=== PATIENT | female | born 1940 | race Caucasian/White ===

== ENCOUNTER 2016-12-03 12:11 | Outpatient (CLI) | payer MEDICARE, OTHER ==
--- NOTE | 2016-12-03 20:17 | Ultrasound Report ---
EXAM: ABDOMEN ULTRASOUND EXAM DATE: 12/03/2016 02:05 PM. CLINICAL HISTORY: Abdominal pain COMPARISON: Abdomen and pelvis CT 04/28/2014. TECHNIQUE: Real-time scanning was performed with static images obtained. FINDINGS: Liver: Mildly increased in echogenicity without focal lesion. Main portal vein flow: Hepatopetal. Gallbladder: Contracted with cholelithiasis without gallbladder wall thickening or pericholecystic fl uid. Biliary System: Common bile duct measures 7 mm. No intrahepatic or extrahepatic ductal dilatation. Pancreas: Visualized portion is unremarkable. Kidneys: Right: 7.8 cm longitudinally. Diminutive without hydronephrosis. Hypoechoic lesion superior to the ki dney adjacent to the liver which may represent an adrenal lesion measuring 1.4 x 0.9 x 1.2 cm. Left: 7.9 cm longitudinally. No hydronephrosis. 1.6 cm cyst. Spleen: 7.1 cm. Normal in size and echotexture. Aorta and Inferior Vena Cava: The inferior vena cava is unremarkable. Mild atherosclerotic plaque abd ominal aorta without evidence of aneurysm. IMPRESSION: 1. Cholelithiasis with contracted gallbladder without evidence of cholecystitis. 2. Fatty infiltration of the liver. 3. Hypoechoic lesion superior to the right kidney likely represents a lesion of the adrenal gland paula suring 1.4 cm. On the 2013 CT scan note is made of a right adrenal nodule which likely correlates wit h this finding. No significant interval change. [facility] Referring Provider Line: [phone] SITE ID: [id number]
== END 2016-12-03 12:12 | disposition home or self-care (01) ==
LOC: DI 12:11
PROVIDERS: ATTEND Family Medicine
DX: K80.20 Calculus of gallbladder without cholecystitis without obstruction (principal); K76.0 Fatty (change of) liver, not elsewhere classified
CPT/HCPCS: 76700

== ENCOUNTER 2017-04-29 00:57 | Emergency (ER) | payer MEDICARE, OTHER ==
--- NOTE | 2017-04-29 02:02 | ED Physician Documentation ---
History of Present Illness - Stated complaint Stated Complaint: RT LEG PAIN - Chief complaint Chief Complaint: General - History obtained from History obtained from: Patient - History of Present Illness Timing: How many days ago (3) Pain level max: 6 Pain level now: 0 Improved by: no ameliorating factors Worsened by: no apparent inciting or exacerbating factors - Additonal information Additional information: c/o 3 days of intermittent right groin and right proximal thigh pain, mostly at night. at times she feels the pain radiate down the leg. she is concerned both about the intensity of the pain as well as whether it relates to RLE bypass she had 11 years ago Review of Systems Constitutional: denies: Fever Cardiac: denies: Reviewed and negative Respiratory: denies: Reviewed and negative GI: denies: Reviewed and negative Skin: denies: Rash Musculoskeletal: reports: Extremity pain. 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 Cardiovascular: Vascular surgery - Present Medications Home Medications: Ambulatory Orders Medication Instructions Recorded Confirmed Aspirin Chewable [[place] 81 mg PO DAILY 06/13/13 05/17/16 Aspirin] Multivitamin [Multivitamins] 1 each PO DAILY 06/13/13 05/17/16 Simvastatin [Zocor] 20 mg PO QPM 06/13/13 05/17/16 Alprazolam [Xanax] 0.25 mg PO Q4HR PRN 11/04/13 05/17/16 Levocetirizine Dihydrochloride 5 mg PO BID 04/28/14 05/17/16 Sucralfate 1 gr PO DAILY 04/28/14 05/17/16 Furosemide [Lasix] 60 mg PO DAILY 12/24/14 05/17/16 Levothyroxine [Synthroid] 25 mcg PO DAILY 12/24/14 05/17/16 Omeprazole [PriLOSEC] 20 mg PO BID 12/24/14 05/17/16 Spironolactone 50 mg PO DAILY 12/24/14 05/17/16 Ursodiol 300 mg PO BID 12/24/14 05/17/16 Colchicine [Colcrys] 0.6 mg PO DAILY 05/17/16 05/17/16 Potassium Chloride [K-Dur] 20 meq PO DAILY 05/17/16 05/17/16 Hydrocodone/Acetaminophen 1 - 2 each PO Q6HR PRN #20 tablet 04/29/17 [Hydrocodon-Acetaminophen 5-325] - Allergies Allergies/Adverse Reactions: Allergies Allergy/AdvReac Type Severity Reaction Status Date / Time No Known Drug Allergies Allergy Verified 12/24/14 18:28 - Social History Does the pt smoke?: No Smoking Status: Never smoker Does the pt drink ETOH?: No Does the pt have substance abuse?: No - Immunizations Immunizations are current?: Yes - POLST Patient has POLST: No PD ED PE NORMAL - Vitals Vital signs reviewed: Yes - General General: Alert and oriented X 3, No acute distress, Well developed/nourished - Cardiac Cardiac: RRR, No murmur - Respiratory Respiratory: No respiratory distress, Clear bilaterally - Derm Derm: Normal color, Warm and dry, No rash - Extremities Extremities: No tenderness to palpate, Normal ROM s pain, No edema, Other (RLE has visible and palpable cord structure from right groin to right proximal tibia ; there is a strong visible and palpable pulse to this cord, c/w lower extremity bypass graft or shunt. no erythema, no tenderness, no swelling. There is a strong DP and PT pulse right foot; LTS intact right foot, normal color and tactile temperature with brisk capillary refill in toes) Results - Vitals Vitals: Vital Signs - 24 hr 04/29/17 04/29/17 01:09 04:12 Temperature 36.1 C L 36.8 C Heart Rate 60 80 Respiratory 17 20 Rate Blood Pressure 117/52 L 131/82 H O2 Saturation 99 98 Oxygen O2 Source Room air - Rads (name of study) RLE venous doppler US Radiology: Prelim report reviewed, See rad report PD MEDICAL DECISION MAKING - ED course Complexity details: reviewed results, re-evaluated patient, considered differential, d/w patient, d/w family Departure - Departure Disposition: 01 Home, Self Care Clinical Impression: Leg pain, right Condition: Good Instructions: ED Muscle Pain Leg Cramps, ED Strain Muscle Ext Follow-Up: Richard Lopez MD [Primary Care Provider] - Prescriptions: Hydrocodone/Acetaminophen [Hydrocodon-Acetaminophen 5-325] 1 - 2 each PO Q6HR PRN #20 tablet PRN Reason: Pain Discharge Date/Time: 04/29/17 04:12
--- NOTE | 2017-04-29 03:29 | Ultrasound Preliminary Report ---
Exam: US DUPLEX EXT VEINS RIGHT IMPRESSION: 1. No deep venous thrombosis seen. 2. Small fluid collection at the medial knee measuring 1.6 x 0.7 x 0.9 cm. [facility] SITE ID: [id number]
--- NOTE | 2017-04-29 03:32 | Ultrasound Report ---
EXAM: RIGHT LOWER EXTREMITY VENOUS ULTRASOUND EXAM DATE: 04/29/2017 03:17 AM. CLINICAL HISTORY: Pain in the extremity. COMPARISON: None. TECHNIQUE: Real-time sonographic vascular imaging was performed by the regional sales director through the lower extremity utilizing both color-flow and Doppler spectral analysis. Multiple electronics parts sales representative static lluvia ges were saved for review. FINDINGS: Common Femoral Vein (CFV): Normal. CFV-GSV Junction: Not optimally seen. Profunda Femoral Vein (PFV): Normal. Femoral Vein (FV) Prox: Normal. Femoral Vein (FV) Mid: Normal. Femoral Vein (FV) Dist: Normal. Popliteal Vein: Normal. Posterior Tibial Veins: Not well seen. Peroneal Veins: Not well seen. Other: Small fluid collection at the medial aspect of the knee measuring 1.6 x 0.7 x 0.9 cm. IMPRESSION: 1. No deep venous thrombosis seen. 2. Small fluid collection at the medial knee measuring 1.6 x 0.7 x 0.9 cm. [facility] Referring Provider Line: [phone] SITE ID: [id number]
[2017-04-29] MEDS ORDERED: HYDROcod/ACETAM 5/325 MG TABLET PO STA (03:59)
[2017-04-29] MEDS ORDERED: HYDROcod/ACETAM 5/325 MG TABLET ONE (04:12)
[2017-04-29 04:16] VITALS: BP 131/82
== END 2017-04-29 04:12 | disposition home or self-care (01) ==
LOC: ED 00:57
DX: M79.651 Pain in right thigh (principal); R10.2 Pelvic and perineal pain; I10 Essential (primary) hypertension; I73.9 Peripheral vascular disease, unspecified; E03.9 Hypothyroidism, unspecified; K21.9 Gastro-esophageal reflux disease without esophagitis; Z87.11 Personal history of peptic ulcer disease; Z98.84 Bariatric surgery status; Z79.82 Long term (current) use of aspirin
CPT/HCPCS: 93971; 99283; A9270

== ENCOUNTER 2017-08-12 18:43 | Emergency (ER) | payer MEDICARE, OTHER ==
--- NOTE | 2017-08-12 19:05 | ED Physician Documentation ---
PD HPI UPPER EXT INJURY - Stated complaint Stated Complaint: RT SHOULDER PX - Chief complaint Chief Complaint: Ext Problem - History obtained from History obtained from: Patient - History of Present Illness Location: Right (She had recent neck surgery. She got up today too fast and fell directly onto her right shoulder and has focal right shoulder pain. There is no new neck pain or injury. No other injuries. 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 Cardiovascular: Vascular surgery - Present Medications Home Medications: Ambulatory Orders Medication Instructions Recorded Confirmed Aspirin Chewable [[place] 81 mg PO DAILY 06/13/13 05/17/16 Aspirin] Multivitamin [Multivitamins] 1 each PO DAILY 06/13/13 05/17/16 Simvastatin [Zocor] 20 mg PO QPM 06/13/13 05/17/16 Alprazolam [Xanax] 0.25 mg PO Q4HR PRN 11/04/13 05/17/16 Levocetirizine Dihydrochloride 5 mg PO BID 04/28/14 05/17/16 Sucralfate 1 gr PO DAILY 04/28/14 05/17/16 Furosemide [Lasix] 60 mg PO DAILY 12/24/14 05/17/16 Levothyroxine [Synthroid] 25 mcg PO DAILY 12/24/14 05/17/16 Omeprazole [PriLOSEC] 20 mg PO BID 12/24/14 05/17/16 Spironolactone 50 mg PO DAILY 12/24/14 05/17/16 Ursodiol 300 mg PO BID 12/24/14 05/17/16 Colchicine [Colcrys] 0.6 mg PO DAILY 05/17/16 05/17/16 Potassium Chloride [K-Dur] 20 meq PO DAILY 05/17/16 05/17/16 Hydrocodone/Acetaminophen 1 - 2 each PO Q6HR PRN #20 tablet 04/29/17 [Hydrocodon-Acetaminophen 5-325] - Allergies Allergies/Adverse Reactions: Allergies Allergy/AdvReac Type Severity Reaction Status Date / Time No Known Drug Allergies Allergy Verified 08/12/17 18:54 - Social History Does the pt smoke?: No Smoking Status: Never smoker Does the pt drink ETOH?: No Does the pt have substance abuse?: No - Immunizations Immunizations are current?: Yes - POLST Patient has POLST: No PD ED PE NORMAL - Vitals Vital signs reviewed: Yes - General General: Alert and oriented X 3, No acute distress - Neck Neck: Supple, no meningeal sign, No bony TTP, Other (She has incisions both anterior and posterior the look fine and there is absolutely no neck tenderness. ) - Extremities Extremities: Other (Focally tender to the proximal humerus on the right with limited range of motion but no other extremity tenderness.) - Neuro Neuro: Alert and oriented X 3, Normal speech - Psych Psych: Normal mood, Normal affect Results - Vitals Vitals: Vital Signs - 24 hr 08/12/17 08/12/17 18:48 19:07 Temperature 36.6 C Heart Rate 99 Respiratory 19 Rate Blood Pressure 128/105 H 136/103 H O2 Saturation 93 Oxygen O2 Source Room air - Rads (name of study) R humerus and shoulder Radiology: EMP read contemporaneously (normal) Departure - Departure Disposition: 01 Home, Self Care Clinical Impression: Contusion of right shoulder Qualifiers: Encounter type: initial encounter Qualified Code(s): S40.011A - Contusion of right shoulder, initial encounter Condition: Good Record reviewed to determine appropriate education?: Yes Instructions: ED Contusion Upper Ext Comments: Recheck with your doctor in 1 week if not improving, return if worse or if new symptoms develop. Your blood pressure was elevated today on check into the emergency department. This does not mean that you have hypertension, it is a common phenomenon to come to the emergency department and have elevated blood pressure. I recommend that you see your primary care physician within the week to have it rechecked when you are feeling better.
--- NOTE | 2017-08-12 19:42 | XRAY Report ---
EXAM: RIGHT HUMERUS RADIOGRAPHY EXAM DATE: 08/12/2017 07:27 PM. CLINICAL HISTORY: Fall. Injury. Pain. COMPARISON: None. TECHNIQUE: 2 views. FINDINGS: Bones: Normal. No fractures or bone lesions. Joints: Normal. No effusions or subluxations in the visualized shoulder or elbow joints. Soft Tissues: Normal. No soft tissue swelling. IMPRESSION: Normal humerus radiography. [facility] Referring Provider Line: [phone] SITE ID: [id number]
--- NOTE | 2017-08-12 20:00 | XRAY Report ---
EXAM: RIGHT SHOULDER RADIOGRAPHY EXAM DATE: 08/12/2017 07:52 PM. CLINICAL HISTORY: Shoulder injury. Pain. COMPARISON: None. TECHNIQUE: 3 views. FINDINGS: Bones: Normal. No fracture or bone lesion. Joints: The glenohumeral and acromioclavicular joints are normal. Soft tissues: The visualized hemithorax is unremarkable. No soft tissue swelling. IMPRESSION: Normal shoulder radiography. [facility] Referring Provider Line: [phone] SITE ID: [id number]
[2017-08-12 20:25] VITALS: BP 165/74
== END 2017-08-12 20:25 | disposition home or self-care (01) ==
LOC: ED 18:43
DX: S40.011A Contusion of right shoulder, initial encounter (principal); W18.39XA Other fall on same level, initial encounter; Y92.003 Bedroom of unspecified non-institutional (private) residence as the place of occurrence of the external cause; I10 Essential (primary) hypertension; Z98.890 Other specified postprocedural states; Z86.79 Personal history of other diseases of the circulatory system; Z79.82 Long term (current) use of aspirin
CPT/HCPCS: 99283

== ENCOUNTER 2017-12-01 13:45 | Outpatient (CLI) | payer MEDICARE, OTHER ==
--- NOTE | 2017-12-04 16:15 | Mammography Report ---
Procedure Date: 12/01/2017 Accession Number: [id number] / [id number] Procedure: MGN - Screening Mammo Dig Bilat CPT Code: FULL RESULT: EXAM: Screening Mammo Dig Bilat DATE: 12/01/2017 2:14 PM CLINICAL HISTORY: Routine screening TECHNIQUE: Bilateral CC and MLO views were obtained. COMPARISON: 04/11/2016, 11/21/2012, 08/08/1911, 07/21/10, and 07/15/2009 FINDINGS: There are scattered fibroglandular densities. No suspicious masses, clustered microcalcifications, skin thickening, or regions of architectural distortion are identified. No significant interval change. IMPRESSION: Negative. RECOMMENDATION: Routine annual screening unless otherwise clinically indicated. BIRADS CATEGORY 1. Negative. STANDARD QUALIFYING STATEMENTS: 1. This examination was reviewed with the aid of Computer-Aided Detection (CAD). 2. A negative or benign imaging report should not delay biopsy if clinically suspicious findings are present. Consider surgical consultation if warrented. More than 5% of cancers are not identified by imaging. 3. Dense breasts may obscure an underlying neoplasm.
== END 2017-12-01 13:46 | disposition home or self-care (01) ==
LOC: DI.N 13:45
PROVIDERS: ATTEND Family Medicine
DX: Z12.31 Encounter for screening mammogram for malignant neoplasm of breast (principal)
CPT/HCPCS: 77067

== ENCOUNTER 2018-03-23 14:42 | Outpatient (CLI) | payer MEDICARE, OTHER ==
--- NOTE | 2018-03-23 17:41 | Ultrasound Report ---
Reason: PAIN IN RIGHT LEG Procedure Date: 03/23/2018 Accession Number: [id number] / [id number] Procedure: US - Duplex Lwr Ext Arterial RT CPT Code: FULL RESULT: EXAM: RIGHT LOWER EXTREMITY ARTERIAL DOPPLER ULTRASOUND EXAM DATE: 03/23/2018 03:11 PM. CLINICAL HISTORY: PAIN IN RIGHT LEG. COMPARISON: None. TECHNIQUE: Real-time sonographic vascular imaging was performed by the grievance and appeals coordinator, utilizing color-flow, Doppler flow, and spectral analysis. Multiple loss prevention representative static images were saved for review. FINDINGS: Following are peak systolic velocities in centimeters per second Right common femoral artery 185 Proximal right bypass graft 121 Mid bypass graft 62 Distal bypass graft 82 Superficial femoral artery 18, but has been bypassed. Popliteal artery 65 Anterior tibial artery 30 Dorsalis pedis artery 28 Common femoral artery anastomosis 153 Distal anastomosis 54 IMPRESSION: Right lower extremity Peak systolic velocities as detailed above [facility]
== END 2018-03-23 14:43 | disposition home or self-care (01) ==
LOC: DI 14:42
PROVIDERS: ATTEND Family Medicine
DX: I73.9 Peripheral vascular disease, unspecified (principal); M79.604 Pain in right leg

== ENCOUNTER 2018-04-23 23:25 | Outpatient (CLI) | payer MEDICARE, OTHER | END 2018-04-23 23:26 | disposition critical access hospital (66) | LOC: EMS 23:25 | PROVIDERS: ATTEND Surgery | DX: M79.602 Pain in left arm (principal); W18.30XA Fall on same level, unspecified, initial encounter; Y93.01 Activity, walking, marching and hiking; Y92.003 Bedroom of unspecified non-institutional (private) residence as the place of occurrence of the external cause | CPT/HCPCS: A0425; A0429 ==

== ENCOUNTER 2018-04-23 23:43 | Inpatient (IN) | payer MEDICARE, OTHER ==
[2018-04-23] MEDS ORDERED: oxyCODONE 5 MG TABLET PO STA (23:52)
[2018-04-24] MEDS ORDERED: ONDANSETRON ODT 4 MG TABLET TL STA (00:48)
[2018-04-24] MEDS ORDERED: MORPHINE 2 MG/ML CARPUJECT IM STA (00:48)
--- NOTE | 2018-04-24 00:56 | ED Physician Documentation ---
History of Present Illness - Stated complaint Stated Complaint: GLF/L ARM PAIN - Chief complaint Chief Complaint: Trauma Ext - Additonal information Additional information: hx from pt and EMS 78 female long hx of frequent falls due to balance issues and glaucoma lives in a house with her tonight was up to get a glass of water and fell landing directly on her L arm severe pain from elbow to hand denies hitting head no [place] no neck pain no CP no AP no hip pain meds not updated in NN at this time but I reviewed the bottle brought in by EMS - mostly old bottles with no label and a name handwritten on the lid - but cant confirm what is actually in these bottles - no labeled blood thinners Pmhx from last H&P HTN GERD periph artery dz PUD HLD hypothyroid back pain 2/2 HNP hx sepsis Review of Systems Constitutional: denies: Fever Cardiac: denies: Chest pain / pressure Respiratory: denies: Dyspnea GI: denies: Abdominal Pain Musculoskeletal: reports: Extremity pain. denies: Neck pain, Back pain Neurologic: denies: Headache, Head injury Endocrine: denies: Easy bruising / bleeding Immunocompromised: denies: Immunocompromised PD PAST MEDICAL HISTORY - Past Medical History Past Medical History: Yes Cardiovascular: Hypertension, Peripheral Vascular Disease Respiratory: None Neuro: None Endocrine/Autoimmune: HyPOthyroidism GI: GERD, Ulcers, Diverticulitis, Cholelithiasis : None HEENT: Glaucoma Psych: None Musculoskeletal: None Derm: None Other Past Medical History: NEEDS ASSISTANCE WITH MOBILITY... 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 Cardiovascular: Vascular surgery - Present Medications Home Medications: Ambulatory Orders Medication Instructions Recorded Confirmed Aspirin Chewable [[place] 81 mg PO DAILY 06/13/13 05/17/16 Aspirin] Multivitamin [Multivitamins] 1 each PO DAILY 06/13/13 05/17/16 Simvastatin [Zocor] 20 mg PO QPM 06/13/13 05/17/16 Alprazolam [Xanax] 0.25 mg PO Q4HR PRN 11/04/13 05/17/16 Levocetirizine Dihydrochloride 5 mg PO BID 04/28/14 05/17/16 Sucralfate 1 gr PO DAILY 04/28/14 05/17/16 Furosemide [Lasix] 60 mg PO DAILY 12/24/14 05/17/16 Levothyroxine [Synthroid] 25 mcg PO DAILY 12/24/14 05/17/16 Omeprazole [PriLOSEC] 20 mg PO BID 12/24/14 05/17/16 Spironolactone 50 mg PO DAILY 12/24/14 05/17/16 Ursodiol 300 mg PO BID 12/24/14 05/17/16 Colchicine [Colcrys] 0.6 mg PO DAILY 05/17/16 05/17/16 Potassium Chloride [K-Dur] 20 meq PO DAILY 05/17/16 05/17/16 Hydrocodone/Acetaminophen 1 - 2 each PO Q6HR PRN #20 tablet 04/29/17 [Hydrocodon-Acetaminophen 5-325] - Allergies Allergies/Adverse Reactions: Allergies Allergy/AdvReac Type Severity Reaction Status Date / Time No Known Drug Allergies Allergy Verified 04/23/18 23:55 - Social History Does the pt smoke?: No Smoking Status: Never smoker Does the pt drink ETOH?: No Does the pt have substance abuse?: No - Immunizations Immunizations are current?: Yes - POLST Patient has POLST: No PD ED PE NORMAL - Vitals Vital signs reviewed: Yes - Cardiac Cardiac: RRR - Respiratory Respiratory: No respiratory distress - Abdomen Abdomen: Soft, Non tender - Derm Derm: Normal color - Extremities Extremities: Other (swelling and bruising to elbow, seere TTP elbow FA wrist and less so hand, upper arm shoulder clavicle do not seem tender, + radial and ulnar pulses, + cp refill, + sensation, can wiggle fingers but full strength assessment limited by severe pain) - Neuro Neuro: Alert and oriented X 3, No motor deficit, No sensory deficit, Normal speech Results - Vitals Vitals: Vital Signs - 24 hr 04/23/18 04/23/18 04/24/18 23:40 23:51 00:07 Temperature 36.4 C L Heart Rate 97 Respiratory 17 17 17 Rate Blood Pressure 107/96 H 157/131 H O2 Saturation 99 100 04/24/18 04/24/18 04/24/18 00:59 01:37 02:22 Temperature Heart Rate 70 Respiratory 16 16 16 Rate Blood Pressure 127/80 O2 Saturation 100 04/24/18 04/24/18 04/24/18 03:00 03:14 03:26 Temperature Heart Rate 80 72 Respiratory 19 17 16 Rate Blood Pressure 96/79 O2 Saturation 100 95 04/24/18 04:07 Temperature Heart Rate 80 Respiratory 16 Rate Blood Pressure O2 Saturation 96 Oxygen O2 Source Room air - Labs Labs: Laboratory Tests 04/24/18 04/24/18 02:18 02:18 WBC 9.4 RBC 3.31 L Hgb 10.6 L Hct 31.6 L MCV 95.5 MCH 32.2 H MCHC 33.7 RDW 17.7 H Plt Count 254 MPV 8.9 Neut # (Auto) 6.8 H Lymph # (Auto) 1.7 [place] # (Auto) 0.8 Eos # (Auto) 0.0 Baso # (Auto) 0.1 Absolute Nucleated RBC 0.00 Nucleated RBC % 0.0 Sodium 128 L Potassium 3.7 Chloride 94 L Carbon Dioxide 22 Anion Gap 12.0 BUN 27 H Creatinine 1.2 H Estimated GFR (MDRD) 44 L Glucose 84 Calcium 8.7 - Rads (name of study) elbow Radiology: See rad report (cominuted distal humeral fx, approx 3 cm proximal to elbow, 60 degress or angulation and 4 cm of foreshortening) FA Radiology: See rad report (distal humerus fx, no FA fx) wrist Radiology: See rad report (no fx) Procedures - Splint (location) LUE Splint applied by: Physician, Nurse, Tech Type of splint: Fiberglass, Long arm Other: No complications, Neurovascular intact, Sling provided, Other (after several doses of IV morphine and with the assistance of several staff members to support pts arm, able to placed pt in a well padded long arm posterior splint, it was still painful but she was able to tolerate, spling provided, MSV intact after splint placement) PD MEDICAL DECISION MAKING - ED course ED course: serial exams pt is still MSV intact paged Dr Milly delgado at 130AM he reviewed the images he advises that pt will need surgery - but cannot have surgery at [facility] today 04/24 because we do not have the hardware and it will have to be ordered and sterilized etc - would be available Wed probably - he suggests that maybe pt can be splinted and dced to follow up in office for surgery within next 1-2 weeks I really do not see how this pt can be dced home - she is in terrific pain unable to be controlled with PO oxycodone, IM morphine and IV morphine X 3 doses (6 mg) - furthermore she is very fragile and unstable and needs to hold on to furniture etc to keep herself from falling which she will be unable to do if her arm is immobilized so she will not be safe at home so called [facility] and spoke to ortho cotton picker there - similar situation as [facility] - he can do the surgery but will need to order the hardware so not before Wed - furthermore he advises that in similar situation of unsafe to dc home and intractable pain, pts are sometimes admitted at that facility I also tried Prov Reuben - no beds and spoke to pt and about [facility] [place] [facility] but they are very upset about this as cannot drive to be with her there so basically severe comminuted angulated displaced foreshortened L humerus fx in a frail 78 female who needs both arms to prevent further falls and whose pain is uncontrolled by PO IM and IV narcotics and immobilization since Susy has same resources for this pt as [facility] (ortho who can do the surgery when hardware available in 2 days) does not seem useful to transfer pt at this time discussed with [facility] hospitalist Dr Macias who advises pts can be admitted for intractable pain - he will place pt in obspending hardware and surgery - or worse case scenerio, if surgery cannot be managed in that time frame, for SW to assist with SNF placement for safety and pain until such time as surgery can be done mild anemia and renal insuff not new, low Na noted - pt getting NS Departure - Departure Disposition: ED Place in Observation Clinical Impression: Intractable pain, Hyponatremia, Renal insufficiency Humerus fracture Qualifiers: Encounter type: initial encounter Humerus Location: distal Fracture type: closed Fracture morphology: other fracture Fracture alignment: displaced Laterality: left Qualified Code(s): S42.492A - Other displaced fracture of lower end of left humerus, initial encounter for closed fracture Fall Qualifiers: Encounter type: initial encounter Qualified Code(s): W19.XXXA - Unspecified fall, initial encounter Anemia Qualifiers: Anemia type: unspecified type Qualified Code(s): D64.9 - Anemia, unspecified Condition: Good
--- NOTE | 2018-04-24 01:21 | XRAY Report ---
Reason: fall Procedure Date: 04/24/2018 Accession Number: [id number] / [id number] Procedure: XR - Elbow 3 View LT CPT Code: FULL RESULT: EXAM: LEFT ELBOW RADIOGRAPHY EXAM DATE: 04/24/2018 12:21 AM. CLINICAL HISTORY: Fall. COMPARISON: None. TECHNIQUE: 3 views. FINDINGS: Bones: There is a comminuted fracture of the distal humeral shaft, with approximately 4 cm foreshortening and anterior angulation. Joints: Normal. No effusion. No subluxation. Soft Tissues: Large amount of soft tissue swelling. IMPRESSION: Comminuted distal humeral shaft fracture, with foreshortening and angulation. [facility]
--- NOTE | 2018-04-24 01:22 | XRAY Report ---
Reason: fall Procedure Date: 04/24/2018 Accession Number: [id number] / [id number] Procedure: XR - Forearm LT CPT Code: FULL RESULT: EXAM: LEFT FOREARM RADIOGRAPHY EXAM DATE: 04/24/2018 12:21 AM. CLINICAL HISTORY: Fall. COMPARISON: None. TECHNIQUE: 2 views. FINDINGS: Bones: Humeral fracture, better seen on elbow films. No forearm fracture is appreciated. Joints: Normal. No effusions or subluxations in the visualized wrist or elbow joints. Soft Tissues: Vascular calcifications. IMPRESSION: Distal humeral fracture, better seen on elbow films. No evidence of fracture in the forearm. [facility]
--- NOTE | 2018-04-24 01:23 | XRAY Report ---
Reason: fall Procedure Date: 04/24/2018 Accession Number: [id number] / [id number] Procedure: XR - Wrist 4 View LT CPT Code: FULL RESULT: EXAM: LEFT WRIST RADIOGRAPHY EXAM DATE: 04/24/2018 01:03 AM. CLINICAL HISTORY: Fall. COMPARISON: None. TECHNIQUE: 4 views. FINDINGS: Bones: Normal. No fractures or bone lesions. Joints: Osteoarthritis of the first carpometacarpal joint. Soft Tissues: Vascular calcifications. IMPRESSION: Osteoarthritis, but no evidence of acute fracture. RADIA
[2018-04-24] MEDS ORDERED: MORPHINE 2 MG/ML CARPUJECT IVP STA ×4 (01:41→04:51)
[2018-04-24] MEDS ORDERED: SODIUM CHLORIDE 0.9% 1,000 ML IV ONE (01:43)
[2018-04-24 02:24] LABS: BASOPHILS # (AUTO) 0.1 10^3/uL (0.0-0.1); BASOPHILS % (AUTO) 0.7 %; HGB - HEMOGLOBIN 10.6 g/dL (12.0-16.0); LYMPHOCYTES # (AUTO) 1.7 10^3/uL (1.5-3.5); LYMPHOCYTES % (AUTO) 18.2 %; MEAN CORPUSCULAR HEMOGLOBIN 32.2 pg (27.0-31.0); MEAN CORPUSCULAR HGB CONC 33.7 g/dL (32.0-36.0); MEAN CORPUSCULAR VOLUME 95.5 fL (81.0-99.0); MEAN PLATELET VOLUME 8.9 fL (7.9-10.8); MONOCYTES # (AUTO) 0.8 10^3/uL (0.0-1.0); MONOCYTES % (AUTO) 8.8 %; NEUTROPHILS # (AUTO) 6.8 10^3/uL (1.5-6.6); NEUTROPHILS % (AUTO) 72.3 %; PLT - PLATELET COUNT 254 10^3/uL (130-450); RED BLOOD COUNT 3.31 10^6/uL (4.20-5.40); RED CELL DISTRIBUTION WIDTH 17.7 % (12.0-15.0); WHITE BLOOD COUNT 9.4 x10^3/uL (4.8-10.8)
[2018-04-24 02:33] LABS: CALCIUM 8.7 mg/dL (8.5-10.3); CREATININE 1.2 mg/dL (0.4-1.0)
[2018-04-24] MEDS ORDERED: MORPHINE 2 MG/ML CARPUJECT ONE (02:56)
[2018-04-24] MEDS ORDERED: ONDANSETRON 4 MG/2 ML VIAL IVP PRN (04:01)
[2018-04-24] MEDS ORDERED: oxyCODONE 5 MG TABLET PO PRN ×2 (04:01)
[2018-04-24] MEDS ORDERED: PROMETHAZINE 25 MG/1 ML VIAL IM PRN (04:01)
[2018-04-24] MEDS ORDERED: ZOLPIDEM 5 MG TABLET PO PRN (04:01)
[2018-04-24] MEDS ORDERED: PROCHLORPERAZINE 10 MG/2 ML VIAL IVP PRN (04:01)
[2018-04-24] MEDS ORDERED: ACETAMINOPHEN 325 MG TABLET PO PRN (04:01)
--- NOTE | 2018-04-24 04:09 | HISTORY & PHYSICAL EXAMINATION ---
Chief Complaint - Chief Complaint Chief Complaint: Fall History of Present Illness - Admitted From Admitted From:: Emergency department - History Obtained From Records Reviewed: Yes History obtained from: Patient Exam Limitations: None - History of Present Illness HPI Comment/Other: Patient is a 78-year-old female with a past medical history significant for hypertension, GERD, peripheral arterial disease status post bypass in the right lower extremity, peptic ulcer disease with perforated ulcer status post Billroth II procedure in 2005, hyperlipidemia, chronic back pain secondary to herniated disks, seasonal allergies, hypothyroidism and progressively worsening glaucoma who presented to the emergency department after a fall at home. The patient states that she has had 9 falls in the last 3 years. She states that tonight was getting ready for bed and turn off the TV then got up to get a glass of water. She states that she was able to get the glass of water but then upon returning to her bed she fell onto her left arm. She states that she fell awkwardly and initially did not realize she had heard it but when she tried to get up she heard 2 loud cracks and then had severe left arm pain. She states that she was unable to get up as she could not move that left arm. She states that she called out for her who was in another room sleeping with his sleep apnea machine. She realized that he would not be able to hear her so then she tried to call for her son who lives in an RV next to their home. Finally her woke up and was able to get to her and call 911. The patient states that she did not lose consciousness and remembers the entire fall. She states that she has been having issues with her balance and likely lost her balance she does not remember tripping over anything. She also states that she has really bad glaucoma and has been having difficulty with her vision. She states that she does have a walker at home but was not using it tonight. She states that she just had a fall recently where she dislocated her right shoulder and now is unable to raise that right arm above her head. Patient denies any headaches, runny nose, sore throat, nasal congestion, difficulty swallowing, chest pain, shortness of air, orthopnea, PND, cough, fevers, chills, abdominal pain, nausea, vomiting, diarrhea, constipation, urinary urgency, urinary frequency, dysuria, neck stiffness, recent unintentional weight loss, changes in her appetite, skin rash, polyuria, polydipsia, dizziness, night sweats or any focal neurologic deficits. On presentation to the emergency department the patient was afebrile but she was tachycardic with a heart rate of 97 and hypertensive with a blood pressure of 157/31. She appeared to be in severe pain and had a deformity of her left arm. The patient's left arm was placed in a sling and the patient was given IV pain medication in the emergency department. The patient underwent routine lab work which revealed a mild hyponatremia with a sodium of 128, mildly elevated creatinine of 1.2 which was at her baseline. Hemoglobin of 10.6 which was near her baseline. Otherwise remainder of the lab work was within normal limits. The patient also underwent x-ray of her forearm wrist and elbow. The forearm x- ray revealed a comminuted distal humeral shaft fracture with foreshortening and angulation. The emergency room physician spoke with the orthopedic surgeon assistant gm of content & delivery Dr. Atkins who stated that the patient's humeral fracture does require surgical intervention however it would take 2 days to get the equipment to the hospital to perform the surgery. The emergency room physician spoke with orthopedic surgery at [facility] and the orthopedic surgeons there stated that even at their hospital it would take several days to get the equi pment and that the patient should be admitted to the hospital here at [facility] since the surgery would take place around the same time no matter which hospital she went to. The patient continued to have severe pain and despite several doses of IV pain medication we were unable to control her pain in the emergency department. The patient was placed in observation for intractable pain and will get an orthopedic surgery consultation in the morning. History - Past Medical History Cardiovascular: reports: Hypertension, Peripheral Vascular Disease (Status post right lower extremity bypass) Respiratory: reports: None Neuro: reports: None Endocrine/Autoimmune: reports: HyPOthyroidism GI: reports: GERD, Ulcers (Peptic ulcer disease with perforated ulcer status post Billroth II procedure in 2005), Diverticulitis, Cholelithiasis, Other (History of choledocholithiasis) : reports: None, Renal insuffiency (CKD stage III) HEENT: reports: Glaucoma Psych: reports: None Musculoskeletal: reports: Chronic back pain (2 herniated disks) Derm: reports: None MRSA Hx?: No Other Past Medical History: NEEDS ASSISTANCE WITH MOBILITY... - Past Surgical History General: reports: Gastric surgery /[employer]: reports: Hysterectomy Cardiovascular: reports: Vascular surgery - Family & Social History Family History: Mother: , CVA/TIA, Father: , Cancer (Colon cancer), Sister: [place] (Sister had [place] at 53) Living arrangement: At home Living Situation: With spouse/s.o. Social History Notes: The patient is originally from [place]. She has been to her for 57 years. Her was in the [place] and that is what brought them to [place]. They have been living in [place] ever since. Patient has 3 children 2 sons and 1 daughter. 2 of her children live in [place]. 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 She is a former smoker smoked 1 pack a day for more than 40 years but quit in 2005. She denies any alcohol or illicit drug use. - POLST Patient has POLST: No POLST Status: Full Code Meds/Allgy - Home Medications Home Medications: Ambulatory Orders Medication Instructions Recorded Confirmed Aspirin Chewable [[place] 81 mg PO DAILY 06/13/13 05/17/16 Aspirin] Multivitamin [Multivitamins] 1 each PO DAILY 06/13/13 05/17/16 Simvastatin [Zocor] 20 mg PO QPM 06/13/13 05/17/16 Alprazolam [Xanax] 0.25 mg PO Q4HR PRN 11/04/13 05/17/16 Levocetirizine Dihydrochloride 5 mg PO BID 04/28/14 05/17/16 Sucralfate 1 gr PO DAILY 04/28/14 05/17/16 Furosemide [Lasix] 60 mg PO DAILY 12/24/14 05/17/16 Levothyroxine [Synthroid] 25 mcg PO DAILY 12/24/14 05/17/16 Omeprazole [PriLOSEC] 20 mg PO BID 12/24/14 05/17/16 Spironolactone 50 mg PO DAILY 12/24/14 05/17/16 Ursodiol 300 mg PO BID 12/24/14 05/17/16 Colchicine [Colcrys] 0.6 mg PO DAILY 05/17/16 05/17/16 Potassium Chloride [K-Dur] 20 meq PO DAILY 05/17/16 05/17/16 Hydrocodone/Acetaminophen 1 - 2 each PO Q6HR PRN #20 tablet 04/29/17 [Hydrocodon-Acetaminophen 5-325] - Allergies Allergies/Adverse Reactions: Allergies Allergy/AdvReac Type Severity Reaction Status Date / Time No Known Drug Allergies Allergy Verified 04/23/18 23:55 Review of Systems - Other Findings Other Findings: A comprehensive review of systems was performed the pertinent positives and negatives are stated above in the HPI and the remainder of the review of systems is negative. Prior Level of Functionality: The patient is independent and able to perform all her activities of daily living independently but has had frequent falls and requires assistance with ambulation in the emergency department. Exam - Vital Signs Reviewed Vital Signs: Yes Vital Signs: Vital Signs x48h Temp Pulse Resp BP Pulse Ox 04/24/18 03:26 72 16 96/79 95 04/24/18 03:14 17 04/24/18 03:00 80 19 100 04/24/18 02:22 16 04/24/18 01:37 70 16 127/80 100 04/24/18 00:59 16 04/24/18 00:07 17 04/23/18 23:51 36.4 C L 97 17 157/131 H 100 04/23/18 23:40 17 107/96 H 99 - Physical Exam General Appearance: positive: Alert, Moderate distress (Secondary to pain in the left arm) Eyes Bilateral: positive: Normal inspection, PERRL, EOMI, No lid inflammation, Conjunctivae nml, No scleral icterus ENT: positive: ENT inspection nml, Pharynx nml, Dry mucous membranes. negative: Purulent nasal drainage, Pharyngeal erythema, Oral lesions Neck: positive: Nml inspection, Thyroid nml, No JVD, Trachea midline. negative: Lymphadenopathy (R), Lymphadenopathy (L), Carotid bruit, Tracheal deviation Respiratory: positive: Chest non-tender, No respiratory distress, Breath sounds nml. negative: Wheezes, Rales, Rhonchi Cardiovascular: positive: Regular rate & rhythm, No murmur, No gallop Peripheral Pulses: positive: 2+ Abdomen: positive: Non-tender, No organomegaly, Nml bowel sounds, No distention. negative: Guarding, Rebound, Hepatomegaly Back: positive: Nml inspection. negative: CVA tenderness (R), CVA tenderness (L) Skin: positive: Color nml, No rash, Warm, Dry. negative: Cyanosis, Diaphoresis, Pallor Extremities: positive: No pedal edema, Other (Patient has a sling on her left arm and has very limited range of motion secondary to severe pain on movement of her left arm. The patient does have obvious fracture with deformity. She also has limited range of motion on her right arm.) Neurologic/Psychiatric: positive: Oriented x3, CN's nml (2-12), Motor nml, Sensation nml, Mood/affect nml Conclusion/Plan - Problem List (1) Intractable pain Conclusion/Plan: The patient presents after a fall where she landed on her left arm. The patient suffered a comminuted distal humeral shaft fracture and has deformity of her left arm. Secondary to the fracture the patient has severe pain despite being placed in a sling. Patient received multiple doses of IV morphine in the emergency department without control of her pain. The patient is being placed in observation for intractable pain secondary to her humeral shaft fracture. Plan: IV morphine every 2 hours as needed for pain PT and OT consultation Orthopedic consultation Social work consultation for possible placement or assistance at home as patient currently would be unable to safely go home. (2) Humerus fracture Conclusion/Plan: Patient presents the emergency department after a fall. The patient has had multiple falls in the last 3 years. She had a fall just a week ago where she dislocated her right shoulder. This time the patient fell on her left arm and now has a comminuted distal left humeral fracture with displacement. Plan: Pain control with IV morphine Orthopedic consult for surgical repair of the left humerus IV fluids PT/OT consultation Social work consultation Continue sling Qualifiers: Encounter type: initial encounter Humerus Location: distal Fracture type: closed Fracture morphology: other fracture Fracture alignment: displaced Laterality: left Qualified Code(s): S42.492A - Other displaced fracture of lower end of left humerus, initial encounter for closed fracture (3) Hypertension Conclusion/Plan: The patient has a history of hypertension however on presentation the patient's blood pressure is severely elevated secondary to her pain. Once pain was controlled the patient's blood pressure was much improved. Patient will be continued on her home antihypertensive medications. We will continue to monitor her blood pressure and titrate medications as needed. Qualifiers: Hypertension type: essential hypertension Qualified Code(s): I10 - Essential (primary) hypertension (4) Hyponatremia Conclusion/Plan: On presentation to the emergency department the patient does have hyponatremia with a sodium of 128. She complains of dry mouth and appears to be dry on examination. The patient will be given IV fluids and we will continue to monitor her sodium as she appears to have hypovolemic hyponatremia. (5) Fall Conclusion/Plan: The patient has a history of multiple falls over the last few years. She has had 2 falls in the last few weeks initially with a shoulder on her initial fall and now has a broken arm. The patient needs to use her walker at home but has not been doing so. She will need physical therapy, occupational therapy and social work consults while she is hospitalized. She also needs to be on vitamin D and calcium to protect against osteoporosis. Qualifiers: Encounter type: initial encounter Qualified Code(s): W19.XXXA - Unspecified fall, initial encounter (6) Hypothyroidism Conclusion/Plan: The patient has a history of hypothyroidism and is on levothyroxine at home. The patient does not show any acute signs of hypothyroidism. She will be continued on her home dose of levothyroxine and we will check a TSH in the morning. Qualifiers: Hypothyroidism type: unspecified Qualified Code(s): E03.9 - Hypothyroidism, unspecified (7) Chronic back pain Conclusion/Plan: The patient has a history of chronic back pain and uses Vicodin at home. The patient will be placed on morphine here as she has intractable pain in her arm which should also work with her back pain. Currently the patient denies any back pain. Qualifiers: Back pain location: back pain in unspecified location Back pain laterality: unspecified Qualified Code(s): M54.9 - Dorsalgia, unspecified; G89.29 - Other chronic pain (8) Hyperlipidemia Conclusion/Plan: The patient has a history of hyperlipidemia and is on statin at home. We will continue the patient's home dose of statin while she is hospitalized. Qualifiers: Hyperlipidemia type: unspecified Qualified Code(s): E78.5 - Hyperlipidemia, unspecified (9) CKD (chronic kidney disease), stage III Conclusion/Plan: The patient has CKD stage III. On presentation the patient's creatinine is 1.2 which is right around her baseline. The patient does appear to be dry on examination and does have a slightly elevated BUN. She will be given IV fluids while she is hospitalized. We will continue to monitor her creatinine and avoid any nephrotoxic agents. (10) GERD (gastroesophageal reflux disease) Conclusion/Plan: The patient has a history of GERD and is on Prilosec at home. While the patient is hospitalized here she will be given daily Protonix. Qualifiers: Esophagitis presence: without esophagitis Qualified Code(s): K21.9 - Gastro-esophageal reflux disease without esophagitis - Lab Results Lab results reviewed: Yes Fish Bones: 04/24/18 02:18 04/24/18 02:18 - Diagnostic Imaging Results Diagnostic Imaging Results: positive: Final report reviewed Diagnostic Imaging Results Comments: Laboratory Results WBC 9.4 x10^3/uL (4.8-10.8) 04/24/18 02:18 RBC 3.31 10^6/uL (4.20-5.40) L 04/24/18 02:18 Hgb 10.6 g/dL (12.0-16.0) L 04/24/18 02:18 Hct 31.6 % (37.0-47.0) L 04/24/18 02:18 MCV 95.5 fL (81.0-99.0) 04/24/18 02:18 MCH 32.2 pg (27.0-31.0) H 04/24/18 02:18 MCHC 33.7 g/dL (32.0-36.0) 04/24/18 02:18 RDW 17.7 % (12.0-15.0) H 04/24/18 02:18 Plt Count 254 10^3/uL (130-450) 04/24/18 02:18 MPV 8.9 fL (7.9-10.8) 04/24/18 02:18 Neut # (Auto) 6.8 10^3/uL (1.5-6.6) H 04/24/18 02:18 Lymph # (Auto) 1.7 10^3/uL (1.5-3.5) 04/24/18 02:18 [place] # (Auto) 0.8 10^3/uL (0.0-1.0) 04/24/18 02:18 Eos # (Auto) 0.0 10^3/uL (0.0-0.7) 04/24/18 02:18 Baso # (Auto) 0.1 10^3/uL (0.0-0.1) 04/24/18 02:18 Absolute Nucleated RBC 0.00 x10^3/uL 04/24/18 02:18 Nucleated RBC % 0.0 /100WBC 04/24/18 02:18 Sodium 128 mmol/L (135-145) L 04/24/18 02:18 Potassium 3.7 mmol/L (3.5-5.0) 04/24/18 02:18 Chloride 94 mmol/L (101-111) L 04/24/18 02:18 Carbon Dioxide 22 mmol/L (21-32) 04/24/18 02:18 Anion Gap 12.0 (6-13) 04/24/18 02:18 BUN 27 mg/dL (6-20) H 04/24/18 02:18 Creatinine 1.2 mg/dL (0.4-1.0) H 04/24/18 02:18 Estimated GFR (MDRD) 44 (>89) L 04/24/18 02:18 Glucose 84 mg/dL (70-100) 04/24/18 02:18 Calcium 8.7 mg/dL (8.5-10.3) 04/24/18 02:18 Elbow x-ray Impression: Comminuted distal humeral shaft fracture, with foreshortening and angulation. Forearm x-ray Impression: Distal humeral fracture. Better seen on elbow films. No evidence of fracture in the forearm. Wrist x-ray Impression: Osteoarthritis, but no evidence of acute fracture. - EKG Results EKG Interpreted Independently: Yes Core Measures - Anticipated LOS I expect patient to be DC'd or transferred within 96 hours.: Yes - DVT/VTE - Prophylaxis VTE/DVT Device ordered at admit?: Yes
[2018-04-24 06:38] LABS: BASOPHILS # (AUTO) 0.1 10^3/uL (0.0-0.1); BASOPHILS % (AUTO) 0.5 %; HGB - HEMOGLOBIN 10.5 g/dL (12.0-16.0); LYMPHOCYTES # (AUTO) 2.3 10^3/uL (1.5-3.5); LYMPHOCYTES % (AUTO) 18.9 %; MEAN CORPUSCULAR HGB CONC 33.4 g/dL (32.0-36.0); MEAN CORPUSCULAR VOLUME 95.9 fL (81.0-99.0); MEAN PLATELET VOLUME 8.9 fL (7.9-10.8); MONOCYTES % (AUTO) 8.7 %; NEUTROPHILS # (AUTO) 8.7 10^3/uL (1.5-6.6); NEUTROPHILS % (AUTO) 71.9 %; PLT - PLATELET COUNT 269 10^3/uL (130-450); RED BLOOD COUNT 3.29 10^6/uL (4.20-5.40); RED CELL DISTRIBUTION WIDTH 17.3 % (12.0-15.0)
[2018-04-24 06:52] LABS: ALBUMIN 3.8 g/dL (3.2-5.5); ALBUMIN/GLOBULIN RATIO 1.6 (1.0-2.2); BILIRUBIN,TOTAL 1.2 mg/dL (0.2-1.0); CALCIUM 8.8 mg/dL (8.5-10.3); CREATININE 1.1 mg/dL (0.4-1.0); MAGNESIUM 1.8 mg/dL (1.7-2.8); TOTAL PROTEIN 6.2 g/dL (6.7-8.2)
[2018-04-24] MEDS: SODIUM CHLORIDE 0.9% 1,000 ML IV SCH ×2 (07:25→17:21)
[2018-04-24] MEDS: SODIUM CHLORIDE FLUSH 0.9% 10 ML SYRINGE IVP PRN (07:25)
[2018-04-24] MEDS: MORPHINE 2 MG/ML CARPUJECT IVP PRN ×2 (07:26→09:09)
[2018-04-24] MEDS: SODIUM CHLORIDE FLUSH 0.9% 10 ML SYRINGE IVP SCH ×2 (07:38→17:17)
--- NOTE | 2018-04-24 08:26 | PROVIDER PROGRESS NOTE ---
Subjective - Prog Note Date Prog Note Date: 04/24/18 Prog Note Time: 08:23 - Subjective Pt reports feeling: Worse (Patient S[facility] a GLF at home, sustaining a left nondominant supracondylar humerus fracture. No LOC or other injury. No prior elbow fracture. No distal weakness/numbness) Objective - Vital Signs/Intake & Output Vital Signs: Vital Signs x48h Temp Pulse Pulse Resp BP BP Pulse Ox 04/24/18 06:56 36.9 C 72 20 149/58 H 100 04/24/18 06:18 76 18 121/58 L 100 04/24/18 05:41 16 04/24/18 05:35 73 16 109/83 H 99 04/24/18 04:42 82 17 136/52 H 96 04/24/18 04:07 80 16 96 04/24/18 03:26 72 16 96/79 95 04/24/18 03:14 17 04/24/18 03:00 80 19 100 04/24/18 02:22 16 04/24/18 01:37 70 16 127/80 100 04/24/18 00:59 16 Intake & Output: Intake & Output 04/22/18 04/22/18 04/23/18 04/24/18 00:59 23:59 23:59 23:59 Intake Total 897.5 Balance 897.5 - Lab Results Fish Bones: 04/24/18 06:28 04/24/18 06:28 Other Labs: Lab Results x24hrs 04/24/18 04/24/18 04/24/18 Range/Units 06:28 06:28 06:28 WBC 12.0 H (4.8-10.8) x10^3/uL RBC 3.29 L (4.20-5.40) 10^6/uL Hgb 10.5 L (12.0-16.0) g/dL Hct 31.5 L (37.0-47.0) % MCV 95.9 (81.0-99.0) fL MCH 32.0 H (27.0-31.0) pg MCHC 33.4 (32.0-36.0) g/dL RDW 17.3 H (12.0-15.0) % Plt Count 269 (130-450) 10^3/uL MPV 8.9 (7.9-10.8) fL Neut # (Auto) 8.7 H (1.5-6.6) 10^3/uL Lymph # (Auto) 2.3 (1.5-3.5) 10^3/uL [place] # (Auto) 1.0 (0.0-1.0) 10^3/uL Eos # (Auto) 0.0 (0.0-0.7) 10^3/uL Baso # (Auto) 0.1 (0.0-0.1) 10^3/uL Absolute Nucleated RBC 0.02 x10^3/uL Nucleated RBC % 0.2 /100WBC Sodium 131 L (135-145) mmol/L Potassium 3.7 (3.5-5.0) mmol/L Chloride 96 L (101-111) mmol/L Carbon Dioxide 21 (21-32) mmol/L Anion Gap 14.0 H (6-13) BUN 24 H (6-20) mg/dL Creatinine 1.1 H (0.4-1.0) mg/dL Estimated GFR (MDRD) 48 L (>89) Glucose 77 (70-100) mg/dL Lactic Acid 1.0 (0.5-2.2) mmol/L Calcium 8.8 (8.5-10.3) mg/dL Phosphorus 3.0 (2.5-4.6) mg/dL Magnesium 1.8 (1.7-2.8) mg/dL Total Bilirubin 1.2 H (0.2-1.0) mg/dL AST 72 H (10-42) IU/L ALT 124 H (10-60) IU/L Alkaline Phosphatase 87 (42-121) IU/L Total Protein 6.2 L (6.7-8.2) g/dL Albumin 3.8 (3.2-5.5) g/dL Globulin 2.4 (2.1-4.2) g/dL Albumin/Globulin Ratio 1.6 (1.0-2.2) 04/24/18 04/24/18 Range/Units 02:18 02:18 WBC 9.4 (4.8-10.8) x10^3/uL RBC 3.31 L (4.20-5.40) 10^6/uL Hgb 10.6 L (12.0-16.0) g/dL Hct 31.6 L (37.0-47.0) % MCV 95.5 (81.0-99.0) fL MCH 32.2 H (27.0-31.0) pg MCHC 33.7 (32.0-36.0) g/dL RDW 17.7 H (12.0-15.0) % Plt Count 254 (130-450) 10^3/uL MPV 8.9 (7.9-10.8) fL Neut # (Auto) 6.8 H (1.5-6.6) 10^3/uL Lymph # (Auto) 1.7 (1.5-3.5) 10^3/uL [place] # (Auto) 0.8 (0.0-1.0) 10^3/uL Eos # (Auto) 0.0 (0.0-0.7) 10^3/uL Baso # (Auto) 0.1 (0.0-0.1) 10^3/uL Absolute Nucleated RBC 0.00 x10^3/uL Nucleated RBC % 0.0 /100WBC Sodium 128 L (135-145) mmol/L Potassium 3.7 (3.5-5.0) mmol/L Chloride 94 L (101-111) mmol/L Carbon Dioxide 22 (21-32) mmol/L Anion Gap 12.0 (6-13) BUN 27 H (6-20) mg/dL Creatinine 1.2 H (0.4-1.0) mg/dL Estimated GFR (MDRD) 44 L (>89) Glucose 84 (70-100) mg/dL Lactic Acid (0.5-2.2) mmol/L Calcium 8.7 (8.5-10.3) mg/dL Phosphorus (2.5-4.6) mg/dL Magnesium (1.7-2.8) mg/dL Total Bilirubin (0.2-1.0) mg/dL AST (10-42) IU/L ALT (10-60) IU/L Alkaline Phosphatase (42-121) IU/L Total Protein (6.7-8.2) g/dL Albumin (3.2-5.5) g/dL Globulin (2.1-4.2) g/dL Albumin/Globulin Ratio (1.0-2.2) - Diagnostic Imaging Diagnostic Imaging Comments: XR show a comminuted left supracondylar humerus fracture - ?extra-articular. - Other Results/Comments Other Results/Comments: EXAM: Left UE: In a long posterior arm splint. Moves fingers well. Sensation intact. Good cap filling. Fingers mildly swollen and ecchymotic. Assessment/Plan - Problem List (1) Humerus fracture Impression: Closed, comminuted left nondominant supracondylar humerus fracture PLAN: CT scan of elbow scheduled later this AM. Have reviewed XR with Dr. Flores. He will evaluate patient later today and determine whether we will proceed with ORIF of fracture tomorrow or not. Qualifiers: Encounter type: initial encounter Humerus Location: distal Fracture type: closed Fracture morphology: other fracture Fracture alignment: displaced Laterality: left Qualified Code(s): S42.492A - Other displaced fracture of lower end of left humerus, initial encounter for closed fracture
[2018-04-24] MEDS: PANTOPRAZOLE 40 MG TABLET PO SCH (08:53)
[2018-04-24] MEDS: MULTIVITAMIN TABLET PO SCH (08:53)
[2018-04-24] MEDS: ATORVASTATIN 10 MG TABLET PO SCH (08:53)
[2018-04-24] MEDS: FUROSEMIDE 20 MG TABLET PO SCH (08:53)
[2018-04-24] MEDS: LEVOTHYROXINE 25 MCG TABLET PO SCH (08:53)
[2018-04-24] MEDS: ASPIRIN CHEW 81 MG TABLET PO SCH (08:53)
[2018-04-24] MEDS: SPIRONOLACTONE 25 MG TABLET PO SCH (08:54)
--- NOTE | 2018-04-24 09:03 | CONSULTATION NOTE ---
DATE OF SERVICE: 04/24/2018 Physician: Matthew Atkins MD REFERRING PHYSICIAN: Dr. Thacker of the Emergency Room Department. CHIEF COMPLAINT: "My left elbow hurts." HISTORY OF PRESENT ILLNESS: Patient is a 78-year-old, right-hand dominant, female with glaucoma, who was attempting to walk in her home when she fell. This apparently is a second fall she has had over the last several weeks, which she feels is due to her worsening glaucoma. As a result of this fall last night she noted immediate pain and deformity of her left elbow. Unable to move the arm without pain. Denies any loss of consciousness or other injuries; however. Was transported by ambulance to the emergency room here at [facility] where her evaluation, including x-ray showed a comminuted possibly extraarticular distal humerus/supracondylar humerus fracture. The patient's upper extremity was splinted, stabilized the fracture, but because of pain control was admitted to the hospital for further evaluation and treatment. The patient denies any history of any prior elbow fractures or injuries to the left side. Has had right upper extremity injuries in the past. Often times uses a walker with ambulation, but apparently was not using one last evening when the accident occurred. PHYSICAL EXAMINATION: Examination reveals an elderly woman with the left upper extremity in a long arm splint and mild to moderate pain. LEFT UPPER EXTREMITY: Currently in a long-arm posterior splint. The patient's digits were mildly swollen and ecchymotic. The patient is able to wiggle her fingers on command. Sensation grossly intact and symmetrical. Digits are warm. Capillary filling was good. IMAGING: X-rays were taken, show a comminuted possibly extraarticular supracondylar humerus fracture on the left side. Elbow joint appears to be reduced. ASSESSMENT: Closed, comminuted left nondominant supracondylar humerus fracture - ?extraarticular. PLAN: We will obtain a CT scan of the fracture later this morning to define the fracture pattern further. I have discussed this patient with Dr. Flores of the orthopedic service. He will evaluate the patient later today to determine if we should proceed with surgical fixation of her fracture tomorrow versus allowing the swelling to subside over the next week and proceeding with surgery at that time. TD: 04/24/2018 08:41 CECILIA
--- NOTE | 2018-04-24 10:24 | CT Report ---
Reason: define left suprqacondylar humerus fracture furthe Procedure Date: 04/24/2018 Accession Number: [id number] / [id number] Procedure: CT - Upper Extremity Left W/O CPT Code: FULL RESULT: EXAM: LEFT ELBOW CT WITHOUT CONTRAST EXAM DATE: 04/24/2018 09:45 AM. CLINICAL HISTORY: Define left supracondylar humerus fracture further. COMPARISON: Left elbow radiographs 04/24/2018. TECHNIQUE: Thin-section axial images were acquired of the elbow without contrast. Post-processing: Coronal and sagittal reformats. Other: None. In accordance with CT protocol optimization, one or more of the following dose reduction techniques were utilized for this exam: automated exposure control, adjustment of mA and/or KV based on patient size, or use of iterative reconstructive technique. FINDINGS: Bones: Comminuted displaced intra-articular distal humerus fracture with 5 cm proximal displacement, 2 cm anterior displacement, and 56 degrees anterior angulation of the distal fracture fragment. Fracture is noted of the capitellum with 2.7 cm fracture displacement with rotation. There is 3 mm capitellum articular cortex offset. Dorsal capitellum fracture 9 mm distraction. At the anterior aspect of the distal humerus shaft is a displaced 2 cm fracture fragment (image 29 series 10). Joints: Negative for radial head capitellum and trochlea olecranon dislocation. Moderate hemarthrosis. Musculature: Negative for triceps disruption. Other: None. IMPRESSION: 1. Comminuted intra-articular distal left humerus fracture with 5 cm proximal displacement, 2 cm anterior displacement, and 56 degrees ventral angulation of distal fracture fragments. 2. Negative for radial head capitellum and olecranon trochlea dislocation. 3. Intra-articular capitellum fracture with mild 3 mm articular cortex offset, dominant 2.7 cm capitellum fracture fragment, and 9 mm posterior capitellum distraction. 4. Displaced 2 cm fracture fragment distal anterior humerus (image 29 series 10). RADIA
[2018-04-24] MEDS: POLYETHYLENE GLYCOL 3350 17 GM PACKET PO SCH (11:02)
[2018-04-24] MEDS: ALPRAZolam 0.25 MG TABLET PO PRN (11:05)
[2018-04-24 11:19] LABS: BILIRUBIN,URINE NEGATIVE (NEGATIVE); GLUCOSE, URINE (UA) NEGATIVE (NEGATIVE); KETONES,URINE (UA) NEGATIVE (NEGATIVE); LEUKOCYTE ESTERASE, URINE SMALL (NEGATIVE); NITRITE,URINE POSITIVE (NEGATIVE); OCCULT BLOOD,URINE NEGATIVE (NEGATIVE); PH,URINE 5.5 PH (5.0-7.5); PROTEIN,URINE NEGATIVE (NEGATIVE); UROBILINOGEN,URINE 0.2 (NORMAL) E.U./dL (NORMAL)
[2018-04-24 11:23] LABS: BACTERIA,URINE Moderate /HPF (None Seen); CLARITY,URINE HAZY (CLEAR); RBC,URINE None Seen /HPF (0-5); SQUAMOUS EPITHELIAL CELL,UR RARE Squamous (<= Few)
--- NOTE | 2018-04-24 12:22 | PROVIDER PROGRESS NOTE ---
Hospitalist Cross-cover Note - Cross-Cover Note Cross-Cover Note: EKG shows NSR, rate 69, RBBB. This is a new finding since EKG from Feb 2018. If this patient will have surgery here, and if it is considered a high risk surgery by the Orthopedists, then I will order an Echo for Cardiac Risk assessment. The arm CT was done, and we are awaiting input from Dr Flores, the second Orthopedist.
[2018-04-24] MEDS ORDERED: CHOLECALCIFEROL 1,000 UNIT TABLET PO SCH (15:00)
[2018-04-24 15:52] LABS: % IRON SATURATION 18 % (20-50); IRON 55 ug/dL (28-170); TOTAL IRON BINDING CAPACITY 301 ug/dL (250-450); TRANSFERRIN 215 mg/dL (192-382)
[2018-04-24 16:08] LABS: FERRITIN 41.2 ng/mL (11.0-306.8)
[2018-04-24 17:04] LABS: INR 1.1 (0.8-1.2); PT - PROTHROMBIN TIME 12.9 secs (9.9-12.6)
[2018-04-24] MEDS: CALCIUM CITRATE 250 MG TABLET PO SCH ×2 (17:16→17:24)
[2018-04-24] MEDS: CHOLECALCIFEROL 1,000 UNIT TABLET PO SCH (17:17)
[2018-04-24] MEDS ORDERED: NON FORMULARY MED (Simvastatin [Zocor] 20 MG) PO SCH (21:00)
[2018-04-25] MEDS: ALPRAZolam 0.25 MG TABLET PO PRN (02:33)
[2018-04-25] MEDS: SODIUM CHLORIDE FLUSH 0.9% 10 ML SYRINGE IVP SCH ×3 (03:43→18:06)
[2018-04-25] MEDS: SODIUM CHLORIDE 0.9% 1,000 ML IV SCH ×2 (04:02→19:26)
[2018-04-25 05:00] LABS: BASOPHILS % (AUTO) 0.2 %; EOSINOPHILS % (AUTO) 0.1 %; LYMPHOCYTES % (AUTO) 14.7 %; MEAN CORPUSCULAR VOLUME 96.9 fL (81.0-99.0); MEAN PLATELET VOLUME 9.2 fL (7.9-10.8)
[2018-04-25 05:07] LABS: HGB - HEMOGLOBIN 9.4 g/dL (12.0-16.0); MEAN CORPUSCULAR HEMOGLOBIN 31.4 pg (27.0-31.0); MEAN CORPUSCULAR HGB CONC 32.5 g/dL (32.0-36.0); MONOCYTES % (AUTO) 9.2 %; NEUTROPHILS % (AUTO) 75.8 %; PLT - PLATELET COUNT 239 10^3/uL (130-450); RED CELL DISTRIBUTION WIDTH 17.9 % (12.0-15.0); WHITE BLOOD COUNT 9.3 x10^3/uL (4.8-10.8)
[2018-04-25 05:10] LABS: ABNORMAL LYMPHS % (MANUAL) 0 %
[2018-04-25 05:12] LABS: ALBUMIN/GLOBULIN RATIO 1.4 (1.0-2.2); BILIRUBIN,TOTAL 1.1 mg/dL (0.2-1.0); CALCIUM 8.3 mg/dL (8.5-10.3); CREATININE 0.9 mg/dL (0.4-1.0); MAGNESIUM 1.4 mg/dL (1.7-2.8); PHOSPHORUS 3.7 mg/dL (2.5-4.6); TOTAL PROTEIN 5.2 g/dL (6.7-8.2)
[2018-04-25 05:31] LABS: BAND NEUTROPHILS % (MANUAL) 9 %; LYMPHOCYTES # (MANUAL) 1.7 10^3/uL (1.5-3.5); LYMPHOCYTES % (MANUAL) 18 %; METAMYELOCYTES % (MANUAL) 2 %; MONOCYTES # (MANUAL) 0.6 10^3/uL (0.0-1.0); MYELOCYTES % (MANUAL) 2 %; NEUTROPHILS # (MANUAL) 6.7 10^3/uL (1.5-6.6); NEUTROPHILS % (MANUAL) 63 %; PLATELET ESTIMATE, MANUAL NORMAL (130-450,000) (NORMAL); RBC MORPHOLOGY (MULTIPLE) NORMAL APPEARANCE (NORMAL)
[2018-04-25 05:32] LABS: DIFFERENTIAL COMMENT MANUAL DIFFERENTIAL
[2018-04-25] MEDS: PANTOPRAZOLE 40 MG TABLET PO SCH (06:27)
[2018-04-25] MEDS: LEVOTHYROXINE 25 MCG TABLET PO SCH ×3 (06:28→06:37)
[2018-04-25] MEDS: SODIUM CHLORIDE FLUSH 0.9% 10 ML SYRINGE IVP PRN ×3 (06:37→22:56)
[2018-04-25] MEDS: FUROSEMIDE 20 MG TABLET PO SCH (08:09)
[2018-04-25] MEDS: SPIRONOLACTONE 25 MG TABLET PO SCH (08:09)
[2018-04-25] MEDS: POLYETHYLENE GLYCOL 3350 17 GM PACKET PO SCH (08:10)
[2018-04-25] MEDS: MULTIVITAMIN TABLET PO SCH (08:10)
[2018-04-25] MEDS: CALCIUM CITRATE 250 MG TABLET PO SCH ×2 (08:10→21:09)
[2018-04-25] MEDS: CHOLECALCIFEROL 1,000 UNIT TABLET PO SCH (08:10)
[2018-04-25] MEDS: ASPIRIN CHEW 81 MG TABLET PO SCH (08:10)
--- NOTE | 2018-04-25 08:50 | ANESTHESIA ---
Pre-Anesthesia VS, & Labs - Diagnosis left supracondylar humerus fracture - Procedure orif of left elbow supracondylar humerus fracture Vital Signs: Temp Pulse Resp BP Pulse Ox 37.0 C 74 17 130/55 L 96 04/25/18 07:20 04/25/18 07:20 04/25/18 07:20 04/25/18 07:20 04/25/18 07:20 Height 5 ft 7 in Weight (kg) 54.431 kg Body Mass Index 18.8 - NPO >8 hours - Is Patient ?: Not Applicable - Lab Results Current Lab Results: Laboratory Tests 04/25/18 04:35: TSH 2.59 04/25/18 04:35: Sodium 135, Potassium 3.7, Chloride 101, Carbon Dioxide 26, Anion Gap 8.0, BUN 19, Creatinine 0.9, Estimated GFR (MDRD) 61 L, Glucose 106 H, Calcium 8.3 L, Phosphorus 3.7, Magnesium 1.4 L, Total Bilirubin 1.1 H, AST 36, ALT 81 H, Alkaline Phosphatase 73, Total Protein 5.2 L, Albumin 3.0 L, Globulin 2.2, Albumin/Globulin Ratio 1.4 04/25/18 04:35: WBC 9.3, RBC 3.00 L, Hgb 9.4 L, Hct 29.0 L, MCV 96.9, MCH 31.4 H , MCHC 32.5, RDW 17.9 H, Plt Count 239, MPV 9.2, Neut # (Auto) Not Reportable, Lymph # (Auto) Not Reportable, [place] # (Auto) Not Reportable, Eos # (Auto) Not Reportable, Baso # (Auto) Not Reportable, Absolute Nucleated RBC Not Reportable, Total Counted 100, Band Neuts % (Manual) 9, Abnorm Lymph % (Manual) 0, Metamyelocytes % 2 H, Myelocytes % 2 H, Nucleated RBC % Not Reportable, Neutrophils # (Manual) 6.7 H, Lymphocytes # (Manual) 1.7, Monocytes # (Manual) 0.6, Eosinophils # (Manual) 0.0, Basophils # (Manual) 0.0, Differential Comment MANUAL DIFFERENTIAL, Platelet Estimate NORMAL (130-450,000), RBC Morph Micro Appear NORMAL APPEARANCE 04/24/18 16:54: PT 12.9 H, INR 1.1 04/24/18 15:20: Folate > 49.60 04/24/18 15:20: Lactate Dehydrogenase 316 H 04/24/18 15:20: Ferritin 41.2, Vitamin B12 3178 H 04/24/18 15:20: Iron 55, TIBC 301, % Saturation 18 L, Transferrin 215 04/24/18 06:28: Lactic Acid 1.0 04/24/18 06:28: Sodium 131 L, Potassium 3.7, Chloride 96 L, Carbon Dioxide 21, Anion Gap 14.0 H, BUN 24 H, Creatinine 1.1 H, Estimated GFR (MDRD) 48 L, Glucose 77, Calcium 8.8, Phosphorus 3.0, Magnesium 1.8, Total Bilirubin 1.2 H, AST 72 H, ALT 124 H, Alkaline Phosphatase 87, Total Protein 6.2 L, Albumin 3.8, Globulin 2.4, Albumin/Globulin Ratio 1.6 04/24/18 06:28: WBC 12.0 H, RBC 3.29 L, Hgb 10.5 L, Hct 31.5 L, MCV 95.9, MCH 32.0 H, MCHC 33.4, RDW 17.3 H, Plt Count 269, MPV 8.9, Neut # (Auto) 8.7 H, Lymph # (Auto) 2.3, [place] # (Auto) 1.0, Eos # (Auto) 0.0, Baso # (Auto) 0.1, Abs olute Nucleated RBC 0.02, Nucleated RBC % 0.2 04/24/18 02:18: Sodium 128 L, Potassium 3.7, Chloride 94 L, Carbon Dioxide 22, Anion Gap 12.0, BUN 27 H, Creatinine 1.2 H, Estimated GFR (MDRD) 44 L, Glucose 84, Calcium 8.7 04/24/18 02:18: WBC 9.4, RBC 3.31 L, Hgb 10.6 L, Hct 31.6 L, MCV 95.5, MCH 32.2 H, MCHC 33.7, RDW 17.7 H, Plt Count 254, MPV 8.9, Neut # (Auto) 6.8 H, Lymph # (Auto) 1.7, [place] # (Auto) 0.8, Eos # (Auto) 0.0, Baso # (Auto) 0.1, Absolute Nucleated RBC 0.00, Nucleated RBC % 0.0 Fish Bones: 04/25/18 04:35 04/25/18 04:35 Home Medications and Allergies Home Medications: Ambulatory Orders Acetaminophen/Cod 300/30 [Tylenol #3] 1 each PO Q4-6H PRN 04/24/18 Lansoprazole [Prevacid] 30 mg PO DAILY PRN 04/24/18 Levothyroxine [Synthroid] 88 mcg PO QDAC 04/24/18 Active Medications Acetaminophen (Tylenol) 650 mg PO Q4HR PRN PRN Reason: Pain 1 to 4 Alprazolam (Xanax) 0.25 mg PO Q4HR PRN PRN Reason: Anxiety Last Admin: 04/25/18 02:33 Dose: 0.25 mg Aspirin ([place] Aspirin) 81 mg PO DAILY [facility] Last Admin: 04/25/18 08:10 Dose: Not Given Atorvastatin Calcium (Lipitor) 10 mg PO DAILY [facility] Last Admin: 04/24/18 08:53 Dose: 10 mg Calcium Citrate () 500 mg PO BID [facility] Last Admin: 04/25/18 08:10 Dose: Not Given Cholecalciferol (Vitamin D3) 2,000 unit PO DAILY [facility] Last Admin: 04/25/18 08:10 Dose: Not Given Furosemide (Lasix) 60 mg PO DAILY [facility] Last Admin: 04/25/18 08:09 Dose: 60 mg Sodium Chloride (Normal Saline 0.9%) 1,000 mls @ 100 mls/hr IV .Q10H [facility] Last Admin: 04/25/18 04:02 Dose: 100 mls/hr Levothyroxine Sodium (Synthroid) 25 mcg PO QDAC [facility] Last Admin: 04/25/18 06:37 Dose: 25 mcg Morphine Sulfate (Morphine (Carpuject)) 2 mg IVP Q2HR PRN PRN Reason: Pain 8 to 10 Last Admin: 04/24/18 09:09 Dose: 2 mg Multivitamins (Theragran) 1 tab PO DAILY [facility] Last Admin: 04/25/18 08:10 Dose: Not Given Ondansetron HCl (Zofran Inj) 4 mg IVP Q6HR PRN PRN Reason: Nausea / Vomiting Oxycodone HCl (Roxicodone) 5 mg PO Q4HR PRN PRN Reason: Pain 5 to 7 Oxycodone HCl (Roxicodone) 10 mg PO Q4HR PRN PRN Reason: Pain 8 to 10 Pantoprazole Sodium (Protonix) 40 mg PO QDAC [facility] Last Admin: 04/25/18 06:27 Dose: 40 mg Polyethylene Glycol (Miralax) 17 gm PO DAILY [facility] Last Admin: 04/25/18 08:10 Dose: Not Given Prochlorperazine Edisylate (Compazine Inj) 10 mg IVP Q6HR PRN PRN Reason: Nausea / Vomiting Promethazine HCl (Phenergan Inj) 25 mg IM Q6HR PRN PRN Reason: Nausea / Vomiting Sodium Chloride (Normal Saline Flush 0.9%) 10 ml IVP PRN PRN PRN Reason: NEEDED PER PROVIDER ORDERS Last Admin: 04/25/18 06:37 Dose: 10 ml Sodium Chloride (Normal Saline Flush 0.9%) 10 ml IVP 0100,0900,1700 [facility] Last Admin: 04/25/18 08:10 Dose: Not Given Spironolactone (Aldactone) 50 mg PO DAILY [facility] Last Admin: 04/25/18 08:09 Dose: 50 mg Zolpidem Tartrate (Ambien) 5 mg PO QPM PRN PRN Reason: Insomnia Simvastatin [Zocor] 20 mg PO QPM 06/13/13 Alprazolam [Xanax] 0.5 mg PO Q6H PRN 11/04/13 Furosemide [Lasix] 20 mg PO DAILY 12/24/14 Spironolactone 50 mg PO DAILY 12/24/14 Ursodiol 300 mg PO BID 12/24/14 Colchicine [Colcrys] 0.6 mg PO DAILY 05/17/16 Potassium Chloride [K-Dur] 20 meq PO DAILY 05/17/16 Acetaminophen/Cod 300/30 [Tylenol #3] 1 each PO Q4-6H PRN 04/24/18 Lansoprazole [Prevacid] 30 mg PO DAILY PRN 04/24/18 Levothyroxine [Synthroid] 88 mcg PO QDAC 04/24/18 Allergies/Adverse Reactions: Allergies Allergy/AdvReac Type Severity Reaction Status Date / Time No Known Drug Allergies Allergy Verified 04/23/18 23:55 Anes History & Medical History - Anesthetic History Anesthesia Complications: reports: No previous complications Family history of Anesthesia Complications: Denies Family history of Malignant Hyperthermia: Denies - Medical History Cardiovascular: reports: Hypertension, Peripheral Vascular Disease Pulmonary: reports: None Gastrointestinal: reports: GERD, Ulcers, Diverticulitis, Cholelithiasis, Other Urinary: reports: None, Renal insuffiency Neuro: reports: None Musculoskeletal: reports: Chronic back pain Endocrine/Autoimmune: reports: HyPOthyroidism Blood Disorders: reports: None Skin: reports: None Smoking Status: Former smoker Other Past Medical History: NEEDS ASSISTANCE WITH MOBILITY... - Surgical History General: Gastric surgery Cardiothoracic: Vascular surgery Gynecologic: Hysterectomy Exam General: Alert Dental: Other (bridges) Mouth Openin Fingerbreadth Neck Mobility: Normal Mallampati classification: II Thyromental Distance: 4-6 cm Respiratory: Lungs clear, Normal breath sounds, No respiratory distress, No accessory muscle use Cardiovascular: Regular rate, Normal S1, Normal S2, No murmurs Mental/Cognitive Status: Alert/Oriented X3, Normal for patient Cognitive Status: Within normal limits Plan Anesthesia Type: General Consent for Procedure(s) Verified and Reviewed: No Code Status: Attempt Resuscitation ASA classification: 2-Mild systemic disease Is this case an emergency?: No
--- NOTE | 2018-04-25 10:49 | PROVIDER PROGRESS NOTE ---
Subjective - Prog Note Date Prog Note Date: 04/24/18 Objective - Vital Signs/Intake & Output Vital Signs: Vital Signs x48h Temp Pulse Resp BP Pulse Ox 04/25/18 07:20 37.0 C 74 17 130/55 L 96 04/25/18 04:49 36.7 C 68 16 123/44 L 99 Intake & Output: Intake & Output 04/22/18 04/23/18 04/24/18 04/25/18 23:59 23:59 23:59 23:59 Intake Total 2870.833 995 Output Total 1450 300 Balance 1420.833 695 - Lab Results Fish Bones: 04/25/18 04:35 04/25/18 04:35 Other Labs: Lab Results x24hrs 04/25/18 04/25/18 04/25/18 Range/Units 04:35 04:35 04:35 WBC 9.3 (4.8-10.8) x10^3/uL RBC 3.00 L (4.20-5.40) 10^6/uL Hgb 9.4 L (12.0-16.0) g/dL Hct 29.0 L (37.0-47.0) % MCV 96.9 (81.0-99.0) fL MCH 31.4 H (27.0-31.0) pg MCHC 32.5 (32.0-36.0) g/dL RDW 17.9 H (12.0-15.0) % Plt Count 239 (130-450) 10^3/uL MPV 9.2 (7.9-10.8) fL Neut # (Auto) Not Reportable Lymph # (Auto) Not Reportable [place] # (Auto) Not Reportable Eos # (Auto) Not Reportable Baso # (Auto) Not Reportable Absolute Nucleated RBC Not Reportable Total Counted 100 Band Neuts % (Manual) 9 (0 - 10) % Abnorm Lymph % (Manual) 0 % Metamyelocytes % 2 H ( - 0) % Myelocytes % 2 H ( - 0) % Nucleated RBC % Not Reportable Neutrophils # (Manual) 6.7 H (1.5-6.6) 10^3/uL Lymphocytes # (Manual) 1.7 (1.5-3.5) 10^3/uL Monocytes # (Manual) 0.6 (0.0-1.0) 10^3/uL Eosinophils # (Manual) 0.0 (0-0.7) 10^3/uL Basophils # (Manual) 0.0 (0-0.1) 10^3/uL Differential Comment MANUAL DIFFERENTIAL Platelet Estimate NORMAL (130-450,000) (NORMAL) RBC Morph Micro Appear NORMAL APPEARANCE (NORMAL) PT (9.9-12.6) secs INR (0.8-1.2) Sodium 135 (135-145) mmol/L Potassium 3.7 (3.5-5.0) mmol/L Chloride 101 (101-111) mmol/L Carbon Dioxide 26 (21-32) mmol/L Anion Gap 8.0 (6-13) BUN 19 (6-20) mg/dL Creatinine 0.9 (0.4-1.0) mg/dL Estimated GFR (MDRD) 61 L (>89) Glucose 106 H (70-100) mg/dL Calcium 8.3 L (8.5-10.3) mg/dL Phosphorus 3.7 (2.5-4.6) mg/dL Magnesium 1.4 L (1.7-2.8) mg/dL Iron (28-170) ug/dL TIBC (250-450) ug/dL % Saturation (20-50) % Transferrin (192-382) mg/dL Ferritin (11.0-306.8) ng/mL Total Bilirubin 1.1 H (0.2-1.0) mg/dL AST 36 (10-42) IU/L ALT 81 H (10-60) IU/L Alkaline Phosphatase 73 (42-121) IU/L Lactate Dehydrogenase (91-225) IU/L Total Protein 5.2 L (6.7-8.2) g/dL Albumin 3.0 L (3.2-5.5) g/dL Globulin 2.2 (2.1-4.2) g/dL Albumin/Globulin Ratio 1.4 (1.0-2.2) Vitamin B12 (180-914) pg/mL Folate (5.90 - >24.8) ng/mL TSH 2.59 (0.34-5.60) uIU/mL Urine Color Urine Clarity (CLEAR) Urine pH (5.0-7.5) PH Ur Specific [place] (1.002-1.030) Urine Protein (NEGATIVE) mg/dL Urine Glucose (UA) (NEGATIVE) mg/dL Urine Ketones (NEGATIVE) mg/dL Urine Occult Blood (NEGATIVE) Urine Nitrite (NEGATIVE) Urine Bilirubin (NEGATIVE) Urine Urobilinogen (NORMAL) E.U./dL Ur Leukocyte Esterase (NEGATIVE) Urine RBC (0-5) /HPF Urine WBC (0-5) /HPF Ur Squamous Epith Cells (<= Few) Urine Bacteria (None Seen) /HPF Ur Microscopic Review Urine Culture Comments 04/24/18 04/24/18 04/24/18 Range/Units 16:54 15:20 15:20 WBC (4.8-10.8) x10^3/uL RBC (4.20-5.40) 10^6/uL Hgb (12.0-16.0) g/dL Hct (37.0-47.0) % MCV (81.0-99.0) fL MCH (27.0-31.0) pg MCHC (32.0-36.0) g/dL RDW (12.0-15.0) % Plt Count (130-450) 10^3/uL MPV (7.9-10.8) fL Neut # (Auto) Lymph # (Auto) [place] # (Auto) Eos # (Auto) Baso # (Auto) Absolute Nucleated RBC Total Counted Band Neuts % (Manual) (0 - 10) % Abnorm Lymph % (Manual) % Metamyelocytes % ( - 0) % Myelocytes % ( - 0) % Nucleated RBC % Neutrophils # (Manual) (1.5-6.6) 10^3/uL Lymphocytes # (Manual) (1.5-3.5) 10^3/uL Monocytes # (Manual) (0.0-1.0) 10^3/uL Eosinophils # (Manual) (0-0.7) 10^3/uL Basophils # (Manual) (0-0.1) 10^3/uL Differential Comment Platelet Estimate (NORMAL) RBC Morph Micro Appear (NORMAL) PT 12.9 H (9.9-12.6) secs INR 1.1 (0.8-1.2) Sodium (135-145) mmol/L Potassium (3.5-5.0) mmol/L Chloride (101-111) mmol/L Carbon Dioxide (21-32) mmol/L Anion Gap (6-13) BUN (6-20) mg/dL Creatinine (0.4-1.0) mg/dL Estimated GFR (MDRD) (>89) Glucose (70-100) mg/dL Calcium (8.5-10.3) mg/dL Phosphorus (2.5-4.6) mg/dL Magnesium (1.7-2.8) mg/dL Iron (28-170) ug/dL TIBC (250-450) ug/dL % Saturation (20-50) % Transferrin (192-382) mg/dL Ferritin (11.0-306.8) ng/mL Total Bilirubin (0.2-1.0) mg/dL AST (10-42) IU/L ALT (10-60) IU/L Alkaline Phosphatase (42-121) IU/L Lactate Dehydrogenase 316 H (91-225) IU/L Total Protein (6.7-8.2) g/dL Albumin (3.2-5.5) g/dL Globulin (2.1-4.2) g/dL Albumin/Globulin Ratio (1.0-2.2) Vitamin B12 (180-914) pg/mL Folate > 49.60 (5.90 - >24.8) ng/mL TSH (0.34-5.60) uIU/mL Urine Color Urine Clarity (CLEAR) Urine pH (5.0-7.5) PH Ur Specific [place] (1.002-1.030) Urine Protein (NEGATIVE) mg/dL Urine Glucose (UA) (NEGATIVE) mg/dL Urine Ketones (NEGATIVE) mg/dL Urine Occult Blood (NEGATIVE) Urine Nitrite (NEGATIVE) Urine Bilirubin (NEGATIVE) Urine Urobilinogen (NORMAL) E.U./dL Ur Leukocyte Esterase (NEGATIVE) Urine RBC (0-5) /HPF Urine WBC (0-5) /HPF Ur Squamous Epith Cells (<= Few) Urine Bacteria (None Seen) /HPF Ur Microscopic Review Urine Culture Comments 04/24/18 04/24/18 04/24/18 Range/Units 15:20 15:20 11:06 WBC (4.8-10.8) x10^3/uL RBC (4.20-5.40) 10^6/uL Hgb (12.0-16.0) g/dL Hct (37.0-47.0) % MCV (81.0-99.0) fL MCH (27.0-31.0) pg MCHC (32.0-36.0) g/dL RDW (12.0-15.0) % Plt Count (130-450) 10^3/uL MPV (7.9-10.8) fL Neut # (Auto) Lymph # (Auto) [place] # (Auto) Eos # (Auto) Baso # (Auto) Absolute Nucleated RBC Total Counted Band Neuts % (Manual) (0 - 10) % Abnorm Lymph % (Manual) % Metamyelocytes % ( - 0) % Myelocytes % ( - 0) % Nucleated RBC % Neutrophils # (Manual) (1.5-6.6) 10^3/uL Lymphocytes # (Manual) (1.5-3.5) 10^3/uL Monocytes # (Manual) (0.0-1.0) 10^3/uL Eosinophils # (Manual) (0-0.7) 10^3/uL Basophils # (Manual) (0-0.1) 10^3/uL Differential Comment Platelet Estimate (NORMAL) RBC Morph Micro Appear (NORMAL) PT (9.9-12.6) secs INR (0.8-1.2) Sodium (135-145) mmol/L Potassium (3.5-5.0) mmol/L Chloride (101-111) mmol/L Carbon Dioxide (21-32) mmol/L Anion Gap (6-13) BUN (6-20) mg/dL Creatinine (0.4-1.0) mg/dL Estimated GFR (MDRD) (>89) Glucose (70-100) mg/dL Calcium (8.5-10.3) mg/dL Phosphorus (2.5-4.6) mg/dL Magnesium (1.7-2.8) mg/dL Iron 55 (28-170) ug/dL TIBC 301 (250-450) ug/dL % Saturation 18 L (20-50) % Transferrin 215 (192-382) mg/dL Ferritin 41.2 (11.0-306.8) ng/mL Total Bilirubin (0.2-1.0) mg/dL AST (10-42) IU/L ALT (10-60) IU/L Alkaline Phosphatase (42-121) IU/L Lactate Dehydrogenase (91-225) IU/L Total Protein (6.7-8.2) g/dL Albumin (3.2-5.5) g/dL Globulin (2.1-4.2) g/dL Albumin/Globulin Ratio (1.0-2.2) Vitamin B12 3178 H (180-914) pg/mL Folate (5.90 - >24.8) ng/mL TSH (0.34-5.60) uIU/mL Urine Color YELLOW Urine Clarity HAZY (CLEAR) Urine pH 5.5 (5.0-7.5) PH Ur Specific [place] <=1.005 (1.002-1.030) Urine Protein NEGATIVE (NEGATIVE) mg/dL Urine Glucose (UA) NEGATIVE (NEGATIVE) mg/dL Urine Ketones NEGATIVE (NEGATIVE) mg/dL Urine Occult Blood NEGATIVE (NEGATIVE) Urine Nitrite POSITIVE H (NEGATIVE) Urine Bilirubin NEGATIVE (NEGATIVE) Urine Urobilinogen 0.2 (NORMAL) (NORMAL) E.U./dL Ur Leukocyte Esterase SMALL H (NEGATIVE) Urine RBC None Seen (0-5) /HPF Urine WBC 11-25 H (0-5) /HPF Ur Squamous Epith Cells RARE Squamous (<= Few) Urine Bacteria Moderate H (None Seen) /HPF Ur Microscopic Review INDICATED Urine Culture Comments INDICATED - Other Results/Comments Other Results/Comments: Patient's left upper extremity is noted to be in a posterior splint which is gently loosened so that the posterior skin of the elbow can be examined there is no abrasion appreciated no fracture blisters there is some swelling and ecchymosis. She has tenderness at the distal humerus. Arm and forearm compartments are soft. Patient demonstrates radial median ulnar motor and sensory function is capillary refill less than 2 seconds generally throughout the digits with digits equally warm with comfortable digital and wrist range of motion.She is quite guarded with left upper extremity motion including shoulder motion but says that that hurts the elbow. Assessment/Plan - Problem List (1) Humerus fracture Impression: Alysia is a 78-year-old female with a left distal humerus supracondylar intra- articular displaced fracture. We discussed her injury with her and her Edmund at length on the evening of 04/24/2018 and again the morning of 04/25/2018. We discussed the nature of the injury and the potential short-term and long-term problems with the injury and potential for surgery and nonoperative management. Talked about potential for operative risks including but not limited to infection wound problems nerve or blood vessel injury numbness tingling weakness pain stiffness decreased range of motion decreased strength decreased function worsening of his condition failure to "cure" patient's problem iatrogenic injury bleeding blood loss blood clot positioning complications anesthetic complications including but not limited to major cardiovascular neurovascular complications even . We talked about potential short-term and long-term problems with her elbow and that it would not likely be "normal or 100%". We discussed proposed surgical details they verbalized understanding above and they both verbalized wish to proceed with operative treatment informed consent is given. Pending appropriate medical optimization and risk stratification: Proposed procedure is left supracondylar humerus fracture open reduction internal fixation. Qualifiers: Encounter type: initial encounter Humerus Location: distal Fracture type: closed Fracture morphology: other fracture Fracture alignment: displaced Laterality: left Qualified Code(s): S42.492A - Other displaced fracture of lower end of left humerus, initial encounter for closed fracture
[2018-04-25] MEDS ORDERED: BUPIVACAINE 0.5%-EPI 1:200000 PF 30 ML VIAL ONE (11:34)
[2018-04-25] MEDS ORDERED: LACTATED RINGERS 1,000 ML IV ONE ×2 (12:01→13:49)
[2018-04-25] MEDS ORDERED: BUPIVACAINE 0.25%-EPI 1:200000 PF 30 ML VIAL SUBQ ONE (12:01)
--- NOTE | 2018-04-25 16:41 | IMMEDIATE POSTOPERATIVE NOTE ---
Immediate Postoperative Note - Procedure Note Procedure Date: 04/25/18 Pre-Op Diagnosis: left distal hum supra condylar fx Procedure: orif left supracondylar hum fx Post-Op Diagnosis: same Primary Surgeon: francisco javier Caster Operator: asmita Anesthesia Type: General LMA, Local Complications: No complications Estimated Blood Loss (in cc): 100 Plan of Care: Patient tolerated procedure well instrument and sponge counts correct patient transferred to recovery in stable condition. Patient will follow standard postoperative left distal humeral supracondylar fracture ORIF protocol. Nonweightbearing. Splint. Splint stays clean dry and intact. Sling. She is encouraged to move her hand and wrist. Patient be an analgesic medication antinausea medication she will SCDs in bed and be discharged when eating ambulating comfortable and okay from medical perspective.
[2018-04-25] MEDS ORDERED: LABETALOL 20 MG/4 ML SYRINGE IVP ONE (17:03)
[2018-04-25] MEDS ORDERED: ONDANSETRON 4 MG/2 ML VIAL IVP ONE (17:09)
[2018-04-25] MEDS ORDERED: ROCURONIUM 50 MG/5 ML VIAL IVP ONE (17:09)
[2018-04-25] MEDS ORDERED: fentaNYL 250 MCG/5 ML VIAL IVP ONE (17:09)
[2018-04-25] MEDS ORDERED: fentaNYL 100 MCG/2 ML VIAL IVP ONE (17:09)
[2018-04-25] MEDS ORDERED: PROPOFOL 200 MG/20 ML VIAL IVP ONE (17:09)
[2018-04-25] MEDS ORDERED: ceFAZolin 1 GM VIAL IV ONE (17:09)
[2018-04-25] MEDS ORDERED: ONDANSETRON 4 MG/2 ML VIAL IVP PRN (17:28)
[2018-04-25] MEDS ORDERED: PROCHLORPERAZINE 10 MG/2 ML VIAL IVP PRN (17:28)
[2018-04-25] MEDS ORDERED: ACETAMINOPHEN 1,000 MG/100 ML 100 ML IV PRN (17:28)
[2018-04-25] MEDS ORDERED: ACETAMINOPHEN 325 MG TABLET PO PRN (17:28)
[2018-04-25] MEDS ORDERED: ceFAZolin 2 GM/50 ML 2 GM/50 ML BAG IV SCH (17:30)
--- NOTE | 2018-04-25 18:08 | XRAY Report ---
REVISED: THIS REPORT WAS ORIGINALLY SIGNED 05/04/2018 @ 1505. EXAM CODE REVISED ON 05/04/2018 @ 1508. Reason: ORIF right elbow Procedure Date: 04/25/2018 Accession Number: [id number] / [id number] Procedure: XR - Elbow 3 View RT CPT Code: FULL RESULT: EXAM: RIGHT ELBOW RADIOGRAPHY EXAM DATE: 04/25/2018 04:58 PM. CLINICAL HISTORY: ORIF right elbow. COMPARISON: Elbow 3 view left 04/24/2018 12:21 AM. TECHNIQUE: 3 views. FINDINGS: Interval internal fixation of previously seen comminuted distal humerus fracture. There is residual mild displacement of fracture fragments although overall alignment is near-anatomic. Normal elbow joint alignment. IMPRESSION: Interval operative fixation of comminuted distal humerus fracture. [facility] ADDENDUM: 05/04/18 15:03 This addendum is to reflect a correction to the laterality of the examination. EXAM: Left elbow radiography. CLINICAL HISTORY: ORIF of left elbow. The findings and impression of the examination remain unchanged and are applied to the left elbow which is the extremity depicted in the imaging. CECILIA
--- NOTE | 2018-04-25 18:10 | PROVIDER PROGRESS NOTE ---
Assessment/Plan - Problem List (1) Humerus fracture Qualifiers: Encounter type: initial encounter Humerus Location: distal Fracture type: closed Fracture morphology: other fracture Fracture alignment: displaced Laterality: left Qualified Code(s): S42.492A - Other displaced fracture of lower end of left humerus, initial encounter for closed fracture Assessment/Plan: Surgery to be done today. Continue with plan for pain control. When she is post-op, will need to determine if she needs transfer for pain amnagement and PT or go home when she tolerates a po diet. (2) Anemia Assessment/Plan: Will assess B12, folate and iron studies and continue replacemant. Monitor CBC (3) Hypothyroidism Qualifiers: Hypothyroidism type: unspecified Qualified Code(s): E03.9 - Hypothyroidism, unspecified Assessment/Plan: Continue replacement - Current Meds Current Meds: Current Medications Generic Name Dose Route Start Last Admin Trade Name Freq PRN Reason Stop Dose Admin Alprazolam 0.25 mg 04/24/18 04:00 04/25/18 02:33 Xanax PO 0.25 mg Q4HR PRN Administration Anxiety Aspirin 81 mg 04/24/18 09:00 04/25/18 08:10 [facility] [place] Aspirin PO Not Given DAILY LUBNA Atorvastatin Calcium 10 mg 04/24/18 09:00 04/24/18 08:53 Lipitor PO 10 mg DAILY LUBNA Administration Calcium Citrate 500 mg 04/24/18 16:30 04/25/18 08:10 PO Not Given BID LUBNA Cholecalciferol 2,000 unit 04/24/18 16:30 04/25/18 08:10 Vitamin D3 PO Not Given DAILY LUBNA Furosemide 60 mg 04/24/18 09:00 04/25/18 08:09 Lasix PO 60 mg DAILY LUBNA Administration Sodium Chloride 1,000 mls @ 100 mls/hr 04/24/18 05:00 04/25/18 18:06 Normal Saline 0.9% IV 100 mls/hr .Q10H LUBNA Infusion Levothyroxine Sodium 25 mcg 04/24/18 07:00 04/25/18 06:37 Synthroid PO 25 mcg QDAC LUBNA Administration Morphine Sulfate 2 mg 04/24/18 04:01 04/24/18 09:09 Morphine (Carpuject) IVP 2 mg Q2HR PRN Administration Pain 8 to 10 Multivitamins 1 tab 04/24/18 09:00 04/25/18 08:10 Theragran PO Not Given DAILY LUBNA Pantoprazole Sodium 40 mg 04/24/18 07:00 04/25/18 06:27 Protonix PO 40 mg QDAC LUBNA Administration Polyethylene Glycol 17 gm 04/24/18 09:00 04/25/18 08:10 Miralax PO Not Given DAILY LUBNA Sodium Chloride 10 ml 04/24/18 04:01 04/25/18 06:37 Normal Saline Flush 0.9% IVP 10 ml PRN PRN Administration NEEDED PER PROVIDER ORDERS Sodium Chloride 10 ml 04/24/18 09:00 04/25/18 18:06 Normal Saline Flush 0.9% IVP Not Given 0100,0900,1700 LUBNA Spironolactone 50 mg 04/24/18 09:00 04/25/18 08:09 Aldactone PO 50 mg DAILY LUBNA Administration - Lab Result Fish Bone Diagrams: 04/25/18 04:35 04/25/18 04:35 Subjective - Subjective Patient Reports: Resting Comfortably Objective Vital Signs: Vital Signs - 24 hr 04/24/18 04/25/18 04/25/18 20:41 00:00 04:49 Temperature 36.9 C 36.7 C 36.7 C Heart Rate Heart Rate [ 71 82 68 Brachial] Respiratory 18 18 16 Rate Blood Pressure Blood Pressure 111/53 L 112/46 L 123/44 L [Right Femoral artery] O2 Saturation 97 96 99 04/25/18 04/25/18 04/25/18 07:20 16:39 16:45 Temperature 37.0 C 37.2 C Heart Rate 110 H Heart Rate [ 74 Brachial] Respiratory 17 19 Rate Blood Pressure 177/89 H Blood Pressure 130/55 L [Right Femoral artery] O2 Saturation 96 100 100 04/25/18 04/25/18 04/25/18 16:50 16:55 17:00 Temperature Heart Rate 116 H 112 H 116 H Heart Rate [ Brachial] Respiratory 15 14 17 Rate Blood Pressure 179/81 H 188/105 H 202/79 H Blood Pressure [Right Femoral artery] O2 Saturation 100 100 99 04/25/18 04/25/18 04/25/18 17:04 17:17 17:21 Temperature 37.2 C Heart Rate 115 H 79 77 Heart Rate [ Brachial] Respiratory 14 19 14 Rate Blood Pressure 181/79 H 114/88 H 129/93 H Blood Pressure [Right Femoral artery] O2 Saturation 100 99 98 04/25/18 04/25/18 04/25/18 17:33 17:40 17:46 Temperature 36.9 C 36.9 C Heart Rate Heart Rate [ 78 80 82 Brachial] Respiratory 16 16 Rate Blood Pressure Blood Pressure 117/102 H 163/87 H 194/61 H [Right Femoral artery] O2 Saturation 97 99 Oxygen O2 Source Room air I&O (Last 24 Hrs): Intake and Output Totals x24h 04/23/18 04/24/18 04/25/18 23:59 23:59 23:59 Intake Total 2870.833 1991.667 Output Total 1450 1050 Balance 1420.833 941.667 General: Alert, Oriented x3 HEENT: Mucous membr. moist/pink Neck: Supple Neuro: Non Focal Cardiovascular: Regular rate, No murmurs Respiratory: Breath sounds nml Abdomen: Soft Extremities: No edema - Results Results: Laboratory Results WBC 9.3 x10^3/uL (4.8-10.8) 04/25/18 04:35 RBC 3.00 10^6/uL (4.20-5.40) L 04/25/18 04:35 Hgb 9.4 g/dL (12.0-16.0) L 04/25/18 04:35 Hct 29.0 % (37.0-47.0) L 04/25/18 04:35 MCV 96.9 fL (81.0-99.0) 04/25/18 04:35 MCH 31.4 pg (27.0-31.0) H 04/25/18 04:35 MCHC 32.5 g/dL (32.0-36.0) 04/25/18 04:35 RDW 17.9 % (12.0-15.0) H 04/25/18 04:35 Plt Count 239 10^3/uL (130-450) 04/25/18 04:35 MPV 9.2 fL (7.9-10.8) 04/25/18 04:35 Neut # (Auto) Not Reportable 04/25/18 04:35 Lymph # (Auto) Not Reportable 04/25/18 04:35 [place] # (Auto) Not Reportable 04/25/18 04:35 Eos # (Auto) Not Reportable 04/25/18 04:35 Baso # (Auto) Not Reportable 04/25/18 04:35 Absolute Nucleated RBC Not Reportable 04/25/18 04:35 Total Counted 100 04/25/18 04:35 Band Neuts % (Manual) 9 % (0-10) 04/25/18 04:35 Abnorm Lymph % (Manual) 0 % 04/25/18 04:35 Metamyelocytes % 2 % (-0) H 04/25/18 04:35 Myelocytes % 2 % (-0) H 04/25/18 04:35 Nucleated RBC % Not Reportable 04/25/18 04:35 Neutrophils # (Manual) 6.7 10^3/uL (1.5-6.6) H 04/25/18 04:35 Lymphocytes # (Manual) 1.7 10^3/uL (1.5-3.5) 04/25/18 04:35 Monocytes # (Manual) 0.6 10^3/uL (0.0-1.0) 04/25/18 04:35 Eosinophils # (Manual) 0.0 10^3/uL (0-0.7) 04/25/18 04:35 Basophils # (Manual) 0.0 10^3/uL (0-0.1) 04/25/18 04:35 Differential Comment MANUAL DIFFERENTIAL 04/25/18 04:35 Platelet Estimate NORMAL (130-450,000) (NORMAL) 04/25/18 04:35 RBC Morph Micro Appear NORMAL APPEARANCE (NORMAL) 04/25/18 04:35 PT 12.9 secs (9.9-12.6) H 04/24/18 16:54 INR 1.1 (0.8-1.2) 04/24/18 16:54 Sodium 135 mmol/L (135-145) 04/25/18 04:35 Potassium 3.7 mmol/L (3.5-5.0) 04/25/18 04:35 Chloride 101 mmol/L (101-111) 04/25/18 04:35 Carbon Dioxide 26 mmol/L (21-32) 04/25/18 04:35 Anion Gap 8.0 (6-13) 04/25/18 04:35 BUN 19 mg/dL (6-20) 04/25/18 04:35 Creatinine 0.9 mg/dL (0.4-1.0) 04/25/18 04:35 Estimated GFR (MDRD) 61 (>89) L 04/25/18 04:35 Glucose 106 mg/dL (70-100) H 04/25/18 04:35 Lactic Acid 1.0 mmol/L (0.5-2.2) 04/24/18 06:28 Calcium 8.3 mg/dL (8.5-10.3) L 04/25/18 04:35 Phosphorus 3.7 mg/dL (2.5-4.6) 04/25/18 04:35 Magnesium 1.4 mg/dL (1.7-2.8) L 04/25/18 04:35 Iron 55 ug/dL (28-170) 04/24/18 15:20 TIBC 301 ug/dL (250-450) 04/24/18 15:20 % Saturation 18 % (20-50) L 04/24/18 15:20 Transferrin 215 mg/dL (192-382) 04/24/18 15:20 Ferritin 41.2 ng/mL (11.0-306.8) 04/24/18 15:20 Total Bilirubin 1.1 mg/dL (0.2-1.0) H 04/25/18 04:35 AST 36 IU/L (10-42) 04/25/18 04:35 ALT 81 IU/L (10-60) H 04/25/18 04:35 Alkaline Phosphatase 73 IU/L (42-121) 04/25/18 04:35 Lactate Dehydrogenase 316 IU/L (91-225) H 04/24/18 15:20 Total Protein 5.2 g/dL (6.7-8.2) L 04/25/18 04:35 Albumin 3.0 g/dL (3.2-5.5) L 04/25/18 04:35 Globulin 2.2 g/dL (2.1-4.2) 04/25/18 04:35 Albumin/Globulin Ratio 1.4 (1.0-2.2) 04/25/18 04:35 Vitamin B12 3178 pg/mL (180-914) H 04/24/18 15:20 Folate > 49.60 ng/mL (5.90 - >24.8) 04/24/18 15:20 TSH 2.59 uIU/mL (0.34-5.60) 04/25/18 04:35 Urine Color YELLOW 04/24/18 11:06 Urine Clarity HAZY (CLEAR) 04/24/18 11:06 Urine pH 5.5 PH (5.0-7.5) 04/24/18 11:06 Ur Specific [place] <=1.005 (1.002-1.030) 04/24/18 11:06 Urine Protein NEGATIVE mg/dL (NEGATIVE) 04/24/18 11:06 Urine Glucose (UA) NEGATIVE mg/dL (NEGATIVE) 04/24/18 11:06 Urine Ketones NEGATIVE mg/dL (NEGATIVE) 04/24/18 11:06 Urine Occult Blood NEGATIVE (NEGATIVE) 04/24/18 11:06 Urine Nitrite POSITIVE (NEGATIVE) H 04/24/18 11:06 Urine Bilirubin NEGATIVE (NEGATIVE) 04/24/18 11:06 Urine Urobilinogen 0.2 (NORMAL) E.U./dL (NORMAL) 04/24/18 11:06 Ur Leukocyte Esterase SMALL (NEGATIVE) H 04/24/18 11:06 Urine RBC None Seen /HPF (0-5) 04/24/18 11:06 Urine WBC 11-25 /HPF (0-5) H 04/24/18 11:06 Ur Squamous Epith Cells RARE Squamous (<= Few) 04/24/18 11:06 Urine Bacteria Moderate /HPF (None Seen) H 04/24/18 11:06 Ur Microscopic Review INDICATED 04/24/18 11:06 Urine Culture Comments INDICATED 04/24/18 11:06 ABX Reporting Has patient been on IV antibiotics over the past 48 hours?: No
[2018-04-25] MEDS ORDERED: MAGNESIUM SULFATE 3 GM in SODIUM CHLORIDE 0.9% 50 ML IV ONE (19:02)
[2018-04-25] MEDS ORDERED: MAGNESIUM SULFATE 2 GM in SODIUM CHLORIDE 0.9% 50 ML IV SCH (19:03)
[2018-04-25] MEDS: ceFAZolin 2 GM/50 ML 2 GM/50 ML BAG IV SCH (19:26)
--- NOTE | 2018-04-25 20:06 | XRAY Report ---
Reason: ORIF LEFT ELBOW Procedure Date: 04/25/2018 Accession Number: [id number] / [id number] Procedure: [place] - OR C-Arm Procedure CPT Code: FULL RESULT: EXAM: FLUOROSCOPIC GUIDANCE. EXAM DATE: 04/25/2018 04:58 PM. CLINICAL HISTORY: Open reduction internal fixation left elbow. COMPARISON: Elbow 3 view right 04/25/2018 3:56 PM. Findings/ IMPRESSION: Fluoroscopic guidance provided for left elbow ORIF. Total fluoroscopy time: 45 seconds. Number of images: 3. RADIA
[2018-04-25] MEDS ORDERED: HALOPERIDOL 5 MG/ML VIAL IVP PRN (21:34)
[2018-04-25] MEDS: MORPHINE 2 MG/ML CARPUJECT IVP PRN (21:56)
[2018-04-26] MEDS: SODIUM CHLORIDE FLUSH 0.9% 10 ML SYRINGE IVP SCH (00:59)
[2018-04-26] MEDS: ALPRAZolam 0.25 MG TABLET PO PRN ×3 (01:57→11:26)
[2018-04-26] MEDS: ceFAZolin 2 GM/50 ML 2 GM/50 ML BAG IV SCH (03:35)
[2018-04-26 05:26] LABS: BASOPHILS % (AUTO) 0.1 %; HGB - HEMOGLOBIN 8.4 g/dL (12.0-16.0); LYMPHOCYTES # (AUTO) 1.3 10^3/uL (1.5-3.5); LYMPHOCYTES % (AUTO) 8.9 %; MEAN CORPUSCULAR HEMOGLOBIN 31.2 pg (27.0-31.0); MEAN CORPUSCULAR HGB CONC 32.4 g/dL (32.0-36.0); MEAN CORPUSCULAR VOLUME 96.5 fL (81.0-99.0); MONOCYTES # (AUTO) 1.4 10^3/uL (0.0-1.0); MONOCYTES % (AUTO) 9.5 %; NEUTROPHILS # (AUTO) 12.3 10^3/uL (1.5-6.6); NEUTROPHILS % (AUTO) 81.5 %; PLT - PLATELET COUNT 239 10^3/uL (130-450); RED BLOOD COUNT 2.69 10^6/uL (4.20-5.40); RED CELL DISTRIBUTION WIDTH 17.8 % (12.0-15.0); WHITE BLOOD COUNT 15.1 x10^3/uL (4.8-10.8)
[2018-04-26 05:37] LABS: ALBUMIN 2.7 g/dL (3.2-5.5); ALBUMIN/GLOBULIN RATIO 1.1 (1.0-2.2); BILIRUBIN,TOTAL 0.7 mg/dL (0.2-1.0); CALCIUM 7.6 mg/dL (8.5-10.3); CREATININE 1.1 mg/dL (0.4-1.0); MAGNESIUM 1.9 mg/dL (1.7-2.8); PHOSPHORUS 4.2 mg/dL (2.5-4.6); TOTAL PROTEIN 5.1 g/dL (6.7-8.2)
[2018-04-26] MEDS: PANTOPRAZOLE 40 MG TABLET PO SCH (06:25)
[2018-04-26] MEDS: SODIUM CHLORIDE 0.9% 1,000 ML IV SCH (06:26)
[2018-04-26] MEDS: LEVOTHYROXINE 25 MCG TABLET PO SCH (06:27)
[2018-04-26] MEDS ORDERED: LEVOTHYROXINE 88 MCG TABLET PO SCH (07:00)
[2018-04-26] MEDS ORDERED: COLCHICINE 0.6 MG TABLET PO SCH (09:00)
[2018-04-26] MEDS: ASPIRIN CHEW 81 MG TABLET PO SCH (09:30)
[2018-04-26] MEDS: CALCIUM CITRATE 250 MG TABLET PO SCH (09:31)
[2018-04-26] MEDS: ATORVASTATIN 10 MG TABLET PO SCH (09:31)
[2018-04-26] MEDS: CHOLECALCIFEROL 1,000 UNIT TABLET PO SCH (09:32)
--- NOTE | 2018-04-26 09:48 | PROVIDER PROGRESS NOTE ---
Subjective - Prog Note Date Prog Note Date: 04/26/18 Prog Note Time: 09:46 - Subjective Pt reports feeling: Improved (Much pain with mobilization. No numbness noted) Objective - Vital Signs/Intake & Output Vital Signs: Vital Signs x48h Temp Pulse Resp BP BP Pulse Ox 04/26/18 07:59 36.8 C 88 18 159/65 H 172/71 H 97 04/26/18 03:39 37.1 C 75 17 134/46 H 98 Intake & Output: Intake & Output 04/23/18 04/24/18 04/25/18 04/26/18 23:59 23:59 23:59 23:59 Intake Total 2870.833 2457.334 870.000 Output Total 1450 1700 150 Balance 1420.833 757.334 720.000 - Lab Results Fish Bones: 04/26/18 05:00 04/26/18 05:00 Other Labs: Lab Results x24hrs 04/26/18 04/26/18 Range/Units 05:00 05:00 WBC 15.1 H (4.8-10.8) x10^3/uL RBC 2.69 L (4.20-5.40) 10^6/uL Hgb 8.4 L (12.0-16.0) g/dL Hct 25.9 L (37.0-47.0) % MCV 96.5 (81.0-99.0) fL MCH 31.2 H (27.0-31.0) pg MCHC 32.4 (32.0-36.0) g/dL RDW 17.8 H (12.0-15.0) % Plt Count 239 (130-450) 10^3/uL MPV 9.0 (7.9-10.8) fL Neut # (Auto) 12.3 H (1.5-6.6) 10^3/uL Lymph # (Auto) 1.3 L (1.5-3.5) 10^3/uL [place] # (Auto) 1.4 H (0.0-1.0) 10^3/uL Eos # (Auto) 0.0 (0.0-0.7) 10^3/uL Baso # (Auto) 0.0 (0.0-0.1) 10^3/uL Absolute Nucleated RBC 0.00 x10^3/uL Nucleated RBC % 0.0 /100WBC Sodium 136 (135-145) mmol/L Potassium 3.5 (3.5-5.0) mmol/L Chloride 100 L (101-111) mmol/L Carbon Dioxide 26 (21-32) mmol/L Anion Gap 10.0 (6-13) BUN 18 (6-20) mg/dL Creatinine 1.1 H (0.4-1.0) mg/dL Estimated GFR (MDRD) 48 L (>89) Glucose 137 H (70-100) mg/dL Calcium 7.6 L (8.5-10.3) mg/dL Phosphorus 4.2 (2.5-4.6) mg/dL Magnesium 1.9 (1.7-2.8) mg/dL Total Bilirubin 0.7 (0.2-1.0) mg/dL AST 40 (10-42) IU/L ALT 40 (10-60) IU/L Alkaline Phosphatase 71 (42-121) IU/L Total Protein 5.1 L (6.7-8.2) g/dL Albumin 2.7 L (3.2-5.5) g/dL Globulin 2.4 (2.1-4.2) g/dL Albumin/Globulin Ratio 1.1 (1.0-2.2) - Other Results/Comments Other Results/Comments: EXAM: Splint ok. Moving fingers well. Sensation intact throughtout. Warm digits; good cap filling Assessment/Plan - Problem List (1) Humerus fracture Impression: Satis post op PLAN: Discharge home today. Stay in splint and sling until follow up with Dr. Flores in 2 weeks. Qualifiers: Encounter type: initial encounter Humerus Location: distal Fracture type: closed Fracture morphology: other fracture Fracture alignment: displaced Laterality: left Qualified Code(s): S42.492A - Other displaced fracture of lower end of left humerus, initial encounter for closed fracture
[2018-04-26] MEDS: SPIRONOLACTONE 25 MG TABLET PO SCH (09:52)
[2018-04-26] MEDS: FUROSEMIDE 20 MG TABLET PO SCH (09:55)
[2018-04-26] MEDS: MULTIVITAMIN TABLET PO SCH (09:56)
[2018-04-26] MEDS: POLYETHYLENE GLYCOL 3350 17 GM PACKET PO SCH (09:56)
--- NOTE | 2018-04-26 12:10 | Discharge Plan ---
Discharge Plan Disposition: Home, Self Care Condition: Stable Prescriptions: oxyCODONE [Roxicodone] 5 mg PO Q4HR PRN #16 tablet PRN Reason: Pain 5 to 7 Calcium Carbonate/Vitamin D3 [Calcium 600-Vit D3 800 Tablet] 1 each PO DAILY #30 tablet Ciprofloxacin/Ciprofloxa HCl [Ciprofloxacin ER 500 mg Tablet] 500 mg PO DAILY #3 tbmp.24hr Diet: Regular Activity Restrictions: Activity as Tolerated Shower Restrictions: Yes Driving Restrictions: Yes Instruction Topics: UTI, Fx Leg Arm Additional Instructions or Follow Up instructions: You should keep your arm in the sling and no changes to the dressing, until you see the Orthopedic surgeon in follow-up in 2 weeks. Please call his office to get an appointment with Dr Flores at . A prescription for pain was ordered for you. If you need a refill for those, see your PCP. Stay well hydrated, since that pain medication can cause constipation. Resume all your pre-hospital medications. Also, a daily additional tablet of calcium with vitamin D was prescribed, for bone strengthening. Start taking this daily, in addition to your multivitamin. While you were hospitalized, your urine tests showed a urinary tract infection. Please take the 3-day course of antibiotics which are newly prescribed for you. See your PCP within 1 week for follow-up. If you have new or worsening symptoms, come to the ER. No Smoking: If you smoke, Please STOP! Call for help.
[2018-04-26 14:04] VITALS: BP 146/70
--- NOTE | 2018-04-26 17:40 | OPERATIVE REPORT ---
DATE OF SERVICE: 04/25/2018 Physician: Mark Flores MD SURGEON: Mark Flores MD BOOK TRIMMER: None. ANESTHESIOLOGIST: Edmund Yousif MD. ANESTHESIA: General anesthesia LMA, as well as 30 mL of 0.5% Marcaine with epinephrine local. ESTIMATED BLOOD LOSS: 100 mL PREOPERATIVE ANTIBIOTICS: Two grams weight-based IV Ancef. TOURNIQUET TIME: 2 hours at 250 mmHg. COMPRESSION DEVICE: Bilateral calf SCD boots. ORTHOPEDIC IMPLANTS: [employer] ALPS periarticular titanium locking plates: 1. Posterolateral and one medial with associated locking and nonlocking screws. 2. Two small frag screws including a singular 3.5 stainless steel cortical screw and singular 4.0 cancellous screw. PREOPERATIVE DIAGNOSIS: Left supracondylar humerus fracture with significant intra-articular involvement and comminution with displacement. POSTOPERATIVE DIAGNOSIS: Left supracondylar humerus fracture with significant intraarticular involvement and comminution with displacement. PROCEDURE PERFORMED: 1. Left distal humerus supracondylar fracture open reduction and internal fixation. 2. Left ulnar nerve transposition. INTRAOPERATIVE FINDINGS: The patient was noted to have a significantly comminuted left intraarticular distal humerus fracture. There was some bony/cartilaginous loss at the level of the joint, though the majority of the joint surfaces were grossly intact. There was comminution more proximally as well. Ultimately post-final reduction, the joint is nearly anatomically reduced aside from the small areas of cartilage/bone loss and there was good integrity of the repair and good fixation of the articular component to the remaining humeral shaft with elbow extension beyond 180 degrees by approximately 3 degrees and flexion greater than 135-140 degrees with smooth arc of range of motion and full pronation and supination. Intraarticular surface of the distal humerus is examined and noted to have no intraarticular hardware under direct visualization. ADDITIONAL OPERATIVE FINDING:. Upon initial dissection, the ulnar nerve was noted to be somewhat swollen in the more proximal aspect and somewhat more diminutive in the more distal section from the cubital tunnel distally and initially noted to be under some tension, though ultimately after decision for transposition it was noted to be without significant tension throughout arc of motion and with appropriate pathway unencumbered. HISTORY OF PRESENT ILLNESS AND INDICATIONS: Patient is a 78-year-old female who sustained a fall injuring her left elbow. She has multiple medical issues and was ultimately evaluated by the medical team, indicated for operative treatment from the orthopedic perspective. Please see previous discussions with the patient and the patient's , Edmund. We discussed multiple times the day before and the day of surgery, risks, benefits, alternatives. We reviewed the potential intraoperative decision making and the potential short-term and long- term problems with her injury and was proposed surgery. We reviewed potential need for additional procedures in the future. She verbalized understanding of the above and verbalized her wish to proceed with operative treatment. Informed consent was given. PROCEDURE: On 04/25/2018, patient was identified in the preoperative area/hospital room. Her left elbow was identified and signed by the operating surgeon. She was then ultimately brought into the operating room and placed supine on the operating table with head, neck and extremities protected and then ultimately placed in a right side down lateral decubitus position after general anesthesia is administered. She had appropriately placed axillary roll to avoid encumbrance of the axilla as well as breast tissues. Head, neck and lower extremities were placed in a comfortable and safe positions to avoid peripheral nerve stretch and compression. Down leg gel padded. SCD boots were placed on bilateral knees. Pillows were placed between the thigh and the kneecaps/feet. Beanbag positioner was used. The patient's left arm was draped over a well- padded arm rest. The patient had the tourniquet placed well up in the left arm, well padded, taking care to avoid incompetence of the axilla. The patient's left elbow and left upper extremity were prescrubbed with chlorhexidine solution and then prepped and draped in the usual sterile fashion. A surgical pause identified the left elbow as the operative site. At this point, a curvilinear incision was made of the elbow, moving around the tip of the olecranon and away from the ulnar nerve. Skin dissection was made spreading dissection carried out to extensor mechanism. Triceps was identified. Ulnar nerve was identified and protected. Please see operative findings. At this point, given the appearance and position of the ulnar nerve and its proximity to the fracture, the decision to transpose this away from further trauma and involvement with the fracture and implant plate position, this was released throughout the area of the cubital tunnel proximally and distally appropriately so that when placed anterior to the medial epicondyle, there was no awkward or flexed course, but rather free movement, which relieves tension on the ulnar nerve. This was protected and identified throughout the case. At this point, dissection around the fracture site is carried out and the fracture fragments were identified and with multiple iterations and use of reduction clamps and K- wires, the articular surface was reduced and then ultimately the medial column was reduced and K-wired and then ultimately the lateral column was reduced. At this point, a medial plate was placed and K-wired in place. Fluoroscopic image shows acceptable position, followed by a posterolateral plate, which was contoured and placed. Care was taken to place these off the articular surfaces as well as out of the way of expected motion, so that they would not impinge. The lateral tissues were noted to be quite injured, which affords a good view of the anterior joint as well as the medial and lateral distal aspects once the paratricipital approach was used. At this point, it should be noted that the dissection of the medial and lateral aspect of the triceps was carried out prior to ultimately reducing the bony fragments as above. At this point, multiple iterations of screw fixation with first nonlocking screws and then ultimately locking screws were placed, alternatively in the medial and lateral plates and with intermittent fluoroscopic image evaluation. Once the appropriate amount of fixation is achieved and and screws placed proximally and distally, which included a stainless steel screw to allow for compression of the posterolateral plate and bone, as well as a "spindle" screw from lateral to medial across the sagittal split between the trochlea and capitellum with a 4.0 cancellous screw. Full range of motion is confirmed and extraarticular hardware was confirmed. Of significant note, the most medial of the distal lateral screws in the capitellum does appear somewhat prominent on fluoroscopic image and even live fluoroscopic image. That said, it is noted to have the best fixation in the capitellum and noted to be extraarticular and presumably subchondral in nature in that there is no evidence of prominent hardware under direct visualization of the entire capitellum. This is also true for remaining hardware as it approaches the joint, both medially and laterally. At this point, once direct visualization of the joint and fluoroscopic images were noted to be within acceptable limits and the patient was noted to have good fixation and excellent range of motion, copious irrigation was commenced. At this point, the ulnar nerve had a fascial sling prepared such that it could have an unencumbered smooth course throughout flexion and extension without relocation over the medial epicondyle and without undue tension or angle throughout its motion. The finger can fit through its entire course to assure that there was good room. At this point, the paracentral tricipital incisions were closed using 0 Vicryl. Repeat irrigation was performed. The tourniquet was deflated at 2 hours. Hemostasis achieved. Skin was then closed in a layered fashion using 0 Vicryl, 2-0 Vicryl, and skin adelina. Skin was washed and dried. Local anesthetic infused. Xeroform dressing is applied. Dry sterile dressing applied. Soft roll was applied. The patient was placed in a posterior splint with a side slab just kept short of the wrist for wrist and hand range of motion. She was placed in a sling. The patient tolerated the procedure well. Instrument and sponge counts were correct. The patient was transferred to recovery room in stable condition. The patient will follow standard distal humerus supracondylar open reduction internal fixation protocol. She will avoid weightbearing left upper extremity. She will be encouraged to move her hand and wrist. Should stay in sling, should keep splint intact. Once discharged, she would follow up in 10-14 days or sooner should problems, questions or worsening of condition arise. The patient's and son were contacted in the waiting area. The case was discussed. Postoperative instructions reviewed. Significant intraoperative findings and surgery were reviewed. Potential short and long-term problems again highlighted and the potential need for additional procedures highlighted. Their questions were answered. They verbalized understanding and satisfaction with the plan as outlined as the patient had preoperatively. TD: 04/26/2018 11:34 CECILIA
--- NOTE | 2018-04-26 20:37 | DISCHARGE SUMMARY ---
Physician: Concetta Denton MD DATE OF ADMISSION: 04/25/2018 DATE OF DISCHARGE: 04/26/2018 HISTORY OF PRESENT ILLNESS: This is a 78-year-old white female with history of hypertension, GERD, PVD, with femoral bypasses, peptic ulcer disease, Billroth II procedure in 2006, chronic back pain, hypothyroidism, multiple past surgeries, glaucoma, who has been having recent increased falls. One fall led to a recent shoulder dislocation. For this admission, she fell on her elbow and was admitted for a very complicated fracture of the left elbow. HOSPITAL COURSE AND DISCHARGE DIAGNOSES: 1. Humerus fracture. The patient sustained a comminuted distal humerus shaft fracture, which was foreshortened and angulated along with x-ray showing large amount of soft tissue swelling. She was seen by orthopedics. It required a day and a half to obtain the proper orthopedic equipment to have surgery done here, and she underwent successful but prolonged surgery on 04/25/2018. She is now in a sling, and was sent home with oral narcotic pain medications and is to see the orthopedic surgeon, Dr. Flores, in approximately 2 weeks. The patient had been seen by physical therapy, postoperatively, and was able to ambulate with the help of the patient's , and she was able to achieve everything that she would need to at home. Therefore, she was discharged to her house without an order for PT or OT or any new equipment. 2. Anemia. The patient had an admission hemoglobin of 10, which decreased to 9.4, then 8.4 on the day of discharge because of receiving IV hydration in preparation for n.p.o. status and surgery. She had a B12 level that was normal, folate that was normal and iron studies showing adequate levels, but low saturation. The patient was advised to take calcium and vitamin D3 along with her multivitamin for replacement of trace elements and vitamins, but further evaluation of the anemia should be done as an outpatient. 3. Hypothyroidism. The patient was kept on her thyroid replacement medication while here. A TSH level was done that was normal at 2.59, indicating adequate thyroid replacement. 4. Urinary tract infection. The patient had an routine admission urinalysis that showed positive nitrites and leukocyte esterase with moderate bacteria. Therefore, a culture was indicated. On the day of discharge, the culture returned positive with growth of Escherichia coli. The patient was discharged home to start Cipro 500 mg orally daily for 3 days, as the Cipro had good MIRELLA sensitivities from the urine culture results. The patient would benefit from a recheck of her urine at her next PCP appointment to determine that the UTI is cleared. 5. Glaucoma. The patient does not list any eyedrops for management of glaucoma, and, if indeed this is adding to her poor vision and frequent falls, Which is what she believes, this needs attention and management. ALLERGIES: NONE. MEDICATIONS AT THE TIME OF DISCHARGE: 1. Tylenol No. 3 p.r.n. 2. Xanax p.r.n. 3. Colchicine 0.6 mg daily. 4. Lasix 20 mg daily. 5. Potassium 20 mEq daily. 6. Prevacid 30 mg daily. 7. Synthroid 88 mcg daily. 8. Zocor 20 mg every night. 9. Spironolactone 50 mg daily. 10. Ursodiol 300 mg b.i.d. 11. Oxycodone 5 mg every 4 hours p.r.n. 16 tablets in total were prescribed. 12. Baby aspirin daily. 13. Calcium with vitamin D3 daily. 14. Cipro 500 mg daily for 3 days. LABORATORY AND IMAGING: Reviewed and summarized above. CONDITION AT DISCHARGE: Stable. PHYSICAL EXAMINATION AT DISCHARGE: VITAL SIGNS: Blood pressure 150/70, heart rate 80 in sinus rhythm, afebrile, room air saturation 97%. HEENT: Unremarkable except she is wearing dark glasses. NECK: Without JVD or carotid bruits. CHEST: Clear. HEART: Normal heart sounds. ABDOMEN: Soft, nontender. EXTREMITIES: Without edema. The left arm is in a sling. NEUROLOGIC: Intact. FOLLOWUP: She is to see Dr. Flores, in orthopedics, in 2 weeks and her PCP within 1 week. CODE STATUS: FULL CODE. Time required to complete the entire discharge, chart review, the option orders, discussions and education with the patient and disc : 60 minutes. cc: Dr Lopez TD: 04/26/2018 19:07 [id number]
== END 2018-04-26 13:37 | disposition home or self-care (01) | DRG 563 ==
LOC: EDUNIT# → ED 23:43 → OBS 04-24 04:02 → MS2 04-25 11:50 → OBSVTOIN 04-25 17:28
PROVIDERS: ADMIT Internal Medicine; ATTEND Internal Medicine
PROC: 0PSG04Z Reposition Left Humeral Shaft with Internal Fixation Device, Open Approach (ICD-10-PCS; principal; 2018-04-25 11:15)
DX: S42.422A Displaced comminuted supracondylar fracture without intercondylar fracture of left humerus, initial encounter for closed fracture (principal); E87.1 Hypo-osmolality and hyponatremia; N39.0 Urinary tract infection, site not specified; W18.30XA Fall on same level, unspecified, initial encounter; B96.20 Unspecified Escherichia coli [E. coli] as the cause of diseases classified elsewhere; D64.9 Anemia, unspecified; Y92.003 Bedroom of unspecified non-institutional (private) residence as the place of occurrence of the external cause; H40.9 Unspecified glaucoma; I10 Essential (primary) hypertension; R29.6 Repeated falls; N28.9 Disorder of kidney and ureter, unspecified; E03.9 Hypothyroidism, unspecified; G89.29 Other chronic pain; M54.9 Dorsalgia, unspecified; E78.5 Hyperlipidemia, unspecified; K21.9 Gastro-esophageal reflux disease without esophagitis; I73.9 Peripheral vascular disease, unspecified; R26.81 Unsteadiness on feet; S43.004D Unspecified dislocation of right shoulder joint, subsequent encounter; W19.XXXD Unspecified fall, subsequent encounter; Z79.82 Long term (current) use of aspirin; Z79.891 Long term (current) use of opiate analgesic; Z91.81 History of falling; Z87.891 Personal history of nicotine dependence; Z95.828 Presence of other vascular implants and grafts; Z87.11 Personal history of peptic ulcer disease
CPT/HCPCS: 24545; G0378; 29105; 36415; 80048; 80053; 81001; 81003; 82607; 82728; 82746; 83540; 83605; 83615; 83735; 84100; 84443; 84466; 85025; 85610; 87086; 87181; 93005; 96361; 96372; 96374; 96376; 99284; 99285

== ENCOUNTER 2018-04-30 10:19 | Emergency (ER) | payer MEDICARE, OTHER ==
--- NOTE | 2018-04-30 11:46 | ED Physician Documentation ---
History of Present Illness - Stated complaint Stated Complaint: GLF/POST OP - Chief complaint Chief Complaint: General - Additonal information Additional information: hx from pt 78 f seen by me Monday night for a fall and comminuted displaced angulated humerus fx she has freq falls and had just dislocated her R shoulder after a fall as well admitted for surgery also had UTI txed with cipro dc home 04/26 - per dc summary was functioning independently and no home health PT OT etc were felt necessary has been progressively more confused since only take oxycodone twice in 4 days so not likely the cause no fever no CP SOA abd pain NV urine still cloudy looks pale no bloody black BM this AM found her on the floor beside her bed she has neck pain - hx surgery L upper arm pain worried the surgery was disrupted and L hip pain Review of Systems Constitutional: denies: Fever Cardiac: denies: Chest pain / pressure Respiratory: denies: Dyspnea, Cough GI: denies: Abdominal Pain, Nausea, Bloody / black stool : reports: Dysuria (cloudy) Skin: denies: Laceration (s) Musculoskeletal: reports: Neck pain, Extremity pain Neurologic: reports: Altered mental status. 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: Hysterectomy Cardiovascular: Vascular surgery - Present Medications Home Medications: Ambulatory Orders Medication Instructions Recorded Confirmed Simvastatin [Zocor] 20 mg PO QPM 06/13/13 04/24/18 Alprazolam [Xanax] 0.5 mg PO Q6H PRN 11/04/13 04/24/18 Furosemide [Lasix] 20 mg PO DAILY 12/24/14 04/24/18 Spironolactone 50 mg PO DAILY 12/24/14 04/24/18 Ursodiol 300 mg PO BID 12/24/14 04/24/18 Colchicine [Colcrys] 0.6 mg PO DAILY 05/17/16 04/24/18 Potassium Chloride [K-Dur] 20 meq PO DAILY 05/17/16 04/24/18 Acetaminophen/Cod 300/30 [Tylenol 1 each PO Q4-6H PRN 04/24/18 04/24/18 #3] Lansoprazole [Prevacid] 30 mg PO DAILY PRN 04/24/18 04/24/18 Levothyroxine [Synthroid] 88 mcg PO QDAC 04/24/18 04/24/18 Aspirin Chewable [[place] 81 mg PO DAILY tablet 04/26/18 Aspirin] Calcium Carbonate/Vitamin D3 1 each PO DAILY #30 tablet 04/26/18 [Calcium 600-Vit D3 800 Tablet] Ciprofloxacin/Ciprofloxa HCl 500 mg PO DAILY #3 tbmp.24hr 04/26/18 [Ciprofloxacin ER 500 mg Tablet] oxyCODONE [Roxicodone] 5 mg PO Q4HR PRN #16 tablet 04/26/18 - Allergies Allergies/Adverse Reactions: Allergies Allergy/AdvReac Type Severity Reaction Status Date / Time No Known Drug Allergies Allergy Verified 04/30/18 10:31 - Social History Does the pt smoke?: No Smoking Status: Former smoker Does the pt drink ETOH?: No Does the pt have substance abuse?: No - Immunizations Immunizations are current?: Yes - POLST Patient has POLST: No POLST Status: Full Code PD ED PE NORMAL - Vitals Vital signs reviewed: Yes - General General: No: Alert and oriented X 3 (slow to respond but able to answer simple questions) - HEENT HEENT: PERRL (4) - Neck Neck: No bony TTP (+ mild non focal pain - pt is altered and fell so will image - cannot collar over the sling but pt is laying supine and still) - Cardiac Cardiac: RRR - Respiratory Respiratory: No respiratory distress, Clear bilaterally - Abdomen Abdomen: Soft, Non tender - Rectal Rectal: Other (with pt permission - neg for occult blood) - Derm Derm: Other (very pale) - Extremities Extremities: Other (LUE splinted and in sling, MSV intact, L hip TTP not short or roatets MSV intact) - Neuro Neuro: No motor deficit. No: Alert and oriented X 3 Eye Opening: Spontaneous Motor: Obeys Commands Verbal: Confused GCS Score: 14 Results - Vitals Vitals: Vital Signs - 24 hr 04/30/18 04/30/18 10:23 14:26 Temperature 36.3 C L Heart Rate 66 61 Respiratory 16 16 Rate Blood Pressure 148/60 H 157/62 H O2 Saturation 97 96 Oxygen O2 Source [] Room air O2 Source Room air - Labs Labs: Laboratory Tests 04/30/18 04/30/18 04/30/18 11:56 11:56 11:56 WBC 8.2 RBC 2.51 L Hgb 8.0 L Hct 24.1 L MCV 96.2 MCH 31.8 H MCHC 33.1 RDW 17.0 H Plt Count 345 MPV 8.2 Neut # (Auto) Not Reportable Lymph # (Auto) Not Reportable [place] # (Auto) Not Reportable Eos # (Auto) Not Reportable Baso # (Auto) Not Reportable Absolute Nucleated RBC Not Reportable Total Counted 100 Band Neuts % (Manual) 6 Abnorm Lymph % (Manual) 0 Nucleated RBC % Not Reportable Neutrophils # (Manual) 5.9 Lymphocytes # (Manual) 2.0 Monocytes # (Manual) 0.2 Eosinophils # (Manual) 0.0 Basophils # (Manual) 0.1 Nucleated RBCs 1 Differential Comment MANUAL DIFFERENTIAL Manual Slide Review Indicated Platelet Estimate NORMAL (130-450,000) Platelet Morphology 1+ LARGE PLATELETS RBC Morph Micro Appear 1+ HYPOCHROMASIA Sodium 134 L Potassium 3.4 L Chloride 98 L Carbon Dioxide 28 Anion Gap 8.0 BUN 17 Creatinine 0.9 Estimated GFR (MDRD) 61 L Glucose 99 Calcium 8.6 Troponin I < 0.04 Urine Color Urine Clarity Urine pH Ur Specific [place] Urine Protein Urine Glucose (UA) Urine Ketones Urine Occult Blood Urine Nitrite Urine Bilirubin Urine Urobilinogen Ur Leukocyte Esterase Ur Microscopic Review Urine Culture Comments 04/30/18 14:25 WBC RBC Hgb Hct MCV MCH MCHC RDW Plt Count MPV Neut # (Auto) Lymph # (Auto) [place] # (Auto) Eos # (Auto) Baso # (Auto) Absolute Nucleated RBC Total Counted Band Neuts % (Manual) Abnorm Lymph % (Manual) Nucleated RBC % Neutrophils # (Manual) Lymphocytes # (Manual) Monocytes # (Manual) Eosinophils # (Manual) Basophils # (Manual) Nucleated RBCs Differential Comment Manual Slide Review Platelet Estimate Platelet Morphology RBC Morph Micro Appear Sodium Potassium Chloride Carbon Dioxide Anion Gap BUN Creatinine Estimated GFR (MDRD) Glucose Calcium Troponin I Urine Color YELLOW Urine Clarity CLEAR Urine pH 7.0 Ur Specific [place] 1.010 Urine Protein NEGATIVE Urine Glucose (UA) NEGATIVE Urine Ketones NEGATIVE Urine Occult Blood NEGATIVE Urine Nitrite NEGATIVE Urine Bilirubin NEGATIVE Urine Urobilinogen 0.2 (NORMAL) Ur Leukocyte Esterase NEGATIVE Ur Microscopic Review NOT INDICATED Urine Culture Comments NOT INDICATED - Rads (name of study) CTH Radiology: See rad report (no acute ICH) CT CS Radiology: See rad report (no acute fx or sublux) hip Radiology: See rad report (no acute) humerus Radiology: See rad report (post op changes no acute process) PD MEDICAL DECISION MAKING - ED course ED course: imaging no acute process labs reviewed - anemic but about the same as at recent dc and occult blood neg on rectal relieved offered placement in rehab but he declines and wishes to take pt home Departure - Departure Disposition: 01 Home, Self Care Clinical Impression: Fall Qualifiers: Encounter type: initial encounter Qualified Code(s): W19.XXXA - Unspecified fall, initial encounter Condition: Good Follow-Up: Richard Lopez MD [Primary Care Provider] - Mark Flores MD [Provider Admit Priv/Credential] - Comments: The imaging does not show any new injury The labs were fine except anemia - you are not internally bleeding - the inpatient doctor recommend vitamins for you and you should follow up with your PMD for a recheck I offered to see if you could go to a placed for rehabilitation and strength building but you felt safe going home. Please follow up with ortho and your PMD in the near future Return to the ER if worse
[2018-04-30 12:06] LABS: BASOPHILS % (AUTO) 0.4 %; EOSINOPHILS % (AUTO) 0.1 %; LYMPHOCYTES % (AUTO) 20.1 %; MEAN CORPUSCULAR HEMOGLOBIN 31.8 pg (27.0-31.0); MEAN CORPUSCULAR HGB CONC 33.1 g/dL (32.0-36.0); MEAN CORPUSCULAR VOLUME 96.2 fL (81.0-99.0); MEAN PLATELET VOLUME 8.2 fL (7.9-10.8); MONOCYTES % (AUTO) 10.2 %; NEUTROPHILS % (AUTO) 69.2 %; PLT - PLATELET COUNT 345 10^3/uL (130-450); RED BLOOD COUNT 2.51 10^6/uL (4.20-5.40); WHITE BLOOD COUNT 8.2 x10^3/uL (4.8-10.8)
[2018-04-30 12:13] LABS: CALCIUM 8.6 mg/dL (8.5-10.3); CREATININE 0.9 mg/dL (0.4-1.0)
[2018-04-30 12:30] LABS: ABNORMAL LYMPHS % (MANUAL) 0 %
[2018-04-30 12:31] LABS: BAND NEUTROPHILS % (MANUAL) 6 %; BASOPHILS # (MANUAL) 0.1 10^3/uL (0-0.1); BASOPHILS % (MANUAL) 1 %; DIFFERENTIAL COMMENT MANUAL DIFFERENTIAL; LYMPHOCYTES % (MANUAL) 24 %; MONOCYTES # (MANUAL) 0.2 10^3/uL (0.0-1.0); NEUTROPHILS # (MANUAL) 5.9 10^3/uL (1.5-6.6); NEUTROPHILS % (MANUAL) 66 %; PLATELET ESTIMATE, MANUAL NORMAL (130-450,000) (NORMAL); PLATELET MORPHOLOGY 1+ LARGE PLATELETS (NORMAL)
--- NOTE | 2018-04-30 12:37 | CT Report ---
Reason: unwitnessed fall AMS Procedure Date: 04/30/2018 Accession Number: [id number] / [id number] Procedure: CT - Head W/O CPT Code: FULL RESULT: EXAM: CT HEAD EXAM DATE: 04/30/2018 12:20 PM. CLINICAL HISTORY: Unwitnessed fall; AMS. COMPARISON: HEAD W/O 06/13/2013 1:02 PM. TECHNIQUE: Multiaxial CT images were obtained from the foramen magnum to the vertex. Reformats: Sagittal and coronal. IV contrast: None. In accordance with CT protocol optimization, one or more of the following dose reduction techniques were utilized for this exam: automated exposure control, adjustment of mA and/or KV based on patient size, or use of iterative reconstructive technique. FINDINGS: Parenchyma: No intraparenchymal hemorrhage. No evidence of mass, midline shift, or CT findings of acute infarction. Ponce-white differentiation is distinct. Diffuse chronic microangiopathic white matter changes are evident. Extraaxial Spaces: Normal for age. No subdural or epidural collections identified. Ventricles: The ventricles and cortical sulci are enlarged, consistent with age-related tissue loss. Sinuses and orbits: Imaged paranasal sinuses, orbits, and mastoids show no significant abnormality. Bones: No evidence of fracture or calvarial defect. Other: None. IMPRESSION: Generalized age-related cortical atrophic changes without evidence of acute intracranial abnormality. Overall no significant change from prior. RADIA
--- NOTE | 2018-04-30 12:45 | CT Report ---
Reason: fall neck pain Procedure Date: 04/30/2018 Accession Number: [id number] / [id number] Procedure: CT - Cervical Spine W/O CPT Code: FULL RESULT: EXAM: CT CERVICAL SPINE WITHOUT CONTRAST DATE: 04/30/2018 12:26 PM. HISTORY: Fall; neck pain. COMPARISONS: None. TECHNIQUE: Thin-section axial images were acquired of the cervical spine without contrast. Post-processing: Coronal and sagittal reformats. Other: None. In accordance with CT protocol optimization, one or more of the following dose reduction techniques were utilized for this exam: automated exposure control, adjustment of mA and/or KV based on patient size, or use of iterative reconstructive technique. FINDINGS: Alignment: Mild (grade 1) anterolisthesis of C3 on C4. Bones: Mildly suboptimal evaluation secondary to streak artifact, but there is no evidence of acute fracture. Interspace Levels/Facets: Status post fusion C4-C5 and C5-C6. Remaining disk heights are relatively preserved. Mild to moderate facet arthropathy throughout. Other: No prevertebral soft tissue thickening. The lung apices are clear. IMPRESSION: No acute fracture or subluxation in the cervical spine. RADIA
--- NOTE | 2018-04-30 12:47 | XRAY Report ---
Reason: chest pain Procedure Date: 04/30/2018 Accession Number: [id number] / [id number] Procedure: XR - Chest 1 View X-Ray CPT Code: 23259 FULL RESULT: EXAM: CHEST RADIOGRAPHY EXAM DATE: 04/30/2018 11:52 AM. CLINICAL HISTORY: Chest pain. COMPARISON: CHEST 2 VIEW PA/LAT 05/25/2015 3:34 PM. TECHNIQUE: 1 view. FINDINGS: Lungs/Pleura: No focal consolidation. No pneumothorax or pleural effusion. Mediastinum: The cardiac silhouette is normal in size. Mildly tortuous, atherosclerotic thoracic aorta. Other: None. IMPRESSION: No radiographically apparent acute abnormality in the chest. RADIA
--- NOTE | 2018-04-30 12:50 | XRAY Report ---
Reason: fall recent surgery Procedure Date: 04/30/2018 Accession Number: [id number] / [id number] Procedure: XR - Humerus LT CPT Code: FULL RESULT: EXAM: LEFT HUMERUS RADIOGRAPHY EXAM DATE: 04/30/2018 11:54 AM. CLINICAL HISTORY: Fall; pain. Recent surgery. COMPARISON: ELBOW 3 VIEW LT 04/24/2018 12:21 AM. TECHNIQUE: 2 views. FINDINGS: Bones: Postsurgical changes from ORIF distal humerus; examination is not tailored for evaluation of this region, but alignment appears grossly anatomic. No evidence of new fracture. Fine osseous detail from the mid to distal humerus is obscured by overlying artifact. Joints: No dislocation. Soft Tissues: Obscured. IMPRESSION: Postsurgical change at the distal humerus; alignment appears grossly anatomic. RADIA
--- NOTE | 2018-04-30 12:52 | XRAY Report ---
Reason: fall L hip pain Procedure Date: 04/30/2018 Accession Number: [id number] / [id number] Procedure: XR - Hip w/Pelvis 2-3V LT CPT Code: FULL RESULT: EXAM: LEFT HIP AND PELVIS RADIOGRAPHY EXAM DATE: 04/30/2018 12:08 PM. HISTORY: Fall L hip pain. COMPARISONS: Pelvis and right hip radiography 11/22/2007 5:47 PM. TECHNIQUE: 1 view of the pelvis and 1 view of the hip. FINDINGS: Bones: No acute fracture. Joints: No dislocation. Mild degenerative change. Soft Tissues: Bilateral surgical clips. IMPRESSION: No acute osseous abnormality. RADIA
[2018-04-30 14:26] VITALS: BP 157/62
[2018-04-30 14:29] LABS: BILIRUBIN,URINE NEGATIVE (NEGATIVE); GLUCOSE, URINE (UA) NEGATIVE (NEGATIVE); KETONES,URINE (UA) NEGATIVE (NEGATIVE); LEUKOCYTE ESTERASE, URINE NEGATIVE (NEGATIVE); NITRITE,URINE NEGATIVE (NEGATIVE); OCCULT BLOOD,URINE NEGATIVE (NEGATIVE); PROTEIN,URINE NEGATIVE (NEGATIVE); UROBILINOGEN,URINE 0.2 (NORMAL) E.U./dL (NORMAL)
[2018-04-30 14:31] LABS: CLARITY,URINE CLEAR (CLEAR)
== END 2018-04-30 15:15 | disposition home or self-care (01) ==
LOC: ED 10:19
DX: M54.2 Cervicalgia (principal); M25.552 Pain in left hip; W18.30XA Fall on same level, unspecified, initial encounter; Z91.81 History of falling; D64.9 Anemia, unspecified; R41.82 Altered mental status, unspecified; R30.0 Dysuria; I10 Essential (primary) hypertension; Z79.82 Long term (current) use of aspirin; Z87.891 Personal history of nicotine dependence
CPT/HCPCS: 36415; 70450; 71045; 72125; 80048; 81001; 81003; 84484; 85025; 87086; 99283

== ENCOUNTER 2018-05-02 12:55 | Outpatient (CLI) | payer MEDICARE, OTHER | END 2018-05-02 12:56 | disposition critical access hospital (66) | LOC: EMS 12:55 | PROVIDERS: ATTEND Surgery | DX: R56.9 Unspecified convulsions (principal) | CPT/HCPCS: A0425; A0427 ==

== ENCOUNTER 2018-05-02 13:14 | Inpatient (IN) | payer MEDICARE, OTHER ==
--- NOTE | 2018-05-02 13:23 | ED Physician Documentation ---
PD HPI SEIZURE - Stated complaint Stated Complaint: SZ - History obtained from History obtained from: EMS - History of Present Illness Timing - onset: Today Witnessed: Witnessed Number of seizures: Single Description of seizure activity: Generalized (The patient's states she had not been eating and drinking well the last couple of days in particular and not felt well nor been out of bed much since her surgery 8 days ago. She was sitting up today and had an episode where she started tremoring and looked pale. The states she had general muscle movements. EMS was called and she was awake at the time of their arrival. However she was not answering questions very well and seemed confused even more than she had been since surgery. She denied headache or chest pain.) Injury during seizure: No: Fell, Head injury Associated symptoms: No: Headache, Chest pain History of seizures: No: Known seizure disorder Contributing factors: Other (had not been eating nor drinking well the past several days). No: Fever Recently seen: Surgery (elbow fracture repair 8 days ago here at [facility] Review of Systems Constitutional: denies: Fever, Chills Nose: denies: Rhinorrhea / runny nose, Congestion Throat: denies: Sore throat Respiratory: denies: Cough GI: denies: Vomiting, Diarrhea Skin: denies: Rash Neurologic: reports: Generalized weakness, Confused, Altered mental status. 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 Cardiovascular: Vascular surgery - Present Medications Home Medications: Ambulatory Orders Medication Instructions Recorded Confirmed Simvastatin [Zocor] 20 mg PO QPM 06/13/13 04/24/18 Alprazolam [Xanax] 0.5 mg PO Q6H PRN 11/04/13 04/24/18 Furosemide [Lasix] 20 mg PO DAILY 12/24/14 04/24/18 Spironolactone 50 mg PO DAILY 12/24/14 04/24/18 Ursodiol 300 mg PO BID 12/24/14 04/24/18 Colchicine [Colcrys] 0.6 mg PO DAILY 05/17/16 04/24/18 Potassium Chloride [K-Dur] 20 meq PO DAILY 05/17/16 04/24/18 Acetaminophen/Cod 300/30 [Tylenol 1 each PO Q4-6H PRN 04/24/18 04/24/18 #3] Lansoprazole [Prevacid] 30 mg PO DAILY PRN 04/24/18 04/24/18 Levothyroxine [Synthroid] 88 mcg PO QDAC 04/24/18 04/24/18 Aspirin Chewable [[place] 81 mg PO DAILY tablet 04/26/18 Aspirin] Calcium Carbonate/Vitamin D3 1 each PO DAILY #30 tablet 04/26/18 [Calcium 600-Vit D3 800 Tablet] Ciprofloxacin/Ciprofloxa HCl 500 mg PO DAILY #3 tbmp.24hr 04/26/18 [Ciprofloxacin ER 500 mg Tablet] oxyCODONE [Roxicodone] 5 mg PO Q4HR PRN #16 tablet 04/26/18 - Allergies Allergies/Adverse Reactions: Allergies Allergy/AdvReac Type Severity Reaction Status Date / Time No Known Drug Allergies Allergy Verified 05/02/18 13:26 - Social History Does the pt smoke?: No Smoking Status: Former smoker Does the pt drink ETOH?: No Does the pt have substance abuse?: No - Immunizations Immunizations are current?: Yes - POLST Patient has POLST: No POLST Status: Full Code PD ED PE NORMAL - Vitals Vital signs reviewed: Yes - General General: Alert and oriented X 3 (She is alert and oriented but answers questions rather simple answers. She is mostly repeating asking for water.), Well developed/nourished, Other - HEENT HEENT: Atraumatic, Pharynx benign - Neck Neck: Supple, no meningeal sign, No adenopathy - Cardiac Cardiac: RRR, No murmur - Respiratory Respiratory: Clear bilaterally - Abdomen Abdomen: Normal bowel sounds, Soft, Non tender, Non distended - Derm Derm: Normal color, Warm and dry - Extremities Extremities: No deformity, No tenderness to palpate - Neuro Neuro: Alert and oriented X 3, No motor deficit, Normal speech Eye Opening: Spontaneous Motor: Obeys Commands Verbal: Confused GCS Score: 14 Results - Vitals Vitals: Vital Signs - 24 hr 05/02/18 05/02/18 13:20 16:01 Heart Rate 82 83 Respiratory 15 14 Rate Blood Pressure 163/131 H 155/69 H O2 Saturation 100 96 Oxygen O2 Source [With Activity] Room air O2 Source Room air - EKG (time done) 14:17 Rate: Rate (enter#) (78) Rhythm: NSR [place]: Normal Intervals: Normal IA, RBBB QRS: Normal Ischemia: Normal ST segments. No: ST elevation c/w ischemia, ST depression - Labs Labs: Laboratory Tests 05/02/18 05/02/18 05/02/18 15:00 15:00 15:00 WBC 8.7 RBC 2.73 L Hgb 8.9 L Hct 27.7 L MCV 101.5 H MCH 32.5 H MCHC 32.0 RDW 17.7 H Plt Count 375 MPV 8.2 Neut # (Auto) Not Reportable Lymph # (Auto) Not Reportable [facility] # (Auto) Not Reportable Eos # (Auto) Not Reportable Baso # (Auto) Not Reportable Absolute Nucleated RBC Not Reportable Total Counted 100 Band Neuts % (Manual) 20 H Abnorm Lymph % (Manual) 0 Metamyelocytes % 3 H Nucleated RBC % Not Reportable Neutrophils # (Manual) 7.1 H Lymphocytes # (Manual) 1.1 L Monocytes # (Manual) 0.2 Eosinophils # (Manual) 0.0 Basophils # (Manual) 0.0 Differential Comment MANUAL DIFFERENTIAL Platelet Estimate NORMAL (130-450,000) Platelet Morphology NORMAL APPEARANCE RBC Morph Micro Appear 2+ POIKILOCYTOSIS Sodium 135 Potassium 3.6 Chloride 101 Carbon Dioxide 22 Anion Gap 12.0 BUN 14 Creatinine 0.8 Estimated GFR (MDRD) 70 L Glucose 110 H Lactic Acid Calcium 8.2 L Magnesium 2.1 Total Bilirubin 1.3 H AST 33 ALT 23 Alkaline Phosphatase 69 Troponin I < 0.04 Total Protein 5.7 L Albumin 2.9 L Globulin 2.8 Albumin/Globulin Ratio 1.0 Lipase 42 Urine Color Urine Clarity Urine pH Ur Specific [place] Urine Protein Urine Glucose (UA) Urine Ketones Urine Occult Blood Urine Nitrite Urine Bilirubin Urine Urobilinogen Ur Leukocyte Esterase Ur Microscopic Review Urine Culture Comments 05/02/18 05/02/18 15:27 16:55 WBC RBC Hgb Hct MCV MCH MCHC RDW Plt Count MPV Neut # (Auto) Lymph # (Auto) [facility] # (Auto) Eos # (Auto) Baso # (Auto) Absolute Nucleated RBC Total Counted Band Neuts % (Manual) Abnorm Lymph % (Manual) Metamyelocytes % Nucleated RBC % Neutrophils # (Manual) Lymphocytes # (Manual) Monocytes # (Manual) Eosinophils # (Manual) Basophils # (Manual) Differential Comment Platelet Estimate Platelet Morphology RBC Morph Micro Appear Sodium Potassium Chloride Carbon Dioxide Anion Gap BUN Creatinine Estimated GFR (MDRD) Glucose Lactic Acid 1.6 Calcium Magnesium Total Bilirubin AST ALT Alkaline Phosphatase Troponin I Total Protein Albumin Globulin Albumin/Globulin Ratio Lipase Urine Color YELLOW Urine Clarity CLEAR Urine pH 7.0 Ur Specific [place] 1.010 Urine Protein NEGATIVE Urine Glucose (UA) NEGATIVE Urine Ketones 15 H Urine Occult Blood NEGATIVE Urine Nitrite NEGATIVE Urine Bilirubin NEGATIVE Urine Urobilinogen 0.2 (NORMAL) Ur Leukocyte Esterase NEGATIVE Ur Microscopic Review NOT INDICATED Urine Culture Comments NOT INDICATED - Rads (name of study) chest xray Radiology: Prelim report reviewed (no acute process) head CT Radiology: Prelim report reviewed (no acute process, no interval change from few days ago) PD MEDICAL DECISION MAKING - ED course Complexity details: re-evaluated patient (answering questions slowly and not real good train of thought. However is awake and eyes open. ), considered differential (Her states she has been confused and weak with poor train of thought since her elbow surgery 8 days ago. Initially the thought was that she was just having a delayed recovery from anesthesia or medication effect from the pain medicines. However it has now been 8 days and she has not had any pain meds for 5 or 6 days and if so there is still the concern for why she is not mentating appropriately at her baseline. Then today she had either a syncope with seizure-like activity or seizure type episode. She had been under hydrating and not eating much over the last couple of days with dark urine according to the . I therefore think she most likely had a syncopal episode.), d/w family () Departure - Departure Disposition: ED Place in Observation Clinical Impression: Witnessed seizure-like activity, Dehydration, Post-operative state Altered mental status Qualifiers: Altered mental status type: delirium Qualified Code(s): R41.0 - Disorientation, unspecified Condition: Stable Record reviewed to determine appropriate education?: Yes Discharge Date/Time: 05/02/18 18:21
[2018-05-02] MEDS ORDERED: SODIUM CHLORIDE 0.9% 1,000 ML IV ONE ×2 (13:56→13:58)
[2018-05-02] MEDS ORDERED: ONDANSETRON 4 MG/2 ML VIAL IVP STA (13:57)
--- NOTE | 2018-05-02 14:54 | XRAY Report ---
Reason: chest pain Procedure Date: 05/02/2018 Accession Number: [id number] / [id number] Procedure: XR - Chest 1 View X-Ray CPT Code: 23135 FULL RESULT: EXAM: CHEST RADIOGRAPHY EXAM DATE: 05/02/2018 02:40 PM. CLINICAL HISTORY: Chest pain. COMPARISON: 04/30/2018. TECHNIQUE: 1 view. FINDINGS: Lungs/Pleura: No focal opacities evident. No pleural effusion. No pneumothorax. Mediastinum: Heart size is normal. Aorta is mildly tortuous. Aortic atherosclerosis. Other: Changes are again seen from inferior cervical surgery. IMPRESSION: 1. No acute disease in the chest. RADIA
[2018-05-02 15:11] LABS: BASOPHILS % (AUTO) 0.5 %; EOSINOPHILS % (AUTO) 0.5 %; HGB - HEMOGLOBIN 8.9 g/dL (12.0-16.0); LYMPHOCYTES % (AUTO) 14.7 %; MEAN CORPUSCULAR HEMOGLOBIN 32.5 pg (27.0-31.0); MEAN CORPUSCULAR VOLUME 101.5 fL (81.0-99.0); MEAN PLATELET VOLUME 8.2 fL (7.9-10.8); MONOCYTES % (AUTO) 9.7 %; NEUTROPHILS % (AUTO) 74.6 %; PLT - PLATELET COUNT 375 10^3/uL (130-450); RED BLOOD COUNT 2.73 10^6/uL (4.20-5.40); RED CELL DISTRIBUTION WIDTH 17.7 % (12.0-15.0); WHITE BLOOD COUNT 8.7 x10^3/uL (4.8-10.8)
[2018-05-02 15:14] LABS: ABNORMAL LYMPHS % (MANUAL) 0 %
[2018-05-02 15:29] LABS: ALBUMIN 2.9 g/dL (3.2-5.5); BILIRUBIN,TOTAL 1.3 mg/dL (0.2-1.0); CALCIUM 8.2 mg/dL (8.5-10.3); CREATININE 0.8 mg/dL (0.4-1.0); MAGNESIUM 2.1 mg/dL (1.7-2.8); TOTAL PROTEIN 5.7 g/dL (6.7-8.2)
[2018-05-02 16:06] LABS: BAND NEUTROPHILS % (MANUAL) 20 %; LYMPHOCYTES # (MANUAL) 1.1 10^3/uL (1.5-3.5); LYMPHOCYTES % (MANUAL) 13 %; METAMYELOCYTES % (MANUAL) 3 %; MONOCYTES # (MANUAL) 0.2 10^3/uL (0.0-1.0); NEUTROPHILS # (MANUAL) 7.1 10^3/uL (1.5-6.6); NEUTROPHILS % (MANUAL) 62 %
[2018-05-02 16:07] LABS: DIFFERENTIAL COMMENT MANUAL DIFFERENTIAL; PLATELET ESTIMATE, MANUAL NORMAL (130-450,000) (NORMAL); PLATELET MORPHOLOGY NORMAL APPEARANCE (NORMAL)
--- NOTE | 2018-05-02 16:53 | CT Report ---
Reason: confused and mumbling since surgery 8 days ago Procedure Date: 05/02/2018 Accession Number: [id number] / [id number] Procedure: CT - Head W/O CPT Code: FULL RESULT: EXAM: CT HEAD EXAM DATE: 05/02/2018 02:37 PM. CLINICAL HISTORY: Confusion and mumbling status post orthopedic surgery 8 days prior to this examination. Seizure on the same date as this examination. COMPARISON: CT head without IV contrast performed on 04/30/2018. TECHNIQUE: Multiaxial CT images were obtained from the foramen magnum to the vertex. Reformats: Sagittal and coronal. IV contrast: None. In accordance with CT protocol optimization, one or more of the following dose reduction techniques were utilized for this exam: automated exposure control, adjustment of mA and/or KV based on patient size, or use of iterative reconstructive technique. FINDINGS: Parenchyma: No intraparenchymal hemorrhage. No evidence of mass or mass-effect. 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 Ponce-white matter differentiation is distinct. Diffuse chronic microangiopathic white matter changes are evident. Extraaxial Spaces: Normal for age. No subdural or epidural collections identified. Ventricles: The ventricles and cortical sulci are enlarged, consistent with age-related tissue loss. Sinuses and orbits: Imaged paranasal sinuses, orbits, and mastoids show no significant abnormality. Bones: No evidence of fracture or calvarial defect. Other: None. 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 RADIA
[2018-05-02 17:02] LABS: BILIRUBIN,URINE NEGATIVE (NEGATIVE); GLUCOSE, URINE (UA) NEGATIVE (NEGATIVE); KETONES,URINE (UA) 15 mg/dL (NEGATIVE); LEUKOCYTE ESTERASE, URINE NEGATIVE (NEGATIVE); NITRITE,URINE NEGATIVE (NEGATIVE); OCCULT BLOOD,URINE NEGATIVE (NEGATIVE); PROTEIN,URINE NEGATIVE (NEGATIVE); UROBILINOGEN,URINE 0.2 (NORMAL) E.U./dL (NORMAL)
[2018-05-02 17:04] LABS: CLARITY,URINE CLEAR (CLEAR)
[2018-05-02] MEDS ORDERED: ONDANSETRON 4 MG/2 ML VIAL IVP PRN (17:28)
[2018-05-02] MEDS ORDERED: SODIUM CHLORIDE FLUSH 0.9% 10 ML SYRINGE IVP PRN (17:28)
[2018-05-02 17:45] LABS: MEAN RETIC VALUE 130.4; RED BLOOD COUNT 2.86 10^6/uL (4.20-5.40)
--- NOTE | 2018-05-02 17:53 | HISTORY & PHYSICAL EXAMINATION ---
Chief Complaint - Chief Complaint Chief Complaint: seizure-like activity History of Present Illness - History of Present Illness HPI Comment/Other: Ms. Jackson is a 78-year-old female with a past medical history significant for peptic ulcer disease with perforated ulcer status post Billroth II procedure in 2005, hypertension, GERD, hypothyroidism, hyperlipidemia, seasonal allergies, chronic back pain secondary to herniated disks, peripheral arterial disease status post bypass in the right lower extremity and progressively worsening glaucoma who presented to the emergency department complain of altered mental status and seizure-like activities. Upon examination to pt, pt is confused and could not answer any question. All information comes from either pt's family or ER. patient's states pt has not been eating and drinking well for the couple of days, nor been out of bed much since she had surgery about 8 days ago. Pt's son state her month gradually became more confused. Pt was sitting up today and she had an episode when she started tremor and looked pale, "like- seizure activity," per her state. EMS was called and she was awake at the time of EMS's arrival. But she was not answering questions and seemed confused as well. Per family member report pt did not have chest pain, headache, report she had a warm/sweating episode at home but did not measure the temperature. Lab test shows pt's HGB is 8.9, HCT 27.2, WBC 8.7 but with Band neut% 20 H, slight elevated total Bili at 1.3, otherwise is unremarkable. UA analysis reveals no UTI but with 15H ketones, with small amount serum ketones. Pt's temperature is 37.6, slight elevated blood pressure otherwise it is unremarkable. Image studies CT of head and CXR reveals unremarkable. 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 She has been to her for 57 years. Her was in the [employer] and that is what brought them to [place]. They have been living in [place] ever since. Patient has 3 children 2 sons and 1 daughter. 2 of her children live in [place]. 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 She is a former smoker smoked 1 pack a day for more than 40 years but quit in 2005. She denies any alcohol or illicit drug use. - POLST Patient has POLST: No POLST Status: Full Code Meds/Allgy - Home Medications Home Medications: Ambulatory Orders Medication Instructions Recorded Confirmed Simvastatin [Zocor] 20 mg PO QPM 06/13/13 04/24/18 Alprazolam [Xanax] 0.5 mg PO Q6H PRN 11/04/13 04/24/18 Furosemide [Lasix] 20 mg PO DAILY 12/24/14 04/24/18 Spironolactone 50 mg PO DAILY 12/24/14 04/24/18 Ursodiol 300 mg PO BID 12/24/14 04/24/18 Colchicine [Colcrys] 0.6 mg PO DAILY 05/17/16 04/24/18 Potassium Chloride [K-Dur] 20 meq PO DAILY 05/17/16 04/24/18 Acetaminophen/Cod 300/30 [Tylenol 1 each PO Q4-6H PRN 04/24/18 04/24/18 #3] Lansoprazole [Prevacid] 30 mg PO DAILY PRN 04/24/18 04/24/18 Levothyroxine [Synthroid] 88 mcg PO QDAC 04/24/18 04/24/18 Aspirin Chewable [[place] 81 mg PO DAILY tablet 04/26/18 Aspirin] Calcium Carbonate/Vitamin D3 1 each PO DAILY #30 tablet 04/26/18 [Calcium 600-Vit D3 800 Tablet] Ciprofloxacin/Ciprofloxa HCl 500 mg PO DAILY #3 tbmp.24hr 04/26/18 [Ciprofloxacin ER 500 mg Tablet] oxyCODONE [Roxicodone] 5 mg PO Q4HR PRN #16 tablet 04/26/18 - Allergies Allergies/Adverse Reactions: Allergies Allergy/AdvReac Type Severity Reaction Status Date / Time No Known Drug Allergies Allergy Verified 05/02/18 13:26 Review of Systems - All Other Systems All Other Systems: reports: Other (pt is confused, could not answer questions) Prior Level of Functionality: pt is living at home with family support Exam - Vital Signs Reviewed Vital Signs: Yes Vital Signs: Vital Signs x48h Pulse Resp BP Pulse Ox 05/02/18 16:01 83 14 155/69 H 96 05/02/18 13:20 82 15 163/131 H 100 - Physical Exam General Appearance: positive: No acute distress, Alert. negative: Lethargic Eyes Bilateral: positive: Normal inspection, PERRL, No lid inflammation, Conjun ctivae nml ENT: positive: ENT inspection nml, Pharynx nml, No signs of dehydration. negative: Purulent nasal drainage, Pharyngeal erythema, Oral lesions Neck: positive: Nml inspection, Thyroid nml, No JVD, Trachea midline. negative: Thyromegaly, Lymphadenopathy (R), Lymphadenopathy (L), Stiff neck, Swelling/bruising, Tracheal deviation Respiratory: positive: Chest non-tender, No respiratory distress, Breath sounds nml. negative: Wheezes, Rales, Rhonchi Cardiovascular: positive: Regular rate & rhythm, No murmur, No gallop. negative: Irregularly irregular, Extrasystoles, Tachycardia, Bradycardia, JVD present, Systolic murmur, Diastolic murmur Peripheral Pulses: positive: 2+ Abdomen: positive: Non-tender, No organomegaly, Nml bowel sounds, No distention. negative: Tenderness, Guarding, Rebound Back: positive: Nml inspection. negative: CVA tenderness (R), CVA tenderness (L) Skin: positive: Color nml, No rash, Warm, Dry. negative: Cyanosis, Diaphoresis, Pallor Extremities: positive: Non-tender, Nml appearance. negative: Calf tenderness, Joint swelling, Abraham's sign/cords Neurologic/Psychiatric: negative: Weakness, Sensory loss, Facial droop, Slurred/abnml speech Sepsis Event Note (H) - Evaluation Current Stage of Sepsis: Ruled out Conclusion/Plan - Problem List (1) Altered mental status Conclusion/Plan: family report pt has altered mental status since recent surgery. Pt is total confused today. order UDS order MRI of brain. pt's son report pt has some kind of syncope episode order ECHO, US of Carotid, and orthostatic BP neuro check Qualifiers: Altered mental status type: delirium Qualified Code(s): R41.0 - Disorienta tion, unspecified (2) Seizure-like activity Conclusion/Plan: no seizure in EMS, no seizure at ER. pt present confused today neuro check, seizure precaution Ativan PRN for seizure, recommend to followup neurologist to EEG test as out-pt setting. MRI of brain, will followup (3) Anemia Conclusion/Plan: HGB is 8.9, MCV 101. pt has chronic anemia. pt family report previous study could not find the etiology, and report pt did not have GI rectal bleeding, occult test was negative. pt is status post Billroth II procedure, which could affect anemia status. H&H closely monitor pt, blood transfusion as need order iron study, will followup Qualifiers: Anemia type: unspecified type Qualified Code(s): D64.9 - Anemia, unspecified (4) HTN (hypertension) Conclusion/Plan: stable, will resume home meds after reconciled by pharmacy (5) GERD (gastroesophageal reflux disease) Conclusion/Plan: pt has hx of GERD and PUD Pepcid (6) Hypothyroidism Conclusion/Plan: resume home synth, check TSH, will follow up (7) HLD (hyperlipidemia) Conclusion/Plan: stable, resume statin (8) Full code status Conclusion/Plan: pt's family request full code for pt - Lab Results Fish Bones: 05/03/18 05:00 05/03/18 05:00 Core Measures - Anticipated LOS I expect patient to be DC'd or transferred within 96 hours.: Yes - DVT/VTE - Prophylaxis VTE/DVT Device ordered at admit?: Yes VTE/DVT Prophylaxis med ordered at admit?: Yes
[2018-05-02] MEDS ORDERED: SODIUM CHLORIDE 0.9% 1,000 ML IV SCH ×2 (18:00)
[2018-05-02 18:05] LABS: % IRON SATURATION 13 % (20-50); IRON 37 ug/dL (28-170); TOTAL IRON BINDING CAPACITY 280 ug/dL (250-450); TRANSFERRIN 200 mg/dL (192-382)
[2018-05-02 18:20] LABS: FERRITIN 73.4 ng/mL (11.0-306.8)
[2018-05-02] MEDS: LORazepam 2 MG/ML VIAL IVP PRN (20:56)
[2018-05-02] MEDS: SODIUM CHLORIDE 0.9% 1,000 ML IV SCH (21:01)
[2018-05-03] MEDS: SODIUM CHLORIDE FLUSH 0.9% 10 ML SYRINGE IVP SCH ×3 (02:40→15:59)
[2018-05-03] MEDS: FAMOTIDINE 20 MG TABLET PO SCH ×2 (02:40→09:59)
[2018-05-03 05:19] LABS: BASOPHILS % (AUTO) 0.2 %; HGB - HEMOGLOBIN 7.5 g/dL (12.0-16.0); LYMPHOCYTES % (AUTO) 13.5 %; MEAN CORPUSCULAR HEMOGLOBIN 31.7 pg (27.0-31.0); MEAN CORPUSCULAR HGB CONC 31.5 g/dL (32.0-36.0); MEAN CORPUSCULAR VOLUME 100.6 fL (81.0-99.0); MEAN PLATELET VOLUME 7.8 fL (7.9-10.8); MONOCYTES % (AUTO) 11.2 %; NEUTROPHILS % (AUTO) 75.1 %; PLT - PLATELET COUNT 360 10^3/uL (130-450); RED BLOOD COUNT 2.36 10^6/uL (4.20-5.40); RED CELL DISTRIBUTION WIDTH 17.3 % (12.0-15.0); WHITE BLOOD COUNT 10.3 x10^3/uL (4.8-10.8)
[2018-05-03 05:25] LABS: ALBUMIN 2.3 g/dL (3.2-5.5); ALBUMIN/GLOBULIN RATIO 0.9 (1.0-2.2); BILIRUBIN,TOTAL 1.4 mg/dL (0.2-1.0); CALCIUM 7.6 mg/dL (8.5-10.3); CREATININE 0.8 mg/dL (0.4-1.0); MAGNESIUM 1.8 mg/dL (1.7-2.8); TOTAL PROTEIN 4.9 g/dL (6.7-8.2)
[2018-05-03 05:32] LABS: ABNORMAL LYMPHS % (MANUAL) 0 %
[2018-05-03 06:01] LABS: BAND NEUTROPHILS % (MANUAL) 4 %; DIFFERENTIAL COMMENT MANUAL DIFFERENTIAL; LYMPHOCYTES # (MANUAL) 1.6 10^3/uL (1.5-3.5); LYMPHOCYTES % (MANUAL) 16 %; METAMYELOCYTES % (MANUAL) 3 %; MONOCYTES # (MANUAL) 0.8 10^3/uL (0.0-1.0); MYELOCYTES % (MANUAL) 3 %; NEUTROPHILS # (MANUAL) 7.2 10^3/uL (1.5-6.6); NEUTROPHILS % (MANUAL) 66 %; PLATELET ESTIMATE, MANUAL NORMAL (130-450,000) (NORMAL); RBC MORPHOLOGY (MULTIPLE) NORMAL APPEARANCE (NORMAL)
[2018-05-03] MEDS: SODIUM CHLORIDE 0.9% 1,000 ML IV SCH ×3 (06:38→21:20)
[2018-05-03] MEDS: LEVOTHYROXINE 88 MCG TABLET PO SCH (06:39)
[2018-05-03 07:33] LABS: MUDS CUTOFF CONCENTRATIONS CUTOFF CONC BELOW:
[2018-05-03 07:40] LABS: AMPHETAMINE SCREEN,URINE NEGATIVE (NEGATIVE); BENZODIAZEPINES SCREEN, URINE POSITIVE (NEGATIVE); COCAINE SCREEN URINE NEGATIVE (NEGATIVE); METHADONE SCREEN, URINE NEGATIVE (NEGATIVE); METHAMPHETAMINES SCREEN, URINE NEGATIVE (NEGATIVE); OPIATE SCREEN, URINE NEGATIVE (NEGATIVE); OXYCODONE SCREEN, URINE NEGATIVE (NEGATIVE); PROPOXYPHENE SCREEN, URINE NEGATIVE (NEGATIVE); TRICYCLIC ANTIDEPRESSANT,URINE NEGATIVE (NEGATIVE)
[2018-05-03] MEDS ORDERED: POTASSIUM CHLORIDE 20 MEQ TABLET PO ONE (07:45)
[2018-05-03] MEDS ORDERED: POTASSIUM CHLOR 20 MEQ/100 ML 20 MEQ/100 ML BAG IV ONE (07:46)
[2018-05-03] MEDS ORDERED: FERROUS SULFATE 325 MG TABLET PO SCH (08:00)
[2018-05-03] MEDS ORDERED: LORazepam 2 MG/ML VIAL IVP PRN (08:51)
[2018-05-03] MEDS: cefTRIAXone 1 GM VIAL IVP SCH ×2 (09:49→14:56)
[2018-05-03] MEDS: ASPIRIN CHEW 81 MG TABLET PO SCH (09:58)
[2018-05-03] MEDS: ENOXAPARIN 40 MG/0.4 ML SYRINGE SUBQ SCH (09:58)
[2018-05-03] MEDS: SPIRONOLACTONE 25 MG TABLET PO SCH (09:59)
[2018-05-03] MEDS: POLYETHYLENE GLYCOL 3350 17 GM PACKET PO SCH (10:01)
[2018-05-03] MEDS ORDERED: cefTRIAXone 1 GM in SODIUM CHLORIDE 0.9% MINIBAG 100 ML IV SCH (11:30)
[2018-05-03] MEDS: CALCIUM CITRATE 250 MG TABLET PO SCH ×2 (11:33→21:20)
[2018-05-03] MEDS: CHOLECALCIFEROL 1,000 UNIT TABLET PO SCH (11:33)
[2018-05-03] MEDS: FERROUS SULFATE 325 MG TABLET PO SCH ×2 (11:34→16:00)
[2018-05-03] MEDS: MULTIVITAMIN W/MINERALS TABLET PO SCH (11:34)
[2018-05-03 15:29] LABS: HGB - HEMOGLOBIN 7.8 g/dL (12.0-16.0)
[2018-05-03] MEDS: LORazepam 2 MG/ML VIAL IVP PRN (15:59)
--- NOTE | 2018-05-03 16:35 | PROVIDER PROGRESS NOTE ---
Subjective - Prog Note Date Prog Note Date: 05/03/18 - Subjective Pt reports feeling: Improved Subjective: pt can report to me she feel better. She is eating breakfast by her own. But she present some confused. Nurse report the same way, pt still present some confused. Explain to pt and her the reason pt can not have MRI of brain, they understand, there is hard metal in pt's recent surgery site. Pt's agree pt may have blood transfusion if she continue worsening of anemia. No GI rectal bleed in the recent test or no black stool. Iron deficiency indicated. Current Medications - Current Medications Current Medications: Active Medications Acetaminophen (Tylenol) 650 mg PO Q4HR PRN PRN Reason: Pain 1 to 4 Aspirin ([facility] [place] Aspirin) 81 mg PO DAILY [facility] Last Admin: 05/03/18 09:58 Dose: 81 mg Calcium Citrate () 250 mg PO BID [facility] Last Admin: 05/03/18 11:33 Dose: 250 mg Cholecalciferol (Vitamin D3) 2,000 unit PO DAILY [facility] Last Admin: 05/03/18 11:33 Dose: 2,000 unit Enoxaparin Sodium (Lovenox) 40 mg SUBQ DAILY [facility] Last Admin: 05/03/18 09:58 Dose: 40 mg Famotidine (Pepcid) 20 mg PO DAILY [facility] Last Admin: 05/03/18 09:59 Dose: 20 mg Ferrous Sulfate (Feosol) 325 mg PO BIDWM [facility] Last Admin: 05/03/18 16:00 Dose: 325 mg Sodium Chloride (Normal Saline 0.9%) 1,000 mls @ 75 mls/hr IV .[id number] [facility] Stop: 05/04/18 10:32 Last Admin: 05/03/18 09:50 Dose: 75 mls/hr Ceftriaxone Sodium 1 gm/ (Sodium Chloride) 100 mls @ 200 mls/hr IV DAILY [facility] Last Infusion: 05/03/18 12:00 Dose: Infused Levothyroxine Sodium (Synthroid) 88 mcg PO QDAC [facility] Last Admin: 05/03/18 06:39 Dose: 88 mcg Lorazepam (Ativan Inj (Vial)) 0.5 mg IVP Q2H PRN PRN Reason: Anxiety Last Admin: 05/03/18 15:59 Dose: 0.5 mg Multivitamins/Minerals (Theragran M) 1 tab PO DAILYWM [facility] Last Admin: 05/03/18 11:34 Dose: 1 tab Ondansetron HCl (Zofran Inj) 4 mg IVP Q6HR PRN PRN Reason: Nausea / Vomiting Polyethylene Glycol (Miralax) 17 gm PO DAILY [facility] Last Admin: 05/03/18 10:01 Dose: Not Given Sodium Chloride (Normal Saline Flush 0.9%) 10 ml IVP PRN PRN PRN Reason: NEEDED PER PROVIDER ORDERS Sodium Chloride (Normal Saline Flush 0.9%) 10 ml IVP 0100,0900,1700 [facility] Last Admin: 05/03/18 15:59 Dose: 10 ml Spironolactone (Aldactone) 50 mg PO DAILY [facility] Last Admin: 05/03/18 09:59 Dose: 50 mg Simvastatin [Zocor] 20 mg PO QPM 06/13/13 Alprazolam [Xanax] 0.5 mg PO Q6H PRN 11/04/13 Furosemide [Lasix] 20 mg PO DAILY 12/24/14 Spironolactone 50 mg PO DAILY 12/24/14 Ursodiol 300 mg PO BID 12/24/14 Colchicine [Colcrys] 0.6 mg PO DAILY 05/17/16 Potassium Chloride [K-Dur] 20 meq PO DAILY 05/17/16 Lansoprazole [Prevacid] 30 mg PO DAILY PRN 04/24/18 Levothyroxine [Synthroid] 88 mcg PO QDAC 04/24/18 Objective - Vital Signs/Intake & Output Reviewed Vital Signs: Yes Vital Signs: Vital Signs x48h Temp Pulse Pulse Pulse Pulse Pulse Resp 05/03/18 15:08 37.4 C 75 20 05/03/18 14:56 86 80 71 05/03/18 13:00 37.4 C 73 20 BP BP BP BP Pulse Ox 05/03/18 15:08 98 05/03/18 14:56 107/72 101/72 110/54 L 05/03/18 13:00 122/59 L 99 Intake & Output: Intake & Output 04/30/18 05/01/18 05/02/18 05/03/18 23:59 23:59 23:59 23:59 Intake Total 2279.16 2024 Balance 2280.16 2024 - Objective General Appearance: positive: No acute distress, Alert. negative: Lethargic Eyes Bilateral: positive: Normal inspection, PERRL, No lid inflammation, Conjunctivae nml ENT: positive: ENT inspection nml, Pharynx nml, No signs of dehydration. negative: Purulent nasal drainage, Pharyngeal erythema, Oral lesions Neck: positive: Nml inspection, Thyroid nml, No JVD, Trachea midline. negative: Thyromegaly, Lymphadenopathy (R), Lymphadenopathy (L), Stiff neck, Swelling/bruising, Tracheal deviation Respiratory: positive: Chest non-tender, No respiratory distress, Breath sounds nml. negative: Wheezes, Rales, Rhonchi Cardiovascular: positive: Regular rate & rhythm, No murmur, No gallop. negative: Irregularly irregular, Extrasystoles, Tachycardia, Bradycardia, JVD present, Systolic murmur, Diastolic murmur Peripheral Pulses: 2+ Radial (R), 2+ Radial (L), 2+ Dorsalis pedis (R), 2+ Dorsalis pedis (L) Abdomen: positive: Non-tender, No organomegaly, Nml bowel sounds, No distention. negative: Tenderness, Guarding, Rebound Back: positive: Nml inspection. negative: CVA tenderness (R), CVA tenderness (L) Skin: positive: Color nml, No rash, Warm, Dry. negative: Cyanosis, Diaphoresis, Pallor Extremities: positive: Non-tender, Nml appearance. negative: Calf tenderness, Joint swelling, Abraham's sign/cords Neurologic/Psychiatric: positive: Sensation nml. negative: Weakness, Sensory loss, Facial droop, Slurred/abnml speech, Depressed mood/affect - Lab Results Fish Bones: 05/03/18 15:04 05/03/18 05:00 Other Labs: Lab Results x24hrs 05/03/18 05/03/18 05/03/18 Range/Units 15:04 05:00 05:00 WBC (4.8-10.8) x10^3/uL RBC (4.20-5.40) 10^6/uL Hgb 7.8 L (12.0-16.0) g/dL Hct 24.1 L (37.0-47.0) % MCV (81.0-99.0) fL MCH (27.0-31.0) pg MCHC (32.0-36.0) g/dL RDW (12.0-15.0) % Plt Count (130-450) 10^3/uL MPV (7.9-10.8) fL Reticulocyte % (Auto) (0.5-2.3) % Neut # (Auto) Lymph # (Auto) [place] # (Auto) Eos # (Auto) Baso # (Auto) Absolute Nucleated RBC Total Counted Band Neuts % (Manual) (0 - 10) % Abnorm Lymph % (Manual) % Metamyelocytes % ( - 0) % Myelocytes % ( - 0) % Nucleated RBC % Neutrophils # (Manual) (1.5-6.6) 10^3/uL Lymphocytes # (Manual) (1.5-3.5) 10^3/uL Monocytes # (Manual) (0.0-1.0) 10^3/uL Eosinophils # (Manual) (0-0.7) 10^3/uL Basophils # (Manual) (0-0.1) 10^3/uL Differential Comment Platelet Estimate (NORMAL) RBC Morph Micro Appear (NORMAL) Absolute Retic (0.020-0.110) 10^6/uL Sodium (135-145) mmol/L Potassium (3.5-5.0) mmol/L Chloride (101-111) mmol/L Carbon Dioxide (21-32) mmol/L Anion Gap (6-13) BUN (6-20) mg/dL Creatinine (0.4-1.0) mg/dL Estimated GFR (MDRD) (>89) Glucose (70-100) mg/dL Calcium (8.5-10.3) mg/dL Magnesium (1.7-2.8) mg/dL Iron (28-170) ug/dL TIBC (250-450) ug/dL % Saturation (20-50) % Transferrin (192-382) mg/dL Ferritin (11.0-306.8) ng/mL Total Bilirubin (0.2-1.0) mg/dL AST (10-42) IU/L ALT (10-60) IU/L Alkaline Phosphatase (42-121) IU/L Ammonia 16.3 (7-35) umol/L Lactate Dehydrogenase (91-225) IU/L Total Protein (6.7-8.2) g/dL Albumin (3.2-5.5) g/dL Globulin (2.1-4.2) g/dL Albumin/Globulin Ratio (1.0-2.2) Vitamin B12 (180-914) pg/mL TSH 2.60 (0.34-5.60) uIU/mL Urine Color Urine Clarity (CLEAR) Urine pH (5.0-7.5) PH Ur Specific [place] (1.002-1.030) Urine Protein (NEGATIVE) mg/dL Urine Glucose (UA) (NEGATIVE) mg/dL Urine Ketones (NEGATIVE) mg/dL Urine Occult Blood (NEGATIVE) Urine Nitrite (NEGATIVE) Urine Bilirubin (NEGATIVE) Urine Urobilinogen (NORMAL) E.U./dL Ur Leukocyte Esterase (NEGATIVE) Ur Microscopic Review Urine Culture Comments Urine Opiates Screen (NEGATIVE) Ur Oxycodone Screen (NEGATIVE) Urine Methadone Screen (NEGATIVE) Ur Propoxyphene Screen (NEGATIVE) Ur Barbiturates Screen (NEGATIVE) Ur Tricyclics Screen (NEGATIVE) Ur Phencyclidine Scrn (NEGATIVE) Ur Amphetamine Screen (NEGATIVE) U Methamphetamines Scrn (NEGATIVE) U Benzodiazepines Scrn (NEGATIVE) Urine Cocaine Screen (NEGATIVE) U Cannabinoids Screen (NEGATIVE) Serum Ketones (NEGATIVE) 05/03/18 05/03/18 05/02/18 Range/Units 05:00 05:00 17:41 WBC 10.3 (4.8-10.8) x10^3/uL RBC 2.36 L (4.20-5.40) 10^6/uL Hgb 7.5 L (12.0-16.0) g/dL Hct 23.8 L (37.0-47.0) % MCV 100.6 H (81.0-99.0) fL MCH 31.7 H (27.0-31.0) pg MCHC 31.5 L (32.0-36.0) g/dL RDW 17.3 H (12.0-15.0) % Plt Count 360 (130-450) 10^3/uL MPV 7.8 L (7.9-10.8) fL Reticulocyte % (Auto) (0.5-2.3) % Neut # (Auto) Not Reportable Lymph # (Auto) Not Reportable [place] # (Auto) Not Reportable Eos # (Auto) Not Reportable Baso # (Auto) Not Reportable Absolute Nucleated RBC Not Reportable Total Counted 100 Band Neuts % (Manual) 4 (0 - 10) % Abnorm Lymph % (Manual) 0 % Metamyelocytes % 3 H ( - 0) % Myelocytes % 3 H ( - 0) % Nucleated RBC % Not Reportable Neutrophils # (Manual) 7.2 H (1.5-6.6) 10^3/uL Lymphocytes # (Manual) 1.6 (1.5-3.5) 10^3/uL Monocytes # (Manual) 0.8 (0.0-1.0) 10^3/uL Eosinophils # (Manual) 0.0 (0-0.7) 10^3/uL Basophils # (Manual) 0.0 (0-0.1) 10^3/uL Differential Comment MANUAL DIFFERENTIAL Platelet Estimate NORMAL (130-450,000) (NORMAL) RBC Morph Micro Appear NORMAL APPEARANCE (NORMAL) Absolute Retic (0.020-0.110) 10^6/uL Sodium 137 (135-145) mmol/L Potassium 3.0 L (3.5-5.0) mmol/L Chloride 106 (101-111) mmol/L Carbon Dioxide 23 (21-32) mmol/L Anion Gap 8.0 (6-13) BUN 10 (6-20) mg/dL Creatinine 0.8 (0.4-1.0) mg/dL Estimated GFR (MDRD) 70 L (>89) Glucose 95 (70-100) mg/dL Calcium 7.6 L (8.5-10.3) mg/dL Magnesium 1.8 (1.7-2.8) mg/dL Iron (28-170) ug/dL TIBC (250-450) ug/dL % Saturation (20-50) % Transferrin (192-382) mg/dL Ferritin (11.0-306.8) ng/mL Total Bilirubin 1.4 H (0.2-1.0) mg/dL AST 21 (10-42) IU/L ALT 20 (10-60) IU/L Alkaline Phosphatase 61 (42-121) IU/L Ammonia (7-35) umol/L Lactate Dehydrogenase 243 H (91-225) IU/L Total Protein 4.9 L (6.7-8.2) g/dL Albumin 2.3 L (3.2-5.5) g/dL Globulin 2.6 (2.1-4.2) g/dL Albumin/Globulin Ratio 0.9 L (1.0-2.2) Vitamin B12 (180-914) pg/mL TSH (0.34-5.60) uIU/mL Urine Color Urine Clarity (CLEAR) Urine pH (5.0-7.5) PH Ur Specific [place] (1.002-1.030) Urine Protein (NEGATIVE) mg/dL Urine Glucose (UA) (NEGATIVE) mg/dL Urine Ketones (NEGATIVE) mg/dL Urine Occult Blood (NEGATIVE) Urine Nitrite (NEGATIVE) Urine Bilirubin (NEGATIVE) Urine Urobilinogen (NORMAL) E.U./dL Ur Leukocyte Esterase (NEGATIVE) Ur Microscopic Review Urine Culture Comments Urine Opiates Screen (NEGATIVE) Ur Oxycodone Screen (NEGATIVE) Urine Methadone Screen (NEGATIVE) Ur Propoxyphene Screen (NEGATIVE) Ur Barbiturates Screen (NEGATIVE) Ur Tricyclics Screen (NEGATIVE) Ur Phencyclidine Scrn (NEGATIVE) Ur Amphetamine Screen (NEGATIVE) U Methamphetamines Scrn (NEGATIVE) U Benzodiazepines Scrn (NEGATIVE) Urine Cocaine Screen (NEGATIVE) U Cannabinoids Screen (NEGATIVE) Serum Ketones (NEGATIVE) 05/02/18 05/02/18 05/02/18 Range/Units 17:41 17:41 17:41 WBC (4.8-10.8) x10^3/uL RBC 2.86 L (4.20-5.40) 10^6/uL Hgb (12.0-16.0) g/dL Hct (37.0-47.0) % MCV (81.0-99.0) fL MCH (27.0-31.0) pg MCHC (32.0-36.0) g/dL RDW (12.0-15.0) % Plt Count (130-450) 10^3/uL MPV (7.9-10.8) fL Reticulocyte % (Auto) 6.22 H (0.5-2.3) % Neut # (Auto) Lymph # (Auto) [place] # (Auto) Eos # (Auto) Baso # (Auto) Absolute Nucleated RBC Total Counted Band Neuts % (Manual) (0 - 10) % Abnorm Lymph % (Manual) % Metamyelocytes % ( - 0) % Myelocytes % ( - 0) % Nucleated RBC % Neutrophils # (Manual) (1.5-6.6) 10^3/uL Lymphocytes # (Manual) (1.5-3.5) 10^3/uL Monocytes # (Manual) (0.0-1.0) 10^3/uL Eosinophils # (Manual) (0-0.7) 10^3/uL Basophils # (Manual) (0-0.1) 10^3/uL Differential Comment Platelet Estimate (NORMAL) RBC Morph Micro Appear (NORMAL) Absolute Retic 0.178 H (0.020-0.110) 10^6/uL Sodium (135-145) mmol/L Potassium (3.5-5.0) mmol/L Chloride (101-111) mmol/L Carbon Dioxide (21-32) mmol/L Anion Gap (6-13) BUN (6-20) mg/dL Creatinine (0.4-1.0) mg/dL Estimated GFR (MDRD) (>89) Glucose (70-100) mg/dL Calcium (8.5-10.3) mg/dL Magnesium (1.7-2.8) mg/dL Iron 37 (28-170) ug/dL TIBC 280 (250-450) ug/dL % Saturation 13 L (20-50) % Transferrin 200 (192-382) mg/dL Ferritin 73.4 (11.0-306.8) ng/mL Total Bilirubin (0.2-1.0) mg/dL AST (10-42) IU/L ALT (10-60) IU/L Alkaline Phosphatase (42-121) IU/L Ammonia (7-35) umol/L Lactate Dehydrogenase (91-225) IU/L Total Protein (6.7-8.2) g/dL Albumin (3.2-5.5) g/dL Globulin (2.1-4.2) g/dL Albumin/Globulin Ratio (1.0-2.2) Vitamin B12 2646 H (180-914) pg/mL TSH (0.34-5.60) uIU/mL Urine Color Urine Clarity (CLEAR) Urine pH (5.0-7.5) PH Ur Specific [place] (1.002-1.030) Urine Protein (NEGATIVE) mg/dL Urine Glucose (UA) (NEGATIVE) mg/dL Urine Ketones (NEGATIVE) mg/dL Urine Occult Blood (NEGATIVE) Urine Nitrite (NEGATIVE) Urine Bilirubin (NEGATIVE) Urine Urobilinogen (NORMAL) E.U./dL Ur Leukocyte Esterase (NEGATIVE) Ur Microscopic Review Urine Culture Comments Urine Opiates Screen (NEGATIVE) Ur Oxycodone Screen (NEGATIVE) Urine Methadone Screen (NEGATIVE) Ur Propoxyphene Screen (NEGATIVE) Ur Barbiturates Screen (NEGATIVE) Ur Tricyclics Screen (NEGATIVE) Ur Phencyclidine Scrn (NEGATIVE) Ur Amphetamine Screen (NEGATIVE) U Methamphetamines Scrn (NEGATIVE) U Benzodiazepines Scrn (NEGATIVE) Urine Cocaine Screen (NEGATIVE) U Cannabinoids Screen (NEGATIVE) Serum Ketones (NEGATIVE) 05/02/18 05/02/18 05/02/18 Range/Units 17:41 16:55 16:00 WBC (4.8-10.8) x10^3/uL RBC (4.20-5.40) 10^6/uL Hgb (12.0-16.0) g/dL Hct (37.0-47.0) % MCV (81.0-99.0) fL MCH (27.0-31.0) pg MCHC (32.0-36.0) g/dL RDW (12.0-15.0) % Plt Count (130-450) 10^3/uL MPV (7.9-10.8) fL Reticulocyte % (Auto) (0.5-2.3) % Neut # (Auto) Lymph # (Auto) [place] # (Auto) Eos # (Auto) Baso # (Auto) Absolute Nucleated RBC Total Counted Band Neuts % (Manual) (0 - 10) % Abnorm Lymph % (Manual) % Metamyelocytes % ( - 0) % Myelocytes % ( - 0) % Nucleated RBC % Neutrophils # (Manual) (1.5-6.6) 10^3/uL Lymphocytes # (Manual) (1.5-3.5) 10^3/uL Monocytes # (Manual) (0.0-1.0) 10^3/uL Eosinophils # (Manual) (0-0.7) 10^3/uL Basophils # (Manual) (0-0.1) 10^3/uL Differential Comment Platelet Estimate (NORMAL) RBC Morph Micro Appear (NORMAL) Absolute Retic (0.020-0.110) 10^6/uL Sodium (135-145) mmol/L Potassium (3.5-5.0) mmol/L Chloride (101-111) mmol/L Carbon Dioxide (21-32) mmol/L Anion Gap (6-13) BUN (6-20) mg/dL Creatinine (0.4-1.0) mg/dL Estimated GFR (MDRD) (>89) Glucose (70-100) mg/dL Calcium (8.5-10.3) mg/dL Magnesium (1.7-2.8) mg/dL Iron (28-170) ug/dL TIBC (250-450) ug/dL % Saturation (20-50) % Transferrin (192-382) mg/dL Ferritin (11.0-306.8) ng/mL Total Bilirubin (0.2-1.0) mg/dL AST (10-42) IU/L ALT (10-60) IU/L Alkaline Phosphatase (42-121) IU/L Ammonia (7-35) umol/L Lactate Dehydrogenase (91-225) IU/L Total Protein (6.7-8.2) g/dL Albumin (3.2-5.5) g/dL Globulin (2.1-4.2) g/dL Albumin/Globulin Ratio (1.0-2.2) Vitamin B12 (180-914) pg/mL TSH (0.34-5.60) uIU/mL Urine Color YELLOW Urine Clarity CLEAR (CLEAR) Urine pH 7.0 (5.0-7.5) PH Ur Specific [place] 1.010 (1.002-1.030) Urine Protein NEGATIVE (NEGATIVE) mg/dL Urine Glucose (UA) NEGATIVE (NEGATIVE) mg/dL Urine Ketones 15 H (NEGATIVE) mg/dL Urine Occult Blood NEGATIVE (NEGATIVE) Urine Nitrite NEGATIVE (NEGATIVE) Urine Bilirubin NEGATIVE (NEGATIVE) Urine Urobilinogen 0.2 (NORMAL) (NORMAL) E.U./dL Ur Leukocyte Esterase NEGATIVE (NEGATIVE) Ur Microscopic Review NOT INDICATED Urine Culture Comments NOT INDICATED Urine Opiates Screen NEGATIVE (NEGATIVE) Ur Oxycodone Screen NEGATIVE (NEGATIVE) Urine Methadone Screen NEGATIVE (NEGATIVE) Ur Propoxyphene Screen NEGATIVE (NEGATIVE) Ur Barbiturates Screen NEGATIVE (NEGATIVE) Ur Tricyclics Screen NEGATIVE (NEGATIVE) Ur Phencyclidine Scrn NEGATIVE (NEGATIVE) Ur Amphetamine Screen NEGATIVE (NEGATIVE) U Methamphetamines Scrn NEGATIVE (NEGATIVE) U Benzodiazepines Scrn POSITIVE H (NEGATIVE) Urine Cocaine Screen NEGATIVE (NEGATIVE) U Cannabinoids Screen NEGATIVE (NEGATIVE) Serum Ketones SMALL H (NEGATIVE) ABX Reporting Has patient been on IV antibiotics over the past 48 hours?: Yes Sepsis Event Note (H) - Evaluation Current Stage of Sepsis: Ruled out Assessment/Plan - Problem List (1) Altered mental status Impression: 05/03, improved from yesterday. pt is sitting to eat her breakfast by her own. But still present some confused when ask her some questions. unclear if it is pt's baseline. nurse continue orient pt continue neur check pt can not have MRI due to recent orthopedic surgery site family report pt has altered mental status since recent surgery. Pt is total confused today. order UDS order MRI of brain. pt's son report pt has some kind of syncope episode order ECHO, US of Carotid, and orthostatic BP neuro check Qualifiers: Altered mental status type: delirium Qualified Code(s): R41.0 - Disorientation, unspecified (2) Seizure-like activity Conclusion/Plan: 05/03, no seizure, IV Ativan PRN followup neurologist to EEG test as out-pt setting no seizure in EMS, no seizure at ER. pt present confused today neuro check, seizure precaution Ativan PRN for seizure, recommend to followup neurologist to EEG test as out-pt setting. MRI of brain, will followup (3) Anemia Conclusion/Plan: 05/03 HGB is 7.5 today, asymptomatic. chronic, status post Billroth II procedure, which could affect anemia status iron study reveals low iron level start on Iron pill HGB is 8.9, MCV 101. pt has chronic anemia. pt family report previous study could not find the etiology, and report pt did not have GI rectal bleeding, occult test was negative. pt is status post Billroth II procedure, which could affect anemia status. H&H closely monitor pt, blood transfusion as need order iron study, will followup (4) HTN (hypertension) Conclusion/Plan: stable, will resume home meds after reconciled by pharmacy (5) GERD (gastroesophageal reflux disease) Conclusion/Plan: pt has hx of GERD and PUD Pepcid (6) Hypothyroidism Conclusion/Plan: 05/03 TSH is normal, continue home synth resume home synth, check TSH, will follow up (7) HLD (hyperlipidemia) Conclusion/Plan: stable, resume statin Qualifiers: Altered mental status type: delirium Qualified Code(s): R41.0 - Disorientation, unspecified (3) Anemia Qualifiers: Anemia type: unspecified type Qualified Code(s): D64.9 - Anemia, unspecified
[2018-05-03] MEDS ORDERED: HALOPERIDOL 5 MG/ML VIAL IVP ONE (17:45)
[2018-05-04] MEDS: SODIUM CHLORIDE FLUSH 0.9% 10 ML SYRINGE IVP SCH ×3 (02:16→16:52)
[2018-05-04 05:37] LABS: BASOPHILS % (AUTO) 1.3 %; EOSINOPHILS % (AUTO) 0.2 %; HGB - HEMOGLOBIN 7.9 g/dL (12.0-16.0); MEAN CORPUSCULAR HEMOGLOBIN 32.1 pg (27.0-31.0); MEAN CORPUSCULAR HGB CONC 31.6 g/dL (32.0-36.0); MEAN CORPUSCULAR VOLUME 101.5 fL (81.0-99.0); MEAN PLATELET VOLUME 8.3 fL (7.9-10.8); MONOCYTES % (AUTO) 9.2 %; NEUTROPHILS % (AUTO) 66.3 %; PLT - PLATELET COUNT 382 10^3/uL (130-450); RED BLOOD COUNT 2.45 10^6/uL (4.20-5.40); RED CELL DISTRIBUTION WIDTH 18.5 % (12.0-15.0); WHITE BLOOD COUNT 8.7 x10^3/uL (4.8-10.8)
[2018-05-04 05:51] LABS: ALBUMIN 2.6 g/dL (3.2-5.5); CREATININE 0.7 mg/dL (0.4-1.0); TOTAL PROTEIN 5.2 g/dL (6.7-8.2)
[2018-05-04] MEDS: ACETAMINOPHEN 325 MG TABLET PO PRN ×2 (06:23→16:59)
[2018-05-04] MEDS: LEVOTHYROXINE 88 MCG TABLET PO SCH (06:23)
[2018-05-04 06:33] LABS: ABNORMAL LYMPHS % (MANUAL) 0 %
[2018-05-04 06:43] LABS: BAND NEUTROPHILS % (MANUAL) 7 %; DIFFERENTIAL COMMENT MANUAL DIFFERENTIAL; LYMPHOCYTES # (MANUAL) 2.3 10^3/uL (1.5-3.5); LYMPHOCYTES % (MANUAL) 27 %; MONOCYTES # (MANUAL) 0.7 10^3/uL (0.0-1.0); NEUTROPHILS # (MANUAL) 5.7 10^3/uL (1.5-6.6); NEUTROPHILS % (MANUAL) 58 %; PLATELET ESTIMATE, MANUAL NORMAL (130-450,000) (NORMAL)
[2018-05-04] MEDS: ENOXAPARIN 40 MG/0.4 ML SYRINGE SUBQ SCH (08:48)
[2018-05-04] MEDS: SPIRONOLACTONE 25 MG TABLET PO SCH (08:49)
[2018-05-04] MEDS: CHOLECALCIFEROL 1,000 UNIT TABLET PO SCH (08:49)
[2018-05-04] MEDS: FAMOTIDINE 20 MG TABLET PO SCH (08:49)
[2018-05-04] MEDS: FERROUS SULFATE 325 MG TABLET PO SCH ×2 (08:49→16:51)
[2018-05-04] MEDS: URSODIOL 250 MG TABLET PO SCH ×2 (08:50→19:46)
[2018-05-04] MEDS: CALCIUM CITRATE 250 MG TABLET PO SCH ×2 (08:50→19:46)
[2018-05-04] MEDS: MULTIVITAMIN W/MINERALS TABLET PO SCH (08:50)
[2018-05-04] MEDS: POLYETHYLENE GLYCOL 3350 17 GM PACKET PO SCH (08:50)
[2018-05-04] MEDS: ASPIRIN CHEW 81 MG TABLET PO SCH (08:50)
[2018-05-04] MEDS ORDERED: cefTRIAXone 1 GM in SODIUM CHLORIDE 0.9% MINIBAG 100 ML IV SCH (11:00)
--- NOTE | 2018-05-04 14:56 | Ultrasound Report ---
Reason: syncope Procedure Date: 05/04/2018 Accession Number: [id number] / [id number] Procedure: US - Carotid Doppler Complete CPT Code: FULL RESULT: EXAM: BILATERAL CAROTID AND VERTEBRAL ARTERY DUPLEX DOPPLER ULTRASOUND: EXAM DATE: 05/04/2018 02:19 PM CLINICAL HISTORY: Syncope. COMPARISON: None. TECHNIQUE: Grayscale imaging, color Doppler, and duplex spectral Doppler were used to evaluate the carotid and vertebral arteries bilaterally. Static images were obtained. FINDINGS: This study is limited by the patient's unwillingness to cooperate, the patient continued to speak throughout the exam. Adequate interrogation of the vertebral arteries was not possible. The left bulb demonstrates echogenic shadowing plaque which limits visual evaluation with increased locally turbulent flow followed by downstream tardus parvus waveforms, consistent with hemodynamically significant focal high-grade stenosis. There is focally echogenic plaque within the right carotid system which is most pronounced at the bulb. No hemodynamically significant plaque is identified in the right common or internal carotid arteries. Vertebral arteries were inadequately visualized. VELOCITIES (cm/sec): RIGHT CCA mid: PSV 95 cm/sec CCA dist: PSV 64 cm/sec ICA prox: PSV 89 cm/sec, EDV 20 cm/sec ICA mid: PSV 64 cm/sec, EDV 13 cm/sec ICA dist: PSV 65 cm/sec, EDV 15 cm/sec ECA: PSV 137 cm/sec Vert: PSV 71 cm/sec ICA/CCA: 1.39 LEFT CCA mid: PSV 75 cm/sec CCA dist: PSV 66 cm/sec ICA prox: PSV 143 cm/sec, EDV 20 cm/sec ICA mid: PSV 113 cm/sec, EDV 31 cm/sec ICA dist: PSV 74 cm/sec, EDV 20 cm/sec ECA: PSV 227 cm/sec Vert: PSV 89 cm/sec ICA/CCA: 2.17 ICA diameter stenosis: Right: <50% by velocity and <70% by NASCET criteria. Left: Greater than 70% but less than near occlusion, probably approximately 90% by velocity and greater than 70% by NASCET criteria. IMPRESSION: 1.Significant focal high-grade stenosis at the left carotid bulb/proximal internal carotid artery based on morphologic appearance and downstream tardus parvus waveforms. Subjectively, less than 50% luminal atherosclerosis in the right carotid system. 2. In the right carotid artery there are no elevated carotid artery velocities to suggest hemodynamically significant stenosis. 3. In the left carotid artery there are elevated carotid artery velocities suggestive of hemodynamically significant stenosis, approximately 90% stenosis. 4. Normal antegrade flow is present in bilateral vertebral arteries. General Recommendations: Stenosis =50% ICA - Follow-up ultrasound 6-12 months Stenosis <50% ICA - High Risk Patient with plaque - Follow-up ultrasound 1-2 years Normal Study but High Risk Patient - Follow-up ultrasound 3-5 years Management recommendations and diagnostic criteria are based on current IAC endorsed standards in Carotid Artery Stenosis: Grayscale and Doppler Ultrasound Diagnosis. Validated velocity measurements with angiographic measurements and velocity criteria are extrapolated from diameter data as defined by the Society of Radiologists in Ultrasound Consensus Conference Radiology 2003; 229;340-346. RADIA The above findings of suspected focal high-grade stenosis in the proximal left ICA were discussed with Yin by Dr. Jake Watson at 14:54 hrs on 05/04/18.
[2018-05-04] MEDS: FUROSEMIDE 20 MG TABLET PO SCH (16:52)
[2018-05-04] MEDS: ATORVASTATIN 40 MG TABLET PO SCH (20:19)
[2018-05-04] MEDS: DOCUSATE SODIUM 250 MG CAPSULE PO SCH (20:19)
[2018-05-05] MEDS: SODIUM CHLORIDE FLUSH 0.9% 10 ML SYRINGE IVP SCH ×3 (00:35→17:02)
[2018-05-05 05:58] LABS: BASOPHILS # (AUTO) 0.1 10^3/uL (0.0-0.1); BASOPHILS % (AUTO) 1.3 %; EOSINOPHILS % (AUTO) 0.4 %; HGB - HEMOGLOBIN 10.4 g/dL (12.0-16.0); LYMPHOCYTES # (AUTO) 1.9 10^3/uL (1.5-3.5); LYMPHOCYTES % (AUTO) 24.2 %; MEAN CORPUSCULAR HEMOGLOBIN 31.6 pg (27.0-31.0); MEAN CORPUSCULAR HGB CONC 33.4 g/dL (32.0-36.0); MEAN CORPUSCULAR VOLUME 94.8 fL (81.0-99.0); MEAN PLATELET VOLUME 8.4 fL (7.9-10.8); MONOCYTES # (AUTO) 0.7 10^3/uL (0.0-1.0); MONOCYTES % (AUTO) 9.4 %; NEUTROPHILS # (AUTO) 5.1 10^3/uL (1.5-6.6); NEUTROPHILS % (AUTO) 64.7 %; PLT - PLATELET COUNT 354 10^3/uL (130-450); RED BLOOD COUNT 3.29 10^6/uL (4.20-5.40); RED CELL DISTRIBUTION WIDTH 18.3 % (12.0-15.0); WHITE BLOOD COUNT 7.9 x10^3/uL (4.8-10.8)
[2018-05-05 06:10] LABS: ALBUMIN 2.6 g/dL (3.2-5.5); BILIRUBIN,TOTAL 1.4 mg/dL (0.2-1.0); CALCIUM 8.2 mg/dL (8.5-10.3); CREATININE 0.7 mg/dL (0.4-1.0); TOTAL PROTEIN 5.3 g/dL (6.7-8.2)
[2018-05-05] MEDS: LEVOTHYROXINE 88 MCG TABLET PO SCH (06:55)
[2018-05-05] MEDS ORDERED: VITAMIN D3 PO SCH (09:00)
[2018-05-05] MEDS ORDERED: CALCIUM CARBONATE PO SCH (09:00)
--- NOTE | 2018-05-05 09:08 | PROVIDER PROGRESS NOTE ---
Subjective - Prog Note Date Prog Note Date: 05/04/18 - Subjective Pt reports feeling: Improved Subjective: today pt's mental status seems better, less agitation. pt denies fever, chill, chest pain, SOB, headache. pt's US of carotid shows left side has 90% stenosis, right side is less than 50% stenosis. I called [facility] surgeon, and neurologist Dr. Kelly, hospitalist Dr. Dunn, three physician think pt's symptoms, dizziness, slight w eakness on left, and seizure-like activities, and pre-syncope symptoms, per family report, did not correct the stenosis. They will not accept pt for any intervention. I called , vascular surgeon on , they did not tell me physician's name, did not accept pt. The neurologist Dr. Henning recommend Aspirin 81 mg, plus Plavix 75 mg for one month then only Aspirin [address] Henning also think left side Carotid stenosis did not cause pt's above symptoms. Every time I assess pt and ask pt questions, the answers from pt are difference from her . I inform all these information to pt and pt's . They understand, and appreciate my efforts to deal with this medical issue. Pt and her refused to be d/c to SNF, refused to have home health PT/OT/RN. Pt's state they have all physical therapy equipment at home, decline equipments for pt. Current Medications - Current Medications Current Medications: Active Medications Acetaminophen (Tylenol) 650 mg PO Q4HR PRN PRN Reason: Pain 1 to 4 Last Admin: 05/04/18 16:59 Dose: 650 mg Aspirin (St Dvaid Aspirin) 81 mg PO DAILY [facility] Last Admin: 05/05/18 09:38 Dose: 81 mg Atorvastatin Calcium (Lipitor) 20 mg PO QPM [facility] Last Admin: 05/04/18 20:19 Dose: 20 mg Calcium Citrate () 250 mg PO BID [facility] Last Admin: 05/05/18 09:38 Dose: 250 mg Cholecalciferol (Vitamin D3) 2,000 unit PO DAILY [facility] Last Admin: 05/05/18 09:38 Dose: 2,000 unit Clopidogrel Bisulfate (Plavix) 75 mg PO DAILY [facility] Docusate Sodium (Colace 250mg Capsule) 250 - 500 mg PO DAILY [facility] Last Admin: 05/05/18 09:38 Dose: 250 mg Enoxaparin Sodium (Lovenox) 40 mg SUBQ DAILY [facility] Last Admin: 05/05/18 09:39 Dose: 40 mg Famotidine (Pepcid) 20 mg PO DAILY [facility] Last Admin: 05/05/18 09:39 Dose: 20 mg Ferrous Sulfate (Feosol) 325 mg PO BIDWM [facility] Last Admin: 05/05/18 09:38 Dose: 325 mg Furosemide (Lasix) 20 mg PO DAILY [facility] Last Admin: 05/05/18 09:39 Dose: 20 mg Levothyroxine Sodium (Synthroid) 88 mcg PO QDAC [facility] Last Admin: 05/05/18 06:55 Dose: 88 mcg Lorazepam (Ativan Inj (Vial)) 0.5 mg IVP Q2H PRN PRN Reason: Anxiety Last Admin: 05/03/18 15:59 Dose: 0.5 mg Multivitamins/Minerals (Theragran M) 1 tab PO DAILYWM [facility] Last Admin: 05/05/18 09:38 Dose: 1 tab Ondansetron HCl (Zofran Inj) 4 mg IVP Q6HR PRN PRN Reason: Nausea / Vomiting Polyethylene Glycol (Miralax) 17 gm PO DAILY [facility] Last Admin: 05/05/18 09:40 Dose: 17 gm Senna (Senokot) 8.6 - 17.2 mg PO DAILY [facility] Last Admin: 05/05/18 09:49 Dose: 8.6 mg Sodium Chloride (Normal Saline Flush 0.9%) 10 ml IVP PRN PRN PRN Reason: NEEDED PER PROVIDER ORDERS Last Admin: 05/04/18 18:59 Dose: 10 ml Sodium Chloride (Normal Saline Flush 0.9%) 10 ml IVP 0100,0900,1700 [facility] Last Admin: 05/05/18 09:49 Dose: 10 ml Spironolactone (Aldactone) 50 mg PO DAILY [facility] Last Admin: 05/05/18 09:49 Dose: 50 mg Ursodiol (Jesu 250) 250 mg PO BID [facility] Last Admin: 05/05/18 09:49 Dose: 250 mg Simvastatin [Zocor] 20 mg PO QPM 06/13/13 Alprazolam [Xanax] 0.5 mg PO Q6H PRN 11/04/13 Furosemide [Lasix] 20 mg PO DAILY 12/24/14 Spironolactone 50 mg PO DAILY 12/24/14 Ursodiol 300 mg PO BID 12/24/14 Colchicine [Colcrys] 0.6 mg PO DAILY 05/17/16 Potassium Chloride [K-Dur] 20 meq PO DAILY 05/17/16 Lansoprazole [Prevacid] 30 mg PO DAILY PRN 04/24/18 Levothyroxine [Synthroid] 88 mcg PO QDAC 04/24/18 Objective - Vital Signs/Intake & Output Reviewed Vital Signs: Yes Vital Signs: Vital Signs x48h Temp Pulse Resp BP Pulse Ox 05/05/18 07:38 36.2 C L 59 L 19 151/66 H 98 05/05/18 05:00 36.3 C L 60 16 145/46 H 98 Intake & Output: Intake & Output 05/02/18 05/03/18 05/04/18 05/05/18 23:59 23:59 23:59 23:59 Intake Total 2280.16 3237.5 1533.75 506.25 Output Total 750 1300 1900 Balance 2280.16 2487.5 233.75 -1393.75 - Objective General Appearance: positive: No acute distress, Alert. negative: Lethargic Eyes Bilateral: positive: Normal inspection, PERRL, No lid inflammation, Conjunctivae nml ENT: positive: ENT inspection nml, Pharynx nml, No signs of dehydration. negative: Purulent nasal drainage, Pharyngeal erythema, Oral lesions Neck: positive: Nml inspection, Thyroid nml, No JVD, Trachea midline. negative: Thyromegaly, Lymphadenopathy (R), Lymphadenopathy (L), Stiff neck, Swelling/brui sing, Tracheal deviation Respiratory: positive: Chest non-tender, No respiratory distress, Breath sounds nml. negative: Wheezes, Rales, Rhonchi Cardiovascular: positive: Regular rate & rhythm, No murmur, No gallop. negative: Irregularly irregular, Extrasystoles, Tachycardia, Bradycardia, JVD present, Systolic murmur, Diastolic murmur Peripheral Pulses: 2+ Radial (R), 2+ Radial (L), 2+ Dorsalis pedis (R), 2+ Dorsalis pedis (L) Abdomen: positive: Non-tender, No organomegaly, Nml bowel sounds, No distention. negative: Tenderness, Guarding, Rebound Back: positive: Nml inspection. negative: CVA tenderness (R), CVA tenderness (L) Skin: positive: Color nml, No rash, Warm, Dry. negative: Cyanosis, Diaphoresis, Pallor Extremities: positive: Non-tender, Nml appearance. negative: Calf tenderness, Joint swelling, Abraham's sign/cords Neurologic/Psychiatric: positive: Sensation nml. negative: Weakness, Sensory loss, Facial droop, Slurred/abnml speech - Lab Results Fish Bones: 05/05/18 05:35 05/05/18 05:35 Other Labs: Lab Results x24hrs 05/05/18 05/05/18 05/04/18 Range/Units 05:35 05:35 09:50 WBC 7.9 (4.8-10.8) x10^3/uL RBC 3.29 L (4.20-5.40) 10^6/uL Hgb 10.4 L (12.0-16.0) g/dL Hct 31.2 L (37.0-47.0) % MCV 94.8 (81.0-99.0) fL MCH 31.6 H (27.0-31.0) pg MCHC 33.4 (32.0-36.0) g/dL RDW 18.3 H (12.0-15.0) % Plt Count 354 (130-450) 10^3/uL MPV 8.4 (7.9-10.8) fL Neut # (Auto) 5.1 (1.5-6.6) 10^3/uL Lymph # (Auto) 1.9 (1.5-3.5) 10^3/uL [place] # (Auto) 0.7 (0.0-1.0) 10^3/uL Eos # (Auto) 0.0 (0.0-0.7) 10^3/uL Baso # (Auto) 0.1 (0.0-0.1) 10^3/uL Absolute Nucleated RBC 0.01 x10^3/uL Nucleated RBC % 0.1 /100WBC Sodium 136 (135-145) mmol/L Potassium 3.7 (3.5-5.0) mmol/L Chloride 107 (101-111) mmol/L Carbon Dioxide 23 (21-32) mmol/L Anion Gap 6.0 (6-13) BUN 9 (6-20) mg/dL Creatinine 0.7 (0.4-1.0) mg/dL Estimated GFR (MDRD) 81 L (>89) Glucose 103 H (70-100) mg/dL Calcium 8.2 L (8.5-10.3) mg/dL Total Bilirubin 1.4 H (0.2-1.0) mg/dL AST 21 (10-42) IU/L ALT 16 (10-60) IU/L Alkaline Phosphatase 61 (42-121) IU/L Total Protein 5.3 L (6.7-8.2) g/dL Albumin 2.6 L (3.2-5.5) g/dL Globulin 2.7 (2.1-4.2) g/dL Albumin/Globulin Ratio 1.0 (1.0-2.2) Blood Type A POSITIVE Antibody Screen NEGATIVE Crossmatch IS Only See Detail ABX Reporting Has patient been on IV antibiotics over the past 48 hours?: No Sepsis Event Note (H) - Evaluation Current Stage of Sepsis: Ruled out Assessment/Plan - Problem List (1) Altered mental status Impression: (1) Altered mental status Impression: 05/05 05/03, improved from yesterday. pt is sitting to eat her breakfast by her own. But still present some confused when ask her some questions. unclear if it is pt's baseline. nurse continue orient pt continue neur check pt can not have MRI due to recent orthopedic surgery site family report pt has altered mental status since recent surgery. Pt is total confused today. order UDS order MRI of brain. pt's son report pt has some kind of syncope episode order ECHO, US of Carotid, and orthostatic BP neuro check Qualifiers: Altered mental status type: delirium Qualified Code(s): R41.0 - Disorient ation, unspecified (2) Seizure-like activity Conclusion/Plan: 05/03, no seizure, IV Ativan PRN followup neurologist to EEG test as out-pt setting no seizure in EMS, no seizure at ER. pt present confused today neuro check, seizure precaution Ativan PRN for seizure, recommend to followup neurologist to EEG test as out-pt setting. MRI of brain, will followup (3) Anemia Conclusion/Plan: 05/03 HGB is 7.5 today, asymptomatic. chronic, status post Billroth II procedure, which could affect anemia status iron study reveals low iron level start on Iron pill HGB is 8.9, MCV 101. pt has chronic anemia. pt family report previous study could not find the etiology, and report pt did not have GI rectal bleeding, occult test was negative. pt is status post Billroth II procedure, which could affect anemia status. H&H closely monitor pt, blood transfusion as need order iron study, will followup (4) HTN (hypertension) Conclusion/Plan: stable, will resume home meds after reconciled by pharmacy (5) GERD (gastroesophageal reflux disease) Conclusion/Plan: pt has hx of GERD and PUD Pepcid (6) Hypothyroidism Conclusion/Plan: 05/03 TSH is normal, continue home synth resume home synth, check TSH, will follow up (7) HLD (hyperlipidemia) Conclusion/Plan: stable, resume statin (8) sundowning of Dementia it seems pt's mental status is better, continue nurse orientation, continue support (9) left Carotid stenosis 90% stenosis on left Carotid follow up [facility] neurologist recommends, add Plavix for pt for one month. Qualifiers: Altered mental status type: delirium Qualified Code(s): R41.0 - Disorientation, unspecified (3) Anemia Qualifiers: Anemia type: unspecified type Qualified Code(s): D64.9 - Anemia, unspecified
[2018-05-05] MEDS: FERROUS SULFATE 325 MG TABLET PO SCH ×2 (09:38→17:02)
[2018-05-05] MEDS: DOCUSATE SODIUM 250 MG CAPSULE PO SCH (09:38)
[2018-05-05] MEDS: CHOLECALCIFEROL 1,000 UNIT TABLET PO SCH (09:38)
[2018-05-05] MEDS: ASPIRIN CHEW 81 MG TABLET PO SCH (09:38)
[2018-05-05] MEDS: CALCIUM CITRATE 250 MG TABLET PO SCH ×2 (09:38→19:46)
[2018-05-05] MEDS: MULTIVITAMIN W/MINERALS TABLET PO SCH (09:38)
[2018-05-05] MEDS: FUROSEMIDE 20 MG TABLET PO SCH (09:39)
[2018-05-05] MEDS: ENOXAPARIN 40 MG/0.4 ML SYRINGE SUBQ SCH (09:39)
[2018-05-05] MEDS: FAMOTIDINE 20 MG TABLET PO SCH (09:39)
[2018-05-05] MEDS: POLYETHYLENE GLYCOL 3350 17 GM PACKET PO SCH (09:40)
[2018-05-05] MEDS: SPIRONOLACTONE 25 MG TABLET PO SCH (09:49)
[2018-05-05] MEDS: SENNA 8.6 MG TABLET PO SCH (09:49)
[2018-05-05] MEDS: URSODIOL 250 MG TABLET PO SCH ×2 (09:49→19:46)
[2018-05-05] MEDS ORDERED: IOPAMIDOL-300 100 ML VIAL ONE (11:00)
[2018-05-05] MEDS ORDERED: IOPAMIDOL-300 100 ML VIAL IVP ONE ×2 (11:52→12:01)
--- NOTE | 2018-05-05 13:04 | CT Report ---
Reason: dizziness, syncope Procedure Date: 05/05/2018 Accession Number: [id number] / [id number] Procedure: CT - Neck Angio CPT Code: FULL RESULT: EXAM: CT ANGIOGRAM NECK EXAM DATE: 05/05/2018 11:44 AM. CLINICAL HISTORY: Dizziness, syncope. COMPARISON: None. TECHNIQUE: Routine axial helical imaging was performed from the skull base through the aortic arch. Reconstructions: Routine multiplanar 3D MIP reconstructions. IV Contrast: ISOVUE 300 100mL. Evaluation of arterial stenosis is based on a NASCET method of measurement. In accordance with CT protocol optimization, one or more of the following dose reduction techniques were utilized for this exam: automated exposure control, adjustment of mA and/or KV based on patient size, or use of iterative reconstructive technique. FINDINGS: Extensive dense atherosclerotic calcification at the top of the aortic arch. Calcifications at the origins of the great vessels are also present. Numerous foci of calcified atherosclerotic plaque are present involving both subclavian arteries. Subclavian artery stenosis appears mild. Extensive dense atherosclerotic calcifications are seen in the regions of both cervical carotid artery bifurcations. Maximum luminal stenosis at the right cervical ICA measures about 50%. Just proximal to its bifurcation the terminal left common carotid artery shows focal segmental stenosis up to 80%. At its origin, left cervical ICA stenosis is about 50%. No acute abnormality or focal flow-limiting stenosis of the cervical vertebral arteries. IMPRESSION: 1. Extensive large artery atherosclerotic calcified plaque of the neck. 2. Luminal stenosis of the terminal left common carotid artery measures up to about 80%. 3. Bilateral cervical ICA origin stenosis approximately 50%. [facility]
--- NOTE | 2018-05-05 13:29 | CT Report ---
Reason: dizziness, syncope Procedure Date: 05/05/2018 Accession Number: [id number] / [id number] Procedure: CT - Head Angio CPT Code: FULL RESULT: EXAM: CT ANGIOGRAM HEAD. CT SCAN OF THE HEAD WITH CONTRAST. EXAM DATE: 05/05/2018 11:44 AM CLINICAL HISTORY: 78-year-old female. Dizziness, syncope. COMPARISON: HEAD ANGIO 05/05/2018 11:20 AM. TECHNIQUE: - CT Scan Head: Using a multidetector scanner, axial images were acquired from the foramen magnum to the skull vertex following contrast administration. - CT Angiogram: Using a multidetector scanner, high-resolution axial images were acquired from the skull base through vertex following rapid infusion of intravenous contrast. Reformats: Multiplanar MIP reformats were reconstructed. Nascet criteria used for stenosis measurement. IV Contrast: ISOVUE 300 100mL. In accordance with CT protocol optimization, one or more of the following dose reduction techniques were utilized for this exam: automated exposure control, adjustment of mA and/or KV based on patient size, or use of iterative reconstructive technique. FINDINGS: NON-CONTRAST HEAD: Performed separately. POST-CONTRAST HEAD: No abnormal enhancement. CT ANGIOGRAM HEAD: Moderate atherosclerosis right carotid siphon to maximal stenosis 30-40%. The right posterior communicating artery not clearly visualized, likely hypoplastic or aplastic. Moderate atherosclerosis left carotid siphon to maximal stenosis of approximately 50%. Patent left posterior communicating artery. The visualized distal vertebral arteries are unremarkable. Near origin of the left SPRING COILER. The left SPRING COILER is otherwise unremarkable. The right SPRING COILER is unremarkable. The right MCA is unremarkable. The ACAs bilaterally are unremarkable. The left MCA is unremarkable. DURAL VENOUS SINUSES AND MAJOR CENTRAL VEINS: Patent. IMPRESSION: 1. Concurrently obtained noncontrast CT head has been dictated separately. 2. No abnormal enhancement on the postcontrast CT head. 3. No CTA evidence of high-grade stenosis, large vessel occlusion, acute dissection, aneurysm, or vascular malformation within extracranial or intracranial arteries. 4. Moderate atherosclerosis right carotid siphon to maximal stenosis 30-40%. 5. Moderate atherosclerosis left carotid siphon to maximal stenosis of approximately 50%. [facility]
[2018-05-05] MEDS: ATORVASTATIN 40 MG TABLET PO SCH (19:45)
[2018-05-06] MEDS: SODIUM CHLORIDE FLUSH 0.9% 10 ML SYRINGE IVP SCH ×2 (03:45→08:12)
[2018-05-06] MEDS: LEVOTHYROXINE 88 MCG TABLET PO SCH (06:12)
[2018-05-06 06:43] LABS: BASOPHILS # (AUTO) 0.1 10^3/uL (0.0-0.1); BASOPHILS % (AUTO) 0.7 %; EOSINOPHILS # (AUTO) 0.1 10^3/uL (0.0-0.7); EOSINOPHILS % (AUTO) 0.7 %; LYMPHOCYTES # (AUTO) 2.8 10^3/uL (1.5-3.5); MEAN CORPUSCULAR HEMOGLOBIN 31.2 pg (27.0-31.0); MEAN CORPUSCULAR VOLUME 97.6 fL (81.0-99.0); MEAN PLATELET VOLUME 8.7 fL (7.9-10.8); MONOCYTES # (AUTO) 0.8 10^3/uL (0.0-1.0); MONOCYTES % (AUTO) 10.2 %; NEUTROPHILS # (AUTO) 4.4 10^3/uL (1.5-6.6); NEUTROPHILS % (AUTO) 54.4 %; PLT - PLATELET COUNT 390 10^3/uL (130-450); RED BLOOD COUNT 3.85 10^6/uL (4.20-5.40); RED CELL DISTRIBUTION WIDTH 19.3 % (12.0-15.0); WHITE BLOOD COUNT 8.2 x10^3/uL (4.8-10.8)
[2018-05-06 07:02] LABS: BILIRUBIN,TOTAL 1.2 mg/dL (0.2-1.0); CALCIUM 8.4 mg/dL (8.5-10.3); CREATININE 0.7 mg/dL (0.4-1.0); TOTAL PROTEIN 5.9 g/dL (6.7-8.2)
[2018-05-06 07:36] VITALS: BP 146/46
[2018-05-06] MEDS ORDERED: MAGNESIUM HYDROXIDE 2,400 MG/30 ML UDC PO ONE (07:37)
[2018-05-06] MEDS: FERROUS SULFATE 325 MG TABLET PO SCH (08:10)
[2018-05-06] MEDS: DOCUSATE SODIUM 250 MG CAPSULE PO SCH (08:11)
[2018-05-06] MEDS: CHOLECALCIFEROL 1,000 UNIT TABLET PO SCH (08:11)
[2018-05-06] MEDS: MULTIVITAMIN W/MINERALS TABLET PO SCH (08:11)
[2018-05-06] MEDS: ENOXAPARIN 40 MG/0.4 ML SYRINGE SUBQ SCH (08:11)
[2018-05-06] MEDS: CALCIUM CITRATE 250 MG TABLET PO SCH (08:11)
[2018-05-06] MEDS: ASPIRIN CHEW 81 MG TABLET PO SCH (08:11)
[2018-05-06] MEDS: POLYETHYLENE GLYCOL 3350 17 GM PACKET PO SCH (08:12)
[2018-05-06] MEDS: SPIRONOLACTONE 25 MG TABLET PO SCH (08:12)
[2018-05-06] MEDS: FUROSEMIDE 20 MG TABLET PO SCH (08:12)
[2018-05-06] MEDS: SENNA 8.6 MG TABLET PO SCH (08:12)
[2018-05-06] MEDS: FAMOTIDINE 20 MG TABLET PO SCH (08:12)
[2018-05-06] MEDS: URSODIOL 250 MG TABLET PO SCH (08:13)
[2018-05-06] MEDS ORDERED: CLOPIDOGREL 75 MG TABLET PO SCH (09:00)
[2018-05-06] MEDS: ACETAMINOPHEN 325 MG TABLET PO PRN (10:29)
--- NOTE | 2018-05-06 10:41 | Discharge Plan ---
Discharge Plan Disposition: Home, Self Care Condition: Poor Prescriptions: Clopidogrel [Plavix] 75 mg PO DAILY #30 tablet Ferrous Sulfate 325 mg PO DAILY #15 tablet Diet: Regular Activity Restrictions: Activity as Tolerated Shower Restrictions: No (fall precaution, caregiver closely monitor) Instruction Topics: Clopidogrel Bisulfate Oral tablet Additional Instructions or Follow Up instructions: Your US of Carotid shows 90% stenosis and CTA reveals 80% stenosis of left Carotid, You may followup your PCP in one week and discuss the future monitor plan. You could not have MRI for your brain due to your recent surgery, advise you and your discuss with your PCP as out-pt. You are prescribed Plavix, a new blood thinner. advise be precaution of bleeding side effect of this new medication, Plavix. Per Neurologist recommendation from , Plavix is prescribed for 30 days now for you. Advise continue discuss with your PCP for future plan. You decline nurse facility/SNF and home health arrangement, advise precaution of your fall. Should your symptoms return or worsen, you may present ER or call 911 for help. No Smoking: If you smoke, Please STOP! Call for help. Follow-up with: Richard Lopez MD [Primary Care Provider] -
--- NOTE | 2018-05-06 11:06 | DISCHARGE SUMMARY ---
Discharge Summary Discharge Date: 05/06/18 Discharging Provider: SANTANA Primary Care Provider: Dr. Rodriguez Condition at Discharge: Poor Discharge Disposition: Home, Self Care Discharge Facility Name: home - DIAGNOSES Admission Diagnoses: (1) Altered mental status (2) Seizure-like activity (3) Anemia (4) HTN (hypertension) (5) GERD (gastroesophageal reflux disease) (6) Hypothyroidism (7) HLD (hyperlipidemia) Discharge Diagnoses with Status of Each Condition: (1) Altered mental status great improved. Pt, pt's request to be d/c to home today. CT of head is unremarkable. US of carotid and CTA of neck reveals 90-80% stenosis. Pt can not have MRI due to her recent orthopedic surgery. Pt also present mild weakness on left hand. but it difficult to assess because pt had orthopedics surgery intervention on her left hand. for US of carotid and CTA of neck reveals 90-80% stenosis, I called [facility] and vascular surgeon, neurologist, they all did not accept pt for surgery intervention now. All these physician consider pt does not need immediate surgical intervention. They consider pt's present symptoms do not directly relate to Carotid stenosis. neurologist recommend Plavix 75 mg daily plus pt's home meds Aspirin 81 mg for one month. Pt and her are advised to followup PCP and referral to vascular surgeon for further assessment as out-pt (2) Seizure-like activity pt did not present seizure, or seizure-like activity in hospital (3) Anemia pt had one unit of blood transfusion, Her HGB is 12 now (4) HTN (hypertension) stable. follow up PCP (5) GERD (gastroesophageal reflux disease) stable (6) Hypothyroidism stable (7) HLD (hyperlipidemia) stable (8) owning of Dementia significant improved. Initially pt present significant forgetful, agitation, restless, combative at afternoon around 4-6pm. advise pt followup PCP and neurologist for assessment of Dementia. (9) left Carotid stenosis or US of carotid and CTA of neck reveals 90-80% stenosis, I called [facility] and vascular surgeon, neurologist, they all did not accept pt for surgery intervention now. All these physician consider pt does not need immediate surgical intervention. neurologist recommend Plavix 75 mg daily plus pt's home meds Aspirin 81 mg for one month. Pt and her are advised to followup PCP and referral to vascular surgeon for further assessment as out- pt (10)status post of left elbow fracture repair all pt's distal fingers of left hand have normal vascular-neurological function. Pt denies pain. There is no swelling, tenderness in the distal of hand. pt and her state pt will have orthopedics appointment on 05/08/18. nurse report pt's left hand has mild weakness. but pt just had a complex orthopedic surgery on her left elbow, it is difficult to assess the weakness. Her left leg does not present weakness comparing right leg as well. They decline to be arranged to nurse facility/SNF or home health - HPI History of Present Illness: Ms. Jackson is a 78-year-old female with a past medical history significant for peptic ulcer disease with perforated ulcer status post Billroth II procedure in 2005, hypertension, GERD, hypothyroidism, hyperlipidemia, seasonal allergies, chronic back pain secondary to herniated disks, peripheral arterial disease status post bypass in the right lower extremity and progressively worsening glaucoma who presented to the emergency department complain of altered mental status and seizure-like activities. Upon examination to pt, pt is confused and could not answer any question. All information comes from either pt's family or ER. patient's states pt has not been eating and drinking well for the last couple of days, nor been out of bed much since she had surgery about 8 days ago. Pt's son state her month gradually became more confused. Pt was sitting up today and she had an episode when she started tremor and looked pale, "like- seizure activity," per her state. EMS was called and she was awake at the time of EMS's arrival. But she was not answering questions and seemed confu sed as well. Per family member report pt did not have chest pain, headache, report she had a warm/sweating episode at home but did not measure the temperature. Lab test shows pt's HGB is 8.9, HCT 27.2, WBC 8.7 but with Band neut% 20 H, slight elevated total Bili at 1.3, otherwise is unremarkable. UA analysis reveals no UTI but with 15H ketones, with small amount serum ketones. Pt's temperature is 37.6, slight elevated blood pressure otherwise it is unremarkable. Image studies CT of head and CXR reveals unremarkable. Pt is admitted in observation unit for AMS - HOSPITAL COURSE Hospital Course: pt was admitted for AMS and seizure-like activity. Pt's AMS has great improved. Pt is alert and oriented plus two now. Pt did not have seizure or seizure-like activity in hospital. CT of head is unremarkable. US of carotid and CTA of neck reveals 90-80% stenosis. Pt can not have MRI due to her recent orthopedic surgery. Pt also present mild weakness on left hand. but it difficult to assess because pt had orthopedics surgery intervention on her left hand. for US of carotid and CTA of neck reveals 90-80% stenosis, I called [facility] and vascular surgeon, neurologist, they all did not accept pt for surgery intervention now. All these physician consider pt does not need immediate surgical intervention. neurologist recommend Plavix 75 mg daily plus pt's home meds Aspirin 81 mg for one month. Pt and pt's request to be d/c to home today. Pt and her are advised to followup PCP and referral to vascular surgeon and neurologist for further assessment as out-pt. pt and her declined to be arranged to nurse facility/SNF or home health PT/nurse - ALLERGIES Allergies/Adverse Reactions: Allergies Allergy/AdvReac Type Severity Reaction Status Date / Time No Known Drug Allergies Allergy Verified 05/02/18 13:26 - MEDICATIONS Home Medications: Ambulatory Orders Medication Instructions Recorded Confirmed Simvastatin [Zocor] 20 mg PO QPM 06/13/13 05/03/18 Alprazolam [Xanax] 0.5 mg PO Q6H PRN 11/04/13 05/03/18 Furosemide [Lasix] 20 mg PO DAILY 12/24/14 05/03/18 Spironolactone 50 mg PO DAILY 12/24/14 05/03/18 Ursodiol 300 mg PO BID 12/24/14 05/03/18 Colchicine [Colcrys] 0.6 mg PO DAILY 05/17/16 05/03/18 Potassium Chloride [K-Dur] 20 meq PO DAILY 05/17/16 05/03/18 Lansoprazole [Prevacid] 30 mg PO DAILY PRN 04/24/18 05/03/18 Levothyroxine [Synthroid] 88 mcg PO QDAC 04/24/18 05/03/18 Aspirin Chewable [[place] 81 mg PO DAILY tablet 04/26/18 05/03/18 Aspirin] Calcium Carbonate/Vitamin D3 1 each PO DAILY #30 tablet 04/26/18 05/03/18 [Calcium 600-Vit D3 800 Tablet] Clopidogrel [Plavix] 75 mg PO DAILY #30 tablet 05/06/18 - PHYSICAL EXAM AT DISCHARGE General Appearance: positive: No acute distress, Alert. negative: Lethargic Eyes Bilateral: positive: Normal inspection, PERRL, No lid inflammation, Conjunctivae nml ENT: positive: ENT inspection nml, Pharynx nml, No signs of dehydration. negative: Purulent nasal drainage, Pharyngeal erythema, Oral lesions Neck: positive: Nml inspection, Thyroid nml, No JVD, Trachea midline. negative: Thyromegaly, Lymphadenopathy (R), Lymphadenopathy (L), Stiff neck, Swelling/bruising, Tracheal deviation Respiratory: positive: Chest non-tender, No respiratory distress, Breath sounds nml. negative: Wheezes, Rales, Rhonchi Cardiovascular: positive: Regular rate & rhythm, No murmur, No gallop. negative: Irregularly irregular, Extrasystoles, Tachycardia, Bradycardia, JVD present, Systolic murmur, Diastolic murmur Peripheral Pulses: positive: 2+ Abdomen: positive: Non-tender, No organomegaly, Nml bowel sounds, No distention. negative: Tenderness, Guarding, Rebound Back: positive: Nml inspection. negative: CVA tenderness (R), CVA tenderness (L) Skin: positive: Color nml, No rash, Warm, Dry. negative: Cyanosis, Diaphoresis, Pallor Extremities: positive: Non-tender, Nml appearance. negative: Calf tenderness, Abraham's sign/cords Neurologic/Psychiatric: positive: Motor nml, Sensation nml, Mood/affect nml. n egative: Weakness, Sensory loss, Facial droop, Slurred/abnml speech - LABS Result Diagrams: 05/06/18 06:05 05/06/18 06:05 - SEPSIS Current Stage of Sepsis: Ruled out - FOLLOW UP Follow Up: Your US of Carotid shows 90% stenosis and CTA reveals 80% stenosis of left Carotid, You may followup your PCP in one week and discuss the future plan. You could not have MRI for your brain due to your recent surgery. You are prescribed Plavix, a new blood thinner. advise be precaution of bleeding side effect of this new medication, Plavix. Per Neurologist recommendation from , Plavix is prescribed for 30 days now for you. Advise continue discuss with your PCP for future plan. You decline nurse facility/SNF and home health arrangement, advise precaution of your fall. Should your symptoms return or worsen, you may present ER or call 911 for help. - TIME SPENT Time Spent in Discharge (Minutes): 60
== END 2018-05-06 12:02 | disposition home or self-care (01) | DRG 948 ==
LOC: EDUNIT# → ED 13:14 → MS2 17:28 → OBSVTOIN 05-03 12:07
PROVIDERS: ADMIT Nurse Practitioner Gerontology; ATTEND Nurse Practitioner Gerontology
PROC: 30233N1 Transfusion of Nonautologous Red Blood Cells into Peripheral Vein, Percutaneous Approach (ICD-10-PCS; principal; 2018-05-04)
DX: R41.82 Altered mental status, unspecified (principal); E86.0 Dehydration; D64.9 Anemia, unspecified; F05 Delirium due to known physiological condition; I65.22 Occlusion and stenosis of left carotid artery; F03.90 Unspecified dementia, unspecified severity, without behavioral disturbance, psychotic disturbance, mood disturbance, and anxiety; R56.9 Unspecified convulsions; D50.9 Iron deficiency anemia, unspecified; I10 Essential (primary) hypertension; K21.9 Gastro-esophageal reflux disease without esophagitis; E03.9 Hypothyroidism, unspecified; E78.5 Hyperlipidemia, unspecified; G89.29 Other chronic pain; I73.9 Peripheral vascular disease, unspecified; H40.9 Unspecified glaucoma; Z79.82 Long term (current) use of aspirin; R53.1 Weakness; Z79.891 Long term (current) use of opiate analgesic; Z79.899 Other long term (current) drug therapy; Z87.891 Personal history of nicotine dependence; Z95.828 Presence of other vascular implants and grafts; Z87.11 Personal history of peptic ulcer disease; Z98.890 Other specified postprocedural states
CPT/HCPCS: 36415; 51701; 70450; 70496; 70498; 71045; 80053; 80306; 81001; 81003; 82009; 82140; 82272; 82607; 82728; 83540; 83605; 83615; 83690; 83735; 84443; 84466; 84484; 85014; 85018; 85025; 85044; 86850; 86900; 86901; 86920; 87040; 87086; 93005; 93306; 93880; 96361; 96365; 96366; 96368; 96372; 96374; 96375; 99283; 99284

== ENCOUNTER 2018-05-24 16:42 | Outpatient (CLI) | payer MEDICARE, OTHER ==
[2018-05-24 17:06] LABS: HGB - HEMOGLOBIN 11.8 g/dL (12.0-16.0); MEAN CORPUSCULAR HEMOGLOBIN 31.6 pg (27.0-31.0); MEAN CORPUSCULAR HGB CONC 32.1 g/dL (32.0-36.0); MEAN CORPUSCULAR VOLUME 98.3 fL (81.0-99.0); MEAN PLATELET VOLUME 8.2 fL (7.9-10.8); RED BLOOD COUNT 3.74 10^6/uL (4.20-5.40); RED CELL DISTRIBUTION WIDTH 17.2 % (12.0-15.0); WHITE BLOOD COUNT 5.3 x10^3/uL (4.8-10.8)
[2018-05-24 17:15] LABS: ALBUMIN 3.3 g/dL (3.2-5.5); ALBUMIN/GLOBULIN RATIO 1.1 (1.0-2.2); BILIRUBIN,TOTAL 0.7 mg/dL (0.2-1.0); CALCIUM 8.8 mg/dL (8.5-10.3); CREATININE 0.9 mg/dL (0.4-1.0); TOTAL PROTEIN 6.4 g/dL (6.7-8.2)
== END 2018-05-24 16:43 | disposition home or self-care (01) ==
LOC: LAB 16:42
PROVIDERS: ATTEND Family Medicine
DX: D53.8 Other specified nutritional anemias (principal); I10 Essential (primary) hypertension; Z79.899 Other long term (current) drug therapy; E78.2 Mixed hyperlipidemia; E03.9 Hypothyroidism, unspecified
CPT/HCPCS: 36415; 80053; 85027

== ENCOUNTER 2018-06-06 09:16 | Outpatient (CLI) | payer MEDICARE, OTHER ==
--- NOTE | 2018-06-06 19:45 | Ultrasound Report ---
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 COMPARISON: Carotid Doppler complete 05/04/2018 1:25 PM. TECHNIQUE: Grayscale imaging, color Doppler, and duplex spectral Doppler were used to evaluate the carotid and vertebral arteries bilaterally. Static images were obtained. FINDINGS: There is significant atherosclerotic plaque at both carotid bulbs which is visually at least 50% in shadowing at times where a subjective evaluation is not possible due to lack of visualization. Normal antegrade flow is present in bilateral vertebral arteries. VELOCITIES (cm/sec): Right CCA mid: PSV 81 cm/sec CCA dist: PSV 49 cm/sec ICA prox: PSV 79 cm/sec, EDV 22 cm/sec ICA mid: PSV 113 cm/sec, EDV 23 cm/sec ICA dist: PSV 59 cm/sec, EDV 15 cm/sec ECA: PSV 83 cm/sec Vert: PSV 50 cm/sec ICA/CCA: 2.31 Left CCA mid: PSV 63 cm/sec CCA dist: PSV 54 cm/sec ICA prox: PSV 123 cm/sec, EDV 26 cm/sec ICA mid: PSV 93 cm/sec, EDV 29 cm/sec ICA dist: PSV 67 cm/sec, EDV 17 cm/sec ECA: PSV 233 cm/sec Vert: PSV 77 cm/sec ICA/CCA: 2.28 ICA diameter stenosis: Right: 50-69% stenosis by ICA/CCA ratio and <70% by NASCET criteria. Left: 50-69% stenosis by by ICA/CCA ratio and <70% by NASCET criteria. IMPRESSION: 1. Shadowing approximately 50% subjectively atherosclerotic plaque in the bilateral carotid arteries. 2. In the right carotid artery there are no elevated carotid artery velocities to suggest hemodynamically significant stenosis. There is however an elevated ICA/CCA ratio. Waveforms are preserved downstream of the bifurcation. 3. In the left carotid artery there are no elevated carotid artery velocities to suggest hemodynamically significant stenosis. There is however an elevated ICA/CCA ratio. Waveforms are preserved downstream of the bifurcation. 4. Normal antegrade flow is present in bilateral vertebral arteries. General Recommendations: Stenosis =50% ICA - Follow-up ultrasound 6-12 months Stenosis <50% ICA - High Risk Patient with plaque - Follow-up ultrasound 1-2 years Normal Study but High Risk Patient - Follow-up ultrasound 3-5 years Management recommendations and diagnostic criteria are based on current IAC endorsed standards in Carotid Artery Stenosis: Grayscale and Doppler Ultrasound Diagnosis. Validated velocity measurements with angiographic measurements and velocity criteria are extrapolated from diameter data as defined by the Society of Radiologists in Ultrasound Consensus Conference Radiology 2003; 229;340-346. RADIA
== END 2018-06-06 09:17 | disposition home or self-care (01) ==
LOC: DI 09:16
PROVIDERS: ATTEND Family Medicine
DX: I25.10 Atherosclerotic heart disease of native coronary artery without angina pectoris (principal)
CPT/HCPCS: 93880

== ENCOUNTER 2018-09-05 15:21 | Outpatient (CLI) | payer MEDICARE, OTHER ==
--- NOTE | 2018-09-06 18:16 | Ultrasound Report ---
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 COMPARISON: CAROTID DOPPLER COMPLETE 06/06/2018 10:05 AM NECK ANGIO 05/05/2018 11:28 AM. TECHNIQUE: Grayscale imaging, color Doppler, and duplex spectral Doppler were used to evaluate the carotid and vertebral arteries bilaterally. Static images were obtained. FINDINGS: Atherosclerotic plaque (>50 % stenosis) at left carotid bulb and origin of ECA (peak systolic velocity of CCA at the bulb is 328 cm/sec and origin of ECA is 231 cm/sec). No Mild plaque is identified in the right common carotid and ICA origin. Normal antegrade flow is present in bilateral vertebral arteries. VELOCITIES (cm/sec): VELOCITIES: Right: CCA Mid: PSV 81 cm/sec. CCA Dist: PSV 49 cm/sec. ICA Prox: PSV 79 cm/sec, EDV 22 cm/sec. ICA Mid: PSV 113 cm/sec, EDV 23 cm/sec. ICA Dist: PSV 59 cm/sec, EDV 15 cm/sec. ECA: PSV 83 cm/sec. Vertebral Artery: PSV 50 cm/sec. RVA flow direction: xAntegrade. ICA/CCA Ratio: 2.31. Left: CCA Mid: PSV 63 cm/sec. CCA Dist: PSV 54 cm/sec. ICA Prox: PSV 123 cm/sec, EDV 26 cm/sec. ICA Mid: PSV 93 cm/sec, EDV 29 cm/sec. ICA Dist: PSV 67 cm/sec, EDV 17 cm/sec. ECA: PSV 233 cm/sec. Vertebral Artery: PSV 77 cm/sec. LVA flow direction: xAntegrade. ICA/CCA Ratio: 2.28, . ICA diameter stenosis: Right: <50% by velocity and <70% by NASCET criteria. Left: <50% by velocity and <70% by NASCET criteria. IMPRESSION: 1. Atherosclerotic plaque (>50 % stenosis) at left carotid bulb.Finding has been unchanged since prior carotid doppler in may 2018. 2. In the left carotid artery there are elevated carotid artery velocities at carotid bulb (328 cm/sec) and proximal ECA (231 cm/sec). Left ICA's velocities are within normal limits. 3. In the right carotid artery there are no elevated carotid artery velocities to suggest hemodynamically significant stenosis. 4. Normal antegrade flow is present in bilateral vertebral arteries. General Recommendations: Stenosis =50% ICA - Follow-up ultrasound 6-12 months Stenosis <50% ICA - High Risk Patient with plaque - Follow-up ultrasound 1-2 years Normal Study but High Risk Patient - Follow-up ultrasound 3-5 years Management recommendations and diagnostic criteria are based on current IAC endorsed standards in Carotid Artery Stenosis: Grayscale and Doppler Ultrasound Diagnosis. Validated velocity measurements with angiographic measurements and velocity criteria are extrapolated from diameter data as defined by the Society of Radiologists in Ultrasound Consensus Conference Radiology 2003; 229;340-346. RADIA
== END 2018-09-05 15:22 | disposition home or self-care (01) ==
LOC: DI 15:21
PROVIDERS: ATTEND Family Medicine
DX: I25.10 Atherosclerotic heart disease of native coronary artery without angina pectoris (principal)
CPT/HCPCS: 93880

== ENCOUNTER 2018-12-27 12:05 | Outpatient (CLI) | payer MEDICARE, OTHER ==
--- NOTE | 2018-12-31 15:37 | Mammography Report ---
Reason: screening mammo Procedure Date: 12/27/2018 Accession Number: [id number] / [id number] Procedure: MGN - Screening Mammo Dig Bilat CPT Code: FULL RESULT: EXAM: Screening Mammo Dig Bilat DATE: 12/27/2018 12:36 PM CLINICAL HISTORY: Screening examination. No reported risk factors. TECHNIQUE: (B) - Bilateral CC, laterally exaggerated CC, MLO views were obtained. COMPARISON: 12/01/2017 through 11/21/2012. PARENCHYMAL PATTERN: (A) - The breast(s) demonstrate(s) scattered fibroglandular densities. FINDINGS: There are typically benign vascular calcifications. There are no suspicious masses, calcifications, or areas of distortion. IMPRESSION: Benign findings. BI-RADS category 2. RECOMMENDATION: (ANNUAL) - Recommend routine annual screening mammography. BI-RADS CATEGORY: (2) - Benign Findings. STANDARD QUALIFYING STATEMENTS: 1. This examination was not reviewed with the aid of Computer-Aided Detection (CAD). 2. A negative or benign imaging report should not preclude biopsy if clinically suspicious findings are present. 3. Dense breasts may obscure an underlying neoplasm. 4. This examination was reviewed without the aid of 3D breast imaging (tomosynthesis).
== END 2018-12-27 12:06 | disposition home or self-care (01) ==
LOC: DI.N 12:05
PROVIDERS: ATTEND Family Medicine
DX: Z12.31 Encounter for screening mammogram for malignant neoplasm of breast (principal)
CPT/HCPCS: 77067

== ENCOUNTER 2019-01-25 16:50 | Outpatient (CLI) | payer MEDICARE, OTHER | END 2019-01-25 16:51 | disposition critical access hospital (66) | LOC: EMS 16:50 | PROVIDERS: ATTEND Surgery | DX: S89.91XA Unspecified injury of right lower leg, initial encounter (principal); S01.81XA Laceration without foreign body of other part of head, initial encounter; W01.0XXA Fall on same level from slipping, tripping and stumbling without subsequent striking against object, initial encounter; Y93.01 Activity, walking, marching and hiking; Y92.008 Other place in unspecified non-institutional (private) residence as the place of occurrence of the external cause; Z79.02 Long term (current) use of antithrombotics/antiplatelets | CPT/HCPCS: A0425; A0429 ==

== ENCOUNTER 2019-01-25 17:07 | Emergency (ER) | payer MEDICARE, OTHER ==
[2019-01-25] MEDS ORDERED: MORPHINE 2 MG/ML CARPUJECT IVP STA ×2 (18:24→22:00)
--- NOTE | 2019-01-25 18:24 | ED Physician Documentation ---
History of Present Illness - Stated complaint Stated Complaint: GLF - Chief complaint Chief Complaint: Trauma Ext - History obtained from History obtained from: Patient - History of Present Illness Timing: Prior to arrival - Additonal information Additional information: Is a 78-year-old woman who is an extremely poor historian presents with her with complaints that she fell in the garage today while she was walking landing on her outstretched arm and on her knees. She was unable to get up because of excruciating pain in the right knee. She says she cannot move her right leg. She did not hit her head and she did not pass out but she did scrape up her nose from her glasses hitting the concrete. She also has pain in her right wrist. No numbness or tingling down into her feet. She was not having any physical illness prior to this fall but she tells me she is had a chronic problem with his right leg "not working" because of vascular disease. She is uncertain when her last tetanus vaccine was. Review of Systems Unable to obtain: Other (acute pain) Constitutional: denies: Fever Cardiac: denies: Chest pain / pressure, Palpitations Respiratory: denies: Dyspnea GI: denies: Nausea, Vomiting : denies: Dysuria Musculoskeletal: reports: Extremity pain Neurologic: denies: Focal weakness, Numbness, Syncope PD PAST MEDICAL HISTORY - Past Medical History Cardiovascular: Hypertension, Peripheral Vascular Disease Respiratory: None Neuro: None Endocrine/Autoimmune: HyPOthyroidism GI: GERD, Ulcers, Diverticulitis, Cholelithiasis, Other : None, Renal insuffiency HEENT: Glaucoma Psych: None Musculoskeletal: Chronic back pain Derm: None - Past Surgical History Past Surgical History: Yes 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 Cardiovascular: Vascular surgery - Present Medications Home Medications: Ambulatory Orders Medication Instructions Recorded Confirmed RX: Simvastatin [Zocor] 20 mg PO QPM 06/13/13 05/03/18 RX: Alprazolam [Xanax] 0.5 mg PO Q6H PRN 11/04/13 05/03/18 RX: Furosemide [Lasix] 20 mg PO DAILY 12/24/14 05/03/18 RX: Spironolactone 50 mg PO DAILY 12/24/14 05/03/18 RX: Ursodiol 300 mg PO BID 12/24/14 05/03/18 RX: Colchicine [Colcrys] 0.6 mg PO DAILY 05/17/16 05/03/18 RX: Potassium Chloride [K-Dur] 20 meq PO DAILY 05/17/16 05/03/18 RX: Lansoprazole [Prevacid] 30 mg PO DAILY PRN 04/24/18 05/03/18 RX: Levothyroxine [Synthroid] 88 mcg PO QDAC 04/24/18 05/03/18 RX: Aspirin Chewable [[place] 81 mg PO DAILY tablet 04/26/18 05/03/18 Aspirin] RX: Calcium Carbonate/Vitamin D3 1 each PO DAILY #30 tablet 04/26/18 05/03/18 [Calcium 600-Vit D3 800 Tablet] RX: Clopidogrel [Plavix] 75 mg PO DAILY #30 tablet 05/06/18 Hydrocodone/Acetaminophen 1 - 2 each PO Q6H PRN #14 tablet 01/25/19 [Hydrocodon-Acetaminophen 5-325] - Allergies Allergies/Adverse Reactions: Allergies Allergy/AdvReac Type Severity Reaction Status Date / Time No Known Drug Allergies Allergy Verified 01/25/19 17:15 - Social History Does the pt smoke?: No Smoking Status: Never smoker Does the pt drink ETOH?: No Does the pt have substance abuse?: No - Immunizations Immunizations are current?: Yes - POLST Patient has POLST: No POLST Status: Full Code PD ED PE NORMAL - Vitals Vital signs reviewed: Yes - General General: Alert and oriented X 3, No acute distress, Well developed/nourished, Other (Very talkative 78-year-old woman) - HEENT HEENT: Other (There is a bone abrasion on the right side of the bridge of the nose. There is no epistaxis. Minimal tenderness with palpation across the bridge of the nose.) - Neck Neck: Supple, no meningeal sign, No bony TTP, No adenopathy - Cardiac Cardiac: RRR - Respiratory Respiratory: No respiratory distress - Abdomen Abdomen: Normal bowel sounds - Derm Derm: Normal color, Warm and dry - Extremities Extremities: Other (There is tenderness at the right fifth distal metacarpal. No significant bruising. The right knee has bruising and swelling over the patella but no abrasion. She is exquisitely tender and cannot bend the knee because of pain. Sensation is intact to light touch in the lower extremities and she has a palpable dorsalis pedis pulse bilaterally.) - Neuro Neuro: Alert and oriented X 3, No motor deficit, No sensory deficit, Normal speech - Psych Psych: Normal mood, Normal affect Results - Vitals Vitals: Oxygen O2 Source [With Activity] Room air O2 Source Room air - Rads (name of study) r knee Radiology: EMP read contemporaneously, See rad report (longitudinal patellar fracture) ct r knee Radiology: See rad report (Patellar fracture without obvious condylar fracture) r hand Radiology: See rad report PD MEDICAL DECISION MAKING - ED course Complexity details: reviewed results, re-evaluated patient, d/w patient, d/w family, d/w clinical services consultant ED course: Patient does have a patellar fracture there was question of possible medial condylar fracture on the plain imaging so CT was obtained that did not show any evidence of a condylar fracture. Discussed case with Dr. Atkins,Who is on for orthopedics. This is typically not a surgical fracture. She can bear weight as tolerated. Wrist x-ray was negative for fracture. I was concerned about the 's ability to care for her at home and her ability to keep this leg straight even in the immobilizer so I discussed with the hospitalist about the potential for admission however she does not meet any admission criteria. Patient was placed in a knee immobilizer. She has a walker at home. She is counseled on the necessity of keeping that leg completely straight to avoid distraction of the fracture pieces and need for future surgery. She did require doses of morphine here in the emergency department. Follow-up with the orthopedist as an outpatient. Departure - Departure Disposition: 01 Home, Self Care Clinical Impression: Patellar fracture Qualifiers: Encounter type: initial encounter Fracture type: closed Fracture morphology: transverse Fracture alignment: nondisplaced Laterality: right Qualified Code(s): S82.034A - Nondisplaced transverse fracture of right patella, initial encounter for closed fracture Contusion, hand Qualifiers: Encounter type: initial encounter Laterality: right Qualified Code(s): S60.221A - Contusion of right hand, initial encounter Abrasion of face Qualifiers: Encounter type: initial encounter Qualified Code(s): S00.81XA - Abrasion of other part of head, initial encounter Condition: Good Instructions: ED Abrasion, ED Fx Patella Follow-Up: Matthew Atkins MD [Provider Admit Priv/Credential] - Prescriptions: Hydrocodone/Acetaminophen [Hydrocodon-Acetaminophen 5-325] 1 - 2 each PO Q6H PRN #14 tablet PRN Reason: pain Comments: It is critical that you really leave the knee immobilizer in place and do not bend the right knee. If you take the knee immobilizer off make sure that you are not in a place where the knee could inadvertently get bent. You can bear weight and ambulate on the leg with the walker. May apply ice for comfort. May take hydrocodone if needed for pain. Keep the wound on your nose clean with antibacterial soap and a thin layer of antibiotic ointment. Follow-up if needed for any signs of infection. Call Dr. Atkins's office for an appointment for follow-up on the fractured patella. Discharge Date/Time: 01/26/19 00:10
[2019-01-25] MEDS ORDERED: TETANUS/DIPHTHERIA/PERTUSSIS 0.5 ML SYRINGE IM ONE (18:25)
--- NOTE | 2019-01-25 19:29 | XRAY Report ---
Reason: hand pain; s/p fall Procedure Date: 01/25/2019 Accession Number: [id number] / [id number] Procedure: XR - Hand 3 View RT CPT Code: FULL RESULT: EXAM: RIGHT HAND RADIOGRAPHY EXAM DATE: 01/25/2019 06:54 PM. CLINICAL HISTORY: Hand pain status post fall. Pain most pronounced in the fifth digit. COMPARISON: None. TECHNIQUE: 3 views. FINDINGS: Bones: The bones are osteopenic. No displaced acute fracture. No suspicious osseous lesion. Old fracture deformity of the partially imaged distal ulna. Joints: No dislocation. Mild polyarticular osteoarthritis most pronounced at the CMC joint of the phone. Soft Tissues: Severe peripheral arterial disease. IMPRESSION: The bones are osteopenic. No displaced acute fracture. RADIA
--- NOTE | 2019-01-25 19:40 | XRAY Report ---
Reason: knee pain; s/p fall Procedure Date: 01/25/2019 Accession Number: [id number] / [id number] Procedure: XR - Knee 4 View RT CPT Code: FULL RESULT: EXAM: RIGHT KNEE RADIOGRAPHY EXAM DATE: 01/25/2019 06:54 PM. CLINICAL HISTORY: Knee pain status post fall. COMPARISON: None. TECHNIQUE: 4 views. FINDINGS: Bones: The bones are osteopenic. Acute mildly comminuted predominantly transverse fracture of the patella which is minimally displaced. There also appears to be a minimally displaced acute fracture of the weightbearing medial femoral condyle not well seen on this study. Benign enchondroma in the distal femoral diaphysis. Joints: No dislocation. Large lipohemarthrosis. Mild tricompartmental osteoarthritis. Soft Tissues: Several surgical clips are present in lateral soft tissues. Severe peripheral arterial disease. IMPRESSION: 1. Acute patellar fracture. 2. Likely acute fracture of the weightbearing medial femoral condyle. Recommend CT knee for further evaluation. 3. Large lipohemarthrosis. RADIA
--- NOTE | 2019-01-25 21:38 | CT Report ---
Reason: fem condyle fx Procedure Date: 01/25/2019 Accession Number: [id number] / [id number] Procedure: CT - LOWER EXTREMITY WO - RT CPT Code: FULL RESULT: EXAM: RIGHT KNEE CT WITHOUT CONTRAST EXAM DATE: 01/25/2019 09:19 PM. CLINICAL HISTORY: Femoral condyle fracture. COMPARISON: KNEE 4 VIEW RT 01/25/2019 6:33 PM. TECHNIQUE: Thin-section axial images were acquired of the knee without contrast. Post-processing: Coronal and sagittal reformats. Other: None. In accordance with CT protocol optimization, one or more of the following dose reduction techniques were utilized for this exam: automated exposure control, adjustment of mA and/or KV based on patient size, or use of iterative reconstructive technique. FINDINGS: Bones: Transversely oriented fracture through the midportion of the patella without significant displacement. Close inspection of the distal femur shows no acute fractures. May have been a remote posterolateral tibial plateau fracture. No acute fracture lines. Mild depression is seen at this articular surface. Old enchondroma is seen distal diaphysis in the femur. Series 7 image 79. Joints: Moderate-sized lipohemarthrosis. Musculature: Musculature is attenuated. Other: Significant amount of anterior knee soft tissue swelling. IMPRESSION: 1. Transversely oriented nondisplaced fracture of the midportion of the patella. 2. No acute fractures by CT involving the distal femur. 3. There may have been an old posterolateral tibial plateau fracture, mild depression at this articular surface. No acute fracture lines. 4. 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 5. Moderate-sized lipohemarthrosis. RADIA
[2019-01-26] VITALS: BP 125/69
== END 2019-01-26 00:10 | disposition home or self-care (01) ==
LOC: EDUNIT# → ED 17:07
DX: S82.034A Nondisplaced transverse fracture of right patella, initial encounter for closed fracture (principal); S60.221A Contusion of right hand, initial encounter; S00.31XA Abrasion of nose, initial encounter; W01.0XXA Fall on same level from slipping, tripping and stumbling without subsequent striking against object, initial encounter; Y93.01 Activity, walking, marching and hiking; Y92.008 Other place in unspecified non-institutional (private) residence as the place of occurrence of the external cause; Z23 Encounter for immunization; I73.9 Peripheral vascular disease, unspecified; I10 Essential (primary) hypertension
CPT/HCPCS: 90471; 96374; 96376; 99284

== ENCOUNTER 2019-02-13 20:12 | Emergency (ER) | payer MEDICARE, OTHER ==
--- NOTE | 2019-02-13 20:30 | ED Physician Documentation ---
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 She says the left leg "felt cold" and "stiff". Symptoms have improved significantly en route to ED and by the time of this evaluation, symptoms have nearly resolved. She is particularly concerned with these symptoms due to h/o RLE PVD requiring arterial bypass 13 years ago. She has not had these symptoms in LLE before. Review of Systems Constitutional: denies: Fever, Chills, Sweats Cardiac: denies: Palpitations Musculoskeletal: reports: Reviewed and negative Neurologic: reports: Numbness. 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 Cardiovascular: Vascular surgery - Present Medications Home Medications: Ambulatory Orders Medication Instructions Recorded Confirmed Simvastatin [Zocor] 20 mg PO QPM 06/13/13 05/03/18 Alprazolam [Xanax] 0.5 mg PO Q6H PRN 11/04/13 05/03/18 Furosemide [Lasix] 20 mg PO DAILY 12/24/14 05/03/18 Spironolactone 50 mg PO DAILY 12/24/14 05/03/18 Ursodiol 300 mg PO BID 12/24/14 05/03/18 Colchicine [Colcrys] 0.6 mg PO DAILY 05/17/16 05/03/18 Potassium Chloride [K-Dur] 20 meq PO DAILY 05/17/16 05/03/18 Lansoprazole [Prevacid] 30 mg PO DAILY PRN 04/24/18 05/03/18 Levothyroxine [Synthroid] 88 mcg PO QDAC 04/24/18 05/03/18 Aspirin Chewable [[place] 81 mg PO DAILY tablet 04/26/18 05/03/18 Aspirin] Calcium Carbonate/Vitamin D3 1 each PO DAILY #30 tablet 04/26/18 05/03/18 [Calcium 600-Vit D3 800 Tablet] Clopidogrel [Plavix] 75 mg PO DAILY #30 tablet 05/06/18 Hydrocodone/Acetaminophen 1 - 2 each PO Q6H PRN #14 tablet 01/25/19 [Hydrocodon-Acetaminophen 5-325] Cyclobenzaprine [Flexeril] 10 mg PO TID PRN #20 tablet 02/14/19 - Allergies Allergies/Adverse Reactions: Allergies Allergy/AdvReac Type Severity Reaction Status Date / Time No Known Drug Allergies Allergy Verified 02/13/19 20:24 - Social History Does the pt smoke?: No Smoking Status: Never smoker Does the pt drink ETOH?: No Does the pt have substance abuse?: No - Immunizations Immunizations are current?: Yes - POLST Patient has POLST: No POLST Status: Full Code PD ED PE NORMAL - Vitals Vital signs reviewed: Yes - General General: Alert and oriented X 3, No acute distress, Well developed/nourished - Cardiac Cardiac: RRR, No murmur - Derm Derm: Normal color, Warm and dry - Extremities Extremities: Other (RLE: long-leg cast in place. LLE: normal tactile temperature (not cool/cold to touch), brisk capillary refill in toes, strong dorsalis pedis pulse, LTS intact in foot and toes, FROM in left knee, ankle, toes. No swelling, negative Homans sign) - Neuro Neuro: Alert and oriented X 3, No motor deficit, No sensory deficit Results - Vitals Vitals: Vital Signs - 24 hr 02/13/19 02/13/19 02/13/19 20:16 21:15 23:31 Temperature 36.7 C 36.9 C Heart Rate 62 60 55 L Respiratory 16 18 20 Rate Blood Pressure 120/70 111/38 L 134/51 H O2 Saturation 99 100 99 02/14/19 01:43 Temperature Heart Rate 67 Respiratory 16 Rate Blood Pressure 152/54 H O2 Saturation 100 Oxygen O2 Source [With Activity] Room air O2 Source Room air - Rads (name of study) LLE venous US Radiology: Prelim report reviewed, See rad report LLE arterial US Radiology: Prelim report reviewed, See rad report PD MEDICAL DECISION MAKING - ED course Complexity details: reviewed results, re-evaluated patient, considered differential, d/w patient ED course: unremarkable LLE venous US. LLE arterial duplex doppler US reveals "no flow seen within the posterior tibial or peroneal arteries and arterial occlusion with thrombus is possible versus chronic peripheral vascular disease. Extensive calcified plaque seen in the left common femoral and superficial femoral arteries". Despite these findings, her LLE exam is unremarkable (neurovascularly intact) initially as well as on reevaluation after ultrasounds were interpreted by radiology. Additionally, patient reported complete resolution of symptoms on reevaluation. Patient says she has been seen by Dr. Bermudez (vascular surgeon at [facility]), and thus I contacted this group to discuss this case and US results with on-call vascular surgeon. I discussed the case with Dr. Gutierrez. Given that patient is currently asymptomatic and has no evidence of neurovascular abnormality on LLE exam, patient can follow up in outpatient setting. Patient is comfortable with this plan and understands she is to return immediately if symptoms recur. Departure - Departure Disposition: 01 Home, Self Care Clinical Impression: Claudication of left lower extremity Condition: Good Instructions: ED PVD Follow-Up: Richard Lopez MD [Primary Care Provider] - Prescriptions: Cyclobenzaprine [Flexeril] 10 mg PO TID PRN #20 tablet PRN Reason: Spasms Comments: The tests performed tonight do not show any evidence of blood clots in your veins. However, some of the arteries in your left leg appear to not have blood flow. At this time, your lack of symptoms and normal physical exam suggest that there is adequate blood flow through the other arteries that supply blood to your leg. You need to return to the emergency department if your symptoms recur; you need to follow up with your vascular surgeon even if the symptoms do not return. Discharge Date/Time: 02/14/19 01:50
--- NOTE | 2019-02-13 22:56 | Ultrasound Report ---
Reason: pain, numbness Procedure Date: 02/13/2019 Accession Number: [id number] / [id number] Procedure: US - Duplex Ext Veins Left CPT Code: FULL RESULT: EXAM: LEFT LOWER EXTREMITY VENOUS ULTRASOUND EXAM DATE: 02/13/2019 09:31 PM. CLINICAL HISTORY: Pain, numbness, left. History of DVT. COMPARISON: None. TECHNIQUE: Real-time sonographic vascular imaging was performed by the retail advertising sales manager through the lower extremity utilizing both color-flow and Doppler spectral analysis. Multiple retail representative static images were saved for review. FINDINGS: Common Femoral Vein (CFV): Normal. CFV-GSV Junction: Normal. Profunda Femoral Vein (PFV): Normal. Femoral Vein (FV) Prox: Normal. Femoral Vein (FV) Mid: Normal. Femoral Vein (FV) Dist: Normal. Popliteal Vein: Normal. Posterior Tibial Veins: Limited visualization. Peroneal Veins: Limited visualization. Other: Calf veins not well seen. IMPRESSION: No evidence for deep venous thrombosis. [facility]
--- NOTE | 2019-02-13 23:32 | Ultrasound Report ---
Reason: atraumatic pain, numbness, feels "cold" Procedure Date: 02/13/2019 Accession Number: [id number] / [id number] Procedure: US - Duplex Lwr Ext Arterial LT CPT Code: FULL RESULT: EXAM: LEFT LOWER EXTREMITY ARTERIAL DOPPLER ULTRASOUND EXAM DATE: 02/13/2019 09:53 PM CLINICAL HISTORY: Atraumatic pain, numbness, feels cold. COMPARISON: None. TECHNIQUE: Real-time sonographic vascular imaging was performed by the service cleaner, utilizing color-flow, Doppler flow, and spectral analysis. Multiple statement services representative static images were saved for review. FINDINGS: No flow seen within the posterior tibial or peroneal arteries and arterial occlusion with thrombus is possible versus chronic peripheral vascular disease. Extensive calcified plaque seen in the left common femoral and superficial femoral arteries. Left femoral profunda artery has a peak systolic velocity of 49.4 cm/s. 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 PSFA: PSV 78 cm/sec, monophasic waveform. MSFA: PSV 77 cm/sec, monophasic waveform. DSFA: PSV 59 cm/sec, monophasic waveform. PFA: PSV 49.4 cm/s Monophasic waveform. POP: PSV 41 cm/sec, monophasic waveform. JAVY: PSV 11 cm/sec, monophasic waveform. DPA: PSV 47 cm/sec, monophasic waveform. IMPRESSION: No flow seen within the posterior tibial or peroneal arteries and arterial occlusion with thrombus is possible versus chronic peripheral vascular disease. No elevated peak systolic velocities are seen to suggest hemodynamically significant stenosis. Monophasic flow seen diffusely as can be seen with proximal stenosis. Correlate clinically. [facility] The call report notification system was initiated by Dr. Arabella Chaparro at 11:26 PM on 02/13/2019. The above call report findings were discussed with Nishant Simmons by Dr. Arabella Chaparro at 11:28 PM on 02/13/2019.
[2019-02-14 01:43] VITALS: BP 152/54
== END 2019-02-14 01:50 | disposition home or self-care (01) ==
LOC: ED 20:12
DX: I73.9 Peripheral vascular disease, unspecified (principal); I10 Essential (primary) hypertension
CPT/HCPCS: 99284

== ENCOUNTER 2019-03-25 17:56 | Emergency (ER) | payer MEDICARE, OTHER ==
[2019-03-25 18:28] VITALS: BP 146/56
--- NOTE | 2019-03-25 19:01 | ED Physician Documentation ---
PD HPI UPPER EXT INJURY - Stated complaint Stated Complaint: LT ARM LACERATION - Chief complaint Chief Complaint: Laceration - History obtained from History obtained from: Patient - History of Present Illness Location: Left, Arm Where injury occurred: Home Timing - onset: How many days ago (4) Timing - duration: Days (4) Timing - details: Still present Improved by: Dressing Recently seen: Not recently seen - Additonal information Additional information: This is a 78-year-old woman who presents with her complaints that she got injured on her [employer] refrigerator on her left arm. This was 4 days ago and there is an open wound that keeps bleeding every time she takes the bandage off and they are concerned that it could be infected and she does not know how to care for it at home. No other injury. She is up-to-date on her tetanus vaccine. 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 Cardiovascular: Vascular surgery - Present Medications Home Medications: Ambulatory Orders Medication Instructions Recorded Confirmed Simvastatin [Zocor] 20 mg PO QPM 06/13/13 05/03/18 Alprazolam [Xanax] 0.5 mg PO Q6H PRN 11/04/13 05/03/18 Furosemide [Lasix] 20 mg PO DAILY 12/24/14 05/03/18 Spironolactone 50 mg PO DAILY 12/24/14 05/03/18 Ursodiol 300 mg PO BID 12/24/14 05/03/18 Colchicine [Colcrys] 0.6 mg PO DAILY 05/17/16 05/03/18 Potassium Chloride [K-Dur] 20 meq PO DAILY 05/17/16 05/03/18 Lansoprazole [Prevacid] 30 mg PO DAILY PRN 04/24/18 05/03/18 Levothyroxine [Synthroid] 88 mcg PO QDAC 04/24/18 05/03/18 Aspirin Chewable [[place] 81 mg PO DAILY tablet 04/26/18 05/03/18 Aspirin] Calcium Carbonate/Vitamin D3 1 each PO DAILY #30 tablet 04/26/18 05/03/18 [Calcium 600-Vit D3 800 Tablet] Clopidogrel [Plavix] 75 mg PO DAILY #30 tablet 05/06/18 Hydrocodone/Acetaminophen 1 - 2 each PO Q6H PRN #14 tablet 01/25/19 [Hydrocodon-Acetaminophen 5-325] Cyclobenzaprine [Flexeril] 10 mg PO TID PRN #20 tablet 02/14/19 - Allergies Allergies/Adverse Reactions: Allergies Allergy/AdvReac Type Severity Reaction Status Date / Time No Known Drug Allergies Allergy Verified 03/25/19 18:05 - Social History Does the pt smoke?: No Smoking Status: Never smoker Does the pt drink ETOH?: No Does the pt have substance abuse?: No - Immunizations Immunizations are current?: Yes - POLST Patient has POLST: No POLST Status: Full Code PD ED PE NORMAL - Vitals Vital signs reviewed: Yes - General General: Alert and oriented X 3, No acute distress, Well developed/nourished - HEENT HEENT: Atraumatic - Derm Derm: Other (Skin tear to L forearm and surrounding bruising. No erythema or purulent drainage. Healing well) Results - Vitals Vitals: Vital Signs - 24 hr 03/25/19 18:05 Temperature 36.7 C Heart Rate 66 Respiratory 17 Rate Blood Pressure 146/56 H O2 Saturation 98 Oxygen O2 Source [With Activity] Room air O2 Source Room air PD MEDICAL DECISION MAKING - ED course ED course: Wound is healing well. Discussed wound management. Patient reassured no infection. Departure - Departure Disposition: 01 Home, Self Care Clinical Impression: Skin tear of forearm without complication Qualifiers: Encounter type: initial encounter Laterality: left Qualified Code(s): S51.812A - Laceration without foreign body of left forearm, initial encounter Condition: Good Instructions: ED Laceration All Follow-Up: Richard Lopez MD [Primary Care Provider] - Comments: Thin layer of antibiotic ointment and may wash daily with soap and water gently.
== END 2019-03-25 19:58 | disposition home or self-care (01) ==
LOC: ED 17:56
DX: S51.812A Laceration without foreign body of left forearm, initial encounter (principal); W31.9XXA Contact with unspecified machinery, initial encounter; Y92.009 Unspecified place in unspecified non-institutional (private) residence as the place of occurrence of the external cause; I10 Essential (primary) hypertension
CPT/HCPCS: 99282

== ENCOUNTER 2020-03-19 19:52 | Inpatient (IN) | payer MEDICARE, OTHER ==
[2020-03-19 21:03] LABS: BASOPHILS % (AUTO) 0.4 %; EOSINOPHILS % (AUTO) 0.3 %; HGB - HEMOGLOBIN 12.2 g/dL (12.0-16.0); LYMPHOCYTES # (AUTO) 1.7 10^3/uL (1.5-3.5); LYMPHOCYTES % (AUTO) 15.8 %; MEAN CORPUSCULAR HEMOGLOBIN 30.3 pg (27.0-31.0); MEAN CORPUSCULAR HGB CONC 31.2 g/dL (32.0-36.0); MEAN CORPUSCULAR VOLUME 97.3 fL (81.0-99.0); MEAN PLATELET VOLUME 10.4 fL (7.9-10.8); MONOCYTES # (AUTO) 1.3 10^3/uL (0.0-1.0); MONOCYTES % (AUTO) 11.6 %; NEUTROPHILS # (AUTO) 7.7 10^3/uL (1.5-6.6); NEUTROPHILS % (AUTO) 71.3 %; PLT - PLATELET COUNT 237 10^3/uL (130-450); RED BLOOD COUNT 4.02 10^6/uL (4.20-5.40); RED CELL DISTRIBUTION WIDTH 14.4 % (12.0-15.0); WHITE BLOOD COUNT 10.8 x10^3/uL (4.8-10.8)
[2020-03-19] MEDS ORDERED: SODIUM CHLORIDE 0.9% 1,000 ML IV STA (21:03)
[2020-03-19 21:20] LABS: ALBUMIN 3.8 g/dL (3.2-5.5); ALBUMIN/GLOBULIN RATIO 1.1 (1.0-2.2); BILIRUBIN,TOTAL 0.9 mg/dL (0.2-1.0); CALCIUM 8.5 mg/dL (8.5-10.3); CREATININE 1.5 mg/dL (0.4-1.0); TOTAL PROTEIN 7.2 g/dL (6.7-8.2)
[2020-03-19] MEDS ORDERED: LOPERAMIDE 2 MG CAPSULE PO STA (21:21)
[2020-03-19] MEDS ORDERED: ONDANSETRON 4 MG/2 ML VIAL IVP STA (21:22)
[2020-03-19] MEDS ORDERED: IOVERSOL 320 100 ML VIAL IVP ONE ×2 (21:49→22:12)
--- NOTE | 2020-03-19 22:16 | ED Physician Documentation ---
History of Present Illness - Stated complaint Stated Complaint: DIARRHEA - Chief complaint Chief Complaint: Abd Pain - History obtained from History obtained from: Patient, Family - Additonal information Additional information: Department complaining of 4 days of watery diarrhea. She states that she has been able to drink water, but that she just keeps having diarrhea. She is felt slightly nauseated but had no vomiting. Appetite has been decreased. Patient denies any significant abdominal pain, other than cramping. No blood in her stools. Patient states she is felt weak but denies fever. She does state that she takes her temperature twice a day. Patient denies any sick contacts. No recent antibiotic use. No travel. No other complaints at this time. Review of Systems Ten Systems: 10 systems reviewed and negative Constitutional: denies: Fever, Chills Eyes: reports: Reviewed and negative Ears: reports: Reviewed and negative Nose: reports: Reviewed and negative Throat: reports: Reviewed and negative Cardiac: reports: Reviewed and negative Respiratory: reports: Reviewed and negative GI: reports: Nausea, Diarrhea, Other (decreased appetite). denies: Abdominal Pain, Vomiting : reports: Reviewed and negative Skin: reports: Reviewed and negative Musculoskeletal: reports: Reviewed and negative Neurologic: reports: Reviewed and negative Psychiatric: reports: Reviewed and negative Endocrine: reports: Reviewed and negative Immunocompromised: reports: Reviewed and negative PD PAST MEDICAL HISTORY - Past Medical History Past Medical History: Yes Cardiovascular: Hypertension, Peripheral Vascular Disease, Deep vein thrombosis Respiratory: None Neuro: None Endocrine/Autoimmune: HyPOthyroidism GI: GERD, Ulcers, Diverticulitis, Cholelithiasis, Other : None, Renal insuffiency HEENT: Glaucoma Psych: None Musculoskeletal: Chronic back pain Derm: None - Past Surgical History Past Surgical History: Yes 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 Cardiovascular: Vascular surgery - Present Medications Home Medications: Ambulatory Orders Medication Instructions Recorded Confirmed Simvastatin [Zocor] 20 mg PO QPM 06/13/13 03/19/20 Alprazolam [Xanax] 0.5 mg PO Q6H PRN 11/04/13 03/19/20 Furosemide [Lasix] 20 mg PO DAILY 12/24/14 03/19/20 Spironolactone 50 mg PO DAILY 12/24/14 03/19/20 Ursodiol 300 mg PO BID 12/24/14 03/19/20 Colchicine [Colcrys] 0.6 mg PO DAILY 05/17/16 03/19/20 Lansoprazole [Prevacid] 30 mg PO DAILY PRN 04/24/18 03/19/20 Levothyroxine [Synthroid] 88 mcg PO QDAC 04/24/18 03/19/20 Aspirin Chewable [[place] 81 mg PO DAILY tablet 04/26/18 03/19/20 Aspirin] Cyclobenzaprine [Flexeril] 10 mg PO TID PRN #20 tablet 02/14/19 03/19/20 - Allergies Allergies/Adverse Reactions: Allergies Allergy/AdvReac Type Severity Reaction Status Date / Time No Known Drug Allergies Allergy Verified 03/19/20 20:46 - Social History Does the pt smoke?: No Smoking Status: Never smoker Does the pt drink ETOH?: No Does the pt have substance abuse?: No - Immunizations Immunizations are current?: Yes - POLST Patient has POLST: No POLST Status: Full Code PD ED PE NORMAL - Vitals Vital signs reviewed: Yes - General General: Alert and oriented X 3, No acute distress - HEENT HEENT: Atraumatic, PERRL, EOMI, Moist mucous membranes - Neck Neck: Supple, no meningeal sign - Cardiac Cardiac: RRR, No murmur - Respiratory Respiratory: No respiratory distress, Clear bilaterally - Abdomen Abdomen: Soft, Non tender, Other (Mild distention.) - Derm Derm: Warm and dry, No rash, Other (Moderate pallor) - Extremities Extremities: No deformity, No edema, No calf tenderness / cord - Neuro Neuro: Alert and oriented X 3, 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 # (Auto) 1.3 H Eos # (Auto) 0.0 Baso # (Auto) 0.0 Absolute Nucleated RBC 0.00 Nucleated RBC % 0.0 Sodium 133 L Potassium 3.9 Chloride 96 L Carbon Dioxide 25 Anion Gap 12.0 BUN 30 H Creatinine 1.5 H Estimated GFR (MDRD) 34 L Glucose 124 H Calcium 8.5 Total Bilirubin 0.9 AST 28 ALT 24 Alkaline Phosphatase 117 Total Protein 7.2 Albumin 3.8 Globulin 3.4 Albumin/Globulin Ratio 1.1 Lipase 17 L Urine Color YELLOW Urine Clarity SL. CLOUDY Urine pH 7.0 Ur Specific [place] 1.010 Urine Protein NEGATIVE Urine Glucose (UA) NEGATIVE Urine Ketones NEGATIVE Urine Occult Blood MODERATE H Urine Nitrite POSITIVE H Urine Bilirubin NEGATIVE Urine Urobilinogen 0.2 (NORMAL) Ur Leukocyte Esterase MODERATE H Urine RBC 0-5 Urine WBC 4-5 Ur Squamous Epith Cells RARE Squamous Urine Bacteria Moderate H Ur Microscopic Review INDICATED Urine Culture Comments INDICATED Stl C. diff Tox B Gene 03/19/20 22:25 WBC RBC Hgb Hct MCV MCH MCHC RDW Plt Count MPV Neut # (Auto) Lymph # (Auto) [facility] # (Auto) Eos # (Auto) Baso # (Auto) Absolute Nucleated RBC Nucleated RBC % Sodium Potassium Chloride Carbon Dioxide Anion Gap BUN Creatinine Estimated GFR (MDRD) Glucose Calcium Total Bilirubin AST ALT Alkaline Phosphatase Total Protein Albumin Globulin Albumin/Globulin Ratio Lipase Urine Color Urine Clarity Urine pH Ur Specific [place] Urine Protein Urine Glucose (UA) Urine Ketones Urine Occult Blood Urine Nitrite Urine Bilirubin Urine Urobilinogen Ur Leukocyte Esterase Urine RBC Urine WBC Ur Squamous Epith Cells Urine Bacteria Ur Microscopic Review Urine Culture Comments Stl C. diff Tox B Gene NEGATIVE - Rads (name of study) CT abd/pelvis Radiology: Prelim report reviewed, See rad report (Rectal fecal impaction with LBO; no free fluid or air.) PD MEDICAL DECISION MAKING - ED course Complexity details: reviewed old records, reviewed results, re-evaluated patient, considered differential, d/w patient, d/w family ED course: Patient was worked up with laboratory studies and sent for CT scan of the abdomen and pelvis. She was given a 1 L bolus 0.[address] scan did show a large amount of impacted stool in the rectum with copious stool above and evidence of a large bowel obstruction. I discussed with this with the patient and her , and advised him that the patient would need a disimpaction. This was done in the emergency department with a large amount of stool obtained, but patient still had more impacted stool further up. I discussed the case with Dr. Finn, who agreed to admit the patient to her service but requested surgery consult as well. I did discuss the case with Dr. Norman of surgery and he stated he would see the patient in the morning. Patient and have been advised of the need for admission. Departure - Departure Disposition: [facility] DC/Xfer Clinical Impression: Large bowel obstruction, Fecal impaction, Obstipation Condition: Serious Discharge Date/Time: 03/20/20 00:45
[2020-03-19 22:33] LABS: BILIRUBIN,URINE NEGATIVE (NEGATIVE); CLARITY,URINE SL. CLOUDY (CLEAR); GLUCOSE, URINE (UA) NEGATIVE (NEGATIVE); KETONES,URINE (UA) NEGATIVE (NEGATIVE); LEUKOCYTE ESTERASE, URINE MODERATE (NEGATIVE); NITRITE,URINE POSITIVE (NEGATIVE); OCCULT BLOOD,URINE MODERATE (NEGATIVE); PROTEIN,URINE NEGATIVE (NEGATIVE); UROBILINOGEN,URINE 0.2 (NORMAL) E.U./dL (NORMAL)
[2020-03-19 22:40] LABS: BACTERIA,URINE Moderate /HPF (None Seen); RBC,URINE 0-5 /HPF (0-5); SQUAMOUS EPITHELIAL CELL,UR RARE Squamous (<= Few)
[2020-03-19] MEDS ORDERED: ACETAMINOPHEN 325 MG TABLET PO PRN (23:26)
[2020-03-19] MEDS ORDERED: ONDANSETRON 4 MG/2 ML VIAL IVP PRN (23:26)
[2020-03-19] MEDS ORDERED: ONDANSETRON ODT 4 MG TABLET TL PRN (23:26)
[2020-03-19] MEDS ORDERED: HYDROmorphone 0.5 MG/0.5 ML SYRINGE IVP PRN (23:26)
[2020-03-19] MEDS ORDERED: SODIUM CHLORIDE FLUSH 0.9% 10 ML SYRINGE IVP PRN (23:26)
--- NOTE | 2020-03-19 23:41 | HISTORY & PHYSICAL EXAMINATION ---
Chief Complaint - Chief Complaint Chief Complaint: Diarrhea for 4 days History of Present Illness - Admitted From Admitted From:: Home via private vehicle - History Obtained From Records Reviewed: [facility] History obtained from: Patient and Dr. Piña Exam Limitations: None - History of Present Illness HPI Comment/Other: 79-year-old white female who presents with diarrhea for 4 days. No fever, no chills, mild abdominal distention and gassy pain. She does not remember if she has ever had a colonoscopy. Previous abdominal surgery includes a stent placed after an ERCP in December 2014 resulting in pancreatitis. Peptic ulcer disease with perforation in 2005 and a Billroth II procedure. She has also had a hysterectomy. She was last admitted 2018 with symptoms of a TIA. Even though she had carotid stenosis, vascular surgery did not feel that her symptoms were due to the carotid stenosis. No one else in her family is sick. She is nauseated. No emesis. No blood in her stool. Because of COVID, she has been taken her temperature twice a day and she has been afebrile. She was evaluated in the emergency room by Dr. Piña. She was afebrile, normotensive to slightly hypertensive. 99% saturation on room air. She was not in any acute distress, alert and oriented, with a mildly distended abdomen having normal bowel sounds. She was pale. White cell count was mildly elevated at 10.8. Electrolytes showed her sodium to be 133, BUN 30, creatinine 1.5. Lipase 17 and low. Urinalysis had some leukocyte Estrace, but she also has squamous cells. Moderate bacteria. CT of the abdomen showed severe constipation with a large bowel obstruction. Unfortunately I am unable to verify that report at this time. This is a verbal report per Dr. Piña. Emergency room intervention included disimpaction. They have had some small success but there remains a large amount of fecal material in her left colon. Dr. Piña is asking us to place the patient under observation to see if she can further pass stool on her own. She will be notifying general surgery to let them know the patient is being admitted in case they was to see the patient by tomorrow morning. History - Past Medical History Cardiovascular: reports: Hypertension, Peripheral Vascular Disease (with bypass R lower extremity), Deep vein thrombosis, Arrhythmia (with bypas) Respiratory: reports: Pneumonia (with sepsis complicating pancreatitis December 2017), Other (hisotyr of pleural effusion 2014) Neuro: reports: TIA (January 2018 presenting as unifocal weakness, seizure-like activity. Has carotid stenosis.Follow-up carotid artery ultrasound in August 2018 shows plaquing unchanged from May 2018 where there is greater than 50% stenosis of the left carotid bulb and origin of the external carotid artery. ), Other (falls with shoulder dislocation 2017 and complicated fracture of left elbow 04/2018) Endocrine/Autoimmune: reports: HyPOthyroidism GI: reports: GERD, Ulcers, Pancreatitis, Diverticulitis, Cholelithiasis, Other (2 esophageal obstruction episodes due to food, 2013 and 2014) HAULAGE BOSS: reports: Other () : reports: Renal insuffiency HEENT: reports: Glaucoma, Other (alleric seasonal rhinitis) Psych: reports: Anxiety Musculoskeletal: reports: Osteoarthritis, Chronic back pain (herniated discs lumbar spine) Derm: reports: None MRSA Hx?: No - Past Surgical History General: reports: Gastric surgery (Billroth II 2005 for perf ulcer), EGD (for food impaction) Ortho: reports: Other (humeral fx and shoulder dislocation 2017) /HAULAGE BOSS: reports: Hysterectomy Cardiovascular: reports: Vascular surgery, Fempop bypass - Family & Social History Family History: Mother: , CVA/TIA, Father: , Cancer (Colon cancer), Sister: GA (Sister had GA at 53) Family History Comment/Other: Father of colon cancer. Mother had 3 strokes. Sister had an GA at the age of 53. Children are healthy Living arrangement: At home Living Situation: With spouse/s.o. Social History Notes: The patient is originally from [place]. She has been m arried to her for 57 years. Her was in the [employer] and that is what brought them to [place]. They have been living in [place] ever since. Patient has 3 children 2 sons and 1 daughter. 2 of her children live in [place]. 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 She is a former smoker smoked 1 pack a day for more than 40 years but quit in 2005. She denies any alcohol or illicit drug use. - Substance History Use: Uses substance without health or social issues: NONE Abuse: Recurrent use of substance despite neg consequences: NONE Dependence: Experiences withdrawal or developed tolerances: NONE - POLST Patient has POLST: No POLST Status: Full Code Meds/Allgy - Home Medications Home Medications: Ambulatory Orders Medication Instructions Recorded Confirmed Simvastatin [Zocor] 20 mg PO QPM 06/13/13 03/19/20 Alprazolam [Xanax] 0.5 mg PO Q6H PRN 11/04/13 03/19/20 Furosemide [Lasix] 20 mg PO DAILY 12/24/14 03/19/20 Spironolactone 50 mg PO DAILY 12/24/14 03/19/20 Ursodiol 300 mg PO BID 12/24/14 03/19/20 Colchicine [Colcrys] 0.6 mg PO DAILY 05/17/16 03/19/20 Lansoprazole [Prevacid] 30 mg PO DAILY PRN 04/24/18 03/19/20 Levothyroxine [Synthroid] 88 mcg PO QDAC 04/24/18 03/19/20 Aspirin Chewable [[facility] David 81 mg PO DAILY tablet 04/26/18 03/19/20 Aspirin] Cyclobenzaprine [Flexeril] 10 mg PO TID PRN #20 tablet 02/14/19 03/19/20 - Allergies Allergies/Adverse Reactions: Allergies Allergy/AdvReac Type Severity Reaction Status Date / Time No Known Drug Allergies Allergy Verified 03/19/20 20:46 Review of Systems - Constitutional Constitutional: reports: Poor appetite. denies: Fatigue, Fever, Chills, Malaise, Diaphoresis, Night sweats - Eyes Eyes: reports: Vision loss, Corrective lenses. denies: Pain, Irritation, Amaurosis, Blurred vision - Ears, Nose & Throat Ears, Nose & Throat: reports: Hearing loss, Vertigo, Nasal obstruction, Nasal congestion (As long she takes Zyrtec she does okay with her allergies), Postnasal drainage, Dental decay, Dental pain (Right before Kovic started, she saw her dentist and had 2 teeth pulled and post are supposed to be put in. So she has been without her new teeth and her gums are raw.). denies: Hearing aids, Tinnitus - Cardiovascular Cariovascular: reports: Lightheadedness (If she turns too quickly, she becomes dizzy and almost falls down). denies: Irregular heart rate, Palpitations, Chest pain, Edema, Exertional dyspnea, Decr. exercise tolerance, Orthopnea - Respiratory Respiratory: denies: Cough, Sputum production, Wheezing, Snoring, SOB at rest, SOB with exertion - Gastrointestinal Gastrointestinal: reports: Abdominal distention, Diarrhea, Nausea, Bloating. denies: Abdominal pain, Change in bowel habits, Rectal bleeding, Black stools, Bloody stools, Vomiting, Bile emesis, Michael blood emesis, Coffee grounds emesis, Reflux/heartburn - Genitourinary Genitourinary: reports: Incontinence. denies: Dysuria, Frequency, Urgency, Hematuria - Musculoskeletal Musculoskeletal: reports: Back pain, Joint pain. denies: Muscle pain, Muscle aches, Stiffness, Gout - Integumentary Integumentary: denies: Rash, Pruritis, Lesions, Dryness - Neurological Neurological: reports: Dizziness, Memory problems, Incoordination (With predisposition for falls), Other (She is due for carotid Dopplers and do to see the vascular surgeon in the next few weeks). denies: General weakness, Focal weakness, Seizures - Psychiatric Psychiatric: reports: Anxiety. denies: Depression, Suicidal - Endocrine Endocrine: reports: Intolerance to cold. denies: Polyuria, Polydypsia, Polyphagia - Hematologic/Lymphatic Hematologic/Lymphatic: denies: Anemia, Bruising Prior Level of Functionality: She is predominantly in a wheelchair. Can get up and walk a few feet but that is about it. She dresses herself, feeds her self. Memory loss is a problem and will gently prompt her. He does all the driving. Pays the bills. Exam - Vital Signs Reviewed Vital Signs: Yes Vital Signs: Vital Signs x48h Temp Pulse Resp BP Pulse Ox 03/19/20 22:51 36.4 C L 78 16 157/70 H 98 03/19/20 20:42 87 16 99 03/19/20 19:58 36.4 C L 78 14 128/107 H 99 - Physical Exam General Appearance: positive: No acute distress, Alert, Other (Thin, hyperactive, nonstop speaking elderly female. She is 5 foot inches tall and weighs 52 kg) Eyes Bilateral: positive: PERRL, EOMI, Conjunctivae nml ENT: positive: Pharynx nml Neck: positive: Thyroid nml, No JVD, Carotid bruit Respiratory: positive: Chest non-tender. negative: Wheezes, Rales, Rhonchi Cardiovascular: positive: Regular rate & rhythm, Systolic murmur. negative: Gallop/S4, Friction rub Peripheral Pulses: positive: 0 Abdomen: positive: Non-tender, Other (Mildly distended, hyperactive bowel sounds). negative: Guarding, Rebound Skin: positive: Warm, Dry, Pallor (She is exceedingly pale. She says she just does not get out of the house and has no sunlight exposure for years now) Extremities: positive: Non-tender, Other (Diffuse, severe, loss of muscle mass.). negative: Full ROM (Left forearm and elbow restricted with the plate in place) Neurologic/Psychiatric: positive: Oriented x3, CN's nml (2-12), Motor nml. negative: Slurred/abnml speech (Fast pressured speech that is nonstop.) Conclusion/Plan - Problem List (1) Large bowel obstruction Conclusion/Plan: Due to fecal impaction. She cannot remember her last colonoscopy. It may have been 20 years ago. Plan: Observation status Soapsuds or tap water enema General surgery consult Call PCP office and see if they have a copy of any colonoscopy (2) Fecal impaction Conclusion/Plan: Clear liquid diet. Antiemetics IV fluids for hydration Gastrografin enema (3) Dehydration Conclusion/Plan: with mild rise in creat (SALONI). Plan: IVF for hydration repeat BMP in am (4) At risk for falls Conclusion/Plan: Order written for her not to get up unless there is an aide or nurse to help her. I reiterated that to her. There may be an element of cognitive deficit. - Lab Results Lab results reviewed: Yes Fish Bones: 03/19/20 20:55 03/19/20 20:55 - Diagnostic Imaging Results Diagnostic Imaging Results: positive: Prelim report reviewed Diagnostic Imaging Results Comments: Preliminary report was in the ER office. Dr. Piña get the report faxed from radiologist. Large bowel air-fluid levels. No free air. Impacted stool in the rectum up the left side. No masses or tumor seen. - EKG Results EKG Interpreted Independently: No Core Measures - Anticipated LOS I expect patient to be DC'd or transferred within 96 hours.: Yes - DVT/VTE - Prophylaxis VTE/DVT Device ordered at admit?: Yes
[2020-03-20] MEDS: SODIUM CHLORIDE FLUSH 0.9% 10 ML SYRINGE IVP SCH ×3 (07:16→17:20)
[2020-03-20] MEDS ORDERED: ALPRAZolam 0.25 MG TABLET PO PRN (07:25)
[2020-03-20] MEDS ORDERED: LACTATED RINGERS 1,000 ML IV SCH (08:00)
[2020-03-20] MEDS ORDERED: LIDOCAINE JELLY 2% 6 ML JEL.PF.APP TOP PRN (08:00)
[2020-03-20 08:09] LABS: BASOPHILS % (AUTO) 0.3 %; EOSINOPHILS # (AUTO) 0.1 10^3/uL (0.0-0.7); EOSINOPHILS % (AUTO) 0.7 %; HGB - HEMOGLOBIN 11.6 g/dL (12.0-16.0); LYMPHOCYTES # (AUTO) 1.4 10^3/uL (1.5-3.5); LYMPHOCYTES % (AUTO) 16.2 %; MEAN CORPUSCULAR HEMOGLOBIN 30.8 pg (27.0-31.0); MEAN CORPUSCULAR HGB CONC 31.9 g/dL (32.0-36.0); MEAN CORPUSCULAR VOLUME 96.6 fL (81.0-99.0); MEAN PLATELET VOLUME 10.6 fL (7.9-10.8); MONOCYTES # (AUTO) 1.3 10^3/uL (0.0-1.0); MONOCYTES % (AUTO) 14.4 %; NEUTROPHILS # (AUTO) 5.9 10^3/uL (1.5-6.6); NEUTROPHILS % (AUTO) 67.5 %; PLT - PLATELET COUNT 214 10^3/uL (130-450); RED BLOOD COUNT 3.77 10^6/uL (4.20-5.40); RED CELL DISTRIBUTION WIDTH 14.4 % (12.0-15.0); WHITE BLOOD COUNT 8.7 x10^3/uL (4.8-10.8)
[2020-03-20 08:19] LABS: CALCIUM 8.1 mg/dL (8.5-10.3); CREATININE 1.3 mg/dL (0.4-1.0); MAGNESIUM 2.8 mg/dL (1.7-2.8); PHOSPHORUS 3.3 mg/dL (2.5-4.6)
[2020-03-20] MEDS ORDERED: SPIRONOLACTONE 50 MG PO SCH (09:00)
[2020-03-20] MEDS: LACTATED RINGERS 1,000 ML IV SCH ×2 (09:19→18:58)
[2020-03-20] MEDS: ASPIRIN CHEW 81 MG TABLET PO SCH (09:25)
[2020-03-20] MEDS ORDERED: LACTATED RINGERS 1,000 ML IV ONE (09:26)
--- NOTE | 2020-03-20 09:26 | XRAY Report ---
PROCEDURE: Abdomen 1 View X-Ray INDICATIONS: see if AF levels resolved large bowel TECHNIQUE: 1 view of the abdomen were acquired. COMPARISON: CT of abdomen and pelvis dated 03/19/2020 FINDINGS: Surgical changes and devices: Surgical clips are noted in epigastric region. Bowel: No pneumoperitoneum. Persistent air distention of colon loops are noted measures up to 6 cm i n diameter involving mid to distal transverse colon not significantly changed from previous CT study. Examination of sigmoid colon and rectum is limited due to retained IV contrast within urinary bladde r. Soft tissues: No masses; visualized solid organ contours appear normal in size. No suspicious abdom inal calcifications. Bones: No suspicious bony abnormalities. IMPRESSION: Persistent air distention of colon loops not significantly changed from CT study. No foreign ss free air. Reviewed by: Antoine Cuenca MD on 03/20/2020 8:25 AM SHARON Approved by: Antoine Cuenca MD on 03/20/2020 8:25 AM AKLOUISA Station ID: [id number]
--- NOTE | 2020-03-20 09:28 | CT Report ---
PROCEDURE: Abdomen/Pelvis W INDICATIONS: abdominal pain, bloating, diarrhea CONTRAST: IV CONTRAST: Optiray 320 ml: 80 PO CONTRAST: *NO PO CONTRAST TECHNIQUE: After the administration of IV contrast, 5 mm thick sections acquired from the diaphragms to the symp hysis. 5 mm thick coronal and sagittal reformats were acquired. For radiation dose reduction, the f ollowing was used: automated exposure control, adjustment of mA and/or kV according to patient size. COMPARISON: CT abdomen pelvis 04/28/2014 FINDINGS: Image quality: Excellent. ABDOMEN: Lung bases: Lung bases are clear. Heart size is normal. Solid organs: Liver and spleen are normal in size and enhancement. Gallbladder is not visualized B iliary system is non dilated. Pancreas enhances normally. No adrenal nodules. Kidneys demonstrate normal size and enhancement. There is minimal to mild bilateral hydronephrosis and hydroureter. No so urce of obstruction is identified. Peritoneum and bowel: Bowel loops demonstrate moderate air and fluid distention predominantly within the right hemicolon and to a lesser degree the transverse and left hemicolon. No free fluid or air. Nodes and vessels: No retroperitoneal or mesenteric adenopathy by size criteria. Aorta demonstrates severe atherosclerotic change with marked luminal narrowing at the distal aorta extending to the com mon iliacs proximally. In addition, prominent calcifications with 60-70% narrowing is present. Miscel laneous: No ventral hernias. PELVIS: Genitourinary: Bladder wall thickness is normal. Miscellaneous: No inguinal hernias or adenopathy. Bones: No suspicious bony lesions. No vertebral body compression fractures. IMPRESSION: 1. Fluid-filled dilated loops of colon with prominent stool in the rectum suspicious for impaction an d subsequent bowel obstruction. 2. Minimal to mild bilateral hydronephrosis and hydroureter without visualized source of obstruction. 3. Prominent atherosclerotic aortic disease. The above findings are concordant with preliminary report. Reviewed by: Xochitl Laguerre MD on 03/20/2020 9:26 AM PDT Approved by: Xochitl Laguerre MD on 03/20/2020 9:26 AM PDT Station ID: [id number]
--- NOTE | 2020-03-20 10:51 | PHARMACY PROGRESS NOTE ---
- Best Possible Medication History Admit Date and Time: 03/19/20 9677 Processed by: Nursing Medication History completed: Yes As the person ultimately responsible for medication therapy, providers are able to order a medication from an existing home medication list in [facility] via the "Reconcile Routine" prior to Confirmation of that medication by applications support specialist. Such practice is discouraged except when the physician, in their clinical judgment, deems that a medical need exists for a medication without regard to previous use.
--- NOTE | 2020-03-20 14:26 | PROVIDER PROGRESS NOTE ---
Subjective - Prog Note Date Prog Note Date: 03/20/20 - Subjective Subjective: She reports no abdominal pain, nausea, vomiting. She did have a few small bowel movements but they are just smears of stool. She is eager to go home as soon as possible. Current Medications - Current Medications Current Medications: Active Medications Acetaminophen (Tylenol) 650 mg PO Q4HR PRN PRN Reason: Pain 1 to 4 Alprazolam (Xanax) 0.5 mg PO Q6H PRN PRN Reason: Anxiety Aspirin ([facility] Aspirin) 81 mg PO DAILY [facility] Last Admin: 03/20/20 09:25 Dose: 81 mg Documented by: Atorvastatin Calcium (Lipitor) 10 mg PO QPM [facility] Hydromorphone HCl (Dilaudid Inj Syringe) 0.5 mg IVP Q2H PRN PRN Reason: Pain 8 to 10 Lactated Ringer's (Lr) 1,000 mls @ 100 mls/hr IV .Q10H [facility] Last Admin: 03/20/20 09:19 Dose: 100 mls/hr Documented by: Levothyroxine Sodium (Synthroid) 88 mcg PO QDAC [facility] Lidocaine HCl (Glydo) 1 ml TOP Q4H PRN PRN Reason: PAIN Ondansetron HCl (Zofran Odt) 4 mg TL Q6HR PRN PRN Reason: Nausea / Vomiting Ondansetron HCl (Zofran Inj) 4 mg IVP Q6HR PRN PRN Reason: Nausea / Vomiting Sodium Chloride (Normal Saline Flush 0.9%) 10 ml IVP PRN PRN PRN Reason: NEEDED PER PROVIDER ORDERS Sodium Chloride (Normal Saline Flush 0.9%) 10 ml IVP 0100,0900,1700 [facility] Last Admin: 03/20/20 09:07 Dose: Not Given Documented by: Ursodiol (Jesu [id number]) 250 mg PO BID [facility] Last Admin: 03/20/20 10:19 Dose: 250 mg Documented by: Simvastatin [Zocor] 20 mg PO QPM 06/13/13 Alprazolam [Xanax] 0.5 mg PO Q6H PRN 11/04/13 Furosemide [Lasix] 20 mg PO DAILY 12/24/14 Spironolactone 50 mg PO DAILY 12/24/14 Ursodiol 300 mg PO BID 12/24/14 Colchicine [Colcrys] 0.6 mg PO DAILY 05/17/16 Lansoprazole [Prevacid] 30 mg PO DAILY PRN 04/24/18 Levothyroxine [Synthroid] 88 mcg PO QDAC 04/24/18 Objective - Vital Signs/Intake & Output Reviewed Vital Signs: Yes Vital Signs: Vital Signs x48h Temp Pulse Pulse Resp BP Pulse Ox 03/20/20 11:25 36.6 C 71 20 100 03/20/20 08:00 36.6 C 77 19 133/76 H 98 Intake & Output: Intake & Output 03/17/20 03/18/20 03/19/20 03/20/20 23:59 23:59 23:59 23:59 Intake Total 1000 1000 Balance 1000 1000 - Objective General Appearance: positive: No acute distress, Alert Eyes Bilateral: positive: Normal inspection, Conjunctivae nml ENT: positive: ENT inspection nml Neck: positive: Nml inspection Respiratory: positive: No respiratory distress. negative: Wheezes, Rales Cardiovascular: positive: Regular rate & rhythm, No murmur. negative: Tachycardia, Bradycardia, Systolic murmur Abdomen: positive: Non-tender, Nml bowel sounds, No distention. negative: Tenderness, Guarding, Rebound Skin: positive: Warm, Dry Extremities: positive: Full ROM, No pedal edema Neurologic/Psychiatric: positive: Oriented x3, Motor nml. negative: Disoriented to person, Disoriented to place, Disoriented to time - Lab Results Fish Bones: 03/20/20 07:58 03/20/20 07:58 Other Labs: Lab Results x24hrs 03/20/20 03/20/20 03/19/20 Range/Units 07:58 07:58 22:25 WBC 8.7 (4.8-10.8) x10^3/uL RBC 3.77 L (4.20-5.40) 10^6/uL Hgb 11.6 L (12.0-16.0) g/dL Hct 36.4 L (37.0-47.0) % MCV 96.6 (81.0-99.0) fL MCH 30.8 (27.0-31.0) pg MCHC 31.9 L (32.0-36.0) g/dL RDW 14.4 (12.0-15.0) % Plt Count 214 (130-450) 10^3/uL MPV 10.6 (7.9-10.8) fL Neut # (Auto) 5.9 (1.5-6.6) 10^3/uL Lymph # (Auto) 1.4 L (1.5-3.5) 10^3/uL Barron # (Auto) 1.3 H (0.0-1.0) 10^3/uL Eos # (Auto) 0.1 (0.0-0.7) 10^3/uL Baso # (Auto) 0.0 (0.0-0.1) 10^3/uL Absolute Nucleated RBC 0.00 x10^3/uL Nucleated RBC % 0.0 /100WBC Sodium 136 (135-145) mmol/L Potassium 3.9 (3.5-5.0) mmol/L Chloride 105 (101-111) mmol/L Carbon Dioxide 23 (21-32) mmol/L Anion Gap 8.0 (6-13) BUN 25 H (6-20) mg/dL Creatinine 1.3 H (0.4-1.0) mg/dL Estimated GFR (MDRD) 40 L (>89) Glucose 102 H (70-100) mg/dL Calcium 8.1 L (8.5-10.3) mg/dL Phosphorus 3.3 (2.5-4.6) mg/dL Magnesium 2.8 (1.7-2.8) mg/dL Total Bilirubin (0.2-1.0) mg/dL AST (10-42) IU/L ALT (10-60) IU/L Alkaline Phosphatase (42-121) IU/L Total Protein (6.7-8.2) g/dL Albumin (3.2-5.5) g/dL Globulin (2.1-4.2) g/dL Albumin/Globulin Ratio (1.0-2.2) Lipase (22-51) U/L Urine Color Urine Clarity (CLEAR) Urine pH (5.0-7.5) PH Ur Specific Clay (1.002-1.030) Urine Protein (NEGATIVE) mg/dL Urine Glucose (UA) (NEGATIVE) mg/dL Urine Ketones (NEGATIVE) mg/dL Urine Occult Blood (NEGATIVE) Urine Nitrite (NEGATIVE) Urine Bilirubin (NEGATIVE) Urine Urobilinogen (NORMAL) E.U./dL Ur Leukocyte Esterase (NEGATIVE) Urine RBC (0-5) /HPF Urine WBC (0-5) /HPF Ur Squamous Epith Cells (<= Few) Urine Bacteria (None Seen) /HPF Ur Microscopic Review Urine Culture Comments Stl C. diff Tox B Gene NEGATIVE (NEGATIVE) 03/19/20 03/19/20 03/19/20 Range/Units 22:25 20:55 20:55 WBC 10.8 (4.8-10.8) x10^3/uL RBC 4.02 L (4.20-5.40) 10^6/uL Hgb 12.2 (12.0-16.0) g/dL Hct 39.1 (37.0-47.0) % MCV 97.3 (81.0-99.0) fL MCH 30.3 (27.0-31.0) pg MCHC 31.2 L (32.0-36.0) g/dL RDW 14.4 (12.0-15.0) % Plt Count 237 (130-450) 10^3/uL MPV 10.4 (7.9-10.8) fL Neut # (Auto) 7.7 H (1.5-6.6) 10^3/uL Lymph # (Auto) 1.7 (1.5-3.5) 10^3/uL Barron # (Auto) 1.3 H (0.0-1.0) 10^3/uL Eos # (Auto) 0.0 (0.0-0.7) 10^3/uL Baso # (Auto) 0.0 (0.0-0.1) 10^3/uL Absolute Nucleated RBC 0.00 x10^3/uL Nucleated RBC % 0.0 /100WBC Sodium 133 L (135-145) mmol/L Potassium 3.9 (3.5-5.0) mmol/L Chloride 96 L (101-111) mmol/L Carbon Dioxide 25 (21-32) mmol/L Anion Gap 12.0 (6-13) BUN 30 H (6-20) mg/dL Creatinine 1.5 H (0.4-1.0) mg/dL Estimated GFR (MDRD) 34 L (>89) Glucose 124 H (70-100) mg/dL Calcium 8.5 (8.5-10.3) mg/dL Phosphorus (2.5-4.6) mg/dL Magnesium (1.7-2.8) mg/dL Total Bilirubin 0.9 (0.2-1.0) mg/dL AST 28 (10-42) IU/L ALT 24 (10-60) IU/L Alkaline Phosphatase 117 (42-121) IU/L Total Protein 7.2 (6.7-8.2) g/dL Albumin 3.8 (3.2-5.5) g/dL Globulin 3.4 (2.1-4.2) g/dL Albumin/Globulin Ratio 1.1 (1.0-2.2) Lipase 17 L (22-51) U/L Urine Color YELLOW Urine Clarity SL. CLOUDY (CLEAR) Urine pH 7.0 (5.0-7.5) PH Ur Specific Clay 1.010 (1.002-1.030) Urine Protein NEGATIVE (NEGATIVE) mg/dL Urine Glucose (UA) NEGATIVE (NEGATIVE) mg/dL Urine Ketones NEGATIVE (NEGATIVE) mg/dL Urine Occult Blood MODERATE H (NEGATIVE) Urine Nitrite POSITIVE H (NEGATIVE) Urine Bilirubin NEGATIVE (NEGATIVE) Urine Urobilinogen 0.2 (NORMAL) (NORMAL) E.U./dL Ur Leukocyte Esterase MODERATE H (NEGATIVE) Urine RBC 0-5 (0-5) /HPF Urine WBC 4-5 (0-5) /HPF Ur Squamous Epith Cells RARE Squamous (<= Few) Urine Bacteria Moderate H (None Seen) /HPF Ur Microscopic Review INDICATED Urine Culture Comments INDICATED Stl C. diff Tox B Gene (NEGATIVE) ABX Reporting Has patient been on IV antibiotics over the past 48 hours?: No Assessment/Plan - Problem List (1) Large bowel obstruction Impression: This is secondary to the fecal impaction. She has dilated loops of bowel on imaging. Disimpaction was not successful. Repeat imaging today continues to show dilated loops of bowel. Plan is for colonoscopy tomorrow with general surgery. (2) Fecal impaction Impression: This is the cause of the large bowel obstruction. Disimpaction was attempted along with administration of an enema but there is still evidence of dilated loops of bowel and she remains with a large amount of stool burden. Spoke with general surgery and the plan will be for bowel prep with MiraLAX today and a colonoscopy tomorrow. Continue clear liquid diet as tolerated. N.p.o. at midnight for the colonoscopy. She will need a bowel regimen on discharge. (3) Acute kidney injury Impression: This is likely prerenal injury due to dehydration. Her renal function has improved with IV fluids. Creatinine was 1.5 on admission and is now down to 1.3. Her baseline is approximately 1.0. We will continue with IV hydration. We will give another liter of lactated Ringer's today. Hold her home Lasix and Aldactone for the time being. (4) Hypothyroidism Impression: Continue home Synthroid. We will check a TSH in the morning. Qualifiers: Hypothyroidism type: unspecified Qualified Code(s): E03.9 - Hypothyroidism, unspecified
[2020-03-20] MEDS ORDERED: polyethylene glycoL 3350 238 GM BOTTLE PO ONE (15:00)
--- NOTE | 2020-03-20 15:11 | XRAY Report ---
PROCEDURE: Abdomen 1 View X-Ray INDICATIONS: Constipation. TECHNIQUE: 1 view of the abdomen were acquired. COMPARISON: X-ray abdomen 03/20/2020 8:57 AM. FINDINGS: Surgical changes and devices: None. Bowel: No pneumoperitoneum. The bowel gas pattern continues to demonstrate mildly dilated colon loo ps relatively unchanged. Soft tissues: No masses; visualized solid organ contours appear normal in size. No suspicious abdom inal calcifications. Contrast is noted within the bladder consistent with previous contrast administ ration. Bones: No suspicious bony abnormalities. IMPRESSION: Stable, dilation of colonic bowel loops. Reviewed by: Xochitl Laguerre MD on 03/20/2020 3:10 PM PDT Approved by: Xochitl Laguerre MD on 03/20/2020 3:10 PM PDT Station ID: [id number]
[2020-03-20] MEDS: ATORVASTATIN 10 MG TABLET PO SCH (22:06)
--- NOTE | 2020-03-20 23:38 | CONSULTATION NOTE ---
Referring Provider Name of Referring Provider:: Dr. Kendrick Smith Consult Date: 03/21/20 Chief Complaint - Chief Complaint Chief Complaint: Constipation/fecal impaction History of Present Illness - Admitted From Admitted From:: Home - History Obtained From Records Reviewed: EMR History obtained from: Patient and spouse Exam Limitations: Several given the patient's tangential nature - History of Present Illness HPI Comment/Other: 79-year-old female admitted through the emergency room with history of multiple abdominal surgeries as well as multiple comorbid states. The latter include vasculopathy to include carotid stenosis as well as peripheral vascular disease status post bypass. 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 She was admitted through the emergency room after having undergone fecal disimpaction however she still had significant stool burden on imaging and gene ral surgical consultation was obtained. Serial imaging has been requested, moreover aggressive bowel regimen has been suggested as well. The patient was recommended for bowel prep in anticipation of colonoscopy which she was unable to tolerate also. Patient cannot recall her last colonoscopy and it is difficult to elicit specifics as it relates to the regularity of her bowel function. We will revisit this on follow-up. 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 Mother had 3 strokes. Sister had an MD at the age of 53. Children are healthy Living arrangement: At home Living Situation: With spouse/s.o. Social History Notes: The patient is originally from [place]. She has been to her for 57 years. Her was in the [facility] and that is what brought them to [place]. They have been living in [place] ever since. Patient has 3 children 2 sons and 1 daughter. 2 of her children live in [place]. 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 She is a former smoker smoked 1 pack a day for more than 40 years but quit in 2005. She denies any alcohol or illicit drug use. - Substance History Use: Uses substance without health or social issues: NONE Abuse: Recurrent use of substance despite neg consequences: NONE Dependence: Experiences withdrawal or developed tolerances: NONE - POLST Patient has POLST: No POLST Status: Full Code Meds/Allgy - Home Medications Home Medications: Ambulatory Orders Medication Instructions Recorded Confirmed Simvastatin [Zocor] 20 mg PO QPM 06/13/13 03/19/20 Alprazolam [Xanax] 0.5 mg PO Q6H PRN 11/04/13 03/19/20 Furosemide [Lasix] 20 mg PO DAILY 12/24/14 03/19/20 Spironolactone 50 mg PO DAILY 12/24/14 03/19/20 Ursodiol 300 mg PO BID 12/24/14 03/19/20 Colchicine [Colcrys] 0.6 mg PO DAILY 05/17/16 03/19/20 Lansoprazole [Prevacid] 30 mg PO DAILY PRN 04/24/18 03/19/20 Levothyroxine [Synthroid] 88 mcg PO QDAC 04/24/18 03/19/20 Aspirin Chewable [[facility] David 81 mg PO DAILY tablet 04/26/18 03/19/20 Aspirin] Cyclobenzaprine [Flexeril] 10 mg PO TID PRN #20 tablet 02/14/19 03/19/20 - Allergies Allergies/Adverse Reactions: Allergies Allergy/AdvReac Type Severity Reaction Status Date / Time No Known Drug Allergies Allergy Verified 03/19/20 20:46 Review of Systems - Gastrointestinal Gastrointestinal: reports: Abdominal distention, Constipation, Diarrhea Exam - Vital Signs Reviewed Vital Signs: Yes Vital Signs: Vital Signs x48h Temp Pulse Resp 03/20/20 16:35 37.1 C 108 H 20 - Physical Exam General Appearance: positive: No acute distress, Alert Eyes Bilateral: positive: Normal inspection, PERRL, EOMI ENT: positive: ENT inspection nml Neck: positive: Nml inspection Respiratory: positive: Chest non-tender, No respiratory distress, Breath sounds nml. negative: Wheezes, Rales, Rhonchi Cardiovascular: positive: Regular rate & rhythm Abdomen: positive: Other (Abdomen diffusely distended, soft, no rebound, no guarding. Multiple well-healed scars no palpable hernias.) Rectal: positive: Other (Digital rectal performed with nursing staff in room as travel counselor automobile [employer] as well as at the patient's bedside, no significant fecal burden within the rectum, no palpable impaction at this time, patient was advised on indication to undergo bedside proctoscopy with washout to evaluate for any retained) Skin: positive: Color nml Extremities: positive: Non-tender, Full ROM, Nml appearance Neurologic/Psychiatric: positive: Oriented x3, CN's nml (2-12), Motor nml, Sensation nml, Other (Tangential, and difficult to maintain on topic.) Conclusion/Plan - Diagnosis Diagnosis: 1. Multiple abdominal surgeries. 2. Thyroid dysfunction. 3. Fecal impaction with constipation. 4. Large bowel obstruction. 5. Multiple comorbid states - Plan Plan: 1. Proceed with bedside proctoscopy with washout to evaluate for any retained stool having eluded emergency room disimpaction 2. With regard to medication review other than thyroid dysfunction little to suggest the patient's current presentation 3. History of Billroth II essentially should lead to increased frequency and osmotic diarrhea consistent with early dumping. With regard to her diuretics I defer to the hospitalist and other medical specialties how aggressively these might be affecting her overall fluid homeostasis 4. If the patient fails to have significant improvement after proctoscopy, we will proceed with abdominal x-ray and if indeed shows retained stool will recommend completion of bowel prep and will proceed with colonoscopy tomorrow. 5. Patient may be candidate for agents such as Amitiza versus Linzess if this constipation is life limiting and fails conventional therapies including MiraLAX. Can consider transit studies in the outpatient setting. However I suspect that this is an isolated incident. Please note that voice recognition software was used to transcribe this note and inadvertent errors might persist in spite of review and editing. I am obliged to you for your attention. I am thankful to you for allowing me to participate with you in this care of this patient. - Lab Results Lab results reviewed: Yes Fish Bones: 03/21/20 04:30 03/21/20 04:30
[2020-03-21] MEDS: SODIUM CHLORIDE FLUSH 0.9% 10 ML SYRINGE IVP SCH ×3 (00:51→16:36)
[2020-03-21] MEDS: LACTATED RINGERS 1,000 ML IV SCH ×2 (04:49→19:53)
[2020-03-21 05:23] LABS: BASOPHILS % (AUTO) 0.3 %; EOSINOPHILS # (AUTO) 0.1 10^3/uL (0.0-0.7); EOSINOPHILS % (AUTO) 1.5 %; LYMPHOCYTES # (AUTO) 1.5 10^3/uL (1.5-3.5); LYMPHOCYTES % (AUTO) 23.3 %; MEAN CORPUSCULAR HEMOGLOBIN 29.6 pg (27.0-31.0); MEAN CORPUSCULAR HGB CONC 30.5 g/dL (32.0-36.0); MONOCYTES # (AUTO) 0.8 10^3/uL (0.0-1.0); MONOCYTES % (AUTO) 12.4 %; NEUTROPHILS % (AUTO) 61.3 %; PLT - PLATELET COUNT 211 10^3/uL (130-450); RED BLOOD COUNT 3.72 10^6/uL (4.20-5.40); RED CELL DISTRIBUTION WIDTH 14.6 % (12.0-15.0); WHITE BLOOD COUNT 6.5 x10^3/uL (4.8-10.8)
[2020-03-21 05:35] LABS: CALCIUM 8.3 mg/dL (8.5-10.3); MAGNESIUM 2.3 mg/dL (1.7-2.8); PHOSPHORUS 2.7 mg/dL (2.5-4.6)
[2020-03-21] MEDS: LEVOTHYROXINE 88 MCG TABLET PO SCH (07:00)
--- NOTE | 2020-03-21 09:12 | Discharge Plan ---
Discharge Plan Problem Reviewed?: Yes Disposition: Home, Self Care Condition: Stable Prescriptions: polyethylene glycoL 3350 [Miralax] 17 gm PO DAILY #14 packet Diet: Regular (High fiber) Activity Restrictions: Activity as Tolerated Shower Restrictions: No Driving Restrictions: No Instruction Topics: Constipation Health Concerns: You wee seen in the hospital because you had what is called a large bowel obstruction. Your large colon was obstructed by a large amount of stool in your rectum. Despite disimpaction and an enema, there was still a significant amount of stool. You had a bedside disimpaction performed which removed a lot of stool. You had a colonoscopy which did not show any significant abnormal ities. You had some slight inflammation near your rectum likely due to the amount of stool that was present before. Plan of Treatment: Please make sure you drink plenty of water and to eat a high-fiber diet. Please take the new medications as prescribed as these can help prevent constipation. There were no other changes made to your medication. Please follow-up with your primary care provider as you may benefit from physical therapy for pelvic floor strengthening. You may also benefit from outpatient follow-up with a general surgeon or promotions representative for cons tipation. Care Goals: Please return to the emergency department if you develop any fevers, chills, abdominal pain, nausea, vomiting. Assessment: Patient and family expressed understanding of the treatment plan. Additional Instructions or Follow Up instructions: Please follow-up with your primary care provider in 1 to 2 weeks. No Smoking: If you smoke, Please STOP! Call for help. Follow-up with: Richard Lopez MD [Primary Care Provider] -
[2020-03-21] MEDS: ASPIRIN CHEW 81 MG TABLET PO SCH (09:52)
[2020-03-21] MEDS ORDERED: MORPHINE 2 MG/ML CARPUJECT IVP STA (15:16)
[2020-03-21] MEDS: SODIUM/POTASSIUM/MAG SULFATES 354 ML PREP KIT PO SCH (16:35)
--- NOTE | 2020-03-21 16:39 | XRAY Report ---
PROCEDURE: Abdomen 1 View X-Ray INDICATIONS: Constipation. Obstruction. TECHNIQUE: 1 view of the abdomen were acquired. COMPARISON: March 20, 2020 abdominal radiographs and March 19, 2020 CT abdomen/pelvis. FINDINGS: Surgical changes and devices: None. Bowel: No pneumoperitoneum. There appear to be mildly dilated loops of small bowel now in the left u pper abdomen. Bowel gas seen throughout the colon. No evident stool burden. Soft tissues: No masses; visualized solid organ contours appear normal in size. No suspicious abdom inal calcifications. Bones: No suspicious bony abnormalities. IMPRESSION: New mildly dilated loops of small bowel in the left upper abdomen. Correlate for small bowel obstruct trice symptoms. Minimal stool burden with air throughout the colon. Reviewed by: Joel Lopez on 03/21/2020 3:38 PM SHARON Approved by: Joel Lopez on 03/21/2020 3:38 PM SHARON Station ID: [id number]
--- NOTE | 2020-03-21 16:46 | PROVIDER PROGRESS NOTE ---
Subjective - Prog Note Date Prog Note Date: 03/21/20 - Subjective Subjective: He reports no abdominal pain, nausea, vomiting. She still has not had a bowel movement. She still feels the urge to defecate. Current Medications - Current Medications Current Medications: Active Medications Acetaminophen (Tylenol) 650 mg PO Q4HR PRN PRN Reason: Pain 1 to 4 Alprazolam (Xanax) 0.5 mg PO Q6H PRN PRN Reason: Anxiety Aspirin ([facility] David Aspirin) 81 mg PO DAILY [facility] Last Admin: 03/21/20 09:52 Dose: 81 mg Documented by: Atorvastatin Calcium (Lipitor) 10 mg PO QPM [facility] Last Admin: 03/20/20 22:06 Dose: 10 mg Documented by: Hydromorphone HCl (Dilaudid Inj Syringe) 0.5 mg IVP Q2H PRN PRN Reason: Pain 8 to 10 Lactated Ringer's (Lr) 1,000 mls @ 100 mls/hr IV .Q10H [facility] Last Infusion: 03/21/20 15:00 Dose: 100 mls/hr Documented by: Levothyroxine Sodium (Synthroid) 88 mcg PO QDAC [facility] Last Admin: 03/21/20 07:00 Dose: 88 mcg Documented by: Lidocaine HCl (Glydo) 1 ml TOP Q4H PRN PRN Reason: PAIN Ondansetron HCl (Zofran Odt) 4 mg TL Q6HR PRN PRN Reason: Nausea / Vomiting Ondansetron HCl (Zofran Inj) 4 mg IVP Q6HR PRN PRN Reason: Nausea / Vomiting Sodium Chloride (Normal Saline Flush 0.9%) 10 ml IVP PRN PRN PRN Reason: NEEDED PER PROVIDER ORDERS Sodium Chloride (Normal Saline Flush 0.9%) 10 ml IVP 0100,0900,1700 [facility] Last Admin: 03/21/20 16:36 Dose: Not Given Documented by: Sodium Sulfate/Potass Sulf/Mag Sulf (Suprep Bowel Prep Kit) 177 ml PO 1800,0500 [facility] Stop: 03/22/20 05:01 Last Admin: 03/21/20 16:35 Dose: 177 ml Documented by: Ursodiol (Jesu 250) 250 mg PO BID [facility] Last Admin: 03/21/20 09:52 Dose: 250 mg Documented by: Simvastatin [Zocor] 20 mg PO QPM 06/13/13 Alprazolam [Xanax] 0.5 mg PO Q6H PRN 11/04/13 Furosemide [Lasix] 20 mg PO DAILY 12/24/14 Spironolactone 50 mg PO DAILY 12/24/14 Ursodiol 300 mg PO BID 12/24/14 Colchicine [Colcrys] 0.6 mg PO DAILY 05/17/16 Lansoprazole [Prevacid] 30 mg PO DAILY PRN 04/24/18 Levothyroxine [Synthroid] 88 mcg PO QDAC 04/24/18 Objective - Vital Signs/Intake & Output Reviewed Vital Signs: Yes Vital Signs: Vital Signs x48h Temp Pulse Resp BP Pulse Ox 03/21/20 15:58 37.2 C 90 16 159/97 H 100 Intake & Output: Intake & Output 03/18/20 03/19/20 03/20/20 03/21/20 23:59 23:59 23:59 23:59 Intake Total 1000 2415 2553.333 Output Total 800 451 Balance 1000 1615 2102.333 - Objective General Appearance: positive: No acute distress, Alert Eyes Bilateral: positive: Normal inspection, Conjunctivae nml ENT: positive: ENT inspection nml Neck: positive: Nml inspection Respiratory: positive: No respiratory distress. negative: Wheezes, Rales Cardiovascular: positive: Regular rate & rhythm, No murmur. negative: Tachycardia, Systolic murmur Abdomen: positive: Non-tender, Nml bowel sounds, No distention. negative: Tenderness, Guarding, Rebound Skin: positive: Warm, Dry Extremities: positive: Full ROM, No pedal edema - Lab Results Fish Bones: 03/21/20 04:30 03/21/20 04:30 Other Labs: Lab Results x24hrs 03/21/20 03/21/20 03/21/20 Range/Units 04:30 04:30 04:30 WBC 6.5 (4.8-10.8) x10^3/uL RBC 3.72 L (4.20-5.40) 10^6/uL Hgb 11.0 L (12.0-16.0) g/dL Hct 36.1 L (37.0-47.0) % MCV 97.0 (81.0-99.0) fL MCH 29.6 (27.0-31.0) pg MCHC 30.5 L (32.0-36.0) g/dL RDW 14.6 (12.0-15.0) % Plt Count 211 (130-450) 10^3/uL MPV 11.0 H (7.9-10.8) fL Neut # (Auto) 4.0 (1.5-6.6) 10^3/uL Lymph # (Auto) 1.5 (1.5-3.5) 10^3/uL Beaver # (Auto) 0.8 (0.0-1.0) 10^3/uL Eos # (Auto) 0.1 (0.0-0.7) 10^3/uL Baso # (Auto) 0.0 (0.0-0.1) 10^3/uL Absolute Nucleated RBC 0.00 x10^3/uL Nucleated RBC % 0.0 /100WBC Sodium 139 (135-145) mmol/L Potassium 3.8 (3.5-5.0) mmol/L Chloride 109 (101-111) mmol/L Carbon Dioxide 22 (21-32) mmol/L Anion Gap 8.0 (6-13) BUN 15 (6-20) mg/dL Creatinine 1.0 (0.4-1.0) mg/dL Estimated GFR (MDRD) 54 L (>89) Glucose 93 (70-100) mg/dL Calcium 8.3 L (8.5-10.3) mg/dL Phosphorus 2.7 (2.5-4.6) mg/dL Magnesium 2.3 (1.7-2.8) mg/dL TSH 0.93 (0.34-5.60) uIU/mL ABX Reporting Has patient been on IV antibiotics over the past 48 hours?: No Assessment/Plan - Problem List (1) Large bowel obstruction Impression: This is secondary to fecal impaction. Bedside disimpaction was performed today by general surgery but there still a large amount of stool burden. Repeat abdominal x-ray today showed mild stool burden but there are new dilated loops of small bowel concerning for obstruction. General surgery is recommending a bowel prep today and colonoscopy tomorrow morning. We will keep her n.p.o. Zofran as needed for nausea. (2) Fecal impaction Impression: Bedside disimpaction was unsuccessful today by general surgery. We will give her bowel prep and plan for colonoscopy tomorrow. We will discharge her on a bowel regimen. She may benefit from medication like Linzess for chronic constipation. Recommend outpatient GI follow-up. (3) Acute kidney injury Impression: This has resolved. Was likely prerenal injury. We will continue to monitor her renal function while she is hospitalized. (4) Hypothyroidism Impression: Stable. Continue home Synthroid. Qualifiers: Hypothyroidism type: unspecified Qualified Code(s): E03.9 - Hypothyroidism, unspecified
--- NOTE | 2020-03-21 19:39 | OPERATIVE REPORT ---
Operative Report - General Admit Date: 03/20/20 Procedure Date: 03/21/20 Planned Procedure: 1. Bedside disimpaction 2. Bedside rigid proctosigmoidoscopy 3. Bedside rectal washout and irrigation Pre-Op Diagnosis: Large bowel obstruction; abdominal discomfort; fecal impaction Procedure Performed: 1. Bedside disimpaction 2. Bedside rigid proctosigmoidoscopy 3. Bedside rectal washout and irrigation Post Op Diagnosis: Same; sigmoid colon clear as well as visualized portion of the prox colon - Procedure Note Primary Surgeon: Emerson Secondary Surgeon: Albert Anesthesia Provider: None Estimated Blood Loss (mL): 0 Indications: See surgical consultation. Findings: Rectosigmoid, sigmoid, and entirety of rectum cleared from any retained stool after aggressive irrigation. Bowel pink and viable to 25 cm by rigid proctoscopy per anus. Complications: None - Other Other Information/Narrative: The patient was placed in lateral decubitus position. Floor nurse was present for the entirety as transmission operator. Informed consent, as mentioned, was obtained. Time out was called and agreed to by all in the room. The patient was digitally disimpacted carefully to avoid any trauma, which they tolerated well. The patient was advised to continue performing Valsalva in order to allow for fecal descent and stool to be removed digitally. At this time the patient, having been cleared for the rectum, was performed for a rigid proctosigmoidoscopy, see below. Attending Physician Attestation Physical Presence Documentation I was physically present during the service to the patient and/or personally examined the patient, and I was directly involved in the management of the care provided to the patient. Procedure note: Preoperative diagnosis: Fecal impaction, large bowel obstruction, see above. Postoperative diagnosis: Same Procedure: Flexible proctosigmoidoscopy Surgeon: Brennan Norman M.D. Indication: See above and surgical consultation Consent was obtained from the patient. Verification of patient identification and procedure was performed. Timeout was called and agreed to by all in the room. Procedure detail: Patient was placed in the left lateral decubitus position on the examination table. Inspection and digital rectal exam were performed, followed by insertion of the lubricated proctosigmoidoscope. The scope was advanced under direct vision with air insufflation. The lumen and mucosa was then examined carefully. The quality of bowel prep was good. The proctosigmoidoscope was then withdrawn. Findings: After extensive lavage and aspiration through the proctoscope with water, this was irrigated clear to the sigmoid which was noted on rigid proctosigmoidoscopy to 25 cm. Conclusions: The patient tolerated procedure well and was informed regarding the above listed finding. We will proceed with abdominal plain film to see extent the patient large bowel is with remnant stool and consider bowel prep and colonoscopy in the a.m.
[2020-03-21] MEDS: ATORVASTATIN 10 MG TABLET PO SCH (21:34)
[2020-03-22] MEDS: SODIUM CHLORIDE FLUSH 0.9% 10 ML SYRINGE IVP SCH ×2 (02:00→10:39)
[2020-03-22] MEDS: SODIUM/POTASSIUM/MAG SULFATES 354 ML PREP KIT PO SCH (05:00)
[2020-03-22] MEDS: LACTATED RINGERS 1,000 ML IV SCH (05:09)
[2020-03-22] MEDS: LEVOTHYROXINE 88 MCG TABLET PO SCH (06:53)
--- NOTE | 2020-03-22 08:03 | ANESTHESIA ---
Pre-Anesthesia VS, & Labs - Diagnosis Diagnosis 1. Multiple abdominal surgeries 2. Thyroid dysfunction 3. Fecal impaction with constipation 4. Large bowel obstruction 5. Multiple comorbid states - Procedure Colonoscopy Vital Signs: Temp Pulse Resp BP Pulse Ox 36.7 C 98 20 176/74 H 97 03/22/20 05:46 03/22/20 05:46 03/22/20 05:46 03/22/20 05:46 03/22/20 05:46 Height: 5 ft Weight (kg): 53 kg Body Mass Index: 22.8 BMI Classification: Healthy weight - NPO >8 hours - Is Patient ?: No - Lab Results Current Lab Results: Laboratory Tests 03/21/20 04:30: TSH 0.93 03/21/20 04:30: Sodium 139, Potassium 3.8, Chloride 109, Carbon Dioxide 22, Anion Gap 8.0, BUN 15, Creatinine 1.0, Estimated GFR (MDRD) 54 L, Glucose 93, Calcium 8.3 L, Phosphorus 2.7, Magnesium 2.3 03/21/20 04:30: WBC 6.5, RBC 3.72 L, Hgb 11.0 L, Hct 36.1 L, MCV 97.0, MCH 29.6, MCHC 30.5 L, RDW 14.6, Plt Count 211, MPV 11.0 H, Neut # (Auto) 4.0, Lymph # (Auto) 1.5, Frederick # (Auto) 0.8, Eos # (Auto) 0.1, Baso # (Auto) 0.0, Absolute Nucleated RBC 0.00, Nucleated RBC % 0.0 03/20/20 07:58: Sodium 136, Potassium 3.9, Chloride 105, Carbon Dioxide 23, Anion Gap 8.0, BUN 25 H, Creatinine 1.3 H, Estimated GFR (MDRD) 40 L, Glucose 102 H, Calcium 8.1 L, Phosphorus 3.3, Magnesium 2.8 03/20/20 07:58: WBC 8.7, RBC 3.77 L, Hgb 11.6 L, Hct 36.4 L, MCV 96.6, MCH 30.8, MCHC 31.9 L, RDW 14.4, Plt Count 214, MPV 10.6, Neut # (Auto) 5.9, Lymph # (Auto) 1.4 L, Frederick # (Auto) 1.3 H, Eos # (Auto) 0.1, Baso # (Auto) 0.0, Absolute Nucleated RBC 0.00, Nucleated RBC % 0.0 03/19/20 20:55: Sodium 133 L, Potassium 3.9, Chloride 96 L, Carbon Dioxide 25, Anion Gap 12.0, BUN 30 H, Creatinine 1.5 H, Estimated GFR (MDRD) 34 L, Glucose 124 H, Calcium 8.5, Total Bilirubin 0.9, AST 28, ALT 24, Alkaline Phosphatase 117, Total Protein 7.2, Albumin 3.8, Globulin 3.4, Albumin/Globulin Ratio 1.1, Lipase 17 L 03/19/20 20:55: WBC 10.8, RBC 4.02 L, Hgb 12.2, Hct 39.1, MCV 97.3, MCH 30.3, MCHC 31.2 L, RDW 14.4, Plt Count 237, MPV 10.4, Neut # (Auto) 7.7 H, Lymph # (Auto) 1.7, Frederick # (Auto) 1.3 H, Eos # (Auto) 0.0, Baso # (Auto) 0.0, Absolute Nucleated RBC 0.00, Nucleated RBC % 0.0 Fish Bones: 03/21/20 04:30 03/21/20 04:30 Home Medications and Allergies Active Medications Acetaminophen (Tylenol) 650 mg PO Q4HR PRN PRN Reason: Pain 1 to 4 Alprazolam (Xanax) 0.5 mg PO Q6H PRN PRN Reason: Anxiety Aspirin ([facility] Aspirin) 81 mg PO DAILY [facility] Last Admin: 03/21/20 09:52 Dose: 81 mg Documented by: Atorvastatin Calcium (Lipitor) 10 mg PO QPM [facility] Last Admin: 03/21/20 21:34 Dose: 10 mg Documented by: Hydromorphone HCl (Dilaudid Inj Syringe) 0.5 mg IVP Q2H PRN PRN Reason: Pain 8 to 10 Lactated Ringer's (Lr) 1,000 mls @ 100 mls/hr IV .Q10H [facility] Last Admin: 03/22/20 05:09 Dose: 100 mls/hr Documented by: Levothyroxine Sodium (Synthroid) 88 mcg PO QDAC [facility] Last Admin: 03/22/20 06:53 Dose: 88 mcg Documented by: Lidocaine HCl (Glydo) 1 ml TOP Q4H PRN PRN Reason: PAIN Ondansetron HCl (Zofran Odt) 4 mg TL Q6HR PRN PRN Reason: Nausea / Vomiting Ondansetron HCl (Zofran Inj) 4 mg IVP Q6HR PRN PRN Reason: Nausea / Vomiting Sodium Chloride (Normal Saline Flush 0.9%) 10 ml IVP PRN PRN PRN Reason: NEEDED PER PROVIDER ORDERS Sodium Chloride (Normal Saline Flush 0.9%) 10 ml IVP 0100,0900,1700 [facility] Last Admin: 03/22/20 02:00 Dose: Not Given Documented by: Ursodiol (Jesu 250) 250 mg PO BID [facility] Last Admin: 03/21/20 21:35 Dose: 250 mg Documented by: Simvastatin [Zocor] 20 mg PO QPM 06/13/13 Alprazolam [Xanax] 0.5 mg PO Q6H PRN 11/04/13 Furosemide [Lasix] 20 mg PO DAILY 12/24/14 Spironolactone 50 mg PO DAILY 12/24/14 Ursodiol 300 mg PO BID 12/24/14 Colchicine [Colcrys] 0.6 mg PO DAILY 05/17/16 Lansoprazole [Prevacid] 30 mg PO DAILY PRN 04/24/18 Levothyroxine [Synthroid] 88 mcg PO QDAC 04/24/18 Allergies/Adverse Reactions: Allergies Allergy/AdvReac Type Severity Reaction Status Date / Time No Known Drug Allergies Allergy Verified 03/19/20 20:46 Anes History & Medical History - Anesthetic History Anesthesia Complications: reports: No previous complications Family history of Anesthesia Complications: Denies Family history of Malignant Hyperthermia: Denies - Medical History Cardiovascular: reports: Hypertension, Peripheral Vascular Disease, Deep vein thrombosis Pulmonary: reports: None Gastrointestinal: reports: GERD (Occasional), Ulcers, Diverticulitis, Cholelithiasis, Other Urinary: reports: None, Renal insuffiency Neuro: reports: None, Other (Noted that patient has difficulty answering questions, rambles. needs to interject. Has moments of confusion. states this is normal.) Musculoskeletal: reports: Osteoarthritis, Chronic back pain Endocrine/Autoimmune: reports: HyPOthyroidism Blood Disorders: reports: None Skin: reports: None Smoking Status: Former smoker (Quit 2005) History of Cancer?: No - Surgical History General: Gastric surgery Cardiothoracic: Vascular surgery Gynecologic: Hysterectomy Orthopedic: Other Exam General: Other (Somewhat confused. Can answer some questions and not others. rambles in speech. needs to interjuct.) Dental: Poor dentition, Other (many missing, chipped, worn.) Mouth Openin Fingerbreadth Neck Mobility: Reduced Mallampati classification: III Thyromental Distance: 4-6 cm Respiratory: Lungs clear Cardiovascular: Regular rate Plan Anesthesia Type: MAC Consent for Procedure(s) Verified and Reviewed: Yes Code Status: Attempt Resuscitation ASA classification: 3-Severe systemic disease Is this case an emergency?: Yes (Discussed anesthesia, answered questions. Permit signed.)
[2020-03-22 08:23] LABS: CALCIUM 8.8 mg/dL (8.5-10.3)
[2020-03-22 08:34] LABS: BASOPHILS % (AUTO) 0.3 %; EOSINOPHILS % (AUTO) 0.3 %; HGB - HEMOGLOBIN 11.4 g/dL (12.0-16.0); LYMPHOCYTES # (AUTO) 1.7 10^3/uL (1.5-3.5); LYMPHOCYTES % (AUTO) 24.5 %; MEAN CORPUSCULAR HEMOGLOBIN 29.8 pg (27.0-31.0); MEAN CORPUSCULAR HGB CONC 30.8 g/dL (32.0-36.0); MEAN CORPUSCULAR VOLUME 96.9 fL (81.0-99.0); MEAN PLATELET VOLUME 10.6 fL (7.9-10.8); MONOCYTES # (AUTO) 0.9 10^3/uL (0.0-1.0); MONOCYTES % (AUTO) 13.2 %; NEUTROPHILS # (AUTO) 4.2 10^3/uL (1.5-6.6); NEUTROPHILS % (AUTO) 60.4 %; PLT - PLATELET COUNT 251 10^3/uL (130-450); RED BLOOD COUNT 3.82 10^6/uL (4.20-5.40); RED CELL DISTRIBUTION WIDTH 14.7 % (12.0-15.0)
[2020-03-22] MEDS ORDERED: POTASSIUM CHLORIDE 20 MEQ TABLET PO ONE (08:55)
--- NOTE | 2020-03-22 10:12 | ANESTHESIA POST OP EVALUATION ---
Anesthesia Post Eval - Post Anesthesia Eval Vitals: Last Vital Signs Temp 36.6 C 03/22/20 08:00 Pulse 88 03/22/20 08:00 Resp 20 03/22/20 08:00 BP 186/67 H 03/22/20 08:00 Pulse Ox 99 03/22/20 08:00 CV Function Including HR & BP: positive: Stable Pain Control: positive: Satisfactory Nausea & Vomiting: positive: Negative Mental Status: positive: Baseline Respiratory Status: Airway Patent Hydration Status: Satisfactory (Returned to [facility] in stable condition. Report given to nurse.) Anesthesia Complications: positive: None
[2020-03-22 10:18] VITALS: BP 154/83
[2020-03-22] MEDS: ASPIRIN CHEW 81 MG TABLET PO SCH (10:32)
--- NOTE | 2020-03-22 10:33 | PROVIDER PROGRESS NOTE ---
Progress Note 79-year-old female who presented with fecal impaction who has no significant history for colonic inertia by report and no recent episodes to which the patient can contribute in meaningful pattern. Attempted rigid proctoscopy which was cleared to the left colon/sigmoid colon without significant complication underwent prep which she previously failed to tolerate. Today's colonoscopy with following findings: 1. Exceedingly redundant colon which was tremendously difficult to traverse simply for its length and tortuosity. 2. No diverticulosis, no diverticular strictures, no mass or other polyps noted on slow circumferential exam 3. Stercoral ulceration noted at the anorectal junction consistent with the patient's presentation with large retained fecal bolus Together with the imaging findings, the stercoral ulceration noted on colonoscopy, and her physical exam and initial presentation per ER notes, the patient may have pelvic floor dysfunction consistent with anismus/nonrelaxation and this could have propagated her outlet obstruction. These are challenging problems to address and in light of the fact that the patient's colonic transit will most probably return normal if evaluated by Sitzmarks study which is an option, the next step would be to undergo MR defecography/conventional radiographic defecography. Ultimately these problems are best addressed with pelvic floor rehabilitation through physical therapy. Of course the patient needs to maintain high-fiber diet, increase fluid intake, and MiraLAX. If she fails this osmotic laxative regimen consideration for Linzess and amities a can be made, however this will also carry with it the risk of fecal incontinence. She can either follow-up with me in the clinic in the next few months and will necessarily need repeat colonoscopy to assure stercoral ulceration has healed. From my perspective there is no other acute surgical intervention absent any findings on the colonoscopy for which urgent operation is necessary. Ultimately the only surgical intervention I could offer is Botox injections into the levators which have limited reported success and/or end colostomy/loop colostomy. However I feel that there is a fair amount of therapeutic maneuverability before these can and should be considered. Please note that voice recognition software was used to transcribe this note and inadvertent errors might persist in spite of review and editing. I am obliged to you for your attention. I am thankful to you for allowing me to participate with you in this care of this patient.
--- NOTE | 2020-03-22 11:06 | DISCHARGE SUMMARY ---
"Discharge Summary Admit Date: 03/19/20 Discharge Date: 03/22/20 Discharging Provider: Kendrick Smith Primary Care Provider: Richard Lopez Code Status: Attempt Resuscitation Condition at Discharge: Stable Discharge Disposition: 01 Home, Self Care - DIAGNOSES Admission Diagnoses: Large bowel obstruction Fecal impaction Dehydration At risk for falls Discharge Diagnoses with Status of Each Condition: Large bowel obstruction - resolved. Fecal impaction - resolved. Acute kidney injury - resolved. Delirium - stable. Hypothyroidism - stable. - HPI History of Present Illness: H&P per Dr. Finn: 79-year-old white female who presents with diarrhea for 4 days. No fever, no chills, mild abdominal distention and gassy pain. She does not remember if she has ever had a colonoscopy. Previous abdominal surgery includes a stent placed after an ERCP in December 2014 resulting in pancreatitis. Peptic ulcer disease with perforation in 2005 and a Billroth II procedure. She has also had a hysterecto my. She was last admitted 2017 with symptoms of a TIA. Even though she had carotid stenosis, vascular surgery did not feel that her symptoms were due to the carotid stenosis. No one else in her family is sick. She is nauseated. No emesis. No blood in her stool. Because of COVID, she has been taken her temperature twice a day and she has been afebrile. She was evaluated in the emergency room by Dr. Piña. She was afebrile, normotensive to slightly hypertensive. 99% saturation on room air. She was not in any acute distress, alert and oriented, with a mildly distended abdomen having normal bowel sounds. She was pale. White cell count was mildly elevated at 10.8. Electrolytes showed her sodium to be 133, BUN 30, creatinine 1.5. Lipase 17 and low. Urinalysis had some leukocyte Estrace, but she also has squamous cells. Moderate bacteria. CT of the abdomen showed severe consti pation with a large bowel obstruction. Unfortunately I am unable to verify that report at this time. This is a verbal report per Dr. Piña. Emergency room intervention included disimpaction. They have had some small success but there remains a large amount of fecal material in her left colon. Dr. Piña is asking us to place the patient under observation to see if she can further pass stool on her own. She will be notifying general surgery to let them know the patient is being admitted in case they was to see the patient by tomorrow morning. - CONSULTS | PROCEDURES Consultations: General Surgery Procedures: Bedside disimpaction and rigid proctosigmoidoscopy was performed on March 21 by General Surgery. Colonoscopy was performed on March 22 which showed: 1. Exceedingly redundant colon which was tremendously difficult to traverse simply for its length and tortuosity. 2. No diverticulosis, no diverticular strictures, no mass or other polyps noted on slow circumferential exam 3. Stercoral ulceration noted at the anorectal junction consistent with the patient's presentation with large retained fecal bolus - HOSPITAL COURSE Hospital Course: He was admitted to the floor for large bowel obstruction secondary to fecal impaction. Manual disimpaction was attempted an enema was administered with little success. General surgery evaluated patient and performed bedside disimpaction and proctosigmoidoscopy with a large amount of stool successfully removed. Repeat abdominal x-ray showed dilated loops of small bowel which could have been iatrogenic by general surgery recommended colonoscopy the following day and shows she was given a bowel prep. She underwent colonoscopy on March 22 with the findings as mentioned above. She tolerated a diet after this procedure and she was discharged home in a stable condition. She was asked to take MiraLAX on a daily basis and follow-up with her primary care provider for referral to general surgery or gastroenterology. She was a little delirious after the colonoscopy but she was oriented to self, location, year and month. She understood why she was at the hospital. She had a very short attention span. The delirium was attributed to her lack of sleep during this hospitalization as well as the sedation she received for the colonoscopy. She requested to go home and her was agreeable to this. He states she was just about at her baseline. They were counseled to return to the emergency department if she developed any vomiting, worsening abdominal pain, fevers or worsening confusion. General Surgery recommended: Together with the imaging findings, the stercoral ulceration noted on colonoscopy, and her physical exam and initial presentation per ER notes, the patient may have pelvic floor dysfunction consistent with anismus/nonrelaxation and this could have propagated her outlet obstruction. These are challenging problems to address and in light of the fact that the patient's colonic transit will most probably return normal if evaluated by Sitzmarks study which is an option, the next step would be to undergo MR defecography/conventional radiographic defecography. Ultimately these problems are best addressed with pelvic floor rehabilitation through physical therapy. Of course the patient needs to maintain high-fiber diet, increase fluid intake, and MiraLAX. If she fails this osmotic laxative regimen consideration for Linzess and amities a can be made, however this will also carry with it the risk of fecal incontinence. She can either follow-up with me in the clinic in the next few months and will necessarily need repeat colonoscopy to assure stercoral ulceration has healed. - ALLERGIES Allergies/Adverse Reactions: Allergies Allergy/AdvReac Type Severity Reaction Status Date / Time No Known Drug Allergies Allergy Verified 03/19/20 20:46 - MEDICATIONS Home Medications: Ambulatory Orders Medication Instructions Recorded Confirmed Simvastatin [Zocor] 20 mg PO QPM 06/13/13 03/19/20 Alprazolam [Xanax] 0.5 mg PO Q6H PRN 11/04/13 03/19/20 Furosemide [Lasix] 20 mg PO DAILY 12/24/14 03/19/20 Spironolactone 50 mg PO DAILY 12/24/14 03/19/20 Ursodiol 300 mg PO BID 12/24/14 03/19/20 Colchicine [Colcrys] 0.6 mg PO DAILY 05/17/16 03/19/20 Lansoprazole [Prevacid] 30 mg PO DAILY PRN 04/24/18 03/19/20 Levothyroxine [Synthroid] 88 mcg PO QDAC 04/24/18 03/19/20 Aspirin Chewable [[place] David 81 mg PO DAILY tablet 04/26/18 03/19/20 Aspirin] Cyclobenzaprine [Flexeril] 10 mg PO TID PRN #20 tablet 02/14/19 03/19/20 polyethylene glycoL 3350 [Miralax] 17 gm PO DAILY #14 packet 03/22/20 - PHYSICAL EXAM AT DISCHARGE General Appearance: positive: No acute distress, Alert Eyes Bilateral: positive: Normal inspection, Conjunctivae nml ENT: positive: ENT inspection nml Neck: positive: Nml inspection Respiratory: positive: No respiratory distress. negative: Wheezes, Rales Cardiovascular: positive: Regular rate & rhythm, No murmur. negative: Tachycardia, Systolic murmur Abdomen: positive: Non-tender, Nml bowel sounds, No distention. negative: Tenderness, Guarding, Rebound Skin: positive: Warm, Dry Extremities: positive: Full ROM, No pedal edema Neurologic/Psychiatric: positive: Motor nml. negative: Disoriented to person, Disoriented to place, Disoriented to time, Facial droop, Slurred/abnml speech Physical Exam Other/Comments: Vital Signs - 24 hr 03/21/20 03/22/20 03/22/20 15:58 01:59 03:38 Temperature 37.2 C 37.3 C Heart Rate [ 90 97 98 Brachial] Respiratory 16 16 Rate Blood Pressure 159/97 H 183/74 H 159/85 H [Right Brachial artery] O2 Saturation 100 98 03/22/20 03/22/20 03/22/20 05:46 08:00 10:16 Temperature 36.7 C 36.6 C 36.4 C L Heart Rate [ 98 88 83 Brachial] Respiratory 20 20 20 Rate Blood Pressure 176/74 H 186/67 H 154/83 H [Right Brachial artery] O2 Saturation 97 99 99 Oxygen O2 Source [With Activity] Room air O2 Source Room air - LABS Result Diagrams: 03/22/20 07:56 03/22/20 07:56 - DIAGNOSTIC IMAGING Diagnostic Imaging Results: Final report reviewed - FOLLOW UP Follow Up: He was asked to follow-up with her primary care provider as scheduled next week and to ask for a referral to gastroenterology or general surgery as well as physical therapy for pelvic floor dysfunction. - TIME SPENT Time Spent in Discharge (Minutes): 33"
--- NOTE | 2020-03-22 13:36 | ANESTHESIA POST OP EVALUATION ---
Anesthesia Post Eval - Post Anesthesia Eval Vitals: Last Vital Signs Temp 36.4 C L 03/22/20 10:16 Pulse 83 03/22/20 10:16 Resp 20 03/22/20 10:16 BP 154/83 H 03/22/20 10:16 Pulse Ox 99 03/22/20 10:16 CV Function Including HR & BP: positive: Stable Pain Control: positive: Satisfactory Nausea & Vomiting: positive: Negative Mental Status: positive: Baseline Respiratory Status: Airway Patent Hydration Status: Satisfactory (Returned to baseline) Anesthesia Complications: positive: None
[2020-03-23] MEDS ORDERED: SPIRONOLACTONE 25 MG TABLET PO SCH (09:00)
[2020-03-23] MEDS ORDERED: FUROSEMIDE 20 MG TABLET PO SCH (09:00)
[2020-03-23] MEDS ORDERED: COLCHICINE 0.6 MG TABLET PO SCH (09:00)
== END 2020-03-22 12:55 | disposition home or self-care (01) | DRG 389 ==
LOC: ED 19:52 → SUPCPDRO 19:52 → MS3 23:26 → OBSVTOIN 03-20 15:02
PROVIDERS: ADMIT Specialist; ATTEND Internal Medicine
PROC: 0DCN8ZZ Extirpation of Matter from Sigmoid Colon, Via Natural or Artificial Opening Endoscopic (ICD-10-PCS; principal; 2020-03-21)
PROC: 0DJD8ZZ Inspection of Lower Intestinal Tract, Via Natural or Artificial Opening Endoscopic (ICD-10-PCS; 2020-03-22)
DX: K56.699 Other intestinal obstruction unspecified as to partial versus complete obstruction (principal); N17.9 Acute kidney failure, unspecified; K62.6 Ulcer of anus and rectum; K56.41 Fecal impaction; E86.0 Dehydration; K63.89 Other specified diseases of intestine; N28.9 Disorder of kidney and ureter, unspecified; I10 Essential (primary) hypertension; E03.9 Hypothyroidism, unspecified; I73.9 Peripheral vascular disease, unspecified; F41.9 Anxiety disorder, unspecified; R41.3 Other amnesia; I65.29 Occlusion and stenosis of unspecified carotid artery; K21.9 Gastro-esophageal reflux disease without esophagitis; K64.8 Other hemorrhoids; G89.29 Other chronic pain; M51.26 Other intervertebral disc displacement, lumbar region; J30.9 Allergic rhinitis, unspecified; R32 Unspecified urinary incontinence; R27.8 Other lack of coordination; H40.9 Unspecified glaucoma; Z91.81 History of falling; Z79.82 Long term (current) use of aspirin; Z79.899 Other long term (current) drug therapy; Z86.718 Personal history of other venous thrombosis and embolism; Z95.828 Presence of other vascular implants and grafts; Z87.01 Personal history of pneumonia (recurrent); Z87.19 Personal history of other diseases of the digestive system; Z87.11 Personal history of peptic ulcer disease; Z87.891 Personal history of nicotine dependence; Z90.710 Acquired absence of both cervix and uterus; Z90.49 Acquired absence of other specified parts of digestive tract
CPT/HCPCS: 36415; 74018; 74177; 80048; 80053; 81001; 81599; 83690; 83735; 84100; 84443; 85025; 87086; 87493; 87798; 96374; 99285; A9270; G0378; J7120; Q9967; 81003; 87045; 87046

== ENCOUNTER 2020-04-22 10:35 | Inpatient (IN) | payer MEDICARE, OTHER ==
[2020-04-22 13:37] LABS: BASOPHILS % (AUTO) 0.3 %; EOSINOPHILS % (AUTO) 0.1 %; HGB - HEMOGLOBIN 13.7 g/dL (12.0-16.0); LYMPHOCYTES # (AUTO) 1.2 10^3/uL (1.5-3.5); LYMPHOCYTES % (AUTO) 10.6 %; MEAN CORPUSCULAR HEMOGLOBIN 31.2 pg (27.0-31.0); MEAN CORPUSCULAR HGB CONC 32.9 g/dL (32.0-36.0); MONOCYTES % (AUTO) 8.4 %; NEUTROPHILS % (AUTO) 79.4 %; PLT - PLATELET COUNT 238 10^3/uL (130-450); RED BLOOD COUNT 4.39 10^6/uL (4.20-5.40); RED CELL DISTRIBUTION WIDTH 15.7 % (12.0-15.0); WHITE BLOOD COUNT 11.3 x10^3/uL (4.8-10.8)
[2020-04-22 13:50] LABS: ALBUMIN 4.1 g/dL (3.2-5.5); ALBUMIN/GLOBULIN RATIO 1.2 (1.0-2.2); BILIRUBIN,TOTAL 1.1 mg/dL (0.2-1.0); CALCIUM 9.5 mg/dL (8.5-10.3); CREATININE 1.7 mg/dL (0.4-1.0); TOTAL PROTEIN 7.4 g/dL (6.7-8.2)
[2020-04-22] MEDS ORDERED: LOPERAMIDE 2 MG CAPSULE PO STA (14:23)
[2020-04-22] MEDS ORDERED: SODIUM CHLORIDE 0.9% 1,000 ML IV STA ×2 (14:23→16:49)
[2020-04-22] MEDS ORDERED: CHOLESTYRAMINE 4 GM PACKET PO STA (14:23)
--- NOTE | 2020-04-22 14:26 | ED Physician Documentation ---
PD HPI ABD PAIN - Stated complaint Stated Complaint: DIARRHEA - Chief complaint Chief Complaint: Abd Pain - History obtained from History obtained from: Patient, Family - Additional information Additional information: 80-year-old woman presents with 3 days of profuse diarrhea. Recently admitted for a bowel obstruction, she was admitted on 19 March and discharged on 22 March. She had a fecal impaction and it resolved after intervention by Dr. Norman with a colonoscopy. She has a remote history of ERCP inducing pancreatitis and peptic ulcer disease with a Billroth II procedure. She has peripheral vascular disease. On discharge here she was given MiraLAX. Over the last 3 days has had profuse diarrhea. Is worse every time she stands up and is incontinent of stool. She denies abdominal pain or fevers or nausea. No sick contacts. Review of Systems Ten Systems: 10 systems reviewed and negative Constitutional: reports: Fatigue. denies: Fever, Chills GI: reports: Diarrhea. denies: Abdominal Pain, Nausea, Vomiting PD PAST MEDICAL HISTORY - Past Medical History Cardiovascular: Hypertension, Peripheral Vascular Disease, Deep vein thrombosis Respiratory: None Neuro: None, Other (Noted that patient has difficulty answering questions, rambles. needs to interject. Has moments of confusion. 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: Other () : None, Renal insuffiency HEENT: Glaucoma Psych: None Musculoskeletal: Osteoarthritis, Chronic back pain Derm: None - Past Surgical History Past Surgical History: Yes General: Gastric surgery Ortho: Other /HAND ZIPPER TRIMMER: Hysterectomy Cardiovascular: Vascular surgery - Present Medications Home Medications: Ambulatory Orders Medication Instructions Recorded Confirmed Simvastatin [Zocor] 20 mg PO QPM 06/13/13 03/19/20 Alprazolam [Xanax] 0.5 mg PO Q6H PRN 11/04/13 03/19/20 Furosemide [Lasix] 20 mg PO DAILY 12/24/14 03/19/20 Spironolactone 50 mg PO DAILY 12/24/14 03/19/20 Ursodiol 300 mg PO BID 12/24/14 03/19/20 Colchicine [Colcrys] 0.6 mg PO DAILY 05/17/16 03/19/20 Lansoprazole [Prevacid] 30 mg PO DAILY PRN 04/24/18 03/19/20 Levothyroxine [Synthroid] 88 mcg PO QDAC 04/24/18 03/19/20 Aspirin Chewable [[place] David 81 mg PO DAILY tablet 04/26/18 03/19/20 Aspirin] Cyclobenzaprine [Flexeril] 10 mg PO TID PRN #20 tablet 02/14/19 03/19/20 polyethylene glycoL 3350 [Miralax] 17 gm PO DAILY #14 packet 03/22/20 - Allergies Allergies/Adverse Reactions: Allergies Allergy/AdvReac Type Severity Reaction Status Date / Time No Known Drug Allergies Allergy Verified 04/22/20 11:11 - Social History Does the pt smoke?: No Smoking Status: Former smoker (Quit 2005) Does the pt drink ETOH?: No Does the pt have substance abuse?: No - Immunizations Immunizations are current?: Yes - POLST Patient has POLST: No POLST Status: Full Code PD ED PE NORMAL - Vitals Vital signs reviewed: Yes - General General: Alert and oriented X 3, No acute distress - HEENT HEENT: PERRL, EOMI - Neck Neck: Supple, no meningeal sign, No bony TTP - Cardiac Cardiac: RRR, No murmur - Respiratory Respiratory: No respiratory distress, Clear bilaterally - Abdomen Abdomen: Normal bowel sounds, Soft, Non tender - Back Back: No CVA TTP, No spinal TTP - Derm Derm: Normal color, Warm and dry - Extremities Extremities: No edema, No calf tenderness / cord - Neuro Neuro: Alert and oriented X 3, Normal speech Results - Vitals Vitals: Vital Signs - 24 hr 04/22/20 04/22/20 11:03 15:00 Temperature 36.5 C Heart Rate 85 65 Respiratory 18 19 Rate Blood Pressure 104/59 L 113/82 H O2 Saturation 98 99 Oxygen O2 Source [With Activity] Room air O2 Source Room air - Labs Labs: Laboratory Tests 04/22/20 04/22/20 13:33 13:33 WBC 11.3 H RBC 4.39 Hgb 13.7 Hct 41.7 MCV 95.0 MCH 31.2 H MCHC 32.9 RDW 15.7 H Plt Count 238 MPV 11.0 H Neut # (Auto) 9.0 H Lymph # (Auto) 1.2 L Meriwether # (Auto) 1.0 Eos # (Auto) 0.0 Baso # (Auto) 0.0 Absolute Nucleated RBC 0.00 Nucleated RBC % 0.0 Sodium 133 L Potassium 3.7 Chloride 95 L Carbon Dioxide 22 Anion Gap 16.0 H BUN 50 H Creatinine 1.7 H Estimated GFR (MDRD) 29 L Glucose 118 H Calcium 9.5 Total Bilirubin 1.1 H AST 31 ALT 24 Alkaline Phosphatase 121 Total Protein 7.4 Albumin 4.1 Globulin 3.3 Albumin/Globulin Ratio 1.2 Lipase 15 L Procedures - General procedure General procedure: She was difficult for IV access, I could not see anything with the ultrasound in either arm. The previous IV had blown. I attempted a left EJ which blew promptly and a right 22 EJ was successful by me. PD MEDICAL DECISION MAKING - ED course ED course: 80-year-old woman presents with profuse diarrhea. It after taking MiraLAX so an infectious causes less likely. She does have evidence of acute kidney injury, her usual creatinine is right around 1 and today it is 1.7. Her usual BUN is normal and today it is 50. She has mild hyponatremia at 133. Her CBC is grossly unremarkable with a white count of 11.3. Nontender abdomen. Work-up here demonstrates acute kidney injury, her usual creatinine is about 1, today it is 1.7, her usual BUN is in the neighborhood of 10, today it is 50. As such I spoke with nurse walker Flores for observation for IV fluids and serial labs. She did not produce a stool sample while in the department. Departure - Departure Disposition: ED Place in Observation Clinical Impression: Dehydration, Acute kidney injury Diarrhea Qualifiers: Diarrhea type: presumed infectious Qualified Code(s): R19.7 - Diarrhea, unspecified Condition: Stable
[2020-04-22] MEDS ORDERED: SODIUM CHLORIDE FLUSH 0.9% 10 ML SYRINGE IVP PRN (16:51)
[2020-04-22] MEDS ORDERED: ONDANSETRON 4 MG/2 ML VIAL IVP PRN (16:51)
[2020-04-22] MEDS ORDERED: ACETAMINOPHEN 325 MG TABLET PO PRN (16:51)
[2020-04-22] MEDS ORDERED: ALPRAZolam 0.25 MG TABLET PO PRN (16:57)
--- NOTE | 2020-04-22 17:12 | HISTORY & PHYSICAL EXAMINATION ---
Chief Complaint - Chief Complaint Chief Complaint: diarrhea History of Present Illness - Admitted From Admitted From:: ER - History Obtained From Records Reviewed: [facility] History obtained from: pt Exam Limitations: No - History of Present Illness HPI Comment/Other: Ms. Jackson is a 80-year-old female with a past medical history significant for diarrhea recently admitted at 03/19/2020 in this hospital then with fecal im paction, peptic ulcer disease with perforated ulcer status post Billroth II procedure in 2005, hypertension, GERD, hypothyroidism, hyperlipidemia, seasonal allergies, chronic back pain secondary to herniated disks, peripheral arterial disease status post bypass in the right lower extremity and progressively worsening glaucoma, TIA with carotid stenosis, who presented to the emergency department complain of diarrhea. Pt reports she had 3 days of diarrhea and stool incontinence. She Denies nausea, vomiting or abdomen pain, fever, chill, chest pain, shortness of breath. Pt reports feeling dizzy and weak. she report she has no sick contacts, no recently travel.In routine laboratory tests show patient had creatinine 1.7, BUN 50, Slightly elevated WBC. In ER, patient is afebrile, hemodynamic stable now. Discussed care goal with patient, she requests full code History - Past Medical History Cardiovascular: reports: Hypertension, Peripheral Vascular Disease, Deep vein thrombosis Respiratory: reports: None Neuro: reports: None, Other (Noted that patient has difficulty answering questions, rambles. needs to interject. Has moments of confusion. states this is normal.) Endocrine/Autoimmune: reports: HyPOthyroidism GI: reports: GERD (Occasional), Ulcers, Diverticulitis, Cholelithiasis, Other HISTOPATHOLOGIST: reports: Other () : reports: None, Renal insuffiency HEENT: reports: Glaucoma Psych: reports: None Musculoskeletal: reports: Osteoarthritis, Chronic back pain Derm: reports: None MRSA Hx?: No - Past Surgical History General: reports: Gastric surgery Ortho: reports: Other /HISTOPATHOLOGIST: reports: Hysterectomy Cardiovascular: reports: Vascular surgery - Family & Social History Family History: Mother: , CVA/TIA, Father: , Cancer (Colon cancer), Sister: ID (Sister had ID at 53) Family History Comment/Other: Father of colon cancer. Mother had 3 strokes. Sister had an ID at the age of 53. Children are healthy Social History Notes: The patient is originally from [place]. She has been to her for 57 years. Her was in the [place] and that is what brought them to [place]. They have been living in [place] ever since. Patient has 3 children 2 sons and 1 daughter. 2 of her children live in [place]. 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 She is a former smoker smoked 1 pack a day for more than 40 years but quit in 2005. She denies any alcohol or illicit drug use. - Substance History Use: Uses substance without health or social issues: NONE - POLST Patient has POLST: No POLST Status: Full Code Meds/Allgy - Home Medications Home Medications: Ambulatory Orders Medication Instructions Recorded Confirmed Simvastatin [Zocor] 20 mg PO QPM 06/13/13 03/19/20 Alprazolam [Xanax] 0.5 mg PO Q6H PRN 11/04/13 03/19/20 Furosemide [Lasix] 20 mg PO DAILY 12/24/14 03/19/20 Spironolactone 50 mg PO DAILY 12/24/14 03/19/20 Ursodiol 300 mg PO BID 12/24/14 03/19/20 Colchicine [Colcrys] 0.6 mg PO DAILY 05/17/16 03/19/20 Lansoprazole [Prevacid] 30 mg PO DAILY PRN 04/24/18 03/19/20 Levothyroxine [Synthroid] 88 mcg PO QDAC 04/24/18 03/19/20 Aspirin Chewable [[facility] [place] 81 mg PO DAILY tablet 04/26/18 03/19/20 Aspirin] Cyclobenzaprine [Flexeril] 10 mg PO TID PRN #20 tablet 02/14/19 03/19/20 polyethylene glycoL 3350 [Miralax] 17 gm PO DAILY #14 packet 03/22/20 - Allergies Allergies/Adverse Reactions: Allergies Allergy/AdvReac Type Severity Reaction Status Date / Time No Known Drug Allergies Allergy Verified 04/22/20 11:11 Review of Systems - Constitutional Constitutional: denies: Fever, Chills, Weakness, Poor appetite, Diaphoresis - Eyes Eyes: denies: Pain, Blurred vision, Field loss, Vision loss - Ears, Nose & Throat Ears, Nose & Throat: denies: Ear pain, Nasal discharge, Nosebleeds, Nasal congestion, Bleeding gums - Cardiovascular Cariovascular: denies: Irregular heart rate, Palpitations, Chest pain, Edema, Lightheadedness, Syncope, Exertional dyspnea, Decr. exercise tolerance - Respiratory Respiratory: denies: Cough, Sputum production, Wheezing, Hemoptysis, Orthopnea, SOB at rest, SOB with exertion - Gastrointestinal Gastrointestinal: reports: Diarrhea. denies: Abdominal pain, Abdominal distention, Constipation, Change in bowel habits, Rectal bleeding, Black stools, Bloody stools, Nausea, Vomiting, Coffee grounds emesis - Genitourinary Genitourinary: denies: Dysuria, Hematuria, Incontinence - Musculoskeletal Musculoskeletal: denies: Muscle pain, Muscle aches, Joint pain - Integumentary Integumentary: denies: Rash, Lesions, Lumps - Neurological Neurological: denies: Focal weakness, Headache, Dizziness, Numbness, Memory problems, Pre-existing deficit, Abnormal gait, Seizures, Incoordination, Slurred speech - Psychiatric Psychiatric: denies: Suicidal, Delusions, Hallucinations - Endocrine Endocrine: denies: Polyuria, Polyphagia - Hematologic/Lymphatic Hematologic/Lymphatic: denies: Anemia, Petechiae, Lymphadenopathy Exam - Vital Signs Vital Signs: Vital Signs x48h Temp Pulse Resp BP Pulse Ox 04/22/20 17:00 83 18 93/70 99 04/22/20 15:00 65 19 113/82 H 99 04/22/20 11:03 36.5 C 85 18 104/59 L 98 - Physical Exam General Appearance: positive: No acute distress, Alert. negative: Lethargic Eyes Bilateral: positive: Normal inspection, PERRL, No lid inflammation ENT: positive: ENT inspection nml, Dry mucous membranes. negative: Purulent nasal drainage Neck: positive: Nml inspection, Thyroid nml, Trachea midline. negative: Thyromegaly, Tracheal deviation Respiratory: positive: Chest non-tender, No respiratory distress, Breath sounds nml. negative: Wheezes, Rales, Rhonchi Cardiovascular: positive: Regular rate & rhythm, No murmur. negative: Tachyc ardia, Systolic murmur, Diastolic murmur Peripheral Pulses: positive: 2+ Abdomen: positive: Non-tender, Nml bowel sounds, No distention. negative: Te nderness, Guarding, Rebound Back: positive: Nml inspection Skin: positive: Color nml, No rash, Warm, Dry. negative: Cyanosis, Diaphoresis, Pallor Extremities: positive: Non-tender, Nml appearance. negative: Calf tenderness Neurologic/Psychiatric: positive: Oriented x3, Motor nml, Sensation nml. n egative: Weakness, Sensory loss, Facial droop, Slurred/abnml speech, Depressed mood/affect Conclusion/Plan - Problem List (1) Diarrhea Conclusion/Plan: Patient has a history of diarrhea admitted recently, Patient reported she had a 3 days diarrhea, she denied recently travel, she denied abdominal pain, denied nausea or vomiting. 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 (2) SALONI (acute kidney injury) Conclusion/Plan: Patient has a creatinine 1.7, BUN 50 today. Patient had base line creatinine 1.0.It is likely caused by patient dehydration from patient diarrhea. We will give the patient intravenous IV fluids, we will continue daily veterinary laboratory technician (3) HTN (hypertension) Conclusion/Plan: Patient's blood pressure is slightly low, will hold home blood pressure medicine, continue intravenous IV fluids, continue vital signs monitor (4) Hypothyroidism Conclusion/Plan: we will check TSH, we will continue patient home Synthroid (5) Anxiety Conclusion/Plan: Patient has history anxiety, we will resume home Xanax as needed - Lab Results Fish Bones: 04/22/20 13:33 04/22/20 13:33 Core Measures - Anticipated LOS I expect patient to be DC'd or transferred within 96 hours.: Yes - DVT/VTE - Prophylaxis VTE/DVT Device ordered at admit?: Yes VTE/DVT Prophylaxis med ordered at admit?: Yes
[2020-04-22] MEDS: SODIUM CHLORIDE 0.9% 1,000 ML IV SCH ×2 (18:06→22:44)
[2020-04-22] MEDS: SODIUM CHLORIDE FLUSH 0.9% 10 ML SYRINGE IVP SCH (18:07)
[2020-04-22] MEDS: HEPARIN 5,000 UNIT/ML VIAL SUBQ SCH (20:21)
[2020-04-22] MEDS: FAMOTIDINE 20 MG TABLET PO SCH (20:22)
[2020-04-23] MEDS: SODIUM CHLORIDE FLUSH 0.9% 10 ML SYRINGE IVP SCH ×3 (04:09→15:43)
[2020-04-23 05:13] LABS: BASOPHILS % (AUTO) 0.3 %; EOSINOPHILS % (AUTO) 0.1 %; HGB - HEMOGLOBIN 11.9 g/dL (12.0-16.0); LYMPHOCYTES # (AUTO) 1.2 10^3/uL (1.5-3.5); LYMPHOCYTES % (AUTO) 12.9 %; MEAN CORPUSCULAR HEMOGLOBIN 30.7 pg (27.0-31.0); MEAN CORPUSCULAR HGB CONC 32.5 g/dL (32.0-36.0); MEAN CORPUSCULAR VOLUME 94.6 fL (81.0-99.0); MEAN PLATELET VOLUME 11.5 fL (7.9-10.8); MONOCYTES # (AUTO) 1.3 10^3/uL (0.0-1.0); MONOCYTES % (AUTO) 13.9 %; NEUTROPHILS # (AUTO) 6.5 10^3/uL (1.5-6.6); NEUTROPHILS % (AUTO) 71.9 %; PLT - PLATELET COUNT 200 10^3/uL (130-450); RED BLOOD COUNT 3.87 10^6/uL (4.20-5.40); RED CELL DISTRIBUTION WIDTH 15.6 % (12.0-15.0)
[2020-04-23 05:23] LABS: CALCIUM 8.1 mg/dL (8.5-10.3); CREATININE 1.3 mg/dL (0.4-1.0); MAGNESIUM 1.8 mg/dL (1.7-2.8); PHOSPHORUS 3.4 mg/dL (2.5-4.6)
[2020-04-23] MEDS ORDERED: POTASSIUM CHLORIDE 20 MEQ TABLET PO ONE (07:51)
[2020-04-23] MEDS ORDERED: POTASSIUM CHLORIDE 20 MEQ TABLET PO SCH (09:00)
[2020-04-23] MEDS: POTASSIUM CHLOR 10 MEQ/100 ML 10 MEQ/100 ML BAG IV SCH ×4 (09:21→14:07)
[2020-04-23] MEDS: LOPERAMIDE 2 MG CAPSULE PO PRN (09:22)
[2020-04-23] MEDS: FAMOTIDINE 20 MG TABLET PO SCH (09:22)
[2020-04-23] MEDS: HEPARIN 5,000 UNIT/ML VIAL SUBQ SCH ×2 (09:23→21:08)
--- NOTE | 2020-04-23 10:37 | PHARMACY PROGRESS NOTE ---
- Best Possible Medication History Admit Date and Time: 04/22/20 1657 Processed by: Pharmacy Medication History completed: Yes Patient Interview: Completed Secondary Source(s): Caregiver (PATIENT INTERVIEWED BY PHARMACY. PATIENT'S PRESENT AND ABLE TO CONFIRM HOME MEDICATIONS ), Physician records, Pharmacy records, Insurance records As the person ultimately responsible for medication therapy, providers are able to order a medication from an existing home medication list in [facility] via the "Reconcile Routine" prior to Confirmation of that medication by product support representative. Such practice is discouraged except when the physician, in their clinical judgment, deems that a medical need exists for a medication without regard to previous use.
[2020-04-23] MEDS ORDERED: GI COCKTAIL 120 ML BOTTLE PO PRN (13:56)
[2020-04-23] MEDS ORDERED: ALPRAZolam 0.25 MG TABLET PO PRN (13:59)
[2020-04-23] MEDS ORDERED: SODIUM CHLORIDE 0.9% 1,000 ML IV SCH (14:00)
[2020-04-23] MEDS ORDERED: PANTOPRAZOLE 40 MG TABLET PO SCH (14:00)
[2020-04-23] MEDS ORDERED: LACTATED RINGERS 1,000 ML IV SCH ×2 (14:00→18:00)
--- NOTE | 2020-04-23 14:35 | PROVIDER PROGRESS NOTE ---
Subjective - Prog Note Date Prog Note Date: 04/23/20 - Subjective Pt reports feeling: Improved Subjective: pt report she feel some food stick in her neck and feel discomfort when she swallow. nurse report she had cough with lots of mucus. But pt talk with me without respiratory distress, without cough. pt had 96% sat on room air. she denies chest pain, fever, chill, shortness of breath. pt's report pt had hx of dysphagia and easy sticky to food, and once pt was admitted in [place] to have EGD to remove the food. Current Medications - Current Medications Current Medications: Active Medications Acetaminophen (Tylenol) 650 mg PO Q4HR PRN PRN Reason: Pain 1 to 4 Aspirin ([facility] Aspirin) 81 mg PO DAILY [facility] Heparin Sodium (Porcine) () 5,000 unit SUBQ BID [facility] Last Admin: 04/23/20 09:23 Dose: 5,000 unit Documented by: Potassium Chloride/Dextrose/Sod Cl (D5.45ns W/20 Meq Kcl) 1,000 mls @ 100 mls/hr IV .Q10H [facility] Loperamide HCl (Imodium) 2 mg PO QID PRN PRN Reason: Diarrhea Last Admin: 04/23/20 09:22 Dose: 2 mg Documented by: Lorazepam (Ativan Inj (Vial)) 0.5 mg IVP Q6H PRN PRN Reason: Anxiety Multi-Ingredient Mouthwash/Gargle () 30 ml PO Q4H PRN PRN Reason: Abdominal Pain Multivitamins (Theragran) 1 tab PO DAILYWM [facility] Ondansetron HCl (Zofran Inj) 4 mg IVP Q6HR PRN PRN Reason: Nausea / Vomiting Pantoprazole Sodium (Protonix) 40 mg IVP QDAC [facility] Sodium Chloride (Normal Saline Flush 0.9%) 10 ml IVP PRN PRN PRN Reason: NEEDED PER PROVIDER ORDERS Sodium Chloride (Normal Saline Flush 0.9%) 10 ml IVP 0100,0900,1700 [facility] Last Admin: 04/23/20 09:22 Dose: 10 ml Documented by: Simvastatin [Zocor] 20 mg PO QPM 06/13/13 Alprazolam [Xanax] 0.5 mg PO Q6H PRN 11/04/13 Furosemide [Lasix] 40 mg PO BID 12/24/14 Ursodiol 300 mg PO BID 12/24/14 Colchicine [Colcrys] 0.6 mg PO DAILY 05/17/16 Levothyroxine [Synthroid] 88 mcg PO QDAC 04/24/18 Multivitamin [Multivitamins] 1 cap PO DAILY 04/23/20 Omeprazole Magnesium 20 mg PO BID 04/23/20 Spironolactone [Aldactone] 25 mg PO DAILY 04/23/20 polyethylene glycoL 3350 [Miralax] 17 gm PO PRN PRN 04/23/20 Objective - Vital Signs/Intake & Output Vital Signs: Vital Signs x48h Temp Pulse Resp BP Pulse Ox 04/23/20 12:30 36.5 C 73 20 96/74 96 04/23/20 08:21 36.6 C 84 18 122/51 L 100 Intake & Output: Intake & Output 04/20/20 04/21/20 04/22/20 04/23/20 23:59 23:59 23:59 23:59 Intake Total 6248.852 2522 Output Total 450 2200 Balance 799.667 -680 - Objective General Appearance: positive: No acute distress, Alert. negative: Lethargic Eyes Bilateral: positive: Normal inspection, PERRL, No lid inflammation ENT: positive: ENT inspection nml, Pharynx nml, No signs of dehydration. negative: Purulent nasal drainage, Pharyngeal erythema, Oral lesions Neck: positive: Nml inspection, Thyroid nml, Trachea midline. negative: Thyromegaly, Lymphadenopathy (R), Lymphadenopathy (L), Stiff neck, Tracheal phil ation Respiratory: positive: Chest non-tender, No respiratory distress, Breath sounds nml. negative: Wheezes, Rales, Rhonchi Cardiovascular: positive: Regular rate & rhythm, No murmur. negative: Tachycardia, Systolic murmur, Diastolic murmur Peripheral Pulses: 2+ Radial (R), 2+ Radial (L) Abdomen: positive: Non-tender, Nml bowel sounds, No distention. negative: Tenderness, Guarding, Rebound Back: positive: Nml inspection Skin: positive: Color nml, No rash, Warm, Dry. negative: Cyanosis, Diaphoresis, Pallor Extremities: positive: Non-tender, Nml appearance. negative: Calf tenderness Neurologic/Psychiatric: positive: Motor nml, Sensation nml. negative: Weakness, Sensory loss, Facial droop, Slurred/abnml speech, Depressed mood/affect - Lab Results Fish Bones: 04/23/20 04:59 04/23/20 04:59 Other Labs: Lab Results x24hrs 04/23/20 04/23/20 04/23/20 Range/Units 04:59 04:59 04:59 WBC 9.0 (4.8-10.8) x10^3/uL RBC 3.87 L (4.20-5.40) 10^6/uL Hgb 11.9 L (12.0-16.0) g/dL Hct 36.6 L (37.0-47.0) % MCV 94.6 (81.0-99.0) fL MCH 30.7 (27.0-31.0) pg MCHC 32.5 (32.0-36.0) g/dL RDW 15.6 H (12.0-15.0) % Plt Count 200 (130-450) 10^3/uL MPV 11.5 H (7.9-10.8) fL Neut # (Auto) 6.5 (1.5-6.6) 10^3/uL Lymph # (Auto) 1.2 L (1.5-3.5) 10^3/uL [place] # (Auto) 1.3 H (0.0-1.0) 10^3/uL Eos # (Auto) 0.0 (0.0-0.7) 10^3/uL Baso # (Auto) 0.0 (0.0-0.1) 10^3/uL Absolute Nucleated RBC 0.00 x10^3/uL Nucleated RBC % 0.0 /100WBC Sodium 134 L (135-145) mmol/L Potassium 3.2 L (3.5-5.0) mmol/L Chloride 103 (101-111) mmol/L Carbon Dioxide 20 L (21-32) mmol/L Anion Gap 11.0 (6-13) BUN 42 H (6-20) mg/dL Creatinine 1.3 H (0.4-1.0) mg/dL Estimated GFR (MDRD) 40 L (>89) Glucose 89 (70-100) mg/dL Calcium 8.1 L (8.5-10.3) mg/dL Phosphorus 3.4 (2.5-4.6) mg/dL Magnesium 1.8 (1.7-2.8) mg/dL TSH 2.74 (0.34-5.60) uIU/mL Stl C. diff Tox B Gene (NEGATIVE) SARS-CoV-2 (PCR) 04/22/20 04/22/20 Range/Units 20:00 18:40 WBC (4.8-10.8) x10^3/uL RBC (4.20-5.40) 10^6/uL Hgb (12.0-16.0) g/dL Hct (37.0-47.0) % MCV (81.0-99.0) fL MCH (27.0-31.0) pg MCHC (32.0-36.0) g/dL RDW (12.0-15.0) % Plt Count (130-450) 10^3/uL MPV (7.9-10.8) fL Neut # (Auto) (1.5-6.6) 10^3/uL Lymph # (Auto) (1.5-3.5) 10^3/uL [place] # (Auto) (0.0-1.0) 10^3/uL Eos # (Auto) (0.0-0.7) 10^3/uL Baso # (Auto) (0.0-0.1) 10^3/uL Absolute Nucleated RBC x10^3/uL Nucleated RBC % /100WBC Sodium (135-145) mmol/L Potassium (3.5-5.0) mmol/L Chloride (101-111) mmol/L Carbon Dioxide (21-32) mmol/L Anion Gap (6-13) BUN (6-20) mg/dL Creatinine (0.4-1.0) mg/dL Estimated GFR (MDRD) (>89) Glucose (70-100) mg/dL Calcium (8.5-10.3) mg/dL Phosphorus (2.5-4.6) mg/dL Magnesium (1.7-2.8) mg/dL TSH (0.34-5.60) uIU/mL Stl C. diff Tox B Gene NEGATIVE (NEGATIVE) SARS-CoV-2 (PCR) NOT DETECTED ABX Reporting Has patient been on IV antibiotics over the past 48 hours?: No Sepsis Event Note (H) - Evaluation Current Stage of Sepsis: Ruled out Assessment/Plan - Problem List (1) Diarrhea Impression: 04/23 pt had hx of diarrhea. Patient still has acute watery diarrhea on today, patient had 3 diarrhea on last night. C.diff test is negative. pt's report pt has hx of diarrhea, on ad off status. 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 pt has no respiratory distress. There is no cough when I assessed pt. pt's report pt has similar medical problem before and need EGD/scopy to remove the stick food. consult with GI surgeon, plan to EGD on tomorrow. consult ST CXR, aspiration precaution. (3) SALONI (acute kidney injury) Conclusion/Plan: 04/23 improved. Continue intravenous IV fluids, continue laboratory apparatus glass blower Patient has a creatinine 1.7, BUN 50 today. Patient had base line creatinine 1.0.It is likely caused by patient dehydration from patient diarrhea. 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
[2020-04-23] MEDS ORDERED: D5.45NS W/20 MEQ KCL 1,000 ML IV SCH (15:00)
[2020-04-23] MEDS ORDERED: PANTOPRAZOLE 40 MG VIAL IVP SCH (15:00)
[2020-04-23] MEDS: D5.45NS W/20 MEQ KCL 1,000 ML IV SCH (15:42)
--- NOTE | 2020-04-23 15:46 | XRAY Report ---
PROCEDURE: Chest 1 View X-Ray INDICATIONS: cough, aspiration TECHNIQUE: One view of the chest was acquired. COMPARISON: Chest x-ray 05/02/2018 FINDINGS: Surgical changes and devices: None. Lungs and pleura: No consolidations. Trace blunting of the costophrenic angles bilaterally are noted. Mediastinum: Mediastinal contours appear normal. Heart size is normal. Bones and chest wall: No suspicious bony lesions. Overlying soft tissues appear unremarkable. IMPRESSION: Trace blunting the costophrenic angle suggestive of scarring versus trace effusions. Reviewed by: Xochitl Laguerre MD on 04/23/2020 3:44 PM PST Approved by: Xcohitl Laguerre MD on 04/23/2020 3:44 PM [facility] Station ID: [id number]
--- NOTE | 2020-04-23 16:18 | ANESTHESIA ---
Pre-Anesthesia VS, & Labs - Diagnosis Food impaction, dysphagia - Procedure EGD Vital Signs: Temp Pulse Resp BP Pulse Ox 36.5 C 74 20 140/53 H 96 04/23/20 16:12 04/23/20 16:12 04/23/20 16:12 04/23/20 16:12 04/23/20 16:12 Height: 5 ft Weight (kg): 52.163 kg Body Mass Index: 22.4 BMI Classification: Healthy weight - NPO Last Food Intake: 1200 - Is Patient ?: No - Lab Results Current Lab Results: Laboratory Tests 04/23/20 04:59: Sodium 134 L, Potassium 3.2 L, Chloride 103, Carbon Dioxide 20 L , Anion Gap 11.0, BUN 42 H, Creatinine 1.3 H, Estimated GFR (MDRD) 40 L, Glucose 89, Calcium 8.1 L, Phosphorus 3.4, Magnesium 1.8 04/23/20 04:59: WBC 9.0, RBC 3.87 L, Hgb 11.9 L, Hct 36.6 L, MCV 94.6, MCH 30.7, MCHC 32.5, RDW 15.6 H, Plt Count 200, MPV 11.5 H, Neut # (Auto) 6.5, Lymph # (Auto) 1.2 L, [place] # (Auto) 1.3 H, Eos # (Auto) 0.0, Baso # (Auto) 0.0, Absolute Nucleated RBC 0.00, Nucleated RBC % 0.0 04/23/20 04:59: TSH 2.74 04/22/20 13:33: Sodium 133 L, Potassium 3.7, Chloride 95 L, Carbon Dioxide 22, Anion Gap 16.0 H, BUN 50 H, Creatinine 1.7 H, Estimated GFR (MDRD) 29 L, Glucose 118 H, Calcium 9.5, Total Bilirubin 1.1 H, AST 31, ALT 24, Alkaline Phosphatase 121, Total Protein 7.4, Albumin 4.1, Globulin 3.3, Albumin/Globulin Ratio 1.2, Lipase 15 L 04/22/20 13:33: WBC 11.3 H, RBC 4.39, Hgb 13.7, Hct 41.7, MCV 95.0, MCH 31.2 H, MCHC 32.9, RDW 15.7 H, Plt Count 238, MPV 11.0 H, Neut # (Auto) 9.0 H, Lymph # (Auto) 1.2 L, [place] # (Auto) 1.0, Eos # (Auto) 0.0, Baso # (Auto) 0.0, Absolute Nucleated RBC 0.00, Nucleated RBC % 0.0 Fish Bones: 04/23/20 04:59 04/23/20 04:59 Home Medications and Allergies Home Medications: Ambulatory Orders Multivitamin [Multivitamins] 1 cap PO DAILY 04/23/20 Omeprazole Magnesium 20 mg PO BID 04/23/20 Spironolactone [Aldactone] 25 mg PO DAILY 04/23/20 polyethylene glycoL 3350 [Miralax] 17 gm PO PRN PRN 04/23/20 Active Medications Acetaminophen (Tylenol) 650 mg PO Q4HR PRN PRN Reason: Pain 1 to 4 Aspirin ([facility] Aspirin) 81 mg PO DAILY [facility] Famotidine (Pepcid) 20 mg IVP BID [facility] Heparin Sodium (Porcine) () 5,000 unit SUBQ BID [facility] Last Admin: 04/23/20 09:23 Dose: 5,000 unit Documented by: Potassium Chloride/Dextrose/Sod Cl (D5.45ns W/20 Meq Kcl) 1,000 mls @ 125 mls/hr IV .Q8H [facility] Last Admin: 04/23/20 15:42 Dose: 125 mls/hr Documented by: Loperamide HCl (Imodium) 2 mg PO QID PRN PRN Reason: Diarrhea Last Admin: 04/23/20 09:22 Dose: 2 mg Documented by: Lorazepam (Ativan Inj (Vial)) 0.5 mg IVP Q6H PRN PRN Reason: Anxiety Multi-Ingredient Mouthwash/Gargle () 30 ml PO Q4H PRN PRN Reason: Abdominal Pain Multivitamins (Theragran) 1 tab PO DAILYWM [facility] Ondansetron HCl (Zofran Inj) 4 mg IVP Q6HR PRN PRN Reason: Nausea / Vomiting Sodium Chloride (Normal Saline Flush 0.9%) 10 ml IVP PRN PRN PRN Reason: NEEDED PER PROVIDER ORDERS Sodium Chloride (Normal Saline Flush 0.9%) 10 ml IVP 0100,0900,1700 [facility] Last Admin: 04/23/20 15:43 Dose: Not Given Documented by: Simvastatin [Zocor] 20 mg PO QPM 06/13/13 Alprazolam [Xanax] 0.5 mg PO Q6H PRN 11/04/13 Furosemide [Lasix] 40 mg PO BID 12/24/14 Ursodiol 300 mg PO BID 12/24/14 Colchicine [Colcrys] 0.6 mg PO DAILY 05/17/16 Levothyroxine [Synthroid] 88 mcg PO QDAC 04/24/18 Multivitamin [Multivitamins] 1 cap PO DAILY 04/23/20 Omeprazole Magnesium 20 mg PO BID 04/23/20 Spironolactone [Aldactone] 25 mg PO DAILY 04/23/20 polyethylene glycoL 3350 [Miralax] 17 gm PO PRN PRN 04/23/20 Allergies/Adverse Reactions: Allergies Allergy/AdvReac Type Severity Reaction Status Date / Time No Known Drug Allergies Allergy Verified 04/22/20 11:11 Anes History & Medical History - Anesthetic History Anesthesia Complications: reports: No previous complications - Medical History Cardiovascular: reports: Hypertension, Peripheral Vascular Disease, Deep vein thrombosis Pulmonary: reports: None Gastrointestinal: reports: GERD (Occasional), Ulcers, Diverticulitis, Cholelithiasis, Other Urinary: reports: Renal insuffiency Neuro: reports: None, Other (Noted that patient has difficulty answering questions, rambles. needs to interject. Has moments of confusion. states this is normal.) Musculoskeletal: reports: Osteoarthritis, Chronic back pain Endocrine/Autoimmune: reports: HyPOthyroidism Blood Disorders: reports: None Skin: reports: None Smoking Status: Former smoker Psychosocial: reports: No issues indicated History of Cancer?: No - Surgical History General: Gastric surgery Cardiothoracic: Vascular surgery Gynecologic: Hysterectomy Orthopedic: Other Exam General: Alert, Oriented x3, Mild distress Dental: WNL Mouth Openin Fingerbreadth Neck Mobility: Normal Mallampati classification: III Thyromental Distance: 4-6 cm Mental/Cognitive Status: Alert/Oriented X3 Plan Anesthesia Type: General Consent for Procedure(s) Verified and Reviewed: Yes Code Status: Attempt Resuscitation ASA classification: 3-Severe systemic disease Is this case an emergency?: Yes
--- NOTE | 2020-04-23 16:27 | CONSULTATION NOTE ---
Referring Provider Name of Referring Provider:: Constance Flores Consult Date: 04/23/20 Chief Complaint - Chief Complaint Chief Complaint: Food stuck in throat History of Present Illness - Admitted From Admitted From:: ED - History Obtained From Records Reviewed: Provider's notes History obtained from: Provider and Patient's spouse Exam Limitations: Patient's mental status - History of Present Illness HPI Comment/Other: Rosario is an unfortunate 80-year-old lady who was admitted to the medicine service with dehydration after several days of diarrhea.Her tells me that she has a history of things getting stuck in her throat. On 3 separate occasions she has been taken to the hospital for EGDs because something was stuck in her throat.The most recent was a trip to [facility]. He reports that by the time they got there she had either coughed it up or pushed it down, he is not sure.There has been at least one episode at [facility] in which the foreign body was pushed into the stomach Esophageal dilation performed.She reports that she is feeling better since admission. She adds that she is feeling very very anxious currently. She tells me that she is not able to swallow her own saliva. She has an emesis bag beside her and she is chewing gum. History - Past Medical History Cardiovascular: reports: Hypertension, Peripheral Vascular Disease, Deep vein thrombosis Respiratory: reports: None Neuro: reports: None, Other (Noted that patient has difficulty answering questions, rambles. needs to interject. Has moments of confusion. 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 Mother had 3 strokes. Sister had an UT at the age of 53. Children are healthy Social History Notes: The patient is originally from [place]. She has been to her for 57 years. Her was in the [place] and that is what brought them to [place]. They have been living in [place] ever since. Patient has 3 children 2 sons and 1 daughter. 2 of her children live in [place]. 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 She is a former smoker smoked 1 pack a day for more than 40 years but quit in 2005. She denies any alcohol or illicit drug use. - Substance History Use: Uses substance without health or social issues: NONE - POLST Patient has POLST: No POLST Status: Full Code Meds/Allgy - Home Medications Home Medications: Ambulatory Orders Medication Instructions Recorded Confirmed Simvastatin [Zocor] 20 mg PO QPM 06/13/13 04/23/20 Alprazolam [Xanax] 0.5 mg PO Q6H PRN 11/04/13 04/23/20 Furosemide [Lasix] 40 mg PO BID 12/24/14 04/23/20 Ursodiol 300 mg PO BID 12/24/14 04/23/20 Colchicine [Colcrys] 0.6 mg PO DAILY 05/17/16 04/23/20 Levothyroxine [Synthroid] 88 mcg PO QDAC 04/24/18 04/23/20 Aspirin Chewable [[facility] 81 mg PO DAILY tablet 04/26/18 04/23/20 Aspirin] Cyclobenzaprine [Flexeril] 10 mg PO TID PRN #20 tablet 02/14/19 04/23/20 Multivitamin [Multivitamins] 1 cap PO DAILY 04/23/20 04/23/20 Omeprazole Magnesium 20 mg PO BID 04/23/20 04/23/20 Spironolactone [Aldactone] 25 mg PO DAILY 04/23/20 04/23/20 polyethylene glycoL 3350 [Miralax] 17 gm PO PRN PRN 04/23/20 04/23/20 - Allergies Allergies/Adverse Reactions: Allergies Allergy/AdvReac Type Severity Reaction Status Date / Time No Known Drug Allergies Allergy Verified 04/22/20 11:11 Review of Systems - Other Findings Other Findings: See history of present illness Exam - Vital Signs Reviewed Vital Signs: Yes Vital Signs: Vital Signs x48h Temp Pulse Pulse Resp BP Pulse Ox 04/23/20 16:12 36.5 C 74 20 140/53 H 96 04/23/20 12:30 36.5 C 73 20 96/74 96 - Physical Exam General Appearance: positive: No acute distress, Alert Eyes Bilateral: positive: Normal inspection, PERRL ENT: positive: ENT inspection nml Neck: positive: Nml inspection, Thyroid nml Respiratory: positive: Chest non-tender, No respiratory distress Cardiovascular: positive: Regular rate & rhythm, No murmur Peripheral Pulses: positive: 2+ Abdomen: positive: Non-tender, Nml bowel sounds, No distention Back: positive: Nml inspection Extremities: positive: Non-tender Conclusion and Plan - Lab Results Laboratory Results 04/23/20 04:59: Sodium 134 L, Potassium 3.2 L, Chloride 103, Carbon Dioxide 20 L, Anion Gap 11.0, BUN 42 H, Creatinine 1.3 H, Estimated GFR (MDRD) 40 L, Glucose 89, Calcium 8.1 L, Phosphorus 3.4, Magnesium 1.8 04/23/20 04:59: WBC 9.0, RBC 3.87 L, Hgb 11.9 L, Hct 36.6 L, MCV 94.6, MCH 30.7, MCHC 32.5, RDW 15.6 H, Plt Count 200, MPV 11.5 H, Neut # (Auto) 6.5, Lymph # (Auto) 1.2 L, [place] # (Auto) 1.3 H, Eos # (Auto) 0.0, Baso # (Auto) 0.0, Absolute Nucleated RBC 0.00, Nucleated RBC % 0.0 04/23/20 04:59: TSH 2.74 04/22/20 20:00: SARS-CoV-2 (PCR) NOT DETECTED 04/22/20 18:40: Stl C. diff Tox B Gene NEGATIVE 04/22/20 13:33: Sodium 133 L, Potassium 3.7, Chloride 95 L, Carbon Dioxide 22, Anion Gap 16.0 H, BUN 50 H, Creatinine 1.7 H, Estimated GFR (MDRD) 29 L, Glucose 118 H, Calcium 9.5, Total Bilirubin 1.1 H, AST 31, ALT 24, Alkaline Phosphatase 121, Total Protein 7.4, Albumin 4.1, Globulin 3.3, Albumin/Globulin Ratio 1.2, Lipase 15 L 04/22/20 13:33: WBC 11.3 H, RBC 4.39, Hgb 13.7, Hct 41.7, MCV 95.0, MCH 31.2 H, MCHC 32.9, RDW 15.7 H, Plt Count 238, MPV 11.0 H, Neut # (Auto) 9.0 H, Lymph # (Auto) 1.2 L, [place] # (Auto) 1.0, Eos # (Auto) 0.0, Baso # (Auto) 0.0, Absolute Nucleated RBC 0.00, Nucleated RBC % 0.0 - Diagnosis Diagnosis: Retained food or foreign body within the esophagus - Plan Plan: I have recommended esophagogastroduodenoscopy with indicated procedures. The patient and her have both expressed an understanding of the risks and benefits and a desire to complete the procedure this evening.
[2020-04-23] MEDS ORDERED: LACTATED RINGERS 1,000 ML IV ONE (17:02)
[2020-04-23] MEDS ORDERED: NALOXONE 0.4 MG/ML VIAL IVP PRN (17:13)
[2020-04-23] MEDS ORDERED: ONDANSETRON 4 MG/2 ML VIAL IVP PRN (17:13)
[2020-04-23] MEDS ORDERED: MORPHINE 2 MG/ML CARPUJECT IVP PRN (17:13)
[2020-04-23] MEDS ORDERED: fentaNYL 100 MCG/2 ML VIAL IVP PRN (17:13)
[2020-04-23] MEDS ORDERED: HYDROmorphone 0.5 MG/0.5 ML SYRINGE IVP PRN (17:13)
[2020-04-23] MEDS ORDERED: ATROPINE ABBOJECT 1 MG/10 ML SYRINGE IVP PRN (17:13)
--- NOTE | 2020-04-23 17:13 | ANESTHESIA POST OP EVALUATION ---
Anesthesia Post Eval - Post Anesthesia Eval Vitals: Last Vital Signs Temp 36.2 C L 04/23/20 17:05 Pulse 84 04/23/20 17:05 Resp 16 04/23/20 17:05 BP 96/79 04/23/20 17:05 Pulse Ox 94 04/23/20 17:05 CV Function Including HR & BP: positive: Stable Pain Control: positive: Satisfactory Nausea & Vomiting: positive: Negative Mental Status: positive: Baseline Respiratory Status: Airway Patent Hydration Status: Satisfactory Anesthesia Complications: positive: None
[2020-04-23] MEDS: LORazepam 2 MG/ML VIAL IVP PRN (19:12)
[2020-04-23] MEDS: FAMOTIDINE 20 MG/2 ML SYRINGE IVP SCH (21:08)
[2020-04-23] MEDS ORDERED: DEXTROSE GEL 37.5 GM TUBE PO ONE (21:44)
[2020-04-24] MEDS: D5.45NS W/20 MEQ KCL 1,000 ML IV SCH (00:16)
[2020-04-24] MEDS: SODIUM CHLORIDE FLUSH 0.9% 10 ML SYRINGE IVP SCH ×4 (00:16→23:44)
[2020-04-24] MEDS: LORazepam 2 MG/ML VIAL IVP PRN (01:31)
[2020-04-24 05:26] LABS: BASOPHILS % (AUTO) 0.4 %; EOSINOPHILS % (AUTO) 0.4 %; HGB - HEMOGLOBIN 10.2 g/dL (12.0-16.0); LYMPHOCYTES # (AUTO) 1.2 10^3/uL (1.5-3.5); LYMPHOCYTES % (AUTO) 14.9 %; MEAN CORPUSCULAR HEMOGLOBIN 30.5 pg (27.0-31.0); MEAN CORPUSCULAR HGB CONC 31.4 g/dL (32.0-36.0); MEAN CORPUSCULAR VOLUME 97.3 fL (81.0-99.0); MEAN PLATELET VOLUME 11.3 fL (7.9-10.8); MONOCYTES # (AUTO) 1.3 10^3/uL (0.0-1.0); MONOCYTES % (AUTO) 15.9 %; NEUTROPHILS # (AUTO) 5.3 10^3/uL (1.5-6.6); NEUTROPHILS % (AUTO) 67.1 %; PLT - PLATELET COUNT 155 10^3/uL (130-450); RED BLOOD COUNT 3.34 10^6/uL (4.20-5.40); WHITE BLOOD COUNT 7.9 x10^3/uL (4.8-10.8)
[2020-04-24 05:44] LABS: CALCIUM 8.1 mg/dL (8.5-10.3); CRP - C-REACTIVE PROTEIN 7.5 mg/dL (0-1.0); MAGNESIUM 1.8 mg/dL (1.7-2.8)
[2020-04-24] MEDS ORDERED: D5.45NS W/20 MEQ KCL 1,000 ML IV SCH (07:40)
[2020-04-24] MEDS: HEPARIN 5,000 UNIT/ML VIAL SUBQ SCH ×2 (10:02→22:04)
[2020-04-24] MEDS: LOPERAMIDE 2 MG CAPSULE PO PRN (10:09)
[2020-04-24] MEDS: FAMOTIDINE 20 MG/2 ML SYRINGE IVP SCH ×2 (10:12→22:05)
[2020-04-24] MEDS: ASPIRIN CHEW 81 MG TABLET PO SCH (10:12)
[2020-04-24] MEDS: MULTIVITAMIN TABLET PO SCH (10:12)
--- NOTE | 2020-04-24 11:44 | PROVIDER PROGRESS NOTE ---
Assessment/Plan - Problem List (1) Diarrhea Assessment/Plan: 05/04 improved. pt had twice loose stool today. continue imodium PRN and add probiotics Florastor. 04/23 pt had hx of diarrhea. Patient still has acute watery diarrhea on today, patient had 3 diarrhea on last night. C.diff test is negative. pt's report pt has hx of diarrhea, on ad off status. 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 Then patient had no more complaint, patient diet is changed to dysphagia puree diet. Patient had ST therapist evaluation, recommend dysphagia pured diet with thin water. 04/23 Patient report when she ate lunch, some food stick to her neck, she feel discomfort but without choke. pt has no respiratory distress. There is no cough when I assessed pt. pt's report pt has similar medical problem before and need EGD/scopy to remove the stick food. consult with GI surgeon, plan to EGD on tomorrow. consult ST CXR, aspiration precaution. (3)confusion Patient Has underlying dementia.Patient had procedure EGD done on yesterday afternoon. She is confused still. But the patient has no focal neuro deficit. Will let patient rest well. continue support. Hold Ativan, resume home Xanax to control her anxiety (3) SALONI (acute kidney injury) Conclusion/Plan: 04/24 resolved 04/23 improved. Continue intravenous IV fluids, continue pharmacy laboratory technician Patient has a creatinine 1.7, BUN 50 today. Patient had base line creatinine 1.0.It is likely caused by patient dehydration from patient diarrhea. We will give the patient intravenous IV fluids, we will continue daily pharmacy laboratory technician (4) HTN (hypertension) Conclusion/Plan: 04/23 stable Patient's blood pressure is slightly low, will hold home blood pressure medicine, continue intravenous IV fluids, continue vital signs monitor (5) Hypothyroidism Conclusion/Plan: 04/23 TSH is normal, continue patient home Synthroid we will check TSH, we will continue patient home Synthroid (6) Anxiety Conclusion/Plan: 116, resume home Xanax 04/23 pt present Anxiety, change to IV Ativan as needed Patient has history anxiety, we will resume home Xanax as needed (7)GERD Patient has history of GERD, change to IV of Pepcid, hold PPI because of her diarrhea. - Current Meds Current Meds: Current Medications Generic Name Dose Route Start Last Admin Trade Name Freq PRN Reason Stop Dose Admin Aspirin 81 mg 04/24/20 09:00 04/24/20 10:12 [facility] [place] Aspirin PO 81 mg DAILY LUBNA Administration Famotidine 20 mg 04/23/20 21:00 04/24/20 10:12 Pepcid IVP 20 mg BID LUBNA Administration Heparin Sodium (Porcine) 5,000 unit 04/22/20 21:00 04/24/20 10:02 SUBQ 5,000 unit BID LUBNA Administration Potassium Chloride/Dextrose/Sod Cl 1,000 mls @ 75 mls/hr 04/24/20 07:40 04/24/20 09:57 D5.45ns W/20 Meq Kcl IV 04/25/20 10:19 75 mls/hr .[id number] LUBNA Administration Loperamide HCl 2 mg 04/23/20 07:50 04/24/20 10:09 Imodium PO 2 mg QID PRN Administration Diarrhea Lorazepam 0.5 mg 04/23/20 14:27 04/24/20 01:31 Ativan Inj (Vial) IVP 0.5 mg Q6H PRN Administration Anxiety Multivitamins 1 tab 04/24/20 08:00 04/24/20 10:12 Theragran PO 1 tab DAILYWM LUBNA Administration Sodium Chloride 10 ml 04/22/20 17:00 04/24/20 10:12 Normal Saline Flush 0.9% IVP 10 ml 0100,0900,1700 LUBNA Administration - Lab Result Fish Bone Diagrams: 04/24/20 05:10 04/24/20 05:10 - Additional Planning My Orders: My Active Orders 04/23/20 13:30 OVA AND PARASITE [REFLAB] Urgent 04/23/20 13:40 Echo Transthoracic Complete [ECHO] Routine 04/23/20 13:43 Nutrition Consult [CONS] Routine 04/23/20 13:56 Gi Cocktail 30 ml PO Q4H PRN 04/23/20 14:27 LORazepam INJ [Ativan Inj (Vial)] 0.5 mg IVP Q6H PRN 04/23/20 21:00 Famotidine [Pepcid] 20 mg IVP BID 04/24/20 Breakfast Dysphagia Puree Diet [DIET] 04/24/20 07:40 D5.45ns W/20 Meq KCl 1,000 ml IV 75 mls/hr 04/24/20 08:00 Multivitamin [Theragran] 1 tab PO DAILYWM 04/24/20 09:00 Aspirin Chewable [[facility] Aspirin] 81 mg PO DAILY 04/25/20 05:00 BMP - BASIC METABOLIC PANEL [CHEM] DAILYLAB CBC - COMP BLD CT W/AUTO DIFF [HEME] DAILYLAB CRP - C-REACTIVE PROTEIN [CHEM] DAILYLAB 04/26/20 05:00 BMP - BASIC METABOLIC PANEL [CHEM] DAILYLAB CBC - COMP BLD CT W/AUTO DIFF [HEME] DAILYLAB CRP - C-REACTIVE PROTEIN [CHEM] DAILYLAB 04/27/20 05:00 CRP - C-REACTIVE PROTEIN [CHEM] DAILYLAB Subjective - Subjective Nursing Reports: Confused Objective Vital Signs: Vital Signs - 24 hr 04/23/20 04/23/20 04/23/20 12:30 15:30 16:12 Temperature 36.5 C 36.5 C Heart Rate Heart Rate [ 74 Brachial] Heart Rate [ 73 Radial] Heart Rate [ 73 Sitting] Respiratory 20 20 Rate Blood Pressure Blood Pressure [Left Brachial artery] Blood Pressure 96/74 140/53 H [Right Brachial artery] Blood Pressure 140/53 H [Sitting] O2 Saturation 96 96 04/23/20 04/23/20 04/23/20 17:02 17:05 17:10 Temperature 36.3 C L 36.2 C L 36.6 C Heart Rate 79 84 85 Heart Rate [ Brachial] Heart Rate [ Radial] Heart Rate [ Sitting] Respiratory 17 16 16 Rate Blood Pressure 135/74 H 96/79 106/68 Blood Pressure [Left Brachial artery] Blood Pressure [Right Brachial artery] Blood Pressure [Sitting] O2 Saturation 99 94 95 04/23/20 04/23/20 04/23/20 17:15 17:24 18:22 Temperature 36.6 C 36.6 C 36.6 C Heart Rate 84 Heart Rate [ 76 Brachial] Heart Rate [ 81 Radial] Heart Rate [ Sitting] Respiratory 15 17 20 Rate Blood Pressure 111/65 Blood Pressure [Left Brachial artery] Blood Pressure 151/74 H 154/61 H [Right Brachial artery] Blood Pressure [Sitting] O2 Saturation 95 99 04/23/20 04/23/20 04/24/20 19:52 23:46 03:06 Temperature 36.3 C L 36.7 C 36.4 C L Heart Rate Heart Rate [ 109 H 85 Brachial] Heart Rate [ 91 Radial] Heart Rate [ Sitting] Respiratory 18 20 20 Rate Blood Pressure Blood Pressure 172/55 H [Left Brachial artery] Blood Pressure 155/75 H 109/65 [Right Brachial artery] Blood Pressure [Sitting] O2 Saturation 96 95 96 04/24/20 04/24/20 04/24/20 03:47 04:43 08:05 Temperature 36.6 C Heart Rate Heart Rate [ 79 88 Brachial] Heart Rate [ Radial] Heart Rate [ Sitting] Respiratory 19 Rate Blood Pressure Blood Pressure 170/66 H 100/43 L 114/48 L [Left Brachial artery] Blood Pressure [Right Brachial artery] Blood Pressure [Sitting] O2 Saturation 96 04/24/20 11:17 Temperature 36.6 C Heart Rate 88 Heart Rate [ Brachial] Heart Rate [ Radial] Heart Rate [ Sitting] Respiratory 20 Rate Blood Pressure Blood Pressure [Left Brachial artery] Blood Pressure [Right Brachial artery] Blood Pressure [Sitting] O2 Saturation 100 Oxygen O2 Source [With Activity] Room air O2 Source Room air I&O (Last 24 Hrs): Intake and Output Totals x24h 04/22/20 04/23/20 04/24/20 23:59 23:59 23:59 Intake Total 6302.621 2361.837 1791.667 Output Total 450 2800 1500 Balance 799.667 -789.163 291.667 General: Alert, No acute distress HEENT: Atraumatic Neck: Supple Lymphatic: no adenopathy Neuro: Alert, Non Focal Cardiovascular: Regular rate, Normal S1, Normal S2 Respiratory: Chest non-tender, No respiratory distress Abdomen: Normal bowel sounds, Soft Extremities: Normal pulses - Results Results: Laboratory Results WBC 7.9 x10^3/uL (4.8-10.8) 04/24/20 05:10 RBC 3.34 10^6/uL (4.20-5.40) L 04/24/20 05:10 Hgb 10.2 g/dL (12.0-16.0) L 04/24/20 05:10 Hct 32.5 % (37.0-47.0) L 04/24/20 05:10 MCV 97.3 fL (81.0-99.0) 04/24/20 05:10 MCH 30.5 pg (27.0-31.0) 04/24/20 05:10 MCHC 31.4 g/dL (32.0-36.0) L 04/24/20 05:10 RDW 16.0 % (12.0-15.0) H 04/24/20 05:10 Plt Count 155 10^3/uL (130-450) 04/24/20 05:10 MPV 11.3 fL (7.9-10.8) H 04/24/20 05:10 Neut # (Auto) 5.3 10^3/uL (1.5-6.6) 04/24/20 05:10 Lymph # (Auto) 1.2 10^3/uL (1.5-3.5) L 04/24/20 05:10 [place] # (Auto) 1.3 10^3/uL (0.0-1.0) H 04/24/20 05:10 Eos # (Auto) 0.0 10^3/uL (0.0-0.7) 04/24/20 05:10 Baso # (Auto) 0.0 10^3/uL (0.0-0.1) 04/24/20 05:10 Absolute Nucleated RBC 0.00 x10^3/uL 04/24/20 05:10 Nucleated RBC % 0.0 /100WBC 04/24/20 05:10 Sodium 136 mmol/L (135-145) 04/24/20 05:10 Potassium 4.3 mmol/L (3.5-5.0) 04/24/20 05:10 Chloride 111 mmol/L (101-111) 04/24/20 05:10 Carbon Dioxide 21 mmol/L (21-32) 04/24/20 05:10 Anion Gap 4.0 (6-13) L 04/24/20 05:10 BUN 20 mg/dL (6-20) 04/24/20 05:10 Creatinine 1.0 mg/dL (0.4-1.0) 04/24/20 05:10 Estimated GFR (MDRD) 53 (>89) L 04/24/20 05:10 Glucose 114 mg/dL (70-100) H 04/24/20 05:10 POC Whole Bld Glucose 108 mg/dL (70 - 100) H 04/24/20 05:41 Calcium 8.1 mg/dL (8.5-10.3) L 04/24/20 05:10 Phosphorus 3.4 mg/dL (2.5-4.6) 04/23/20 04:59 Magnesium 1.8 mg/dL (1.7-2.8) 04/24/20 05:10 Total Bilirubin 1.1 mg/dL (0.2-1.0) H 04/22/20 13:33 AST 31 IU/L (10-42) 04/22/20 13:33 ALT 24 IU/L (10-60) 04/22/20 13:33 Alkaline Phosphatase 121 IU/L (42-121) 04/22/20 13:33 C-Reactive Protein 7.5 mg/dL (0-1.0) H 04/24/20 05:10 Total Protein 7.4 g/dL (6.7-8.2) 04/22/20 13:33 Albumin 4.1 g/dL (3.2-5.5) 04/22/20 13:33 Globulin 3.3 g/dL (2.1-4.2) 04/22/20 13:33 Albumin/Globulin Ratio 1.2 (1.0-2.2) 04/22/20 13:33 Lipase 15 U/L (22-51) L 04/22/20 13:33 TSH 2.74 uIU/mL (0.34-5.60) 04/23/20 04:59 Stl C. diff Tox B Gene NEGATIVE (NEGATIVE) 04/22/20 18:40 SARS-CoV-2 (PCR) NOT DETECTED 04/22/20 20:00 - Procedures Procedures: Procedures EXTIRPATION OF MATTER FROM SIGMOID COLON, ENDO (03/20/20) INSPECTION OF LOWER INTESTINAL TRACT, ENDO (03/20/20) REPOSITION LEFT HUMERAL SHAFT WITH INT FIX, OPEN APPROACH (04/25/18) TRANSFUSE NONAUT RED BLOOD CELLS IN PERIPH VEIN, PERC (05/03/18) Sepsis Event Note (H) - Evaluation Current Stage of Sepsis: Ruled out ABX Reporting Has patient been on IV antibiotics over the past 48 hours?: No Current Medications - Current Medications Current Medications: Active Medications Acetaminophen (Tylenol) 650 mg PO Q4HR PRN PRN Reason: Pain 1 to 4 Aspirin ([facility] Aspirin) 81 mg PO DAILY [facility] Last Admin: 04/24/20 10:12 Dose: 81 mg Documented by: Atropine Sulfate () 0.5 mg IVP Q5M PRN PRN Reason: Bradycardia Stop: 04/24/20 17:13 Famotidine (Pepcid) 20 mg IVP BID [facility] Last Admin: 04/24/20 10:12 Dose: 20 mg Documented by: Fentanyl (Fentanyl) 25 - 50 mcg IVP Q5M PRN PRN Reason: BREAKTHROUGH PAIN (2nd Choice) Stop: 04/24/20 17:13 Heparin Sodium (Porcine) () 5,000 unit SUBQ BID [facility] Last Admin: 04/24/20 10:02 Dose: 5,000 unit Documented by: Hydromorphone HCl (Dilaudid Inj Syringe) 0.2 - 0.6 mg IVP Q5M PRN PRN Reason: PAIN (First Choice) Stop: 04/24/20 17:13 Potassium Chloride/Dextrose/Sod Cl (D5.45ns W/20 Meq Kcl) 1,000 mls @ 75 mls/hr IV .[id number] [facility] Stop: 04/25/20 10:19 Last Admin: 04/24/20 09:57 Dose: 75 mls/hr Documented by: Loperamide HCl (Imodium) 2 mg PO QID PRN PRN Reason: Diarrhea Last Admin: 04/24/20 10:09 Dose: 2 mg Documented by: Lorazepam (Ativan Inj (Vial)) 0.5 mg IVP Q6H PRN PRN Reason: Anxiety Last Admin: 04/24/20 01:31 Dose: 0.5 mg Documented by: Morphine Sulfate (Morphine (Carpuject)) 2 - 4 mg IVP Q5M PRN PRN Reason: PAIN (3rd Choice) Stop: 04/24/20 17:13 Multi-Ingredient Mouthwash/Gargle () 30 ml PO Q4H PRN PRN Reason: Abdominal Pain Multivitamins (Theragran) 1 tab PO DAILYWM [facility] Last Admin: 04/24/20 10:12 Dose: 1 tab Documented by: Naloxone HCl (Narcan) 0.1 mg IVP Q2M PRN PRN Reason: RESP RATE <8 Stop: 04/24/20 17:13 Ondansetron HCl (Zofran Inj) 4 mg IVP Q6HR PRN PRN Reason: Nausea / Vomiting Saccharomyces Boulardii (Florastor) 250 mg PO BIDWM [facility] Sodium Chloride (Normal Saline Flush 0.9%) 10 ml IVP PRN PRN PRN Reason: NEEDED PER PROVIDER ORDERS Sodium Chloride (Normal Saline Flush 0.9%) 10 ml IVP 0100,0900,1700 [facility] Last Admin: 04/24/20 10:12 Dose: 10 ml Documented by: Simvastatin [Zocor] 20 mg PO QPM 06/13/13 Alprazolam [Xanax] 0.5 mg PO Q6H PRN 11/04/13 Furosemide [Lasix] 40 mg PO BID 12/24/14 Ursodiol 300 mg PO BID 12/24/14 Colchicine [Colcrys] 0.6 mg PO DAILY 05/17/16 Levothyroxine [Synthroid] 88 mcg PO QDAC 04/24/18 Multivitamin [Multivitamins] 1 cap PO DAILY 04/23/20 Omeprazole Magnesium 20 mg PO BID 04/23/20 Spironolactone [Aldactone] 25 mg PO DAILY 04/23/20 polyethylene glycoL 3350 [Miralax] 17 gm PO PRN PRN 04/23/20
[2020-04-24] MEDS ORDERED: PHENYLEPHRINE 10 MG/ML VIAL IV ONE (11:46)
[2020-04-24] MEDS ORDERED: PROPOFOL 200 MG/20 ML VIAL IVP ONE (11:46)
[2020-04-24] MEDS ORDERED: fentaNYL 100 MCG/2 ML VIAL IVP ONE (11:46)
[2020-04-24] MEDS ORDERED: MIDAZOLAM 2 MG/2 ML VIAL IVP ONE (11:46)
[2020-04-24] MEDS ORDERED: ALPRAZolam 0.25 MG TABLET PO PRN ×2 (11:54→13:47)
[2020-04-24] MEDS: SACCHAROMYCES BOULARDII 250 MG CAPSULE PO SCH ×2 (12:49→15:51)
[2020-04-24] MEDS: SODIUM CHLORIDE 0.9% 1,000 ML IV SCH (15:51)
[2020-04-25] MEDS: SODIUM CHLORIDE FLUSH 0.9% 10 ML SYRINGE IVP SCH (00:30)
[2020-04-25] MEDS: SODIUM CHLORIDE 0.9% 1,000 ML IV SCH (05:04)
[2020-04-25] MEDS: SACCHAROMYCES BOULARDII 250 MG CAPSULE PO SCH (10:07)
[2020-04-25] MEDS: MULTIVITAMIN TABLET PO SCH (10:08)
[2020-04-25] MEDS: ASPIRIN CHEW 81 MG TABLET PO SCH (10:15)
--- NOTE | 2020-04-25 10:15 | Discharge Plan ---
Discharge Plan Problem Reviewed?: Yes Disposition: Home, Self Care Condition: Stable Prescriptions: Loperamide [Imodium] 2 mg PO TID #6 capsule Diet: Soft Activity Restrictions: Activity as Tolerated Shower Restrictions: No Instruction Topics: Diarrhea Ch Health Concerns: The patient was admitted because of frequent watery diarrhea, and needed IV fluids. We found no evidence of C. difficile infection or ova and parasites and the diarrhea has decreased using Imodium. A new prescription for Imodium to use if needed, was sent electronically to her pharmacy in [place]. The patient is stable for discharge. Please continue with good hydration if diarrhea should continue. Please resume medicines as she took before hospitalization EXCEPT her Lasix dosing does not need to be twice a day, since she is dehydrated, only once a day AND her Spironolactone dosing does not need to be daily, because she is dehydrated, take it only on Monday. Plan of Treatment: As above. Care Goals: Improvement in symptoms and stabilization are the goals. Assessment: The understands, written instructions were provided at discharge. Additional Instructions or Follow Up instructions: If there are new or worsening symptoms, call her Primary Care Provider for advice or come to the ER. No Smoking: If you smoke, Please STOP! Call for help. Follow-up with: Richard Lopez MD [Primary Care Provider] -
--- NOTE | 2020-04-25 10:22 | DISCHARGE SUMMARY ---
Discharge Summary Admit Date: 04/22/20 Discharge Date: 04/25/20 Discharging Provider: Dr Concetta Denton Primary Care Provider: Dr Richard Warner Condition at Discharge: Stable Discharge Disposition: 01 Home, Self Care - [facility] History of Present Illness: From the admission H&P of Devendra Flores NP: Ms. Jackson is a 80-year-old female with a past medical history significant for diarrhea recently admitted at 03/19/2020 in this hospital then with fecal impaction and subsequernt diarrhea, who has a Hx of peptic ulcer disease with perforated ulcer status post Billroth II procedure in 2005, hypertension, GERD, hypothyroidism, hyperlipidemia, seasonal allergies, chronic back pain secondary to herniated disks, peripheral arterial disease status post bypass in the right lower extremity and progressively worsening glaucoma, TIA with carotid stenosis, and denmentia. She presented to the emergency department complaining of diarrhea. Pt reports she had 3 days of diarrhea and stool incontinence. She denies nausea, vomiting or abdomen pain, no fever, chills, chest pain, shortness of breath. Pt reports feeling dizzy and weak. She reports she has no sick contacts, no recently travel. On routine laboratory tests, patient has creatinine 1.7, BUN 50, and slightly elevated WBC. In ER, patient is afebrile, hemodynamic stable now. She will be admitted for treating diarrhea causing dehyd ration and pre-renal azotemia. I discussed care goal with patient, she requests full code. - HOSPITAL COURSE Hospital Course: (1) Diarrhea She received iv fluids and a clear liquid diet. She had several more days of painless watery diarrhea. C.diff test was negative. The ova and parasite tests were still pending. She was started on Imodium prn and scheduled probiotic Florastor and had improvement slowly. She even had 1 formed brown stool on day of discharge. She was released and advised to use Imodium if symptoms recurred. (2) Dysphagia On 04/23, when she ate lunch, the patient reported a cough and feeling of some food stuck in her throat. She had no respiratory distress. The patient reporte d a similar medical problem before. A consult with General Surgery was done and Dr Abrams took her immediately for an EGD. She was found to have a piece of food (like bread) in the esophagus, which was pushed down into the stomach by the surgeon during the procedure. Then the patient had no more complaints. Her diet was changed to dysphagia puree diet. Patient had Speech Therapist do a swallowing evaluation, who recommended a dysphagia pured diet with thin water. She was discharged with this diet advised. (3) Dementia Patient has underlying dementia. On the day after the EGD, she was more confused all day but had no focal neuro deficit. (3) SALONI (acute kidney injury) Patient has a BUN/creatinine of 50/1.7 at admission. Her baseline creatinine is 1.0. It was likely caused by dehydration from her diarrhea. She received intravenous IV fluids, and BUN/creat improved to 20/1.0 at discharge. (4) HTN (hypertension) Patient's blood pressure was slightly low at admission and her home blood pressure medicines were on hold, as she continued intravenous IV fluids for dehydration. (5) Hypothyroidism TSH was normal at 2.7, we continued the patient's home Synthroid dose. (6) Anxiety Patient has a history of anxiety. We ordered her home Xanax prn. She was very anxious on the day of dysphagia. (7)GERD Patient has a history of GERD. Her PPI was on hold because of her diarrhea. - ALLERGIES Allergies/Adverse Reactions: Allergies Allergy/AdvReac Type Severity Reaction Status Date / Time No Known Drug Allergies Allergy Verified 04/22/20 11:11 - MEDICATIONS Home Medications: Ambulatory Orders Medication Instructions Recorded Confirmed Simvastatin [Zocor] 20 mg PO QPM 06/13/13 04/23/20 Alprazolam [Xanax] 0.5 mg PO Q6H PRN 11/04/13 04/23/20 Ursodiol 300 mg PO BID 12/24/14 04/23/20 Colchicine [Colcrys] 0.6 mg PO DAILY 05/17/16 04/23/20 Levothyroxine [Synthroid] 88 mcg PO QDAC 04/24/18 04/23/20 Aspirin Chewable [[place] 81 mg PO DAILY tablet 04/26/18 04/23/20 Aspirin] Cyclobenzaprine [Flexeril] 10 mg PO TID PRN #20 tablet 02/14/19 04/23/20 Multivitamin [Multivitamins] 1 cap PO DAILY 04/23/20 04/23/20 Omeprazole Magnesium 20 mg PO BID 04/23/20 04/23/20 polyethylene glycoL 3350 [Miralax] 17 gm PO PRN PRN 04/23/20 04/23/20 Furosemide [Lasix] 40 mg PO DAILY #0 04/25/20 04/23/20 Loperamide [Imodium] 2 mg PO TID #6 capsule 04/25/20 Spironolactone [Aldactone] 25 mg PO MOWEFR #0 04/25/20 04/23/20 - PHYSICAL EXAM AT DISCHARGE General Appearance: positive: No acute distress, Alert Eyes Bilateral: positive: Normal inspection, EOMI ENT: positive: ENT inspection nml, No signs of dehydration Neck: positive: Nml inspection, No JVD Respiratory: positive: No respiratory distress Cardiovascular: positive: Regular rate & rhythm Abdomen: positive: No distention Skin: positive: Warm, Dry Extremities: positive: Non-tender, No pedal edema Neurologic/Psychiatric: positive: Motor nml (Oriented x2 (?)) - LABS Result Diagrams: 04/24/20 05:10 04/24/20 05:10 - DIAGNOSTIC IMAGING Diagnostic Imaging Results: Final report reviewed - SEPSIS Current Stage of Sepsis: Ruled out - FOLLOW UP Follow Up: See PCP in 1-2 weeks in hospital follow-up. - TIME SPENT Time Spent in Discharge (Minutes): 60
[2020-04-25] MEDS: FAMOTIDINE 20 MG/2 ML SYRINGE IVP SCH (10:36)
[2020-04-25] MEDS: HEPARIN 5,000 UNIT/ML VIAL SUBQ SCH (10:57)
[2020-04-25 11:07] VITALS: BP 152/61
[2020-04-26] MEDS ORDERED: LEVOTHYROXINE 88 MCG TABLET PO SCH (07:00)
== END 2020-04-25 11:16 | disposition home or self-care (01) | DRG 392 ==
LOC: ED 10:35 → MS2 16:51 → OBSVTOIN 04-23 14:06
PROVIDERS: ADMIT Nurse Practitioner Gerontology; ATTEND Internal Medicine
PROC: 0DB68ZX Excision of Stomach, Via Natural or Artificial Opening Endoscopic, Diagnostic (ICD-10-PCS; 2020-04-23)
PROC: 0DC28ZZ Extirpation of Matter from Middle Esophagus, Via Natural or Artificial Opening Endoscopic (ICD-10-PCS; principal; 2020-04-23 16:15)
DX: R19.7 Diarrhea, unspecified (principal); N17.9 Acute kidney failure, unspecified; E87.1 Hypo-osmolality and hyponatremia; R13.10 Dysphagia, unspecified; E86.0 Dehydration; T18.0XXA Foreign body in mouth, initial encounter; X58.XXXA Exposure to other specified factors, initial encounter; Y92.230 Patient room in hospital as the place of occurrence of the external cause; K29.70 Gastritis, unspecified, without bleeding; F03.90 Unspecified dementia, unspecified severity, without behavioral disturbance, psychotic disturbance, mood disturbance, and anxiety; I10 Essential (primary) hypertension; K21.9 Gastro-esophageal reflux disease without esophagitis; E03.9 Hypothyroidism, unspecified; E78.5 Hyperlipidemia, unspecified; I73.9 Peripheral vascular disease, unspecified; I65.29 Occlusion and stenosis of unspecified carotid artery; F41.9 Anxiety disorder, unspecified; H40.9 Unspecified glaucoma; Z79.82 Long term (current) use of aspirin; Z79.899 Other long term (current) drug therapy; Z87.891 Personal history of nicotine dependence; Z86.73 Personal history of transient ischemic attack (TIA), and cerebral infarction without residual deficits; Z86.718 Personal history of other venous thrombosis and embolism; Z87.11 Personal history of peptic ulcer disease; Z95.828 Presence of other vascular implants and grafts
CPT/HCPCS: 36415; 71045; 80048; 80053; 81599; 83690; 83735; 84100; 84443; 85025; 86140; 87177; 87209; 87493; 92610; 93306; 96365; 96366; 96372; 97161; 99285; A9270; G0378; J2060; J7120; U0004; 87045; 87046; 87081

== ENCOUNTER 2020-05-12 15:35 | Inpatient (IN) | payer MEDICARE, OTHER ==
[2020-05-12] MEDS ORDERED: DEXAMETHASONE 10 MG/ML VIAL IVP STA (16:15)
--- NOTE | 2020-05-12 16:15 | ED Physician Documentation ---
History of Present Illness - Stated complaint Stated Complaint: soa, LEGS DONT MOVE - Chief complaint Chief Complaint: Critical Care - Additonal information Additional information: 80yF with pmh htn hld hypothyroid, vasculopath with pad, p/w decreased appetite, body aches, fatigue, sob, nonprod cough X 4 days and chronic diarrhea that is nonbloody per . patient with decreased responsiveness in the ed. low o2 sats on arrival with RA sat in 70s improving with facemask. further history limited by patient acuity. septic vital signs on arrival. given concern for possible covid I am opting to hold the 30cc/kg bolus until source is identified. Review of Systems Unable to obtain: Other (patient acuity/acute sob) PD PAST MEDICAL HISTORY - Past Medical History Cardiovascular: Hypertension, Peripheral Vascular Disease, Deep vein thrombosis Respiratory: None Neuro: None, Other (Noted that patient has difficulty answering questions, rambles. needs to interject. Has moments of confusion. 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: Hysterectomy Cardiovascular: Vascular surgery - Present Medications Home Medications: Ambulatory Orders Medication Instructions Recorded Confirmed Simvastatin [Zocor] 20 mg PO QPM 06/13/13 04/23/20 Alprazolam [Xanax] 0.5 mg PO Q6H PRN 11/04/13 04/23/20 Ursodiol 300 mg PO BID 12/24/14 04/23/20 Colchicine [Colcrys] 0.6 mg PO DAILY 05/17/16 04/23/20 Levothyroxine [Synthroid] 88 mcg PO QDAC 04/24/18 04/23/20 Aspirin Chewable [[place] David 81 mg PO DAILY tablet 04/26/18 04/23/20 Aspirin] Cyclobenzaprine [Flexeril] 10 mg PO TID PRN #20 tablet 02/14/19 04/23/20 Multivitamin [Multivitamins] 1 cap PO DAILY 04/23/20 04/23/20 Omeprazole Magnesium 20 mg PO BID 04/23/20 04/23/20 polyethylene glycoL 3350 [Miralax] 17 gm PO PRN PRN 04/23/20 04/23/20 Furosemide [Lasix] 40 mg PO DAILY #0 04/25/20 04/23/20 Loperamide [Imodium] 2 mg PO TID #6 capsule 04/25/20 Spironolactone [Aldactone] 25 mg PO MOWEFR #0 04/25/20 04/23/20 - Allergies Allergies/Adverse Reactions: Allergies Allergy/AdvReac Type Severity Reaction Status Date / Time No Known Drug Allergies Allergy Verified 04/22/20 11:11 - Social History Does the pt smoke?: No Smoking Status: Former smoker Does the pt drink ETOH?: No Does the pt have substance abuse?: No - Immunizations Immunizations are current?: Yes - POLST Patient has POLST: No POLST Status: Full Code PD ED PE NORMAL - Vitals Vital signs reviewed: Yes - General General: Other (alert in moderate respiratory distress, improving with facemask o2) - HEENT HEENT: Atraumatic, PERRL, EOMI - Neck Neck: Supple, no meningeal sign - Cardiac Cardiac: Other (tachycardic rate, regular rhythm) - Respiratory Respiratory: Other (tachypneic, coarse breath sounds) - Abdomen Abdomen: Non tender, Non distended - Female Female : Deferred - Rectal Rectal: Other (brown stool) - Back Back: No CVA TTP - Derm Derm: Other (pale and cool) - Extremities Extremities: No deformity - Neuro Neuro: Other (alert, ill appearing) - Psych Psych: Normal mood, Normal affect Results - Vitals Vitals: Vital Signs - 24 hr 05/12/20 05/12/20 05/12/20 15:36 16:00 16:06 Temperature 33 C L 35.3 C L Heart Rate 109 H 106 H 104 H Respiratory 32 H 35 H 28 H Rate Blood Pressure 128/88 H 144/103 H 146/89 H O2 Saturation 82 L 100 05/12/20 05/12/20 05/12/20 16:30 17:00 17:14 Temperature Heart Rate 102 H 100 99 Respiratory 27 H 25 H 29 H Rate Blood Pressure 114/96 H 143/113 H 156/68 H O2 Saturation 05/12/20 05/12/20 05/12/20 17:38 18:36 18:38 Temperature 35 C L 35.2 C L Heart Rate 93 96 Respiratory 30 H 25 H Rate Blood Pressure 169/99 H 143/126 H O2 Saturation 75 L 05/12/20 18:55 Temperature Heart Rate 101 H Respiratory 28 H Rate Blood Pressure 134/85 H O2 Saturation Oxygen O2 Source [With Activity] Room air O2 Source Nasal cannula - Labs Labs: Laboratory Tests 05/12/20 05/12/20 05/12/20 16:00 16:00 16:00 WBC 18.7 H RBC 4.98 Hgb 15.5 Hct 48.4 H MCV 97.2 MCH 31.1 H MCHC 32.0 RDW 16.9 H Plt Count 346 MPV 11.5 H Neut # (Auto) Not Reportable Lymph # (Auto) Not Reportable [place] # (Auto) Not Reportable Eos # (Auto) Not Reportable Baso # (Auto) Not Reportable Absolute Nucleated RBC Not Reportable Total Counted 100 Band Neuts % (Manual) 14 H Abnorm Lymph % (Manual) 0 Metamyelocytes % 2 H Nucleated RBC % Not Reportable Neutrophils # (Manual) 12.9 H Lymphocytes # (Manual) 2.6 Monocytes # (Manual) 2.4 H Eosinophils # (Manual) 0.4 Basophils # (Manual) 0.0 Differential Comment MANUAL DIFFERENTIAL Platelet Estimate NORMAL (130-450,000) Platelet Morphology NORMAL APPEARANCE RBC Morph Micro Appear NORMAL APPEARANCE Bld Gas Analysis Time Sample Site ABG pH ABG pCO2 ABG pO2 ABG HCO3 ABG Total CO2 ABG O2 Saturation ABG Base Excess Darrion Test VBG pH VBG pCO2 VBG pO2 VBG HCO3 VBG Total CO2 VBG O2 Saturation VBG Base Excess O2 Delivery Device O2 Liters/Min FiO2 Sodium 127 L Potassium 3.8 Chloride 87 L Carbon Dioxide 8 L* Anion Gap 32.0 H BUN 66 H Creatinine 2.9 H Estimated GFR (MDRD) 16 L Glucose 200 H Lactic Acid Calcium 9.1 Total Bilirubin 0.8 AST 47 H ALT < 10 L Alkaline Phosphatase 174 H Troponin I High Sens 78.7 H* Total Protein 7.2 Albumin 3.3 Globulin 3.9 Albumin/Globulin Ratio 0.8 L Lipase 18 L Nasal Adenovirus (PCR) Nasal B. parapertussis DNA (PCR) Nasal Coronavir 229E PCR Nasal Coronavir HKU1 PCR Nasal Coronavir NL63 PCR Nasal Coronavir OC43 PCR Nasal Enterovir/Rhinovir PCR Nasal Influenza B PCR Nasal Influenza A PCR Nasal Parainfluen 1 PCR Nasal Parainfluen 2 PCR Nasal Parainfluen 3 PCR Nasal Parainfluen 4 PCR Nasal RSV (PCR) Nasal B.pertussis DNA PCR Nasal C.pneumoniae (PCR) [place] Human Metapneumo PCR Nasal M.pneumoniae (PCR) Nasal SARS-CoV-2 (PCR) 05/12/20 05/12/20 05/12/20 16:04 16:40 16:40 WBC RBC Hgb Hct MCV MCH MCHC RDW Plt Count MPV Neut # (Auto) Lymph # (Auto) [place] # (Auto) Eos # (Auto) Baso # (Auto) Absolute Nucleated RBC Total Counted Band Neuts % (Manual) Abnorm Lymph % (Manual) Metamyelocytes % Nucleated RBC % Neutrophils # (Manual) Lymphocytes # (Manual) Monocytes # (Manual) Eosinophils # (Manual) Basophils # (Manual) Differential Comment Platelet Estimate Platelet Morphology RBC Morph Micro Appear Bld Gas Analysis Time Sample Site ABG pH ABG pCO2 ABG pO2 ABG HCO3 ABG Total CO2 ABG O2 Saturation ABG Base Excess Darrion Test VBG pH 7.049 L VBG pCO2 26.8 L VBG pO2 43.3 VBG HCO3 7.2 L VBG Total CO2 8.1 L VBG O2 Saturation 57.7 L VBG Base Excess -22.0 L O2 Delivery Device O2 Liters/Min FiO2 Sodium Potassium Chloride Carbon Dioxide Anion Gap BUN Creatinine Estimated GFR (MDRD) Glucose Lactic Acid > 10.0 H* Calcium Total Bilirubin AST ALT Alkaline Phosphatase Troponin I High Sens Total Protein Albumin Globulin Albumin/Globulin Ratio Lipase Nasal Adenovirus (PCR) NOT DETECTED Nasal B. parapertussis DNA (PCR) NOT DETECTED Nasal Coronavir 229E PCR NOT DETECTED Nasal Coronavir HKU1 PCR NOT DETECTED Nasal Coronavir NL63 PCR NOT DETECTED Nasal Coronavir OC43 PCR NOT DETECTED Nasal Enterovir/Rhinovir PCR NOT DETECTED Nasal Influenza B PCR NOT DETECTED Nasal Influenza A PCR NOT DETECTED Nasal Parainfluen 1 PCR NOT DETECTED Nasal Parainfluen 2 PCR NOT DETECTED Nasal Parainfluen 3 PCR NOT DETECTED Nasal Parainfluen 4 PCR NOT DETECTED Nasal RSV (PCR) NOT DETECTED Nasal B.pertussis DNA PCR NOT DETECTED Nasal C.pneumoniae (PCR) NOT DETECTED [place] Human Metapneumo PCR NOT DETECTED Nasal M.pneumoniae (PCR) NOT DETECTED Nasal SARS-CoV-2 (PCR) NOT DETECTED 05/12/20 16:55 WBC RBC Hgb Hct MCV MCH MCHC RDW Plt Count MPV Neut # (Auto) Lymph # (Auto) [place] # (Auto) Eos # (Auto) Baso # (Auto) Absolute Nucleated RBC Total Counted Band Neuts % (Manual) Abnorm Lymph % (Manual) Metamyelocytes % Nucleated RBC % Neutrophils # (Manual) Lymphocytes # (Manual) Monocytes # (Manual) Eosinophils # (Manual) Basophils # (Manual) Differential Comment Platelet Estimate Platelet Morphology RBC Morph Micro Appear Bld Gas Analysis Time 1655 Sample Site LEFT BRACHIAL ABG pH 7.17 L* ABG pCO2 < 11 L* ABG pO2 434 H* ABG HCO3 3.8 L ABG Total CO2 4.2 L* ABG O2 Saturation 96 ABG Base Excess -21.9 L Darrion Test NOT APPLICABLE VBG pH VBG pCO2 VBG pO2 VBG HCO3 VBG Total CO2 VBG O2 Saturation VBG Base Excess O2 Delivery Device NON REBREATHER MASK O2 Liters/Min 15.00 FiO2 100.00 Sodium Potassium Chloride Carbon Dioxide Anion Gap BUN Creatinine Estimated GFR (MDRD) Glucose Lactic Acid Calcium Total Bilirubin AST ALT Alkaline Phosphatase Troponin I High Sens Total Protein Albumin Globulin Albumin/Globulin Ratio Lipase Nasal Adenovirus (PCR) Nasal B. parapertussis DNA (PCR) Nasal Coronavir 229E PCR Nasal Coronavir HKU1 PCR Nasal Coronavir NL63 PCR Nasal Coronavir OC43 PCR Nasal Enterovir/Rhinovir PCR Nasal Influenza B PCR Nasal Influenza A PCR Nasal Parainfluen 1 PCR Nasal Parainfluen 2 PCR Nasal Parainfluen 3 PCR Nasal Parainfluen 4 PCR Nasal RSV (PCR) Nasal B.pertussis DNA PCR Nasal C.pneumoniae (PCR) [place] Human Metapneumo PCR Nasal M.pneumoniae (PCR) Nasal SARS-CoV-2 (PCR) PD MEDICAL DECISION MAKING - ED course Complexity details: reviewed results, re-evaluated patient, d/w patient, d/w family ED course: 80-year-old woman presented with severe sepsis with likely abdominal source given her profuse diarrhea. Discussed poor prognosis with son and father. Patient herself requesting to be DNR/DNI. Septic work-up undertaken.Antibiotics given. I did not give the 30 cc/kg bolus right away because I was concerned she had Covid. I will administer it at this time now that a bacterial etiology is more likely. Will admit for further management. - Critical Care Time(min): 30 Comments: I have personally performed a history, physical exam, and my own medical decision making. Upon my evaluation, this patient had a high probability of imminent or life- threatening deterioration due to sepsis, which required my direct attention, intervention, and personal management. I have personally provided 30 minutes of critical care time exclusive of time spent on separately billable procedures. Time includes review of laboratory data, radiology results, discussion with consultants, and monitoring for potential decompensation. Interventions were performed as documented above. EDW 05/12/20 8pm Time Includes: Direct patient care, Review records, Reassess patient, Document care, Coordinate care, Medical consult, Family consult for tx dec Data interpretation: Labs, Pulse ox, ABG, CXR Departure - Departure Disposition: 66 [facility] DC/Xfer Clinical Impression: Colitis, SALONI (acute kidney injury), Severe sepsis, Hypothermia
[2020-05-12] MEDS ORDERED: LACTATED RINGERS 250 ML IV ONE (16:16)
[2020-05-12 16:17] LABS: BASOPHILS % (AUTO) 0.5 %; EOSINOPHILS % (AUTO) 0.2 %; HGB - HEMOGLOBIN 15.5 g/dL (12.0-16.0); LYMPHOCYTES % (AUTO) 11.7 %; MEAN CORPUSCULAR HEMOGLOBIN 31.1 pg (27.0-31.0); MEAN CORPUSCULAR VOLUME 97.2 fL (81.0-99.0); MEAN PLATELET VOLUME 11.5 fL (7.9-10.8); MONOCYTES % (AUTO) 12.7 %; NEUTROPHILS % (AUTO) 71.6 %; PLT - PLATELET COUNT 346 10^3/uL (130-450); RED BLOOD COUNT 4.98 10^6/uL (4.20-5.40); RED CELL DISTRIBUTION WIDTH 16.9 % (12.0-15.0); WHITE BLOOD COUNT 18.7 x10^3/uL (4.8-10.8)
[2020-05-12 16:20] LABS: ABNORMAL LYMPHS % (MANUAL) 0 %
[2020-05-12] MEDS ORDERED: IOVERSOL 320 100 ML VIAL IVP ONE (16:31)
[2020-05-12 16:38] LABS: BAND NEUTROPHILS % (MANUAL) 14 %; DIFFERENTIAL COMMENT MANUAL DIFFERENTIAL; EOSINOPHILS # (MANUAL) 0.4 10^3/uL (0-0.7); LYMPHOCYTES # (MANUAL) 2.6 10^3/uL (1.5-3.5); LYMPHOCYTES % (MANUAL) 14 %; METAMYELOCYTES % (MANUAL) 2 %; MONOCYTES # (MANUAL) 2.4 10^3/uL (0.0-1.0); PLATELET ESTIMATE, MANUAL NORMAL (130-450,000) (NORMAL); PLATELET MORPHOLOGY NORMAL APPEARANCE (NORMAL); RBC MORPHOLOGY (MULTIPLE) NORMAL APPEARANCE (NORMAL)
[2020-05-12 16:50] LABS: VBG PCO2 26.8 mmHg (41-51); VBG PH 7.049 (7.31-7.41); VBG PO2 43.3 mmHg (25-47)
[2020-05-12 16:51] LABS: VBG TOTAL CO2 8.1 mmol/L (24-29)
[2020-05-12] MEDS ORDERED: ONDANSETRON 4 MG/2 ML VIAL IVP STA (16:54)
[2020-05-12 17:00] LABS: ABG BASE EXCESS -21.9 mmol/L (-2.0-3.0); ABG HCO3 3.8 mmol/L (22.0-26.0); ABG OXYGEN SATURATION 96 % (94-98)
[2020-05-12 17:03] LABS: ALBUMIN 3.3 g/dL (3.2-5.5); ALBUMIN/GLOBULIN RATIO 0.8 (1.0-2.2); ALKALINE PHOSPHATASE 174 IU/L (42-121); ALT ALANINE AMINOTRANSFERASE < 10 IU/L (10-60); AST ASPARTATE AMINOTRANSFERASE 47 IU/L (10-42); BILIRUBIN,TOTAL 0.8 mg/dL (0.2-1.0); BUN - BLOOD UREA NITROGEN 66 mg/dL (6-20); CALCIUM 9.1 mg/dL (8.5-10.3); CHLORIDE 87 mmol/L (101-111); CREATININE 2.9 mg/dL (0.4-1.0); GLUCOSE 200 mg/dL (70-100); LIPASE 18 U/L (22-51); SODIUM 127 mmol/L (135-145); TOTAL PROTEIN 7.2 g/dL (6.7-8.2)
[2020-05-12] MEDS ORDERED: VANCOMYCIN INJ 1 GM in SODIUM CHLORIDE 0.9% 500 ML IV STA (17:04)
[2020-05-12] MEDS ORDERED: PIPERACILLIN/TAZOBACTAM 3.375 GM in SODIUM CHLORIDE 0.9% MINIBAG 100 ML IV STA (17:04)
[2020-05-12 17:09] LABS: ABG PCO2 < 11 mmHg (34-45); ABG PH 7.17 (7.35-7.45); ABG PO2 434 mmHg (80-100)
[2020-05-12 17:10] LABS: ABG TCO2 4.2 MMOL/L (21.0-29.0)
[2020-05-12 17:10] LABS: CARBON DIOXIDE - CO2 8 mmol/L (21-32)
--- NOTE | 2020-05-12 17:25 | XRAY Report ---
PROCEDURE: Chest 1 View X-Ray INDICATIONS: Chest Pain TECHNIQUE: One view of the chest was acquired. COMPARISON: 04/23/2020 FINDINGS: Surgical changes and devices: Surgical hardware projects over the cervical spine. Surgical clips proj ect over the left upper abdomen. Lungs and pleura: No pleural effusions or pneumothorax. Minimal blunting of the bilateral costophren ic angles, unchanged. This likely represents scarring versus trace effusions. Mediastinum: Mediastinal contours appear normal. Heart size is normal. Bones and chest wall: No suspicious bony lesions. Overlying soft tissues appear unremarkable. IMPRESSION: Persistent minimal blunting of the costophrenic angles suggestive of pleural scarring versus trace ef fusions. Otherwise, no acute cardiopulmonary abnormalities. Reviewed by: Evan Donato MD on 05/12/2020 5:24 PM PST Approved by: Evan Dnoato MD on 05/12/2020 5:24 PM PST Station ID: [id number]
--- NOTE | 2020-05-12 18:25 | CT Report ---
PROCEDURE: CHEST WO INDICATIONS: Low O2 TECHNIQUE: Noncontrast 5 mm thick sections acquired from the pulmonary apices to the posterior costophrenic angl es. 7 mm thick coronal and sagittal MIP reformats were then acquired. For radiation dose reduction, the following was used: automated exposure control, adjustment of mA and/or kV according to patient size. COMPARISON: Chest x-ray 05/12/2020. FINDINGS: Image quality: Excellent. Lungs and pleura: No acute air space opacities. No pleural effusions or pneumothorax. Central and peripheral airways are patent and normal in caliber. Mediastinum: Heart size is normal. Minimal pericardial effusion. No mediastinal adenopathy by size criteria. Thoracic aorta and central pulmonary arteries are normal in size. Esophagus is distended and fluid-filled. No hiatal hernia. Bones and chest wall: No suspicious bony lesions. No vertebral body compression fractures. No axil rai or supraclavicular adenopathy by size criteria. The thyroid is normal in size. Abdomen: Partially visualized loops of prominent bowel are noted. Otherwise, visualized upper abdomi nal solid organs and bowel loops appear normal in the absence of contrast. IMPRESSION: 1. Lungs are clear. 2. Partially visualized prominent loops of bowel. Please see CT abdomen report of 05/12/2020 for furt her details. Reviewed by: Xochitl Laguerre MD on 05/12/2020 5:23 PM [facility] Approved by: Xochitl Laguerre MD on 05/12/2020 5:23 PM [facility] Station ID: [id number]
--- NOTE | 2020-05-12 18:29 | CT Report ---
PROCEDURE: Abdomen/Pelvis WO INDICATIONS: Suspected Infection TECHNIQUE: Noncontrast 5 mm thick sections acquired from the diaphragms to the symphysis. 5 mm coronal and sagi ttal reformats were then performed. For radiation dose reduction, the following was used: automated exposure control, adjustment of mA and/or kV according to patient size. COMPARISON: CT abdomen pelvis 03/19/2020 FINDINGS: Image quality: Excellent. ABDOMEN: Lung bases: Lung bases are clear. Trace pericardial effusion. Solid organs: Liver and spleen are normal in size. Gallbladder has been removed Pancreas is normal in contours. No adrenal nodules. Kidneys are normal in size, without hydronephrosis or nephrolithi asis. Peritoneum and bowel: There is mild fluid-filled prominence of loops of colon most notably the right and transverse colon. No definitive source of obstruction is identified. No significant stool. Nodes and vessels: No retroperitoneal or mesenteric adenopathy by size criteria. Aorta and inferior vena cava are normal in caliber. Miscellaneous: No ventral hernias. Partially fluid-filled distended esophagus. PELVIS: Genitourinary: Bladder wall thickness is normal. Miscellaneous: No inguinal hernias or adenopathy. Bones: No suspicious bony lesions. No vertebral body compression fractures. IMPRESSION: 1. Prominent fluid-filled loops of colon particularly the right and transverse colon as above. No def initive source of obstruction is identified. No significant stool. Reviewed by: Xochitl Laguerre MD on 05/12/2020 5:28 PM [facility] Approved by: Xochitl Laguerre MD on 05/12/2020 5:28 PM [place] Station ID: [id number]
[2020-05-12 18:31] LABS: C. PNEUMONIAE- RESP PCR PANEL NOT DETECTED
[2020-05-12] MEDS ORDERED: LACTATED RINGERS IV STA (19:58)
[2020-05-12] MEDS ORDERED: PROCHLORPERAZINE 10 MG/2 ML VIAL IVP PRN (20:16)
[2020-05-12] MEDS ORDERED: ACETAMINOPHEN 325 MG TABLET PO PRN (20:16)
[2020-05-12] MEDS ORDERED: oxyCODONE 5 MG TABLET PO PRN (20:16)
[2020-05-12] MEDS ORDERED: ONDANSETRON 4 MG/2 ML VIAL IVP PRN (20:16)
[2020-05-12] MEDS ORDERED: ONDANSETRON ODT 4 MG TABLET TL PRN (20:16)
[2020-05-12] MEDS ORDERED: LACTATED RINGERS 1,000 ML IV SCH (21:00)
--- NOTE | 2020-05-12 21:11 | HISTORY & PHYSICAL EXAMINATION ---
Chief Complaint - Chief Complaint Chief Complaint: Sepsis History of Present Illness - Admitted From Admitted From:: ED - History Obtained From Records Reviewed: Yes History obtained from: Patient, patient's , and chart Exam Limitations: Patient has baseline dementia - History of Present Illness HPI Comment/Other: Patient is a 80-year-old female with a history of hypertension, hyperlipidemia, hypothyroidism, GERD, PAD, and significant for diarrhea for the last couple of months. She was recently admitted to the hospital for fecal impaction on 03/19/2020 and diarrhea on 04/22/2020. The patient is intermittently confused and is alert and oriented to self and place. She is able to answer some questions but rambles and goes off tangent. Her interjects and answers most of the questions for her. Per patient's Edmund, she has not gotten better since her last hospitalization. Her is concern that patient will if she does not go to the hospital, thus, he brought her to the emergency room. Ac cording to Edmund, the patient has been increasingly confused and frequently hallucinating the past several days. She has not been eating or drinking at home in the last few days. She is incontinent and uses adult diapers. Her reports only seeing spotting of urine and non-bloody diarrhea the past 3-4 days. Additionally, patient has not been out of bed for two days because of increasing fatigue and weakness. She also developed a non-productive cough 4 days ago. She has not developed a fever per her . Patient denies having chills, fever, but feels extremely weak. She endorses feeling short of breath the last 4 days with a cough. No chest pain or palpitations. She denies nausea, vomiting, or abdominal pain. She says she has not have an appetite and has not eaten or drunken very much the last few days. She agrees with her that she has been experiencing diarrhea and minimal urine output. Upon arrival to the ED, she was hypothermic with a temperature of 33 oral, 35.3 rectal. She is slightly tachycardic in the low 100s. She was short of breath with O2 saturation in the 82% on room air initially and was put on a 100% non- rebreather. Her work of breathing improved and she was weaned to a nasal cannula. Her lab results are significant for a WBC of 18, lactate >10, c reatinine of 2.9, Anion gap 32. Blood cultures drawn and is pending. Based on her physical exam and lab work, it is concerned that she is septic. IV vancomycin was given in the emergency room along with a liter of LR for dehydration. Patient is being admitted to the ICU for sepsis. History - Past Medical History Cardiovascular: reports: Hypertension, Peripheral Vascular Disease, Deep vein thrombosis, Other (history of bilateral leg swelling per --furosemide and spironolactone was prescribed for this reason) Respiratory: reports: None Neuro: reports: None, Other (Noted that patient has difficulty answering questions, rambles. needs to interject. Has moments of confusion. states this is normal.) Endocrine/Autoimmune: reports: HyPOthyroidism GI: reports: GERD (Occasional), Ulcers, Diverticulitis, Cholelithiasis, Other CALKER: reports: Other () : reports: Renal insuffiency HEENT: reports: Glaucoma Psych: reports: None Musculoskeletal: reports: Osteoarthritis, Chronic back pain Derm: reports: None MRSA Hx?: No - Past Surgical History General: reports: Gastric surgery (Billroth II procedure) Ortho: reports: Other /CALKER: reports: Hysterectomy Cardiovascular: reports: Vascular surgery - Family & Social History Family History: Mother: , CVA/TIA, Father: , Cancer (Colon cancer), Sister: TX (Sister had TX at 53) Family History Comment/Other: Father of colon cancer. Mother had 3 strokes. Sister had an TX at the age of 53. Children are healthy Social History Notes: The patient is originally from [place]. She has been to her for 57 years. Her was in the [employer] and that is what brought them to [place]. They have been living in [place] ever since. Patient has 3 children 2 sons and 1 daughter. 2 of her children live in [place]. 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 She is a former smoker smoked 1 pack a day for more than 40 years but quit in 2005. She denies any alcohol or illicit drug use. - Substance History Use: Uses substance without health or social issues: NONE - POLST Patient has POLST: No POLST Status: Full Code Meds/Allgy - Home Medications Home Medications: Ambulatory Orders Medication Instructions Recorded Confirmed Simvastatin [Zocor] 20 mg PO QPM 06/13/13 04/23/20 Alprazolam [Xanax] 0.5 mg PO Q6H PRN 11/04/13 04/23/20 Ursodiol 300 mg PO BID 12/24/14 04/23/20 Colchicine [Colcrys] 0.6 mg PO DAILY 05/17/16 04/23/20 Levothyroxine [Synthroid] 88 mcg PO QDAC 04/24/18 04/23/20 Aspirin Chewable [[place] 81 mg PO DAILY tablet 04/26/18 04/23/20 Aspirin] Cyclobenzaprine [Flexeril] 10 mg PO TID PRN #20 tablet 02/14/19 04/23/20 Multivitamin [Multivitamins] 1 cap PO DAILY 04/23/20 04/23/20 Omeprazole Magnesium 20 mg PO BID 04/23/20 04/23/20 polyethylene glycoL 3350 [Miralax] 17 gm PO PRN PRN 04/23/20 04/23/20 Furosemide [Lasix] 40 mg PO DAILY #0 04/25/20 04/23/20 Loperamide [Imodium] 2 mg PO TID #6 capsule 04/25/20 Spironolactone [Aldactone] 25 mg PO MOWEFR #0 04/25/20 04/23/20 - Allergies Allergies/Adverse Reactions: Allergies Allergy/AdvReac Type Severity Reaction Status Date / Time No Known Drug Allergies Allergy Verified 04/22/20 11:11 Review of Systems - Constitutional Constitutional: reports: Fatigue, Weakness, Poor appetite. denies: Fever, Chills - Eyes Eyes: denies: Pain - Ears, Nose & Throat Ears, Nose & Throat: denies: Ear pain, Nasal discharge, Nasal congestion, Sore throat, Hoarseness - Cardiovascular Cariovascular: reports: Exertional dyspnea, Decr. exercise tolerance. denies: Irregular heart rate, Palpitations, Chest pain, Edema, Lightheadedness, Syncope - Respiratory Respiratory: reports: Cough (non-productive cough noted per ), SOB at rest (She feels SOB even at rest, especially when talking.), SOB with exertion (patient reports feeling short of breath with activities that started a few days ago.). denies: Sputum production, Wheezing, Hemoptysis, Orthopnea, Pleuritic pain - Gastrointestinal Gastrointestinal: reports: Diarrhea (This has been an ongoing issue since March.), Poor appetite. denies: Abdominal pain, Abdominal distention, Consti pation, Change in bowel habits, Black stools (denies per ), Bloody stools (denies per ), Nausea, Vomiting, Reflux/heartburn, Bloating - Genitourinary Genitourinary: reports: Incontinence (Uses adult diapers at home). denies: Dysuria, Frequency, Urgency, Hematuria - Musculoskeletal Musculoskeletal: reports: Back pain (chronic back pain), Muscle aches, Muscle weakness. denies: Muscle pain (generalized soreness) - Integumentary Integumentary: denies: Rash, Pruritis - Neurological Neurological: reports: General weakness (She reports feeling increasingly week the last several days). denies: Headache, Dizziness - Psychiatric Psychiatric: reports: Anxiety, Hallucinations - Endocrine Endocrine: denies: Polydypsia, Polyphagia - All Other Systems All Other Systems: reports: Reviewed and negative Prior Level of Functionality: Prior to her hospitalization in March, patient was ambulating around her house without any assistive devices and performed her ADLs independently. However, after her two hospitalizations her physical function has declined significantly. Her Edmund said patient was still able to walk around the house after she was discharged from the hospital on 04/25/20 but recently starting using furnitures to support her when walking around. She was unable to walk today due to weakness. Exam - Vital Signs Reviewed Vital Signs: Yes Vital Signs: Vital Signs x48h Temp Pulse Resp BP Pulse Ox 05/12/20 18:55 101 H 28 H 134/85 H 05/12/20 18:38 35.2 C L 05/12/20 18:36 96 25 H 143/126 H 05/12/20 17:38 35 C L 93 30 H 169/99 H 75 L 05/12/20 17:14 99 29 H 156/68 H 05/12/20 17:00 100 25 H 143/113 H 05/12/20 16:30 102 H 27 H 114/96 H 05/12/20 16:06 35.3 C L 104 H 28 H 146/89 H 100 05/12/20 16:00 106 H 35 H 144/103 H 05/12/20 15:36 33 C L 109 H 32 H 128/88 H 82 L - Physical Exam General Appearance: positive: Mild distress, Lethargic, Other (Patient appears extremely pale, fragile, and lethargic. She looks malnourished, underweight, and sickly.) Eyes Bilateral: positive: Normal inspection, PERRL, EOMI, No lid inflammation, Conjunctivae nml, No scleral icterus ENT: positive: ENT inspection nml, Pharynx nml, Dry mucous membranes. negative: Oral lesions Neck: positive: Nml inspection, Thyroid nml, No JVD, Trachea midline. negative: Thyromegaly, Lymphadenopathy (R), Lymphadenopathy (L), Stiff neck, Tracheal deviation Respiratory: positive: Breath sounds nml, Other (Mild respiratory distress. Shallow breaths.). negative: Chest non-tender, Wheezes, Rales, Rhonchi Cardiovascular: positive: No murmur, No gallop, Tachycardia. negative: Regular rate & rhythm, Irregularly irregular, Bradycardia, JVD present, Systolic murmur, Diastolic murmur, Gallop/S3, Gallop/S4, Friction rub, Crepitus Peripheral Pulses: positive: 2+ Abdomen: positive: Non-tender, No organomegaly, Nml bowel sounds, No distention. negative: Tenderness, Guarding, Rebound, Hepatomegaly, Splenomegaly, Abnml bowel sounds Skin: positive: No rash, Dry, Pallor, Other (Skin is pale, cool. Tenting of the skin noted.). negative: Diaphoresis, Skin rash Extremities: positive: Non-tender, Nml appearance, No pedal edema, Pedal edema. negative: Calf tenderness, Joint swelling Neurologic/Psychiatric: positive: Sensation nml, Mood/affect nml, Disoriented to place, Disoriented to time, Weakness, Other (Patient is intermtittently confused. She is oriented to self, sometimes to place but not time.). negative: Oriented x3, Facial droop, Slurred/abnml speech Sepsis Event Note (H) - Evaluation Current Stage of Sepsis: Sepsis Possible source of Sepsis: positive: Unknown - Sepsis Criteria Sepsis Criteria: Suspected or Documented, Recorded Heart Rate greater than 90 bpm, Recorded Respiratory Rate greater than 20, Respiratory: Increasing oxygen requirements, WBC count greater than 10% bands, WBC count greater than 12,000 or less than 4000, PAINT POURER: altered consciousness (unrelated to primary neuro pathology), Renal: urine output less than 0.5ml/kg/hr for 2 hours or creatinine gr, Metabolic: lactate > 2 mmol/L Conclusion/Plan - Problem List (1) Sepsis Conclusion/Plan: Patient is hypothermic with temp 35.3C, tachycardic, tachypneic with increase O2 requirement. She labs are notable for WBC of 18, lactate >10 in the ED with the most recent being 9. In addition, she has been increasingly confused and is hallucinating. She was given IV vancomycin and 1 liter of LR in the ED. Blood cultures drawn and is pending. Plan: Start sepsis bundle 6 hour protocol. Source of infection is unknown but will give patient IV cefepime and metronidazole for broad spectrum coverage. C.difficile with OMP, urinalysis and culture ordered. Two liters of LR maintenance fluid at 200cc/hr ordered. Will continue to trend her BMP, lactate, and CBC.. She is being admitted to the ICU for close monitoring. Qualifiers: Sepsis type: sepsis due to unspecified organism Sepsis acute organ dysfunction status: unspecified Qualified Code(s): A41.9 - Sepsis, unspecified organism (2) Dehydration Conclusion/Plan: Patient and her endorses minimal PO fluid intake the last several days. She also has not been urinating, only "spotting" of urine was noted on her adult briefs. She looks dehydrated on physical exam with dry mucous membrane and tenting of the skin. Plan: Continue IV LR maintenance at 200cc/hr for a total of 2 liters. (3) Acute kidney injury Conclusion/Plan: Patient's creatinine is 2.9 upon arrival to the hospital. Her SALONI is likely secondary to dehydration due to inadequate PO fluid intake and sepsis. Per her , she has been taking furosemide and spironolactone for leg swelling. This was started in 2014. The diuretics could have contributed to her worsening kidney function in the setting of dehydration. She will not be given furosemide or spironolactone during this admission and is recommended to stop taking them altogether. On physical exam, patient does not have lower leg edema and per her most recent echocardiogram (04/22/20), she does not have heart failure, therefore diuretics are not indicated at this time. (4) Hallucination Conclusion/Plan: Patient has baseline dementia. Per her her mental status has been waxing and waning since her last two hospitalizations in 03/19/20 and 04/22/20. She has been herself and is intermittently confused. However, she started having hallucinations the last several days. Her hallucination is likely due to sepsis in combination with dehydration. Plan: Will treat her sepsis with IV vancomycin, cefepime, and metronidazole while awaiting for blood cultures to result. IV maintenance fluid ordered for de hydration. If patient's hallucination worsens or is unresolved after hydration and antibiotics, a non-contrast head CT will be ordered to rule out subdural hematoma. (5) Diarrhea Conclusion/Plan: Patient has been experiencing diarrhea on and off since March 2020. Per her , she has been taking Imodium at home for diarrhea. However, this has not been helping the past few days. A colonscopy was performed on 03/22/20 by general surgery showed stercoral ulceration at the anorectal junctional but no diverticulosis, diverticular strictures, masses or polyps. Plan: Will sent off a c.difficile and OMP sample. Electrolyte replacement ordered per ICU protocol. Currently replacing fluid with IV LR. Qualifiers: Diarrhea type: presumed infectious Qualified Code(s): R19.7 - Diarrhea, unspecified (6) Dysphagia Conclusion/Plan: Patient is on a puree/liquid diet per speech therapist recommendation from her last hospitalization due to food being stuck in throat, which required emergent EGD to push food down. Her chest/abd CT today showed fluid-filled dilated esophagus. This finding was discussed with general surgery tonight. General surgery to perform EGD tomorrow. She will be NPO now. (7) Malnutrition Conclusion/Plan: She has not been eating and appears cachectic. Her baseline weight a few years ago was around 75kg and has been gradually losing weight over the years. Per previous note, she weighed 52.1kg on 04/22/20 and weighs 47.5kg today. Her recent rapid weight loss is concerning. Plan is to place a post-pyloric dobhoff post EGD tomorrow and start tubefeed per nutrition's recommendation. - Lab Results Lab results reviewed: Yes Fish Bones: 05/12/20 16:00 05/12/20 16:00 Core Measures - Anticipated LOS I expect patient to be DC'd or transferred within 96 hours.: No - DVT/VTE - Prophylaxis VTE/DVT Device ordered at admit?: Yes VTE/DVT Prophylaxis med ordered at admit?: No Not Ordered - Medical Reason: Not indicated - Stroke - Rehab Assessment Rehab services assessment to be ordered?: No Not Ordered - Medical Reason: Not indicated - AMI - Statin at Admit Aspirin Prescribed on Admit: No Not Ordered - Medical Reason: Not indicated
[2020-05-12] MEDS ORDERED: CEFEPIME 2 GM in SODIUM CHLORIDE 0.9% MINIBAG 100 ML IV SCH (22:00)
[2020-05-12] MEDS: SODIUM CHLORIDE FLUSH 0.9% 10 ML SYRINGE IVP SCH (23:26)
--- NOTE | 2020-05-12 23:39 | ANESTHESIA PROCEDURE NOTE ---
Anesth Central Line Template - Central Line Central Line Preparation: Consent Obtained, Time out completed, Ultrasound used, Sterile prep and drape Central line location: Right IJ Central line type: Triple lumen Central line catheter tip site resides: Superior vena cava (SVC) Central line aftercare: Chlorhexidine disc placed, Secured, Placement confirmed, No pneumothorax, No complications, Bundle checklist complete, Pt tolerated well Other Info/Details: Patient's right neck was prepped with chlorohexadine. Full sterile gown, mask, gloves and drape utilized. The right IJ was imaged using ultrasound and accessed under ultrasound guidance with 20G needle. Wire advanced with ease. After dilation, a triple lumen central line was advanced over the wire and the wire was removed. All three ports aspirate blood and flush with ease. Chest xray shows tip in cavoatrial junction. Line sutured in place and secured with opsite. Patient tolerated well.
[2020-05-12] MEDS: SODIUM CHLORIDE FLUSH 0.9% 10 ML SYRINGE IVP PRN ×2 (23:40→23:54)
[2020-05-12] MEDS: metroNIDAZOLE 500 MG/100 ML 500 MG/100 ML BAG IV SCH (23:41)
[2020-05-12] MEDS ORDERED: SODIUM CHLORIDE 0.9% 500 ML IV PRN (23:49)
[2020-05-12] MEDS ORDERED: SODIUM CHLORIDE FLUSH 0.9% 10 ML SYRINGE IVP PRN (23:49)
[2020-05-13 03:23] LABS: BASOPHILS % (AUTO) 0.8 %; EOSINOPHILS % (AUTO) 0.1 %; HGB - HEMOGLOBIN 12.9 g/dL (12.0-16.0); LYMPHOCYTES % (AUTO) 6.9 %; MEAN CORPUSCULAR HEMOGLOBIN 30.4 pg (27.0-31.0); MEAN CORPUSCULAR HGB CONC 32.1 g/dL (32.0-36.0); MEAN CORPUSCULAR VOLUME 94.6 fL (81.0-99.0); MEAN PLATELET VOLUME 11.5 fL (7.9-10.8); MONOCYTES % (AUTO) 10.4 %; NEUTROPHILS % (AUTO) 72.1 %; PLT - PLATELET COUNT 221 10^3/uL (130-450); RED BLOOD COUNT 4.25 10^6/uL (4.20-5.40); WHITE BLOOD COUNT 14.4 x10^3/uL (4.8-10.8)
[2020-05-13] MEDS ORDERED: LACTATED RINGERS 500 ML IV ONE (03:44)
[2020-05-13 03:47] LABS: ABNORMAL LYMPHS % (MANUAL) 2 %; BAND NEUTROPHILS % (MANUAL) 14 %; LYMPHOCYTES # (MANUAL) 2.3 10^3/uL (1.5-3.5); LYMPHOCYTES % (MANUAL) 14 %; METAMYELOCYTES % (MANUAL) 3 %; MONOCYTES # (MANUAL) 0.9 10^3/uL (0.0-1.0); MYELOCYTES % (MANUAL) 8 %; PROMYELOCYTES % (MANUAL) 1 %
[2020-05-13 03:48] LABS: DIFFERENTIAL COMMENT MANUAL DIFFERENTIAL; PLATELET ESTIMATE, MANUAL NORMAL (130-450,000) (NORMAL); PLATELET MORPHOLOGY NORMAL APPEARANCE (NORMAL); RBC MORPHOLOGY (MULTIPLE) 1+ ANISOCYTOSIS (NORMAL)
[2020-05-13 03:51] LABS: CALCIUM 7.3 mg/dL (8.5-10.3); CREATININE 2.6 mg/dL (0.4-1.0)
[2020-05-13] MEDS ORDERED: SODIUM BICARBONATE 150 MEQ in DEXTROSE 5% 1,000 ML IV SCH (04:00)
[2020-05-13] MEDS ORDERED: DEXTROSE 5% 1,000 ML IV ONE (04:15)
[2020-05-13] MEDS: SODIUM CHLORIDE FLUSH 0.9% 10 ML SYRINGE IVP PRN ×3 (04:26→07:16)
[2020-05-13] MEDS ORDERED: SODIUM BICARBONATE 8.4% 50 MEQ/50 ML VIAL ONE (04:27)
[2020-05-13] MEDS: metroNIDAZOLE 500 MG/100 ML 500 MG/100 ML BAG IV SCH (05:59)
--- NOTE | 2020-05-13 07:22 | PROVIDER PROGRESS NOTE ---
Objective - Vital Signs/Intake & Output Vital Signs: Vital Signs Pulse Resp BP Pulse Ox 05/13/20 06:00 72 30 H 83/69 L 79 L 05/13/20 04:00 96 36 H 143/119 H 100 Intake & Output: Intake & Output 05/10/20 05/11/20 05/12/20 05/13/20 23:59 23:59 23:59 23:59 Intake Total 350 1808.333 Output Total 215 Balance 350 1593.333 - Lab Results Fish Bones: 05/13/20 03:10 05/13/20 03:10 Other Labs: Lab Results x24hrs 05/13/20 05/13/20 05/13/20 Range/Units 03:10 03:10 03:10 WBC 14.4 H (4.8-10.8) x10^3/uL RBC 4.25 (4.20-5.40) 10^6/uL Hgb 12.9 (12.0-16.0) g/dL Hct 40.2 (37.0-47.0) % MCV 94.6 (81.0-99.0) fL MCH 30.4 (27.0-31.0) pg MCHC 32.1 (32.0-36.0) g/dL RDW 17.0 H (12.0-15.0) % Plt Count 221 (130-450) 10^3/uL MPV 11.5 H (7.9-10.8) fL Neut # (Auto) Not Reportable Lymph # (Auto) Not Reportable Navarro # (Auto) Not Reportable Eos # (Auto) Not Reportable Baso # (Auto) Not Reportable Absolute Nucleated RBC Not Reportable Total Counted 100 Band Neuts % (Manual) 14 H (0 - 10) % Abnorm Lymph % (Manual) 2 % Metamyelocytes % 3 H ( - 0) % Myelocytes % 8 H ( - 0) % Promyelocytes % 1 H ( - 0) % Nucleated RBC % Not Reportable Neutrophils # (Manual) 9.5 H (1.5-6.6) 10^3/uL Lymphocytes # (Manual) 2.3 (1.5-3.5) 10^3/uL Monocytes # (Manual) 0.9 (0.0-1.0) 10^3/uL Eosinophils # (Manual) 0.0 (0-0.7) 10^3/uL Basophils # (Manual) 0.0 (0-0.1) 10^3/uL Differential Comment MANUAL DIFFERENTIAL WBC Morphology NORMAL APPEARANCE (NORMAL) Platelet Estimate NORMAL (130-450,000) (NORMAL) Platelet Morphology NORMAL APPEARANCE (NORMAL) RBC Morph Micro Appear 1+ ANISOCYTOSIS (NORMAL) Bld Gas Analysis Time Sample Site ABG pH (7.35-7.45) ABG pCO2 (34-45) mmHg ABG pO2 (80-100) mmHg ABG HCO3 (22.0-26.0) mmol/L ABG Total CO2 (21.0-29.0) MMOL/L ABG O2 Saturation (94-98) % ABG Base Excess (-2.0-3.0) mmol/L Darrion Test VBG pH (7.31-7.41) VBG pCO2 (41-51) mmHg VBG pO2 (25-47) mmHg VBG HCO3 (23-28) mmol/L VBG Total CO2 (24-29) mmol/L VBG O2 Saturation (60-80) % VBG Base Excess (-2 - +2) mmol/L O2 Delivery Device O2 Liters/Min LPM FiO2 Sodium 129 L (135-145) mmol/L Potassium 5.4 H (3.5-5.0) mmol/L Chloride 101 (101-111) mmol/L Carbon Dioxide 10 L* (21-32) mmol/L Anion Gap 18.0 H (6-13) BUN 74 H (6-20) mg/dL Creatinine 2.6 H (0.4-1.0) mg/dL Estimated GFR (MDRD) 18 L (>89) Glucose 45 L* (70-100) mg/dL Lactic Acid 7.6 H* (0.5-2.2) mmol/L Calcium 7.3 L (8.5-10.3) mg/dL Total Bilirubin (0.2-1.0) mg/dL AST (10-42) IU/L ALT (10-60) IU/L Alkaline Phosphatase (42-121) IU/L Troponin I High Sens (2.3-14.8) ng/L Total Protein (6.7-8.2) g/dL Albumin (3.2-5.5) g/dL Globulin (2.1-4.2) g/dL Albumin/Globulin Ratio (1.0-2.2) Lipase (22-51) U/L Nasal Adenovirus (PCR) Nasal B. parapertussis DNA (PCR) Nasal Coronavir 229E PCR Nasal Coronavir HKU1 PCR Nasal Coronavir NL63 PCR Nasal Coronavir OC43 PCR Nasal Enterovir/Rhinovir PCR Nasal Influenza B PCR Nasal Influenza A PCR Nasal Parainfluen 1 PCR Nasal Parainfluen 2 PCR Nasal Parainfluen 3 PCR Nasal Parainfluen 4 PCR Nasal RSV (PCR) Nasal B.pertussis DNA PCR Nasal C.pneumoniae (PCR) Calos Human Metapneumo PCR Nasal M.pneumoniae (PCR) Nasal SARS-CoV-2 (PCR) 05/12/20 05/12/20 05/12/20 Range/Units 23:52 20:34 16:55 WBC (4.8-10.8) x10^3/uL RBC (4.20-5.40) 10^6/uL Hgb (12.0-16.0) g/dL Hct (37.0-47.0) % MCV (81.0-99.0) fL MCH (27.0-31.0) pg MCHC (32.0-36.0) g/dL RDW (12.0-15.0) % Plt Count (130-450) 10^3/uL MPV (7.9-10.8) fL Neut # (Auto) Lymph # (Auto) Navarro # (Auto) Eos # (Auto) Baso # (Auto) Absolute Nucleated RBC Total Counted Band Neuts % (Manual) (0 - 10) % Abnorm Lymph % (Manual) % Metamyelocytes % ( - 0) % Myelocytes % ( - 0) % Promyelocytes % ( - 0) % Nucleated RBC % Neutrophils # (Manual) (1.5-6.6) 10^3/uL Lymphocytes # (Manual) (1.5-3.5) 10^3/uL Monocytes # (Manual) (0.0-1.0) 10^3/uL Eosinophils # (Manual) (0-0.7) 10^3/uL Basophils # (Manual) (0-0.1) 10^3/uL Differential Comment WBC Morphology (NORMAL) Platelet Estimate (NORMAL) Platelet Morphology (NORMAL) RBC Morph Micro Appear (NORMAL) Bld Gas Analysis Time 1655 Sample Site LEFT BRACHIAL ABG pH 7.17 L* (7.35-7.45) ABG pCO2 < 11 L* (34-45) mmHg ABG pO2 434 H* (80-100) mmHg ABG HCO3 3.8 L (22.0-26.0) mmol/L ABG Total CO2 4.2 L* (21.0-29.0) MMOL/L ABG O2 Saturation 96 (94-98) % ABG Base Excess -21.9 L (-2.0-3.0) mmol/L Darrion Test NOT APPLICABLE VBG pH (7.31-7.41) VBG pCO2 (41-51) mmHg VBG pO2 (25-47) mmHg VBG HCO3 (23-28) mmol/L VBG Total CO2 (24-29) mmol/L VBG O2 Saturation (60-80) % VBG Base Excess (-2 - +2) mmol/L O2 Delivery Device NON REBREATHER MASK O2 Liters/Min 15.00 LPM FiO2 100.00 Sodium (135-145) mmol/L Potassium (3.5-5.0) mmol/L Chloride (101-111) mmol/L Carbon Dioxide (21-32) mmol/L Anion Gap (6-13) BUN (6-20) mg/dL Creatinine (0.4-1.0) mg/dL Estimated GFR (MDRD) (>89) Glucose (70-100) mg/dL Lactic Acid 6.8 H* 9.4 H* (0.5-2.2) mmol/L Calcium (8.5-10.3) mg/dL Total Bilirubin (0.2-1.0) mg/dL AST (10-42) IU/L ALT (10-60) IU/L Alkaline Phosphatase (42-121) IU/L Troponin I High Sens (2.3-14.8) ng/L Total Protein (6.7-8.2) g/dL Albumin (3.2-5.5) g/dL Globulin (2.1-4.2) g/dL Albumin/Globulin Ratio (1.0-2.2) Lipase (22-51) U/L Nasal Adenovirus (PCR) Nasal B. parapertussis DNA (PCR) Nasal Coronavir 229E PCR Nasal Coronavir HKU1 PCR Nasal Coronavir NL63 PCR Nasal Coronavir OC43 PCR Nasal Enterovir/Rhinovir PCR Nasal Influenza B PCR Nasal Influenza A PCR Nasal Parainfluen 1 PCR Nasal Parainfluen 2 PCR Nasal Parainfluen 3 PCR Nasal Parainfluen 4 PCR Nasal RSV (PCR) Nasal B.pertussis DNA PCR Nasal C.pneumoniae (PCR) Calos Human Metapneumo PCR Nasal M.pneumoniae (PCR) Nasal SARS-CoV-2 (PCR) 05/12/20 05/12/20 05/12/20 Range/Units 16:40 16:40 16:04 WBC (4.8-10.8) x10^3/uL RBC (4.20-5.40) 10^6/uL Hgb (12.0-16.0) g/dL Hct (37.0-47.0) % MCV (81.0-99.0) fL MCH (27.0-31.0) pg MCHC (32.0-36.0) g/dL RDW (12.0-15.0) % Plt Count (130-450) 10^3/uL MPV (7.9-10.8) fL Neut # (Auto) Lymph # (Auto) [place]arro # (Auto) Eos # (Auto) Baso # (Auto) Absolute Nucleated RBC Total Counted Band Neuts % (Manual) (0 - 10) % Abnorm Lymph % (Manual) % Metamyelocytes % ( - 0) % Myelocytes % ( - 0) % Promyelocytes % ( - 0) % Nucleated RBC % Neutrophils # (Manual) (1.5-6.6) 10^3/uL Lymphocytes # (Manual) (1.5-3.5) 10^3/uL Monocytes # (Manual) (0.0-1.0) 10^3/uL Eosinophils # (Manual) (0-0.7) 10^3/uL Basophils # (Manual) (0-0.1) 10^3/uL Differential Comment WBC Morphology (NORMAL) Platelet Estimate (NORMAL) Platelet Morphology (NORMAL) RBC Morph Micro Appear (NORMAL) Bld Gas Analysis Time Sample Site ABG pH (7.35-7.45) ABG pCO2 (34-45) mmHg ABG pO2 (80-100) mmHg ABG HCO3 (22.0-26.0) mmol/L ABG Total CO2 (21.0-29.0) MMOL/L ABG O2 Saturation (94-98) % ABG Base Excess (-2.0-3.0) mmol/L Darrion Test VBG pH 7.049 L (7.31-7.41) VBG pCO2 26.8 L (41-51) mmHg VBG pO2 43.3 (25-47) mmHg VBG HCO3 7.2 L (23-28) mmol/L VBG Total CO2 8.1 L (24-29) mmol/L VBG O2 Saturation 57.7 L (60-80) % VBG Base Excess -22.0 L (-2 - +2) mmol/L O2 Delivery Device O2 Liters/Min LPM FiO2 Sodium (135-145) mmol/L Potassium (3.5-5.0) mmol/L Chloride (101-111) mmol/L Carbon Dioxide (21-32) mmol/L Anion Gap (6-13) BUN (6-20) mg/dL Creatinine (0.4-1.0) mg/dL Estimated GFR (MDRD) (>89) Glucose (70-100) mg/dL Lactic Acid > 10.0 H* (0.5-2.2) mmol/L Calcium (8.5-10.3) mg/dL Total Bilirubin (0.2-1.0) mg/dL AST (10-42) IU/L ALT (10-60) IU/L Alkaline Phosphatase (42-121) IU/L Troponin I High Sens (2.3-14.8) ng/L Total Protein (6.7-8.2) g/dL Albumin (3.2-5.5) g/dL Globulin (2.1-4.2) g/dL Albumin/Globulin Ratio (1.0-2.2) Lipase (22-51) U/L Nasal Adenovirus (PCR) NOT DETECTED Nasal B. parapertussis DNA (PCR) NOT DETECTED Nasal Coronavir 229E PCR NOT DETECTED Nasal Coronavir HKU1 PCR NOT DETECTED Nasal Coronavir NL63 PCR NOT DETECTED Nasal Coronavir OC43 PCR NOT DETECTED Nasal Enterovir/Rhinovir PCR NOT DETECTED Nasal Influenza B PCR NOT DETECTED Nasal Influenza A PCR NOT DETECTED Nasal Parainfluen 1 PCR NOT DETECTED Nasal Parainfluen 2 PCR NOT DETECTED Nasal Parainfluen 3 PCR NOT DETECTED Nasal Parainfluen 4 PCR NOT DETECTED Nasal RSV (PCR) NOT DETECTED Nasal B.pertussis DNA PCR NOT DETECTED Nasal C.pneumoniae (PCR) NOT DETECTED Calos Human Metapneumo PCR NOT DETECTED Nasal M.pneumoniae (PCR) NOT DETECTED Nasal SARS-CoV-2 (PCR) NOT DETECTED 05/12/20 05/12/20 05/12/20 Range/Units 16:00 16:00 16:00 WBC 18.7 H (4.8-10.8) x10^3/uL RBC 4.98 (4.20-5.40) 10^6/uL Hgb 15.5 (12.0-16.0) g/dL Hct 48.4 H (37.0-47.0) % MCV 97.2 (81.0-99.0) fL MCH 31.1 H (27.0-31.0) pg MCHC 32.0 (32.0-36.0) g/dL RDW 16.9 H (12.0-15.0) % Plt Count 346 (130-450) 10^3/uL MPV 11.5 H (7.9-10.8) fL Neut # (Auto) Not Reportable Lymph # (Auto) Not Reportable [place]arro # (Auto) Not Reportable Eos # (Auto) Not Reportable Baso # (Auto) Not Reportable Absolute Nucleated RBC Not Reportable Total Counted 100 Band Neuts % (Manual) 14 H (0 - 10) % Abnorm Lymph % (Manual) 0 % Metamyelocytes % 2 H ( - 0) % Myelocytes % ( - 0) % Promyelocytes % ( - 0) % Nucleated RBC % Not Reportable Neutrophils # (Manual) 12.9 H (1.5-6.6) 10^3/uL Lymphocytes # (Manual) 2.6 (1.5-3.5) 10^3/uL Monocytes # (Manual) 2.4 H (0.0-1.0) 10^3/uL Eosinophils # (Manual) 0.4 (0-0.7) 10^3/uL Basophils # (Manual) 0.0 (0-0.1) 10^3/uL Differential Comment MANUAL DIFFERENTIAL WBC Morphology (NORMAL) Platelet Estimate NORMAL (130-450,000) (NORMAL) Platelet Morphology NORMAL APPEARANCE (NORMAL) RBC Morph Micro Appear NORMAL APPEARANCE (NORMAL) Bld Gas Analysis Time Sample Site ABG pH (7.35-7.45) ABG pCO2 (34-45) mmHg ABG pO2 (80-100) mmHg ABG HCO3 (22.0-26.0) mmol/L ABG Total CO2 (21.0-29.0) MMOL/L ABG O2 Saturation (94-98) % ABG Base Excess (-2.0-3.0) mmol/L Darrion Test VBG pH (7.31-7.41) VBG pCO2 (41-51) mmHg VBG pO2 (25-47) mmHg VBG HCO3 (23-28) mmol/L VBG Total CO2 (24-29) mmol/L VBG O2 Saturation (60-80) % VBG Base Excess (-2 - +2) mmol/L O2 Delivery Device O2 Liters/Min LPM FiO2 Sodium 127 L (135-145) mmol/L Potassium 3.8 (3.5-5.0) mmol/L Chloride 87 L (101-111) mmol/L Carbon Dioxide 8 L* (21-32) mmol/L Anion Gap 32.0 H (6-13) BUN 66 H (6-20) mg/dL Creatinine 2.9 H (0.4-1.0) mg/dL Estimated GFR (MDRD) 16 L (>89) Glucose 200 H (70-100) mg/dL Lactic Acid (0.5-2.2) mmol/L Calcium 9.1 (8.5-10.3) mg/dL Total Bilirubin 0.8 (0.2-1.0) mg/dL AST 47 H (10-42) IU/L ALT < 10 L (10-60) IU/L Alkaline Phosphatase 174 H (42-121) IU/L Troponin I High Sens 78.7 H* (2.3-14.8) ng/L Total Protein 7.2 (6.7-8.2) g/dL Albumin 3.3 (3.2-5.5) g/dL Globulin 3.9 (2.1-4.2) g/dL Albumin/Globulin Ratio 0.8 L (1.0-2.2) Lipase 18 L (22-51) U/L Nasal Adenovirus (PCR) Nasal B. parapertussis DNA (PCR) Nasal Coronavir 229E PCR Nasal Coronavir HKU1 PCR Nasal Coronavir NL63 PCR Nasal Coronavir OC43 PCR Nasal Enterovir/Rhinovir PCR Nasal Influenza B PCR Nasal Influenza A PCR Nasal Parainfluen 1 PCR Nasal Parainfluen 2 PCR Nasal Parainfluen 3 PCR Nasal Parainfluen 4 PCR Nasal RSV (PCR) Nasal B.pertussis DNA PCR Nasal C.pneumoniae (PCR) Calos Human Metapneumo PCR Nasal M.pneumoniae (PCR) Nasal SARS-CoV-2 (PCR) Sepsis Event Note (H) - Evaluation Current Stage of Sepsis: Sepsis Possible source of Sepsis: positive: Unknown - Sepsis Criteria Sepsis Criteria: Suspected or Documented, Recorded Heart Rate greater than 90 bpm, Recorded Respiratory Rate greater than 20, Respiratory: Increasing oxygen requirements, WBC count greater than 10% bands, WBC count greater than 12,000 or less than 4000, APPLICATION DEFENSE MANAGER: altered consciousness (unrelated to primary neuro pathology), Renal: urine output less than 0.5ml/kg/hr for 2 hours or creatinine gr, Metabolic: lactate > 2 mmol/L
[2020-05-13] MEDS ORDERED: LACTATED RINGERS 1,000 ML IV ONE ×2 (07:34→13:08)
--- NOTE | 2020-05-13 08:06 | XRAY Report ---
PROCEDURE: Chest for Line Placement INDICATIONS: central line placement TECHNIQUE: One view of the chest was acquired. COMPARISON: 05/12/2020 FINDINGS: Surgical changes and devices: Central venous catheter is in place with tip projecting to the distal S VC via a right IJ approach cervical spine fixation hardware is stable.. Lungs and pleura: No pleural effusions or pneumothorax. Lungs are clear. Mediastinum: Mediastinal contours appear normal. Heart size is normal. Bones and chest wall: No suspicious bony lesions. Overlying soft tissues appear unremarkable. IMPRESSION: No acute cardiopulmonary disease process. Tip of central venous catheter at the distal SVC. Reviewed by: Marjorie Tadeo MD, PhD on 05/13/2020 8:04 AM PST Approved by: Marjorie Tadeo MD, PhD on 05/13/2020 8:04 AM PST Station ID: [id number]
[2020-05-13] MEDS: SODIUM CHLORIDE FLUSH 0.9% 10 ML SYRINGE IVP SCH (08:07)
--- NOTE | 2020-05-13 08:41 | Ultrasound Report ---
PROCEDURE: Retroperitoneal INDICATIONS: anuric TECHNIQUE: Real-time scanning was performed of the kidneys and bladder, with image documentation. COMPARISON: CT abdomen pelvis 05/12/2020, ultrasound abdomen 03/19/2020. FINDINGS: Kidneys: Right kidney measures 6.5 cm long; left kidney measures 5.7 cm long. Right renal cortical thickness is 0.5 cm; left renal cortical thickness is 0.5 cm. There is preserved cortical medullary differentiation. No hydronephrosis. Bladder: The urinary bladder was nondistended and not well visualized. Miscellaneous: No free abdominal fluid. IMPRESSION: 1. Atrophic appearance of the kidneys with renal cortical thinning bilaterally. 2. No evidence of hydronephrosis. Reviewed by: Ermias Gupta MD on 05/13/2020 8:39 AM [facility] Approved by: Ermias Gupta MD on 05/13/2020 8:39 AM [facility] Station ID: [id number]
[2020-05-13] MEDS ORDERED: DEXTROSE 25% ABBOJECT 2.5 GM/10 ML SYRINGE IVP ONE (09:10)
[2020-05-13] MEDS ORDERED: DEXTROSE 50% ABBOJECT 25 GM/50 ML SYRINGE ONE (09:21)
[2020-05-13 10:13] LABS: CALCIUM 5.9 mg/dL (8.5-10.3); CREATININE 2.4 mg/dL (0.4-1.0)
[2020-05-13 11:53] LABS: ALBUMIN 1.1 g/dL (3.2-5.5); ALKALINE PHOSPHATASE 131 IU/L (42-121); ALT ALANINE AMINOTRANSFERASE 1073 IU/L (10-60); AST ASPARTATE AMINOTRANSFERASE 2321 IU/L (10-42); BILIRUBIN,DIRECT 0.3 mg/dL (0.1-0.5); BILIRUBIN,TOTAL 0.8 mg/dL (0.2-1.0)
[2020-05-13 11:54] LABS: TOTAL PROTEIN < 3.0 g/dL (6.7-8.2)
[2020-05-13] MEDS ORDERED: CALCIUM GLUCONATE 2,000 MG in SODIUM CHLORIDE 0.9% 100ML 100 ML IV SCH (12:00)
[2020-05-13 12:18] LABS: MAGNESIUM 1.8 mg/dL (1.7-2.8); PHOSPHORUS 7.9 mg/dL (2.5-4.6)
--- NOTE | 2020-05-13 13:50 | Discharge Plan ---
Discharge Plan Problem Reviewed?: Yes Disposition: 20 No Smoking: If you smoke, Please STOP! Call for help.
--- NOTE | 2020-05-13 13:51 | DISCHARGE SUMMARY ---
"Discharge Summary Admit Date: 05/12/20 Discharge Date: 05/13/20 Discharging Provider: Kendrick Smith Code Status: Do Not Attempt Resuscitation Discharge Disposition: 20 - DIAGNOSES Admission Diagnoses: Sepsis Dehydration Acute kidney injury Hallucination Diarrhea Dysphagia Malnutrition Discharge Diagnoses with Status of Each Condition: Severe sepsis with septic shock Gram-negative bacteremia Lactic acidosis Encephalopathy Acute renal failure Diarrhea Hyponatremia Moderate malnutrition - HPI History of Present Illness: H&P on admission: Patient is a 80-year-old female with a history of hypertension, hyperlipidemia, hypothyroidism, GERD, PAD, and significant for diarrhea for the last couple of months. She was recently admitted to the hospital for fecal impaction on 03/19/2020 and diarrhea on 04/22/2020. The patient is intermittently confused and is alert and oriented to self and place. She is able to answer some questions but rambles and goes off tangent. Her interjects and answers most of the questions for her. Per patient's Edmund, she has not gotten better since her last hospitalization. Her is concern that patient will if she does not go to the hospital, thus, he brought her to the emergency room. According to Edmund, the patient has been increasingly confused and frequently hallucinating the past several days. She has not been eating or drinking at home in the last few days. She is incontinent and uses adult diapers. Her reports only seeing spotting of urine and non-bloody diarrhea the past 3-4 days. Additionally, patient has not been out of bed for two days because of increasing fatigue and weakness. She also developed a non-productive cough 4 days ago. She has not developed a fever per her . Patient denies having chills, fever, but feels extremely weak. She endorses feeling short of breath the last 4 days with a cough. No chest pain or palpitations. She denies nausea, vomiting, or abdominal pain. She says she has not have an appetite and has not eaten or drunken very much the last few days. She agrees with her that she has been experiencing diarrhea and minimal urine output. Upon arrival to the ED, she was hypothermic with a temperature of 33 oral, 35.3 rectal. She is slightly tachycardic in the low 100s. She was short of breath with O2 saturation in the 82% on room air initially and was put on a 100% non- rebreather. Her work of breathing improved and she was weaned to a nasal cannula. Her lab results are significant for a WBC of 18, lactate >10, creatinine of 2.9, Anion gap 32. Blood cultures drawn and is pending. Based on her physical exam and lab work, it is concerned that she is septic. IV vancomycin was given in the emergency room along with a liter of LR for dehydration. Patient is being admitted to the ICU for sepsis. - CONSULTS | PROCEDURES Procedures: CT of the abdomen pelvis without contrast on admission showed prominent fluid- filled loops of colon reportedly the right and transverse colon. No definitive source of obstruction was ever identified. No significant stool. - HOSPITAL COURSE Hospital Course: She was admitted to the intensive care unit for severe sepsis secondary to an unclear source. She initially hypothermic with an elevated white count and a severe lactic acidosis as well as acute renal failure. She was treated emp irically with vancomycin, cefepime, Flagyl IV. She is started on a bicarbonate drip given the significant acidosis. She was given multiple liters of lactated Ringer's. Despite IV fluids, her lactic acid did initially trend down but began to rise again and remained persistently greater than 10. The patient remained encephalopathic throughout this hospitalization with hallucinations. Her renal function did improve but she remained oliguric. Her blood cultures on admission grew gram-negative bacilli. There was no obvious source of infection except for the bacteremia. Urinalysis had been ordered but due to poor urine output, this was never obtained. She did have diarrhea and this was sent for culture including C. difficile but this was also negative. She also became hypoglycemic and required multiple amps of dextrose. She did become hypotensive requiring norepinephrine for a brief period of time but this was able to be weaned off in less than 2 hours. Given her persistently elevated lactic acid and ongoing diarrhea as well as abdominal pain on exam, there was concern for ischemic bowel. A repeat CT of the abdomen pelvis was ordered without contrast. Unfortunately, as the patient was returning from imaging, she went into asystole. She had already been a DNR/DNI. Her was at bedside and was notified. Throughout the hospitalization, her was updated frequently on the patient's poor prognosis and critical illness. - ALLERGIES Allergies/Adverse Reactions: Allergies Allergy/AdvReac Type Severity Reaction Status Date / Time No Known Drug Allergies Allergy Verified 04/22/20 11:11 - MEDICATIONS Home Medications: Ambulatory Orders Medication Instructions Recorded Confirmed Omeprazole Magnesium 20 mg PO BID 04/23/20 05/13/20 polyethylene glycoL 3350 [Miralax] 17 gm PO PRN PRN 04/23/20 05/13/20 ALPRAZolam [Alprazolam] 0.5 mg PO PRN PRN 05/13/20 05/13/20 Colchicine 0.6 mg PO DAILY 05/13/20 05/13/20 Cyclobenzaprine [Flexeril] 10 mg PO PRN PRN 05/13/20 05/13/20 Furosemide [Lasix] 40 mg PO DAILY 05/13/20 05/13/20 Lansoprazole [Prevacid] 30 mg PO DAILY 05/13/20 05/13/20 Levothyroxine [Synthroid] 88 mcg PO DAILY 05/13/20 05/13/20 Simvastatin [Zocor] 20 mg PO DAILY 05/13/20 05/13/20 Spironolactone [Aldactone] 25 mg PO .MONWEDFRI 05/13/20 05/13/20 - PHYSICAL EXAM AT DISCHARGE Eyes Bilateral: positive: Other (Pupils dilated and fixed. Not reactive to light.) Respiratory: positive: Other (No spontaneous respirations.) Cardiovascular: positive: Other (No heart sounds.) Peripheral Pulses: positive: 0 Physical Exam Other/Comments: Vital Signs - 24 hr 05/12/20 05/12/20 05/12/20 18:36 18:38 18:55 Temperature 35.2 C L Heart Rate 96 101 H Heart Rate [ Monitoring electrodes] Respiratory 25 H 28 H Rate Blood Pressure 143/126 H 134/85 H Blood Pressure [Left Brachial artery] Blood Pressure [Right Brachial artery] O2 Saturation 05/12/20 05/12/20 05/12/20 20:00 21:00 21:30 Temperature 36.3 C L 36.7 C Heart Rate 103 H 102 H 103 H Heart Rate [ Monitoring electrodes] Respiratory 24 24 24 Rate Blood Pressure 122/74 124/77 119/70 Blood Pressure [Left Brachial artery] Blood Pressure [Right Brachial artery] O2 Saturation 97 97 96 05/12/20 05/13/20 05/13/20 22:10 00:00 01:00 Temperature 36.6 C Heart Rate Heart Rate [ 107 H 94 99 Monitoring electrodes] Respiratory 20 18 18 Rate Blood Pressure Blood Pressure 118/96 H 130/113 H 109/98 H [Left Brachial artery] Blood Pressure [Right Brachial artery] O2 Saturation 100 90 L 05/13/20 05/13/20 05/13/20 04:00 06:00 07:00 Temperature Heart Rate Heart Rate [ 96 72 88 Monitoring electrodes] Respiratory 36 H 30 H 29 H Rate Blood Pressure Blood Pressure 143/119 H 83/69 L [Left Brachial artery] Blood Pressure 126/97 H [Right Brachial artery] O2 Saturation 100 79 L 97 05/13/20 05/13/20 05/13/20 08:00 09:00 09:30 Temperature 35.1 C L 34.9 C L Heart Rate Heart Rate [ 84 82 89 Monitoring electrodes] Respiratory 30 H 31 H 35 H Rate Blood Pressure Blood Pressure [Left Brachial artery] Blood Pressure 127/100 H 98/65 93/72 [Right Brachial artery] O2 Saturation 100 100 98 05/13/20 05/13/20 05/13/20 10:50 11:00 11:15 Temperature 35.8 C L Heart Rate Heart Rate [ 108 H 95 94 Monitoring electrodes] Respiratory 28 H Rate Blood Pressure Blood Pressure [Left Brachial artery] Blood Pressure 73/52 L 111/68 134/93 H [Right Brachial artery] O2 Saturation 100 05/13/20 05/13/20 05/13/20 12:00 12:10 13:00 Temperature 36 C L 36.5 C Heart Rate Heart Rate [ 96 105 H 113 H Monitoring electrodes] Respiratory 28 H 17 Rate Blood Pressure Blood Pressure [Left Brachial artery] Blood Pressure 173/143 H 112/59 L 127/69 [Right Brachial artery] O2 Saturation 99 98 Oxygen O2 Source [With Activity] Room air O2 Source Nasal cannula - LABS Result Diagrams: 05/13/20 03:10 05/13/20 09:42 Other Lab Results: Laboratory Results - last 24 hr 05/12/20 05/12/20 05/12/20 16:04 20:34 22:20 WBC RBC Hgb Hct MCV MCH MCHC RDW Plt Count MPV Neut # (Auto) Lymph # (Auto) [place] # (Auto) Eos # (Auto) Baso # (Auto) Absolute Nucleated RBC Total Counted Band Neuts % (Manual) Abnorm Lymph % (Manual) Metamyelocytes % Myelocytes % Promyelocytes % Nucleated RBC % Neutrophils # (Manual) Lymphocytes # (Manual) Monocytes # (Manual) Eosinophils # (Manual) Basophils # (Manual) Differential Comment WBC Morphology Platelet Estimate Platelet Morphology RBC Morph Micro Appear Sodium Potassium Chloride Carbon Dioxide Anion Gap BUN Creatinine Estimated GFR (MDRD) Glucose POC Whole Bld Glucose Lactic Acid 9.4 H* Calcium Phosphorus Magnesium Total Bilirubin Direct Bilirubin AST ALT Alkaline Phosphatase Troponin I High Sens Total Protein Albumin Globulin TSH Nasal Adenovirus (PCR) NOT DETECTED Nasal B. parapertussis DNA (PCR) NOT DETECTED Nasal Coronavir 229E PCR NOT DETECTED Nasal Coronavir HKU1 PCR NOT DETECTED Nasal Coronavir NL63 PCR NOT DETECTED Nasal Coronavir OC43 PCR NOT DETECTED Nasal Enterovir/Rhinovir PCR NOT DETECTED Nasal Influenza B PCR NOT DETECTED Nasal Influenza A PCR NOT DETECTED Nasal Parainfluen 1 PCR NOT DETECTED Nasal Parainfluen 2 PCR NOT DETECTED Nasal Parainfluen 3 PCR NOT DETECTED Nasal Parainfluen 4 PCR NOT DETECTED Nasal RSV (PCR) NOT DETECTED Nasal Screen MRSA (PCR) NEGATIVE Nasal B.pertussis DNA PCR NOT DETECTED Nasal C.pneumoniae (PCR) NOT DETECTED [place] Human Metapneumo PCR NOT DETECTED Nasal M.pneumoniae (PCR) NOT DETECTED Nasal SARS-CoV-2 (PCR) NOT DETECTED Stl C. diff Tox B Gene 05/12/20 05/13/20 05/13/20 23:52 03:10 03:10 WBC 14.4 H RBC 4.25 Hgb 12.9 Hct 40.2 MCV 94.6 MCH 30.4 MCHC 32.1 RDW 17.0 H Plt Count 221 MPV 11.5 H Neut # (Auto) Not Reportable Lymph # (Auto) Not Reportable [place] # (Auto) Not Reportable Eos # (Auto) Not Reportable Baso # (Auto) Not Reportable Absolute Nucleated RBC Not Reportable Total Counted 100 Band Neuts % (Manual) 14 H Abnorm Lymph % (Manual) 2 Metamyelocytes % 3 H Myelocytes % 8 H Promyelocytes % 1 H Nucleated RBC % Not Reportable Neutrophils # (Manual) 9.5 H Lymphocytes # (Manual) 2.3 Monocytes # (Manual) 0.9 Eosinophils # (Manual) 0.0 Basophils # (Manual) 0.0 Differential Comment MANUAL DIFFERENTIAL WBC Morphology NORMAL APPEARANCE Platelet Estimate NORMAL (130-450,000) Platelet Morphology NORMAL APPEARANCE RBC Morph Micro Appear 1+ ANISOCYTOSIS Sodium 129 L Potassium 5.4 H Chloride 101 Carbon Dioxide 10 L* Anion Gap 18.0 H BUN 74 H Creatinine 2.6 H Estimated GFR (MDRD) 18 L Glucose 45 L* POC Whole Bld Glucose Lactic Acid 6.8 H* Calcium 7.3 L Phosphorus Magnesium Total Bilirubin Direct Bilirubin AST ALT Alkaline Phosphatase Troponin I High Sens Total Protein Albumin Globulin TSH Nasal Adenovirus (PCR) Nasal B. parapertussis DNA (PCR) Nasal Coronavir 229E PCR Nasal Coronavir HKU1 PCR Nasal Coronavir NL63 PCR Nasal Coronavir OC43 PCR Nasal Enterovir/Rhinovir PCR Nasal Influenza B PCR Nasal Influenza A PCR Nasal Parainfluen 1 PCR Nasal Parainfluen 2 PCR Nasal Parainfluen 3 PCR Nasal Parainfluen 4 PCR Nasal RSV (PCR) Nasal Screen MRSA (PCR) Nasal B.pertussis DNA PCR Nasal C.pneumoniae (PCR) [place] Human Metapneumo PCR Nasal M.pneumoniae (PCR) Nasal SARS-CoV-2 (PCR) Stl C. diff Tox B Gene 05/13/20 05/13/20 05/13/20 03:10 07:15 09:09 WBC RBC Hgb Hct MCV MCH MCHC RDW Plt Count MPV Neut # (Auto) Lymph # (Auto) [place] # (Auto) Eos # (Auto) Baso # (Auto) Absolute Nucleated RBC Total Counted Band Neuts % (Manual) Abnorm Lymph % (Manual) Metamyelocytes % Myelocytes % Promyelocytes % Nucleated RBC % Neutrophils # (Manual) Lymphocytes # (Manual) Monocytes # (Manual) Eosinophils # (Manual) Basophils # (Manual) Differential Comment WBC Morphology Platelet Estimate Platelet Morphology RBC Morph Micro Appear Sodium Potassium Chloride Carbon Dioxide Anion Gap BUN Creatinine Estimated GFR (MDRD) Glucose POC Whole Bld Glucose 21 L* Lactic Acid 7.6 H* 9.0 H* Calcium Phosphorus Magnesium Total Bilirubin Direct Bilirubin AST ALT Alkaline Phosphatase Troponin I High Sens Total Protein Albumin Globulin TSH Nasal Adenovirus (PCR) Nasal B. parapertussis DNA (PCR) Nasal Coronavir 229E PCR Nasal Coronavir HKU1 PCR Nasal Coronavir NL63 PCR Nasal Coronavir OC43 PCR Nasal Enterovir/Rhinovir PCR Nasal Influenza B PCR Nasal Influenza A PCR Nasal Parainfluen 1 PCR Nasal Parainfluen 2 PCR Nasal Parainfluen 3 PCR Nasal Parainfluen 4 PCR Nasal RSV (PCR) Nasal Screen MRSA (PCR) Nasal B.pertussis DNA PCR Nasal C.pneumoniae (PCR) [place] Human Metapneumo PCR Nasal M.pneumoniae (PCR) Nasal SARS-CoV-2 (PCR) Stl C. diff Tox B Gene 05/13/20 05/13/20 05/13/20 09:33 09:42 09:42 WBC RBC Hgb Hct MCV MCH MCHC RDW Plt Count MPV Neut # (Auto) Lymph # (Auto) [place] # (Auto) Eos # (Auto) Baso # (Auto) Absolute Nucleated RBC Total Counted Band Neuts % (Manual) Abnorm Lymph % (Manual) Metamyelocytes % Myelocytes % Promyelocytes % Nucleated RBC % Neutrophils # (Manual) Lymphocytes # (Manual) Monocytes # (Manual) Eosinophils # (Manual) Basophils # (Manual) Differential Comment WBC Morphology Platelet Estimate Platelet Morphology RBC Morph Micro Appear Sodium 124 L Potassium 5.3 H Chloride 96 L Carbon Dioxide 11 L* Anion Gap 17.0 H BUN 65 H Creatinine 2.4 H Estimated GFR (MDRD) 19 L Glucose 458 H POC Whole Bld Glucose 11 L* Lactic Acid 10.0 H* Calcium 5.9 L* Phosphorus Magnesium Total Bilirubin Direct Bilirubin AST ALT Alkaline Phosphatase Troponin I High Sens Total Protein Albumin Globulin TSH Nasal Adenovirus (PCR) Nasal B. parapertussis DNA (PCR) Nasal Coronavir 229E PCR Nasal Coronavir HKU1 PCR Nasal Coronavir NL63 PCR Nasal Coronavir OC43 PCR Nasal Enterovir/Rhinovir PCR Nasal Influenza B PCR Nasal Influenza A PCR Nasal Parainfluen 1 PCR Nasal Parainfluen 2 PCR Nasal Parainfluen 3 PCR Nasal Parainfluen 4 PCR Nasal RSV (PCR) Nasal Screen MRSA (PCR) Nasal B.pertussis DNA PCR Nasal C.pneumoniae (PCR) [place] Human Metapneumo PCR Nasal M.pneumoniae (PCR) Nasal SARS-CoV-2 (PCR) Stl C. diff Tox B Gene 05/13/20 05/13/20 05/13/20 09:42 09:45 09:45 WBC RBC Hgb Hct MCV MCH MCHC RDW Plt Count MPV Neut # (Auto) Lymph # (Auto) [place] # (Auto) Eos # (Auto) Baso # (Auto) Absolute Nucleated RBC Total Counted Band Neuts % (Manual) Abnorm Lymph % (Manual) Metamyelocytes % Myelocytes % Promyelocytes % Nucleated RBC % Neutrophils # (Manual) Lymphocytes # (Manual) Monocytes # (Manual) Eosinophils # (Manual) Basophils # (Manual) Differential Comment WBC Morphology Platelet Estimate Platelet Morphology RBC Morph Micro Appear Sodium Potassium Chloride Carbon Dioxide Anion Gap BUN Creatinine Estimated GFR (MDRD) Glucose POC Whole Bld Glucose Lactic Acid Calcium Phosphorus Magnesium Total Bilirubin 0.8 Direct Bilirubin 0.3 AST 2321 H ALT 1073 H Alkaline Phosphatase 131 H Troponin I High Sens 137.1 H* Total Protein < 3.0 L Albumin 1.1 L Globulin [employer] ARCHITECT TSH 0.44 Nasal Adenovirus (PCR) Nasal B. parapertussis DNA (PCR) Nasal Coronavir 229E PCR Nasal Coronavir HKU1 PCR Nasal Coronavir NL63 PCR Nasal Coronavir OC43 PCR Nasal Enterovir/Rhinovir PCR Nasal Influenza B PCR Nasal Influenza A PCR Nasal Parainfluen 1 PCR Nasal Parainfluen 2 PCR Nasal Parainfluen 3 PCR Nasal Parainfluen 4 PCR Nasal RSV (PCR) Nasal Screen MRSA (PCR) Nasal B.pertussis DNA PCR Nasal C.pneumoniae (PCR) [place] Human Metapneumo PCR Nasal M.pneumoniae (PCR) Nasal SARS-CoV-2 (PCR) Stl C. diff Tox B Gene 05/13/20 05/13/20 05/13/20 09:45 09:53 11:05 WBC RBC Hgb Hct MCV MCH MCHC RDW Plt Count MPV Neut # (Auto) Lymph # (Auto) [place] # (Auto) Eos # (Auto) Baso # (Auto) Absolute Nucleated RBC Total Counted Band Neuts % (Manual) Abnorm Lymph % (Manual) Metamyelocytes % Myelocytes % Promyelocytes % Nucleated RBC % Neutrophils # (Manual) Lymphocytes # (Manual) Monocytes # (Manual) Eosinophils # (Manual) Basophils # (Manual) Differential Comment WBC Morphology Platelet Estimate Platelet Morphology RBC Morph Micro Appear Sodium Potassium Chloride Carbon Dioxide Anion Gap BUN Creatinine Estimated GFR (MDRD) Glucose POC Whole Bld Glucose 193 H Lactic Acid > 10.0 H* Calcium Phosphorus 7.9 H Magnesium 1.8 Total Bilirubin Direct Bilirubin AST ALT Alkaline Phosphatase Troponin I High Sens Total Protein Albumin Globulin TSH Nasal Adenovirus (PCR) Nasal B. parapertussis DNA (PCR) Nasal Coronavir 229E PCR Nasal Coronavir HKU1 PCR Nasal Coronavir NL63 PCR Nasal Coronavir OC43 PCR Nasal Enterovir/Rhinovir PCR Nasal Influenza B PCR Nasal Influenza A PCR Nasal Parainfluen 1 PCR Nasal Parainfluen 2 PCR Nasal Parainfluen 3 PCR Nasal Parainfluen 4 PCR Nasal RSV (PCR) Nasal Screen MRSA (PCR) Nasal B.pertussis DNA PCR Nasal C.pneumoniae (PCR) [place] Human Metapneumo PCR Nasal M.pneumoniae (PCR) Nasal SARS-CoV-2 (PCR) Stl C. diff Tox B Gene 05/13/20 05/13/20 05/13/20 11:11 11:15 12:22 WBC RBC Hgb Hct MCV MCH MCHC RDW Plt Count MPV Neut # (Auto) Lymph # (Auto) [place] # (Auto) Eos # (Auto) Baso # (Auto) Absolute Nucleated RBC Total Counted Band Neuts % (Manual) Abnorm Lymph % (Manual) Metamyelocytes % Myelocytes % Promyelocytes % Nucleated RBC % Neutrophils # (Manual) Lymphocytes # (Manual) Monocytes # (Manual) Eosinophils # (Manual) Basophils # (Manual) Differential Comment WBC Morphology Platelet Estimate Platelet Morphology RBC Morph Micro Appear Sodium Potassium Chloride Carbon Dioxide Anion Gap BUN Creatinine Estimated GFR (MDRD) Glucose POC Whole Bld Glucose 103 H Lactic Acid > 10.0 H* Calcium Phosphorus Magnesium Total Bilirubin Direct Bilirubin AST ALT Alkaline Phosphatase Troponin I High Sens Total Protein Albumin Globulin TSH Nasal Adenovirus (PCR) Nasal B. parapertussis DNA (PCR) Nasal Coronavir 229E PCR Nasal Coronavir HKU1 PCR Nasal Coronavir NL63 PCR Nasal Coronavir OC43 PCR Nasal Enterovir/Rhinovir PCR Nasal Influenza B PCR Nasal Influenza A PCR Nasal Parainfluen 1 PCR Nasal Parainfluen 2 PCR Nasal Parainfluen 3 PCR Nasal Parainfluen 4 PCR Nasal RSV (PCR) Nasal Screen MRSA (PCR) Nasal B.pertussis DNA PCR Nasal C.pneumoniae (PCR) [place] Human Metapneumo PCR Nasal M.pneumoniae (PCR) Nasal SARS-CoV-2 (PCR) Stl C. diff Tox B Gene NEGATIVE - DIAGNOSTIC IMAGING Diagnostic Imaging Results: Final report reviewed - SEPSIS Current Stage of Sepsis: Septic shock Possible source of Sepsis: Unknown Sepsis Criteria: Suspected or Documented, Recorded Temperature greater than 38.3C or Less than 36C, Recorded Heart Rate greater than 90 bpm, Recorded Respiratory Rate greater than 20, Respiratory: Increasing oxygen requirements, WBC count greater than 10% bands, WBC count greater than 12,000 or less than 4000, [employer]: altered consciousness (unrelated to primary neuro pathology), SBP drop more than 40mHg, Renal: urine output less than 0.5ml/kg/hr for 2 hours or creatinine gr, Metabolic: lactate > 2 mmol/L"
--- NOTE | 2020-05-13 14:29 | CT Report ---
PROCEDURE: Abdomen/Pelvis WO INDICATIONS: Worsening abdominal pain. Lactic acid. Diarrhea. TECHNIQUE: Noncontrast 5 mm thick sections acquired from the diaphragms to the symphysis. 5 mm coronal and sagi ttal reformats were then performed. For radiation dose reduction, the following was used: automated exposure control, adjustment of mA and/or kV according to patient size. COMPARISON: CT abdomen pelvis 05/12/2020.. FINDINGS: Image quality: Excellent. ABDOMEN: Lung bases: There has been interval development of mild left and minimal right pleural effusions. Pat anila areas of nodular opacity are present within the bases bilaterally, new compared to prior exam. He art size is normal. Trace pericardial effusion. Solid organs: Liver and spleen are normal in size. Gallbladder has been removed Pancreas is normal in contours. No adrenal nodules. Kidneys are normal in size, without hydronephrosis or nephrolithi asis. Peritoneum and bowel: As identified on prior exam, there are are prominent fluid-filled loops of colo n identified. Overall, these appear relatively less prominent. However, there has been interval devel opment of a focal loop of thickened descending colon within the left lower quadrant with surrounding inflammatory change. Nodes and vessels: No retroperitoneal or mesenteric adenopathy by size criteria. Aorta and inferior vena cava are normal in caliber. Miscellaneous: No ventral hernias. PELVIS: Genitourinary: Bladder wall thickness is normal. Miscellaneous: No inguinal hernias or adenopathy. Bones: No suspicious bony lesions. No vertebral body compression fractures. IMPRESSION: 1. Previous noted dilated loops of colon remain present although slightly less prominent. 2. Interval development of a focal loop of descending colon demonstrating thickening and surrounding inflammatory change within the left lower quadrant, new compared to prior exam. Appearance is suggest trice of a focal area of inflammation, suspected to be related to colitis. Reviewed by: Xochitl Laguerre MD on 05/13/2020 1:28 PM [facility] Approved by: Xochitl Laguerre MD on 05/13/2020 1:28 PM [facility] Station ID: [id number]
[2020-05-13 14:40] VITALS: BP 127/69
[2020-05-13] MEDS ORDERED: VANCOMYCIN INJ 500 MG in SODIUM CHLORIDE 0.9% MINIBAG 100 ML IV SCH (17:00)
[2020-05-14] MEDS ORDERED: VANCOMYCIN INJ 0.75 GM in SODIUM CHLORIDE 0.9% 250 ML IV SCH (17:00)
== END 2020-05-13 13:38 | disposition expired | DRG 871 ==
LOC: ED 15:35 → ICU 20:16
PROVIDERS: ADMIT Specialist; ATTEND Specialist
PROC: 02HV33Z Insertion of Infusion Device into Superior Vena Cava, Percutaneous Approach (ICD-10-PCS; principal; 2020-05-12)
PROC: B548ZZA Ultrasonography of Superior Vena Cava, Guidance (ICD-10-PCS; 2020-05-12)
DX: A41.50 Gram-negative sepsis, unspecified (principal); R65.21 Severe sepsis with septic shock; N17.9 Acute kidney failure, unspecified; E87.2 Acidosis; G93.40 Encephalopathy, unspecified; E87.1 Hypo-osmolality and hyponatremia; E44.0 Moderate protein-calorie malnutrition; R44.3 Hallucinations, unspecified; R64 Cachexia; R19.7 Diarrhea, unspecified; Z68.20 Body mass index [BMI] 20.0-20.9, adult; E86.0 Dehydration; R13.10 Dysphagia, unspecified; I10 Essential (primary) hypertension; E78.5 Hyperlipidemia, unspecified; E03.9 Hypothyroidism, unspecified; K21.9 Gastro-esophageal reflux disease without esophagitis; I73.9 Peripheral vascular disease, unspecified; R32 Unspecified urinary incontinence; E16.2 Hypoglycemia, unspecified; F03.90 Unspecified dementia, unspecified severity, without behavioral disturbance, psychotic disturbance, mood disturbance, and anxiety; Z66 Do not resuscitate; Z79.82 Long term (current) use of aspirin; Z79.899 Other long term (current) drug therapy; Z86.718 Personal history of other venous thrombosis and embolism; Z87.11 Personal history of peptic ulcer disease; Z87.891 Personal history of nicotine dependence
CPT/HCPCS: 36415; 36600; 51702; 71045; 71250; 74176; 76770; 80048; 80053; 80076; 81599; 82803; 83605; 83690; 83735; 84100; 84443; 84484; 85025; 87040; 87077; 87086; 87150; 87177; 87181; 87209; 87493; 87631; 93005; 96374; 96375; 99285; 99291; J3370; J7120; 0202U; 87045; 87046